=== PATIENT | male | born 1950 | race Caucasian/White ===

== ENCOUNTER 2022-01-31 19:16 | Inpatient (IN) | payer BC ==
--- NOTE | 2022-01-31 21:39 | ED ---
SOB HPI - General Chief Complaint: Shortness of Breath Stated Complaint: Recheck Time Seen by Provider: 01/31/22 21:18 Source: patient, family Mode of arrival: wheelchair - History of Present Illness Initial Comments: 71-year-old male with past history of hypertension, hyperlipidemia presents emergency Department with shortness of breath. States that it been going on for the past 6 weeks and is getting progressively worse. He saw his primary care physician who placed him on steroids. States he originally had some improvement in symptoms however they then returned. He has been having left-sided chest discomfort as well as discomfort in between his shoulder blades. Denies previous history of COPD or cardiac disease. No lower extremity swelling. Tonight he went to an urgent care in [place]. Chest x-ray was performed which demonstrated that the patient had fluid on his left lung. Patient arrives and has a fever. Denies sick contacts. Patient is not vaccinated against Covid. No other alleviating, precipitating or modifying factors - Related Data Home Medications Medication Instructions Recorded Confirmed Multivitamin [Multivitamins Adult 1 each PO DAILY 06/10/16 01/31/22 Gummies] Rosuvastatin Calcium [Crestor] 5 mg PO Q48H 06/10/16 01/31/22 Azithromycin [Zithromax] 500 mg PO DAILY 01/31/22 01/31/22 Cholecalciferol [Vitamin D3 (25 25 mcg PO DAILY 01/31/22 01/31/22 Mcg = 1000 Iu)] Elderberry Fruit and Flower [Black 1 cap PO DAILY 01/31/22 01/31/22 Elderberry 575 mg Cap] Irbesartan/Hydrochlorothiazide 1 tab PO HS 01/31/22 01/31/22 [Irbesartan-Hctz 300-12.5 mg Tb] Magnesium 250 mg PO DAILY 01/31/22 01/31/22 Vitamin B Complex 1 cap PO DAILY 01/31/22 01/31/22 Allergies Allergy/AdvReac Type Severity Reaction Status Date / Time No Known Allergies Allergy Verified 01/31/22 22:30 Review of Systems ROS Statement: Those systems with pertinent positive or pertinent negative responses have been documented in the HPI. ROS Other: All systems not noted in ROS Statement are negative. Past Medical History Past Medical History: Hyperlipidemia, Hypertension History of Any Multi-Drug Resistant Organisms: None Reported Additional Past Surgical History / Comment(s): toe amputation Past Psychological History: No Psychological Hx Reported Smoking Status: Never smoker Past Alcohol Use History: None Reported Past Drug Use History: None Reported - Past Family History Mother Family Medical History: No Reported History Father Family Medical History: Coronary Artery Disease (CAD) General Exam General appearance: alert, in no apparent distress Head exam: Present: atraumatic, normocephalic, normal inspection Eye exam: Present: normal appearance, PERRL, EOMI. Absent: scleral icterus, conjunctival injection, periorbital swelling ENT exam: Present: normal exam, mucous membranes moist Neck exam: Present: normal inspection. Absent: tenderness, meningismus, lymphadenopathy Respiratory exam: Present: decreased breath sounds (on the left). Absent: respiratory distress, wheezes, rales, rhonchi, stridor Cardiovascular Exam: Present: normal rhythm, tachycardia, normal heart sounds. Absent: systolic murmur, diastolic murmur, rubs, gallop, clicks GI/Abdominal exam: Present: soft, normal bowel sounds. Absent: distended, tenderness, guarding, rebound, rigid Extremities exam: Present: normal inspection, full ROM, normal capillary refill. Absent: tenderness, pedal edema, joint swelling, calf tenderness Back exam: Present: normal inspection Neurological exam: Present: alert, oriented X3, CN II-XII intact Psychiatric exam: Present: normal affect, normal mood Skin exam: Present: warm, dry, intact, normal color. Absent: rash Course Vital Signs 01/31/22 01/31/22 02/01/22 20:28 22:30 00:48 Temperature 100.5 F H 97.9 F Pulse Rate 106 H 71 Respiratory 19 18 18 Rate Blood Pressure 138/82 121/73 O2 Sat by Pulse 94 L 94 L Oximetry Medical Decision Making - Medical Decision Making Arrival patient is placed into room 5. History and physical exam was performed. IV access established laboratory studies were conducted. Patient does go over for CT of his chest which demonstrates a left lid of fluid collection on the left lung. Concern for empyema. Blood cultures obtained and patient started on Zosyn. Recommended admission for which the patient did agree to. Spoke with Dr. durant who agreed to admit the patient. He remained in stable condition awaiting a bed on the floor - Lab Data Result diagrams: 02/07/22 06:06 02/07/22 06:06 Lab Results 01/31/22 01/31/22 01/31/22 Range/Units 22:04 22:04 22:04 WBC 18.7 H (3.8-10.6) k/uL RBC 3.89 L (4.30-5.90) m/uL Hgb 11.6 L (13.0-17.5) gm/dL Hct 36.3 L (39.0-53.0) % MCV 93.3 (80.0-100.0) fL MCH 29.8 (25.0-35.0) pg MCHC 32.0 (31.0-37.0) g/dL RDW 12.3 (11.5-15.5) % Plt Count 305 (150-450) k/uL MPV 7.4 Neutrophils % 94 % Lymphocytes % 2 % Monocytes % 4 % Eosinophils % 1 % Basophils % 0 % Neutrophils # 17.5 H (1.3-7.7) k/uL Lymphocytes # 0.3 L (1.0-4.8) k/uL Monocytes # 0.7 (0-1.0) k/uL Eosinophils # 0.1 (0-0.7) k/uL Basophils # 0.1 (0-0.2) k/uL PT 11.2 (9.0-12.0) sec INR 1.0 (<1.2) APTT 26.0 (22.0-30.0) sec Sodium 129 L (137-145) mmol/L Potassium 4.3 (3.5-5.1) mmol/L Chloride 97 L (98-107) mmol/L Carbon Dioxide 23 (22-30) mmol/L Anion Gap 9 mmol/L BUN 26 H (9-20) mg/dL Creatinine 0.75 (0.66-1.25) mg/dL Est GFR (CKD-EPI)AfAm >90 (>60 ml/min/1.73 sqM) Est GFR (CKD-EPI)NonAf >90 (>60 ml/min/1.73 sqM) Glucose 208 H (74-99) mg/dL Plasma Lactic Acid Dylan (0.7-2.0) mmol/L Calcium 8.3 L (8.4-10.2) mg/dL Total Bilirubin 0.7 (0.2-1.3) mg/dL AST 31 (17-59) U/L ALT 33 (4-49) U/L Alkaline Phosphatase 87 (38-126) U/L Troponin I (0.000-0.034) ng/mL NT-Pro-B Natriuret Pep pg/mL Total Protein 5.8 L (6.3-8.2) g/dL Albumin 3.0 L (3.5-5.0) g/dL Coronavirus (PCR) (Not Detectd) Influenza Type A RNA (Not Detectd) Influenza Type B (PCR) (Not Detectd) 01/31/22 01/31/22 01/31/22 Range/Units 22:04 22:04 22:04 WBC (3.8-10.6) k/uL RBC (4.30-5.90) m/uL Hgb (13.0-17.5) gm/dL Hct (39.0-53.0) % MCV (80.0-100.0) fL MCH (25.0-35.0) pg MCHC (31.0-37.0) g/dL RDW (11.5-15.5) % Plt Count (150-450) k/uL MPV Neutrophils % % Lymphocytes % % Monocytes % % Eosinophils % % Basophils % % Neutrophils # (1.3-7.7) k/uL Lymphocytes # (1.0-4.8) k/uL Monocytes # (0-1.0) k/uL Eosinophils # (0-0.7) k/uL Basophils # (0-0.2) k/uL PT (9.0-12.0) sec INR (<1.2) APTT (22.0-30.0) sec Sodium (137-145) mmol/L Potassium (3.5-5.1) mmol/L Chloride (98-107) mmol/L Carbon Dioxide (22-30) mmol/L Anion Gap mmol/L BUN (9-20) mg/dL Creatinine (0.66-1.25) mg/dL Est GFR (CKD-EPI)AfAm (>60 ml/min/1.73 sqM) Est GFR (CKD-EPI)NonAf (>60 ml/min/1.73 sqM) Glucose (74-99) mg/dL Plasma Lactic Acid Dylan 0.7 (0.7-2.0) mmol/L Calcium (8.4-10.2) mg/dL Total Bilirubin (0.2-1.3) mg/dL AST (17-59) U/L ALT (4-49) U/L Alkaline Phosphatase (38-126) U/L Troponin I 0.022 (0.000-0.034) ng/mL NT-Pro-B Natriuret Pep 201 pg/mL Total Protein (6.3-8.2) g/dL Albumin (3.5-5.0) g/dL Coronavirus (PCR) (Not Detectd) Influenza Type A RNA (Not Detectd) Influenza Type B (PCR) (Not Detectd) 01/31/22 01/31/22 Range/Units 22:46 22:46 WBC (3.8-10.6) k/uL RBC (4.30-5.90) m/uL Hgb (13.0-17.5) gm/dL Hct (39.0-53.0) % MCV (80.0-100.0) fL MCH (25.0-35.0) pg MCHC (31.0-37.0) g/dL RDW (11.5-15.5) % Plt Count (150-450) k/uL MPV Neutrophils % % Lymphocytes % % Monocytes % % Eosinophils % % Basophils % % Neutrophils # (1.3-7.7) k/uL Lymphocytes # (1.0-4.8) k/uL Monocytes # (0-1.0) k/uL Eosinophils # (0-0.7) k/uL Basophils # (0-0.2) k/uL PT (9.0-12.0) sec INR (<1.2) APTT (22.0-30.0) sec Sodium (137-145) mmol/L Potassium (3.5-5.1) mmol/L Chloride (98-107) mmol/L Carbon Dioxide (22-30) mmol/L Anion Gap mmol/L BUN (9-20) mg/dL Creatinine (0.66-1.25) mg/dL Est GFR (CKD-EPI)AfAm (>60 ml/min/1.73 sqM) Est GFR (CKD-EPI)NonAf (>60 ml/min/1.73 sqM) Glucose (74-99) mg/dL Plasma Lactic Acid Dylan (0.7-2.0) mmol/L Calcium (8.4-10.2) mg/dL Total Bilirubin (0.2-1.3) mg/dL AST (17-59) U/L ALT (4-49) U/L Alkaline Phosphatase (38-126) U/L Troponin I (0.000-0.034) ng/mL NT-Pro-B Natriuret Pep pg/mL Total Protein (6.3-8.2) g/dL Albumin (3.5-5.0) g/dL Coronavirus (PCR) Not Detected (Not Detectd) Influenza Type A RNA Not Detected (Not Detectd) Influenza Type B (PCR) Not Detected (Not Detectd) - EKG Data EKG Comments: EKG demonstrates sinus rhythm with a rate of 86. MD interval 139. QRS 108. QTC 405. No acute ST segment elevations or depressions Disposition Clinical Impression: Sepsis, Pyrexia, Shortness of breath, Pleural effusion, left Disposition: ADMITTED IP TO THIS HOSP Condition: Serious Is patient prescribed a controlled substance at d/c from ED?: No Time of Disposition: 00:00 Decision to Admit Reason: Admit from EC Decision Date: 02/01/22 Decision Time: 00:00
[2022-01-31 22:29] LABS: Basophils # (A) 0.1 k/uL (0-0.2); Basophils % (A) 0 %; Eosinophils # (A) 0.1 k/uL (0-0.7); Eosinophils % (A) 1 %; HCT 36.3 % (39.0-53.0); HGB 11.6 gm/dL (13.0-17.5); Lymphocytes # (A) 0.3 k/uL (1.0-4.8); Lymphocytes % (A) 2 %; MCH 29.8 pg (25.0-35.0); MCV 93.3 fL (80.0-100.0); Mean Platelet Volume 7.4; Monocytes # (A) 0.7 k/uL (0-1.0); Monocytes % (A) 4 %; Neutrophils # (A) 17.5 k/uL (1.3-7.7); Neutrophils % (A) 94 %; Platelet Count 305 k/uL (150-450); RBC 3.89 m/uL (4.30-5.90); RDW 12.3 % (11.5-15.5); WBC 18.7 k/uL (3.8-10.6)
[2022-01-31] MEDS ORDERED: ACETAMINOPHEN TAB 500 MG TAB PO STA (22:33)
[2022-01-31 22:36] LABS: ALT 33 U/L (4-49); AST 31 U/L (17-59); African American GFR (CKD) >90 (>60 ml/min/1.73 sqM); Alkaline Phosphatase 87 U/L (38-126); Anion Gap 9 mmol/L; Blood Urea Nitrogen 26 mg/dL (9-20); Calcium 8.3 mg/dL (8.4-10.2); Carbon Dioxide 23 mmol/L (22-30); Chloride 97 mmol/L (98-107); Glucose 208 mg/dL (74-99); Non-African American GFR(CKD) >90 (>60 ml/min/1.73 sqM); Potassium 4.3 mmol/L (3.5-5.1); Sodium 129 mmol/L (137-145); Total Bilirubin 0.7 mg/dL (0.2-1.3); Total Protein 5.8 g/dL (6.3-8.2)
[2022-01-31] MEDS: SODIUM CHLORIDE 0.9% 1,000 ML IV SCH (22:41)
[2022-01-31 22:42] LABS: Prothrombin Time 11.2 sec (9.0-12.0)
[2022-02-01] MEDS ORDERED: NALOXONE 0.4 MG/ML 1 ML VIAL IV PRN
--- NOTE | 2022-02-01 | CT ---
EXAMINATION TYPE: CT chest angio for PE DATE OF EXAM: 01/31/2022 COMPARISON: 06/27/2010 HISTORY: SOB/fever. rule out PE CT DLP: 494.6 mGycm Automated exposure control for dose reduction was used. CONTRAST: Performed with IV Contrast, patient injected with 100ml mL of Isovue 370. There are Three-D postprocessed images. There is large left-sided loculated pleural effusion. There is some atelectasis in the left lung fiel d adjacent to the pleural fluid. Mediastinum is normal. No adenopathy. Thoracic aorta is intact. Ther e is 2 cm enlarged left bronchial lymph node. There is normal contrast opacification of the pulmonary arteries. No filling defect. The thoracic spine is intact. No compression fracture. Sternum is intact. IMPRESSION: No evidence of pulmonary embolism. Large loculated left pleural effusion with some infiltrate atelect asis left lower lobe. This could relate to empyema. Follow-up recommended. Mesothelioma and also poss ible. Abnormalities appear new compared to the old exam.
[2022-02-01] MEDS ORDERED: ACETAMINOPHEN TAB 325 MG TAB PO PRN (00:05)
[2022-02-01] MEDS ORDERED: IBUPROFEN 400 MG TAB PO PRN (00:05)
[2022-02-01] MEDS ORDERED: NON FORMULARY DRUG (Irbesartan/Hydrochlorothiazide [Irbesartan-Hctz 300-12.5 Mg Tb] 1 EACH PO SCH (00:30)
[2022-02-01] MEDS: PIPERACILLIN-TAZOBACTAM 3.375 GM in SODIUM CHLORIDE 0.9% 100 ML IVPB SCH ×3 (00:38→17:20)
[2022-02-01] MEDS ORDERED: ATORVASTATIN 10 MG TAB PO ONE (00:45)
[2022-02-01] MEDS: LOSARTAN 50 MG TAB PO SCH ×2 (01:50→20:59)
[2022-02-01] MEDS: hydroCHLOROthiazide 12.5 MG CAP PO SCH ×2 (02:03→20:59)
[2022-02-01] MEDS: SODIUM CHLORIDE 0.9% 1,000 ML IV SCH ×2 (05:38→17:20)
[2022-02-01] MEDS: MAGNESIUM OXIDE 400 MG TAB PO SCH (08:33)
[2022-02-01 11:46] LABS: Basophils % (A) 0 %; Eosinophils # (A) 0.1 k/uL (0-0.7); Eosinophils % (A) 0 %; HCT 36.9 % (39.0-53.0); Lymphocytes # (A) 0.5 k/uL (1.0-4.8); Lymphocytes % (A) 3 %; MCH 30.5 pg (25.0-35.0); MCHC 32.6 g/dL (31.0-37.0); MCV 93.3 fL (80.0-100.0); Mean Platelet Volume 7.5; Monocytes # (A) 0.8 k/uL (0-1.0); Monocytes % (A) 4 %; Neutrophils # (A) 17.7 k/uL (1.3-7.7); Neutrophils % (A) 93 %; Platelet Count 376 k/uL (150-450); RBC 3.96 m/uL (4.30-5.90); WBC 19.1 k/uL (3.8-10.6)
[2022-02-01 12:15] LABS: African American GFR (CKD) >90 (>60 ml/min/1.73 sqM); Anion Gap 8 mmol/L; Blood Urea Nitrogen 21 mg/dL (9-20); Calcium 8.6 mg/dL (8.4-10.2); Carbon Dioxide 27 mmol/L (22-30); Chloride 102 mmol/L (98-107); Glucose 184 mg/dL (74-99); Non-African American GFR(CKD) >90 (>60 ml/min/1.73 sqM); Potassium 4.3 mmol/L (3.5-5.1); Sodium 137 mmol/L (137-145)
--- NOTE | 2022-02-01 12:38 | P.CNPUL ---
History of Present Illness Consult date: 02/01/22 Reason for consult: dyspnea History of present illness: 71-year-old male patient, a nonsmoker, no previous history of lung disease, who developed pneumonialike symptoms approximately 6 weeks ago. The patient had congestion, shortness of breath and pleurisy involving the left lung. He was given IV Rocephin for an urgent care and later on steroids with primary care physician. Nevertheless, he never recovered. He was having ongoing chest discomfort on the left. He was also having sweats and chills and episodic fever. He was getting progressively more weak and for that reason he came in to the hospital for further evaluation. The patient has not had any exposure or infection with COVID 19. He has not been vaccinated also. He has no altered mentation. No hemoptysis for now. The patient had a white cell count of 18.7 with a hemoglobin of 11. The blood work showed initial sodium of 129 and that came at 137 within the treatment. BUN was 21 with a creatinine of 0.6 and coagulation profile was essentially within normal limits. The chest x-ray not done and the patient underwent a CT angiogram that showed no this of any pulm onary embolism. There was large loculated or multiloculated left-sided pleural effusion with possibility of underlying empyema. Right lung was essentially clear. The patient was started on IV Zosyn and the patient was hospitalized. A pulmonary palpation was requested. No previous bouts of pneumonias. No chest trauma. No 70 malignancy. No TB exposure. Review of Systems Constitutional: Reports fatigue, Reports fever Eyes: denies as per HPI, denies blurred vision, denies bulging eye, denies decreased vision, denies diplopia, denies discharge, denies dry eye, denies irritation, denies itching, denies pain, denies photophobia, denies loss of peripheral vision, denies loss of vision, denies tunnel vision/blind spots Ears: deny: decreased hearing, ear discharge, earache, tinnitus Ears, nose, mouth and throat: Reports as per HPI Breasts: absent: as per HPI, gynecomastia Cardiovascular: Reports decreased exercise tolerance, Reports dyspnea on exertion Respiratory: Reports as per HPI, Reports cough, Reports cough with sputum, Reports dyspnea Genitourinary: Reports as per HPI Musculoskeletal: Reports as per HPI Musculoskeletal: absent: ankle pain, ankle stiffness, ankle swelling Neurological: Reports as per HPI Endocrine: Reports as per HPI Hematologic/Lymphatic: Reports as per HPI Allergic/Immunologic: Reports as per HPI Past Medical History Past Medical History: Hyperlipidemia, Hypertension History of Any Multi-Drug Resistant Organisms: None Reported Additional Past Surgical History / Comment(s): toe amputation Past Anesthesia/Blood Transfusion Reactions: No Reported Reaction Past Psychological History: No Psychological Hx Reported Smoking Status: Never smoker Past Alcohol Use History: None Reported Past Drug Use History: None Reported Medications and Allergies Home Medications Medication Instructions Recorded Confirmed Type Multivitamin [Multivitamins Adult 1 each PO DAILY 06/10/16 01/31/22 History Gummies] Rosuvastatin Calcium [Crestor] 5 mg PO Q48H 06/10/16 01/31/22 History Azithromycin [Zithromax] 500 mg PO DAILY 01/31/22 01/31/22 History Cholecalciferol [Vitamin D3 (25 25 mcg PO DAILY 01/31/22 01/31/22 History Mcg = 1000 Iu)] Elderberry Fruit and Flower [Black 1 cap PO DAILY 01/31/22 01/31/22 History Elderberry 575 mg Cap] Irbesartan/Hydrochlorothiazide 1 tab PO HS 01/31/22 01/31/22 History [Irbesartan-Hctz 300-12.5 mg Tb] Magnesium 250 mg PO DAILY 01/31/22 01/31/22 History Vitamin B Complex 1 cap PO DAILY 01/31/22 01/31/22 History Allergies Allergy/AdvReac Type Severity Reaction Status Date / Time No Known Allergies Allergy Verified 01/31/22 22:30 Physical Exam Vitals: Vital Signs Temp Pulse Pulse Pulse Resp BP BP 02/01/22 04:53 97.4 F L 63 18 123/76 02/01/22 02:59 69 18 02/01/22 02:00 97.8 F 69 18 110/69 02/01/22 00:48 97.9 F 71 18 121/73 01/31/22 22:30 18 01/31/22 20:28 100.5 F H 106 H 19 138/82 Pulse Ox 02/01/22 04:53 92 L 02/01/22 02:59 02/01/22 02:00 94 L 02/01/22 00:48 94 L 01/31/22 22:30 01/31/22 20:28 94 L Intake and Output 01/31/22 02/01/22 02/01/22 22:59 06:59 14:59 Intake Total 750 Balance 750 Intake: Intake, IV Titration 750 Amount Piperacillin-Tazobactam 3 100 .375 gm In Sodium Chloride 0.9% 100 ml @ 25 mls/hr IVPB Q8HR DEMETRI Rx# :[id number] Sodium Chloride 0.9% 1, 650 000 ml @ 130 mls/hr IV . Q7H42M DEMETRI Rx#:[id number] Other: Voiding Method Toilet Weight 82.554 kg 82.554 kg Gen. appearance, comfortable on room air oxygen, having some sweats, currently on room air oxygen Head exam was generally normal. There was no scleral icterus or corneal arcus. Mucous membranes were moist. Neck was supple and without jugular venous distension, thyromegaly, or carotid bruits. Carotids were easily palpable bilaterally. There was no adenopathy. Lungs sounds are diminished on the left compared to the right and the patient is some dullness to percussion Cardiac exam revealed the PMI to be normally situated and sized. The rhythm was regular and no extrasystoles were noted during several minutes of auscultation. The first and second heart sounds were normal and physiologic splitting of the second heart sound was noted. There were no murmurs, rubs, clicks, or gallops. Abdominal exam revealed normal bowel sounds. The abdomen was soft, non-tender, and without masses, organomegaly, or appreciable enlargement of the abdominal aorta. Examination of the extremities revealed easily palpable radial, femoral and pedal pulses. There was no cyanosis, clubbing or edema. Examination of the skin revealed no evidence of significant rashes, suspicious appearing nevi or other concerning lesions. Neurologically, the patient is awake and alert and the patient does not have any focal neurological deficit. Cranial nerves are essentially intact. Results - Laboratory Findings CBC and BMP: 02/01/22 11:32 02/01/22 11:32 PT/INR, D-dimer PT 11.2 sec (9.0-12.0) 01/31/22 22:04 INR 1.0 (<1.2) 01/31/22 22:04 Abnormal lab findings: Abnormal Labs 01/31/22 01/31/22 22:04 22:04 WBC 18.7 H RBC 3.89 L Hgb 11.6 L Hct 36.3 L Neutrophils # 17.5 H Lymphocytes # 0.3 L Sodium 129 L Chloride 97 L BUN 26 H Glucose 208 H Calcium 8.3 L Total Protein 5.8 L Albumin 3.0 L - Diagnostic Findings CT scan - chest: image reviewed Assessment and Plan Plan: Complicated multi loculated parapneumonic left-sided pleural effusion, possible empyema. Malignancy is felt to be less likely. There is a complication of a previously undertreated pneumonia Shortness of breath secondary to above Pleurisy secondary to above Fever/night sweats and leukocytosis secondary to above Hypertension Hyperlipidemia Plan Discussed findings with the patient Continue IV Zosyn Consult with interventional radiology and proceed with a pigtail catheter insertion for a complicated multiloculated left-sided pleural effusion/empyema. The fluid will be sent for cultures and analysis. If very much likely to the patient will need alteplase administration to breakdown that seizures on localization. Possibility of thoracoscopic drainage/decortication was also entertained with the patient and for that reason and her thoracic surgery will be also consulted. Resume all medications Obtain blood cultures Provide an incentive spirometer We'll continue to follow
--- NOTE | 2022-02-02 00:01 | P.HPIM ---
History of Present Illness H&P Date: 02/01/22 Chief Complaint: shortness of breath, fever This is a 71 year old male with past medical history significant for hypertension, hyperlipidemia. He presents with 3 days of fever, shortness of breath and pleuritic chest pain. States about 6 weeks ago he began having cough and was evaluated in the clinic and IM antibiotic injection. Also had outpatient chest xray done. He was given steroids by his primary care provider. He states it didn't seem to help and was concerned when he developed fever and weakness with congestion. He is nonsmoker, reports no marijuana use. He does not work in a factor type setting, denies exposure to toxins. He rides a motorcycle and states he notice trouble breathing after a long ride which is unusual for him. He is overall healthy. On admission chest CTA has been completed showing large loculated left pleural effusions with infiltrate, and atelectasis left lower lobe. There is concern for empyema and patient was started on empiric antibiotic coverage with zosyn. Pulmonary has evaluated the patient and IR has been consulted for pigtail cathter insertion. IR is not available until Thursday. Cardiothoracic has also been consulted. Patient for now is maintained oxygen saturation of 92% on room air. He presents with fever 100.5, heart rate 75, blood pressure 120/70. White count 18.7, hgb 11.6, sodium 129, potassium 4.3, glucose is 208. Troponin negative. REVIEW OF SYSTEMS: CONSTITUTIONAL: Denies fever. HEENT: No recent visual problems or hearing problems. Denied any sore throat. CARDIOVASCULAR: No chest pain, orthopnea, PND, no palpitations, no syncope. PULMONARY: Reports shortness of breath worth with exertion, reports cough GASTROINTESTINAL: Denies nausea vomiting diarrhea NEUROLOGICAL: No headaches, no weakness, no numbness. HEMATOLOGICAL: Denies any bleeding or petechiae. GENITOURINARY: Denies any burning micturition, frequency, or urgency. MUSCULOSKELETAL/RHEUMATOLOGICAL: Denies any joint pain, swelling, or any muscle pain. ENDOCRINE: Denies any polyuria or polydipsia. The rest of the 14-point review of systems is negative. PHYSICAL EXAMINATION: GENERAL: The patient is alert and oriented x3, in no acute distress. Well developed, well nourished. HEENT: Pupils are round and equally reacting to light. EOMI. No scleral icterus. No conjunctival pallor. Normocephalic, atraumatic. No pharyngeal erythema. No thyromegaly. CARDIOVASCULAR: S1 and S2 present. No murmurs, rubs, or gallops. PULMONARY: Left posterior lung sounds are diminished ABDOMEN: Soft, nontender, nondistended, normoactive bowel sounds. No palpable organomegaly. MUSCULOSKELETAL: No joint swelling or deformity. EXTREMITIES: No cyanosis, clubbing, or pedal edema. Trace ankle edema NEUROLOGICAL: Gross neurological examination did not reveal any focal deficits. SKIN: No rashes. Assessment and Plan Assessment Shortness of breath Large loculated left side pleural effusion suspected pneumonia with empyema, continues on empiric antibiotic coverage Leukocytosis, fever secondary to above Hypertension Hyperlpidemia Elevated blood glucose without history of diabetes GI Prophylaxis DVT Prophylaxis Full Code Plan Pending cardiothoracic evaluation Pulmonary consultation Continue empiric antibiotic coverage IR has been consulted for placement of pigtail catheter Monitor pulse oximeter, oxygen support as needed Blood cultures have been ordered as well Follow up AM labs The impression and plan of care has been dictated by Alice Botello, Nurse Practitioner as directed. Dr. Hermelindo MD I have performed a history and physical examination and medical decision making of this patient, discussed the same with the dictator, and agree with the dictators assessment and plan as written, documented as a scribe. Based on total visit time, I have performed more than 50% of this visit. Past Medical History Past Medical History: Hyperlipidemia, Hypertension History of Any Multi-Drug Resistant Organisms: None Reported Additional Past Surgical History / Comment(s): toe amputation Past Anesthesia/Blood Transfusion Reactions: No Reported Reaction Past Psychological History: No Psychological Hx Reported Smoking Status: Never smoker Past Alcohol Use History: None Reported Past Drug Use History: None Reported Medications and Allergies Home Medications Medication Instructions Recorded Confirmed Type Multivitamin [Multivitamins Adult 1 each PO DAILY 06/10/16 01/31/22 History Gummies] Rosuvastatin Calcium [Crestor] 5 mg PO Q48H 06/10/16 01/31/22 History Azithromycin [Zithromax] 500 mg PO DAILY 01/31/22 01/31/22 History Cholecalciferol [Vitamin D3 (25 25 mcg PO DAILY 01/31/22 01/31/22 History Mcg = 1000 Iu)] Elderberry Fruit and Flower [Black 1 cap PO DAILY 01/31/22 01/31/22 History Elderberry 575 mg Cap] Irbesartan/Hydrochlorothiazide 1 tab PO HS 01/31/22 01/31/22 History [Irbesartan-Hctz 300-12.5 mg Tb] Magnesium 250 mg PO DAILY 01/31/22 01/31/22 History Vitamin B Complex 1 cap PO DAILY 01/31/22 01/31/22 History Allergies Allergy/AdvReac Type Severity Reaction Status Date / Time No Known Allergies Allergy Verified 01/31/22 22:30 Physical Exam Vitals: Vital Signs Temp Pulse Pulse Pulse Resp BP BP 02/01/22 04:53 97.4 F L 63 18 123/76 02/01/22 02:59 69 18 02/01/22 02:00 97.8 F 69 18 110/69 02/01/22 00:48 97.9 F 71 18 121/73 01/31/22 22:30 18 01/31/22 20:28 100.5 F H 106 H 19 138/82 Pulse Ox 02/01/22 04:53 92 L 02/01/22 02:59 02/01/22 02:00 94 L 02/01/22 00:48 94 L 01/31/22 22:30 01/31/22 20:28 94 L Intake and Output 01/31/22 02/01/22 02/01/22 22:59 06:59 14:59 Intake Total 750 Balance 750 Intake: Intake, IV Titration 750 Amount Piperacillin-Tazobactam 3 100 .375 gm In Sodium Chloride 0.9% 100 ml @ 25 mls/hr IVPB Q8HR [facility] Rx# :[id number] Sodium Chloride 0.9% 1, 650 000 ml @ 130 mls/hr IV . Q7H42M [facility] Rx#:[id number] Other: Voiding Method Toilet Weight 82.554 kg 82.554 kg Results CBC & Chem 7: 02/01/22 11:32 02/01/22 11:32 Labs: Abnormal Lab Results - Last 24 Hours (Table) 01/31/22 01/31/22 Range/Units 22:04 22:04 WBC 18.7 H (3.8-10.6) k/uL RBC 3.89 L (4.30-5.90) m/uL Hgb 11.6 L (13.0-17.5) gm/dL Hct 36.3 L (39.0-53.0) % Neutrophils # 17.5 H (1.3-7.7) k/uL Lymphocytes # 0.3 L (1.0-4.8) k/uL Sodium 129 L (137-145) mmol/L Chloride 97 L (98-107) mmol/L BUN 26 H (9-20) mg/dL Glucose 208 H (74-99) mg/dL Calcium 8.3 L (8.4-10.2) mg/dL Total Protein 5.8 L (6.3-8.2) g/dL Albumin 3.0 L (3.5-5.0) g/dL Thrombosis Risk Factor Assmnt - Choose All That Apply Any of the Below Risk Factors Present?: No Other Risk Factors: Yes Each Risk Factor Represents 2 Points: Age 61-74 years Other congenital or acquired thrombophilia - If yes, enter type in comment: No Thrombosis Risk Factor Assessment Total Risk Factor Score: 2 Thrombosis Risk Factor Assessment Level: Low Risk Assessment and Plan Time with Patient: Less than 30
[2022-02-02] MEDS: PIPERACILLIN-TAZOBACTAM 3.375 GM in SODIUM CHLORIDE 0.9% 100 ML IVPB SCH ×3 (03:09→17:39)
[2022-02-02] MEDS: SODIUM CHLORIDE 0.9% 1,000 ML IV SCH ×4 (05:35→17:41)
[2022-02-02] MEDS: INSULIN ASPART (NovoLOG) 100 UNIT/ML VIAL SQ SCH ×4 (07:47→21:37)
[2022-02-02 07:58] LABS: Glucose,Whole Blood 129 mg/dL (75-99)
[2022-02-02] MEDS: MAGNESIUM OXIDE 400 MG TAB PO SCH (08:55)
[2022-02-02 09:20] LABS: Basophils # (A) 0.02 X 10*3/uL (0.00-0.10); Basophils % (A) 0.1 %; Eosinophils # (A) 0.01 X 10*3/uL (0.04-0.35); Eosinophils % (A) 0.1 %; HCT 33.7 % (39.6-50.0); HGB 10.8 g/dL (13.0-17.0); Immature Grans, Automated 0.4 %; Lymphocytes # (A) 1.13 X 10*3/uL (0.90-5.00); Lymphocytes % (A) 6.9 %; MCH 29.6 pg (27.0-32.0); MCV 92.3 fL (80.0-97.0); Mean Platelet Volume 9.9 fL (9.5-12.2); Monocytes # (A) 1.08 X 10*3/uL (0.20-1.00); Monocytes % (A) 6.6 %; NRBC Per 100 WBC 0 /100 WBCS (0.0-0.0); Neutrophils # (A) 13.99 X 10*3/uL (1.80-7.70); Neutrophils % (A) 85.9 %; Platelet Count 354 X 10*3/uL (140-440); RBC 3.65 X 10*6/uL (4.40-5.60); RDW 12.5 % (11.5-14.5)
--- NOTE | 2022-02-02 09:43 | P.GSCN ---
History of Present Illness Consult date: 02/02/22 Reason for Consult: Loculated left-sided effusion, possible empyema Requesting physician: Francois Landaverde History of present illness: This is a 71-year-old active gentleman who follows on an outpatient basis with Dr. Villarreal in for primary care. He has a previous medical history of hypertension, hyperlipidemia, BPH, never smoker. This gentleman has a six-week history of cough with pleuritic symptoms. He was seen by his primary physician who prescribed steroids. He continued to have a cough, and over the last few days had developed fevers, chills, sweats, and pain with inspiration. His primary care requested he come to the emergency room, however he initially reported to an urgent care clinic who took an x-ray and recommended he go to the hospital for evaluation and treatment. On admission to [facility] his white blood cell count was 18.7, lactic acid 0.7, Zee virus PCR as well as influenza A and B undetected. Chest CTA demonstrated no pulmonary embolism, however there was a large loculated left pleural effusion with infiltrate in the left lower lobe with concern for empyema. The patient was admitted with consultation placed to pulmonology. He was started on IV Zosyn. He was seen by Dr. Landaverde yesterday who placed a consult for interventional radiology to place pigtail catheter for administration of alteplase/dornase as well as need for cultures. Consultation was placed to cardiothoracic surgery for management of lytic instillation as well as future possibility of thoracoscopic drainage/decortication. Review of Systems Review of systems was completed and was negative except as noted - Constitutional Reports as per HPI, Reports chills, Reports fever, Reports sweats - Respiratory Reports as per HPI, Reports cough, Reports pain on inspiration Past Medical History Past Medical History: Hyperlipidemia, Hypertension, Prostate Disorder History of Any Multi-Drug Resistant Organisms: None Reported Additional Past Surgical History / Comment(s): toe amputation; right knee scope Past Anesthesia/Blood Transfusion Reactions: No Reported Reaction Past Psychological History: No Psychological Hx Reported Smoking Status: Never smoker Past Alcohol Use History: None Reported Past Drug Use History: None Reported - Past Family History Mother Family Medical History: No Reported History Father Family Medical History: Coronary Artery Disease (CAD) Medications and Allergies Home Medications Medication Instructions Recorded Confirmed Type Multivitamin [Multivitamins Adult 1 each PO DAILY 06/10/16 01/31/22 History Gummies] Rosuvastatin Calcium [Crestor] 5 mg PO Q48H 06/10/16 01/31/22 History Azithromycin [Zithromax] 500 mg PO DAILY 01/31/22 01/31/22 History Cholecalciferol [Vitamin D3 (25 25 mcg PO DAILY 01/31/22 01/31/22 History Mcg = 1000 Iu)] Elderberry Fruit and Flower [Black 1 cap PO DAILY 01/31/22 01/31/22 History Elderberry 575 mg Cap] Irbesartan/Hydrochlorothiazide 1 tab PO HS 01/31/22 01/31/22 History [Irbesartan-Hctz 300-12.5 mg Tb] Magnesium 250 mg PO DAILY 01/31/22 01/31/22 History Vitamin B Complex 1 cap PO DAILY 01/31/22 01/31/22 History Allergies Allergy/AdvReac Type Severity Reaction Status Date / Time No Known Allergies Allergy Verified 01/31/22 22:30 Surgical - Exam Vital Signs Temp Pulse Resp BP Pulse Ox 100.5 F H 106 H 19 138/82 94 L 01/31/22 20:28 01/31/22 20:28 01/31/22 20:28 01/31/22 20:28 01/31/22 20:28 CONSTITUTIONAL: Awake and alert, appears comfortable, cooperative, well- developed, well-nourished, no pain, no acute distress EYES: Pupils equal, round, reactive to light, normal ocular movement ENT: Moist mucous membranes without oral lesions present NECK: No masses, no bruits, trachea midline RESPIRATORY: Lungs sounds diminished on the left. Respirations even, nonlabored. Currently on room air with oxygen saturation 97%. Strong nonproductive cough. No chest wall deformities. No clubbing or cyanosis present CARDIOVASCULAR: S1, S2 present. Regular rate and rhythm. Palpable peripheral pulses bilaterally. No edema present. No calf pain or tenderness noted. GASTROINTESTINAL: Abdomen soft, nontender, nondistended without masses or organomegaly noted. There is no rebound or guarding present. Active bowel sounds present 4 quadrants. GENITOURINARY: Deferred INTEGUMENTARY: Skin is warm and dry with evidence of good perfusion. NEUROLOGIC: Cranial nerves II through XII intact, normal coordination, no obvious motor or sensory deficits, speech is normal MUSKULOSKELETAL: Able to move all extremities, strength equal bilaterally, normal posture PSYCHIATRIC: Alert and oriented to person place and time, appropriate affect, intact judgment and insight Results - Labs 02/02/22 05:46 02/01/22 11:32 Abnormal Lab Results - Last 24 Hours (Table) 02/01/22 02/01/22 02/02/22 Range/Units 11:32 11:32 05:46 WBC 19.1 H 16.30 H (3.8-10.6) k/uL RBC 3.96 L 3.65 L (4.30-5.90) m/uL Hgb 12.0 L 10.8 L (13.0-17.5) gm/dL Hct 36.9 L 33.7 L (39.0-53.0) % Immature Gran # 0.07 H (0.00-0.04) X 10*3/uL Neutrophils # 17.7 H 13.99 H (1.3-7.7) k/uL Lymphocytes # 0.5 L (1.0-4.8) k/uL Monocytes # 1.08 H (0.20-1.00) X 10*3/uL Eosinophils # 0.01 L (0.04-0.35) X 10*3/uL BUN 21 H (9-20) mg/dL Glucose 184 H (74-99) mg/dL POC Glucose (mg/dL) (75-99) mg/dL 02/02/22 Range/Units 07:55 WBC (3.8-10.6) k/uL RBC (4.30-5.90) m/uL Hgb (13.0-17.5) gm/dL Hct (39.0-53.0) % Immature Gran # (0.00-0.04) X 10*3/uL Neutrophils # (1.3-7.7) k/uL Lymphocytes # (1.0-4.8) k/uL Monocytes # (0.20-1.00) X 10*3/uL Eosinophils # (0.04-0.35) X 10*3/uL BUN (9-20) mg/dL Glucose (74-99) mg/dL POC Glucose (mg/dL) 129 H (75-99) mg/dL Microbiology - Last 24 Hours (Table) 02/01/22 00:50 Blood Culture - Preliminary Blood No Growth after 24 hours 02/01/22 00:35 Blood Culture - Preliminary Blood No Growth after 24 hours Diabetes panel 02/01/22 Range/Units 11:32 Sodium 137 (137-145) mmol/L Potassium 4.3 (3.5-5.1) mmol/L Chloride 102 (98-107) mmol/L Carbon Dioxide 27 (22-30) mmol/L BUN 21 H (9-20) mg/dL Creatinine 0.69 (0.66-1.25) mg/dL Glucose 184 H (74-99) mg/dL Calcium 8.6 (8.4-10.2) mg/dL Calcium panel 02/01/22 Range/Units 11:32 Calcium 8.6 (8.4-10.2) mg/dL Pituitary panel 02/01/22 Range/Units 11:32 Sodium 137 (137-145) mmol/L Potassium 4.3 (3.5-5.1) mmol/L Chloride 102 (98-107) mmol/L Carbon Dioxide 27 (22-30) mmol/L BUN 21 H (9-20) mg/dL Creatinine 0.69 (0.66-1.25) mg/dL Glucose 184 H (74-99) mg/dL Calcium 8.6 (8.4-10.2) mg/dL Adrenal panel 02/01/22 Range/Units 11:32 Sodium 137 (137-145) mmol/L Potassium 4.3 (3.5-5.1) mmol/L Chloride 102 (98-107) mmol/L Carbon Dioxide 27 (22-30) mmol/L BUN 21 H (9-20) mg/dL Creatinine 0.69 (0.66-1.25) mg/dL Glucose 184 H (74-99) mg/dL Calcium 8.6 (8.4-10.2) mg/dL - Imaging CT scan - chest: report reviewed, image reviewed Assessment and Plan Assessment: 1. Large loculated left-sided pleural effusion, possible empyema 2. Persistent cough, fever, sweats, chills, pain with deep inspiration 3. Leukocytosis 4. History of hypertension 5. History of hyperlipidemia 6. History of prostate disorder 7. Never smoker Plan: The patient was seen and examined at the bedside. Chart/diagnostics were reviewed. The case will be discussed in detail with Dr. Goldsmith. Once interventional radiology places a pigtail catheter we will instill lytics to break up loculations, will follow cultures. Incentive spirometry ordered and should be encouraged. Increase activity as tolerated. Continue antibiotics. Medical management of other comorbidities per primary care service. Thank you Dr. Landaverde for this consult. We will continue to follow along with you and make further recommendations as appropriate. I have personally seen and examined the patient, performed the documentation and the assessment and plan as written. Number of minutes spent on the visit: 30. DANNY DillonC
[2022-02-02 09:52] LABS: African American GFR (CKD) 104.2 (60.0-200.0); Anion Gap 8.4 mmol/L (10.00-18.00); BUN/Creat Ratio 33.38 Ratio (12.00-20.00); Blood Urea Nitrogen 26.7 mg/dL (9.0-27.0); Calcium 8.7 mg/dL (8.7-10.3); Carbon Dioxide 26.6 mmol/L (20.0-27.5); Non-African American GFR(CKD) 89.9 (60.0-200.0); Potassium 4.6 mmol/L (3.5-5.5)
[2022-02-02 12:34] LABS: Glucose,Whole Blood 137 mg/dL (75-99)
--- NOTE | 2022-02-02 14:00 | P.PN ---
Subjective Progress Note Date: 02/02/22 71-year-old male patient, a nonsmoker, no previous history of lung disease, who developed pneumonialike symptoms approximately 6 weeks ago. The patient had congestion, shortness of breath and pleurisy involving the left lung. He was given IV Rocephin for an urgent care and later on steroids with primary care physician. Nevertheless, he never recovered. He was having ongoing chest discomfort on the left. He was also having sweats and chills and episodic fever. He was getting progressively more weak and for that reason he came in to the hospital for further evaluation. The patient has not had any exposure or infection with COVID 19. He has not been vaccinated also. He has no altered mentation. No hemoptysis for now. The patient had a white cell count of 18.7 with a hemoglobin of 11. The blood work showed initial sodium of 129 and that came at 137 within the treatment. BUN was 21 with a creatinine of 0.6 and coagulation profile was essentially within normal limits. The chest x-ray not done and the patient underwent a CT angiogram that showed no this of any pulmonary embolism. There was large loculated or multiloculated left-sided pleural effusion with possibility of underlying empyema. Right lung was essentially clear. The patient was started on IV Zosyn and the patient was hospitalized. A pulmonary palpation was requested. No previous bouts of pneumonias. No chest trauma. No 70 malignancy. No TB exposure. 02/02/2022, the patient is clinically stable on antibiotics. He still has some pleuritic left-sided chest wall pain. I made recommendations for a pigtail catheter insertion by interventional radiology and this has not been done. I do not think day services of interventional radiology are available on the weekend. This was done tomorrow. The patient remains on IV Zosyn for now. Thoracic surgery is also involved in the case. Objective - Vital Signs Vital signs: Vital Signs Temp 99.4 F 02/02/22 12:28 Pulse 98 02/02/22 12:28 Resp 18 02/02/22 12:28 BP 153/77 02/02/22 12:28 Pulse Ox 91 L 02/02/22 12:28 FiO2 Intake & Output 02/01/22 02/02/22 02/02/22 18:59 06:59 18:59 Intake Total 1760 1560 Balance 1760 1560 Intake: Intake, IV Titration 1759 1559 Amount Piperacillin-Tazobactam 3 200 .375 gm In Sodium Chloride 0.9% 100 ml @ 25 mls/hr IVPB Q8HR [facility] Rx# :[id number] Sodium Chloride 0.9% 1, 0 1560 000 ml @ 130 mls/hr IV . Q7H42M [facility] Rx#:[id number] Other: Voiding Method Toilet - Exam Gen. appearance, comfortable on room air oxygen, having some sweats, currently on room air oxygen Head exam was generally normal. There was no scleral icterus or corneal arcus. Mucous membranes were moist. Neck was supple and without jugular venous distension, thyromegaly, or carotid bruits. Carotids were easily palpable bilaterally. There was no adenopathy. Lungs sounds are diminished on the left compared to the right and the patient is some dullness to percussion Cardiac exam revealed the PMI to be normally situated and sized. The rhythm was regular and no extrasystoles were noted during several minutes of auscultation. The first and second heart sounds were normal and physiologic splitting of the second heart sound was noted. There were no murmurs, rubs, clicks, or gallops. Abdominal exam revealed normal bowel sounds. The abdomen was soft, non-tender, and without masses, organomegaly, or appreciable enlargement of the abdominal aorta. Examination of the extremities revealed easily palpable radial, femoral and pedal pulses. There was no cyanosis, clubbing or edema. Examination of the skin revealed no evidence of significant rashes, suspicious appearing nevi or other concerning lesions. Neurologically, the patient is awake and alert and the patient does not have any focal neurological deficit. Cranial nerves are essentially intact. - Labs CBC & Chem 7: 02/02/22 05:46 02/02/22 05:46 Labs: Abnormal Lab Results - Last 24 Hours (Table) 02/02/22 02/02/22 02/02/22 Range/Units 05:46 05:46 05:46 WBC 16.30 H (4.50-10.00) X 10*3/uL RBC 3.65 L (4.40-5.60) X 10*6/uL Hgb 10.8 L (13.0-17.0) g/dL Hct 33.7 L (39.6-50.0) % Immature Gran # 0.07 H (0.00-0.04) X 10*3/uL Neutrophils # 13.99 H (1.80-7.70) X 10*3/uL Monocytes # 1.08 H (0.20-1.00) X 10*3/uL Eosinophils # 0.01 L (0.04-0.35) X 10*3/uL Anion Gap 8.40 L (10.00-18.00) mmol/L BUN/Creatinine Ratio 33.38 H (12.00-20.00) Ratio Glucose 135 H (70-110) mg/dL POC Glucose (mg/dL) (75-99) mg/dL Hemoglobin A1c 6.4 H (0.0-6.0) % 02/02/22 02/02/22 Range/Units 07:55 12:32 WBC (4.50-10.00) X 10*3/uL RBC (4.40-5.60) X 10*6/uL Hgb (13.0-17.0) g/dL Hct (39.6-50.0) % Immature Gran # (0.00-0.04) X 10*3/uL Neutrophils # (1.80-7.70) X 10*3/uL Monocytes # (0.20-1.00) X 10*3/uL Eosinophils # (0.04-0.35) X 10*3/uL Anion Gap (10.00-18.00) mmol/L BUN/Creatinine Ratio (12.00-20.00) Ratio Glucose (70-110) mg/dL POC Glucose (mg/dL) 129 H 137 H (75-99) mg/dL Hemoglobin A1c (0.0-6.0) % Microbiology - Last 24 Hours (Table) 02/01/22 00:50 Blood Culture - Preliminary Blood No Growth after 24 hours 02/01/22 00:35 Blood Culture - Preliminary Blood No Growth after 24 hours Assessment and Plan Plan: Complicated multi loculated parapneumonic left-sided pleural effusion, possible empyema. Malignancy is felt to be less likely. There is a complication of a previously undertreated pneumonia Shortness of breath secondary to above Pleurisy secondary to above Fever/night sweats and leukocytosis secondary to above Hypertension Hyperlipidemia Plan Awaiting for a pigtail catheter insertion Cardiothoracic surgery is on the case Continue IV Zosyn The patient has a a complicated multiloculated left-sided pleural effusio n/empyema. The fluid will be sent for cultures and analysis. If very much likely to the patient will need alteplase administration to breakdown that seizures on localization. Possibility of thoracoscopic drainage/decortication was also entertained with the patient and for that reason and her thoracic surgery will be also consulted. Provide an incentive spirometer We'll continue to follow
[2022-02-02] MEDS ORDERED: BENZOCAINE/MENTHOL LOZENG 1 EACH LOZENGE MUCOUS MEM PRN (16:00)
--- NOTE | 2022-02-02 16:08 | P.PN ---
Subjective Progress Note Date: 02/02/22 This is a 71 year old male with past medical history significant for hypertension, hyperlipidemia. He presents with 3 days of fever, shortness of breath and pleuritic chest pain. States about 6 weeks ago he began having cough and was evaluated in the clinic and IM antibiotic injection. Also had outpatient chest xray done. He was given steroids by his primary care provider. He states it didn't seem to help and was concerned when he developed fever and weakness with congestion. He is nonsmoker, reports no marijuana use. He does not work in a factor type setting, denies exposure to toxins. He rides a motorcycle and states he notice trouble breathing after a long ride which is unusual for him. He is overall healthy. On admission chest CTA has been completed showing large loculated left pleural effusions with infiltrate, and atelectasis left lower lobe. There is concern for empyema and patient was started on empiric antibiotic coverage with zosyn. Pulmonary has evaluated the patient and IR has been consulted for pigtail cathter insertion. IR is not available until Thursday. Cardiothoracic has also been consulted. Patient for now is maintained oxygen saturation of 92% on room air. He presents with fever 100.5, heart rate 75, blood pressure 120/70. White count 18.7, hgb 11.6, sodium 129, potassium 4.3, glucose is 208. Troponin negative. 02/02/2022 Patient is evaluated today sitting up in bed. is at the bedside. Plan is for pigtail catheter insertion with IR tomorrow and cardiothoracic has been consulted for management. Pulmonary is following the patient closely. He continues on room air, however has stated he has increased cough, no sputum production. Also complains of left sided pleuritic pain, he has had motrin 400 mg ordered however he has not received. Did also add a low dose of tramadol for pain management. He continues on IV zosyn for empiric antibiotic coverage. Blood cultures are negative so far. He has remained afebrile, heart rate 98, blood pressure 153/77, 91% on room air. Labs reviewed today showing white count 16.30, hgb 10.8, sodium 136, potassium 4.6. Blood glucose in the 130s. A1C is 6.4 which is on the cusp of prediabetes vs. diabetes, will discuss with patient tomorrow and patient will discharge on an oral diabetic agent. Review of Systems Constitutional: Denied any fatigue denied any fever. Cardio vascular: denied any chest pain, palpitations Gastrointestinal: denied any nausea, vomiting, diarrhea Pulmonary: reports shortness of breath, cough, pleuritic chest pain Neurologic denied any new focal deficits All inpatient medications were reviewed and appropriate changes in these medications as dictated in the interval history and assessment and plan. PHYSICAL EXAMINATION: GENERAL: The patient is alert and oriented x3, in no acute distress. Well developed, well nourished. HEENT: Pupils are round and equally reacting to light. EOMI. No scleral icterus. No conjunctival pallor. Normocephalic, atraumatic. No pharyngeal erythema. No thyromegaly. CARDIOVASCULAR: S1 and S2 present. No murmurs, rubs, or gallops. PULMONARY: Left posterior lung sounds are diminished. Rales left lung base ABDOMEN: Soft, nontender, nondistended, normoactive bowel sounds. No palpable organomegaly. MUSCULOSKELETAL: No joint swelling or deformity. EXTREMITIES: No cyanosis, clubbing, or pedal edema. Trace ankle edema NEUROLOGICAL: Gross neurological examination did not reveal any focal deficits. SKIN: No rashes. Assessment and Plan Assessment Shortness of breath Large loculated left side pleural effusion suspected pneumonia with empyema, con tinues on empiric antibiotic coverage Leukocytosis, fever secondary to above Hypertension Hyperlpidemia Prediabetes/Diabetes with A1C of 6.4 GI Prophylaxis DVT Prophylaxis Full Code Plan Pulmonary, cardiothoracic consultation Continue empiric antibiotic coverage IR has been consulted for placement of pigtail catheter Monitor pulse oximeter, oxygen support as needed Blood cultures have been ordered as well Decrease IV fluids Pain management Follow up AM labs The impression and plan of care has been dictated by Alice Botello, Nurse Practitioner as directed. Dr. Hermelindo MD I have performed a history and physical examination and medical decision making of this patient, discussed the same with the dictator, and agree with the dictators assessment and plan as written, documented as a scribe. Based on total visit time, I have performed more than 50% of this visit. Objective - Vital Signs Vital signs: Vital Signs Temp 98.7 F 02/02/22 05:14 Pulse 87 02/02/22 05:14 Resp 18 02/02/22 05:14 BP 131/84 02/02/22 05:14 Pulse Ox 97 02/02/22 05:14 FiO2 Intake & Output 02/01/22 02/02/22 02/02/22 18:59 06:59 18:59 Intake Total 1760 1560 Balance 1760 1560 Intake: Intake, IV Titration 176 1560 Amount Piperacillin-Tazobactam 3 200 .375 gm In Sodium Chloride 0.9% 100 ml @ 25 mls/hr IVPB Q8HR [facility] Rx# :[id number] Sodium Chloride 0.9% 1, 1560 1560 000 ml @ 130 mls/hr IV . Q7H42M [facility] Rx#:[id number] Other: Voiding Method Toilet - Labs CBC & Chem 7: 02/02/22 05:46 02/02/22 05:46 Labs: Abnormal Lab Results - Last 24 Hours (Table) 02/01/22 02/01/22 02/02/22 Range/Units 11:32 11:32 05:46 WBC 19.1 H 16.30 H (3.8-10.6) k/uL RBC 3.96 L 3.65 L (4.30-5.90) m/uL Hgb 12.0 L 10.8 L (13.0-17.5) gm/dL Hct 36.9 L 33.7 L (39.0-53.0) % Immature Gran # 0.07 H (0.00-0.04) X 10*3/uL Neutrophils # 17.7 H 13.99 H (1.3-7.7) k/uL Lymphocytes # 0.5 L (1.0-4.8) k/uL Monocytes # 1.08 H (0.20-1.00) X 10*3/uL Eosinophils # 0.01 L (0.04-0.35) X 10*3/uL Anion Gap (10.00-18.00) mmol/L BUN 21 H (9-20) mg/dL BUN/Creatinine Ratio (12.00-20.00) Ratio Glucose 184 H (74-99) mg/dL POC Glucose (mg/dL) (75-99) mg/dL Hemoglobin A1c (0.0-6.0) % 02/02/22 02/02/22 02/02/22 Range/Units 05:46 05:46 07:55 WBC (3.8-10.6) k/uL RBC (4.30-5.90) m/uL Hgb (13.0-17.5) gm/dL Hct (39.0-53.0) % Immature Gran # (0.00-0.04) X 10*3/uL Neutrophils # (1.3-7.7) k/uL Lymphocytes # (1.0-4.8) k/uL Monocytes # (0.20-1.00) X 10*3/uL Eosinophils # (0.04-0.35) X 10*3/uL Anion Gap 8.40 L (10.00-18.00) mmol/L BUN (9-20) mg/dL BUN/Creatinine Ratio 33.38 H (12.00-20.00) Ratio Glucose 135 H (74-99) mg/dL POC Glucose (mg/dL) 129 H (75-99) mg/dL Hemoglobin A1c 6.4 H (0.0-6.0) % Microbiology - Last 24 Hours (Table) 02/01/22 00:50 Blood Culture - Preliminary Blood No Growth after 24 hours 02/01/22 00:35 Blood Culture - Preliminary Blood No Growth after 24 hours Assessment and Plan Time with Patient: Less than 30
[2022-02-02 17:00] LABS: Glucose,Whole Blood 131 mg/dL (75-99)
[2022-02-02] MEDS: traMADol 50 MG TAB PO SCH ×2 (17:39→21:38)
[2022-02-02 20:54] LABS: Glucose,Whole Blood 157 mg/dL (75-99)
[2022-02-02] MEDS: ATORVASTATIN 10 MG TAB PO SCH (21:37)
[2022-02-02] MEDS: hydroCHLOROthiazide 12.5 MG CAP PO SCH (21:37)
[2022-02-02] MEDS: LOSARTAN 50 MG TAB PO SCH (21:37)
[2022-02-03] MEDS: PIPERACILLIN-TAZOBACTAM 3.375 GM in SODIUM CHLORIDE 0.9% 100 ML IVPB SCH ×4 (00:05→23:44)
[2022-02-03 07:14] LABS: Glucose,Whole Blood 154 mg/dL (75-99)
[2022-02-03] MEDS: INSULIN ASPART (NovoLOG) 100 UNIT/ML VIAL SQ SCH ×4 (07:24→20:34)
[2022-02-03] MEDS: MAGNESIUM OXIDE 400 MG TAB PO SCH (08:23)
[2022-02-03] MEDS: traMADol 50 MG TAB PO SCH ×3 (08:23→23:44)
[2022-02-03 08:59] LABS: Basophils # (A) 0.03 X 10*3/uL (0.00-0.10); Basophils % (A) 0.2 %; Eosinophils % (A) 0.6 %; HCT 35.4 % (39.6-50.0); HGB 11.1 g/dL (13.0-17.0); Immature Grans, Automated 0.7 %; Lymphocytes # (A) 1.15 X 10*3/uL (0.90-5.00); Lymphocytes % (A) 7.3 %; MCH 29.4 pg (27.0-32.0); MCHC 31.4 g/dL (32.0-37.0); MCV 93.7 fL (80.0-97.0); Mean Platelet Volume 9.7 fL (9.5-12.2); Monocytes # (A) 1.28 X 10*3/uL (0.20-1.00); Monocytes % (A) 8.1 %; NRBC Per 100 WBC 0 /100 WBCS (0.0-0.0); Neutrophils # (A) 13.17 X 10*3/uL (1.80-7.70); Neutrophils % (A) 83.1 %; Platelet Count 391 X 10*3/uL (140-440); RBC 3.78 X 10*6/uL (4.40-5.60); RDW 13.1 % (11.5-14.5); WBC 15.84 X 10*3/uL (4.50-10.00)
[2022-02-03 09:09] LABS: African American GFR (CKD) 104.2 (60.0-200.0); Anion Gap 10.5 mmol/L (10.00-18.00); BUN/Creat Ratio 22.63 Ratio (12.00-20.00); Blood Urea Nitrogen 18.1 mg/dL (9.0-27.0); Calcium 8.5 mg/dL (8.7-10.3); Carbon Dioxide 25.5 mmol/L (20.0-27.5); Non-African American GFR(CKD) 89.9 (60.0-200.0); Potassium 4.7 mmol/L (3.5-5.5)
--- NOTE | 2022-02-03 11:14 | P.PN ---
Subjective Progress Note Date: 02/03/22 Principal diagnosis: Multiloculated parapneumonic left-sided pleural effusion 71-year-old male patient, a nonsmoker, no previous history of lung disease, who developed pneumonialike symptoms approximately 6 weeks ago. The patient had congestion, shortness of breath and pleurisy involving the left lung. He was given IV Rocephin for an urgent care and later on steroids with primary care physician. Nevertheless, he never recovered. He was having ongoing chest discomfort on the left. He was also having sweats and chills and episodic fever. He was getting progressively more weak and for that reason he came in to the hospital for further evaluation. The patient has not had any exposure or infection with COVID 19. He has not been vaccinated also. He has no altered me ntation. No hemoptysis for now. The patient had a white cell count of 18.7 with a hemoglobin of 11. The blood work showed initial sodium of 129 and that came at 137 within the treatment. BUN was 21 with a creatinine of 0.6 and coagulation profile was essentially within normal limits. The chest x-ray not done and the patient underwent a CT angiogram that showed no this of any pulmonary embolism. There was large loculated or multiloculated left-sided pleural effusion with possibility of underlying empyema. Right lung was essentially clear. The patient was started on IV Zosyn and the patient was hospitalized. A pulmonary palpation was requested. No previous bouts of pneumonias. No chest trauma. No 70 malignancy. No TB exposure. 02/02/2022, the patient is clinically stable on antibiotics. He still has some pleuritic left-sided chest wall pain. I made recommendations for a pigtail catheter insertion by interventional radiology and this has not been done. I do not think day services of interventional radiology are available on the weekend. This was done tomorrow. The patient remains on IV Zosyn for now. Thoracic surgery is also involved in the case. On 02/03/2022 patient seen in follow-up on medical surgical floor. He is awake, in no acute distress, did have fever spikes overnight with T-max of 101.2F, room air pulse ox is 94%. Doesn't appear to be any acute distress at rest, however does have exertional dyspnea and occasional cough and some pleuritic left-sided chest wall pain. Patient was seen by CT surgery consultation, and the recommendation is made for placement of CT-guided pigtail chest tube catheter in the left pleural space. He continues on antibiotics he is on Zosyn. Objective - Vital Signs Vital signs: Vital Signs Temp 98.7 F 02/03/22 06:54 Pulse 45 L 02/03/22 05:00 Resp 16 02/03/22 05:00 BP 121/75 02/03/22 05:00 Pulse Ox 94 L 02/03/22 05:00 FiO2 Intake & Output 02/02/22 02/03/22 02/03/22 18:59 06:59 18:59 Intake Total 1810 540 Balance 1810 540 Intake: Intake, IV Titration 1810 300 Amount Piperacillin-Tazobactam 3 200 100 .375 gm In Sodium Chloride 0.9% 100 ml @ 25 mls/hr IVPB Q8HR [facility] Rx# :[id number] Sodium Chloride 0.9% 1, 1560 000 ml @ 130 mls/hr IV . Q7H42M [facility] Rx#:[id number] Sodium Chloride 0.9% 1, 50 200 000 ml @ 50 mls/hr IV . Q20H [facility] Rx#:[id number] Oral 240 Other: Voiding Method Toilet - Exam GENERAL EXAM: Alert, very pleasant, 71-year-old white male on room air with pulse ox of 94%, comfortable in no apparent distress. HEAD: Normocephalic/atraumatic. EYES: Normal reaction of pupils, equal size. Conjunctiva pink, sclera white. NOSE: Clear with pink turbinates. THROAT: No erythema or exudates. NECK: No masses, no JVD, no thyroid enlargement, no adenopathy. CHEST: No chest wall deformity. Symmetrical expansion. LUNGS: Diminished breath sounds over left lower lobe with some crackles and dullness to percussion CVS: Regular rate and rhythm, normal S1 and S2, no gallops, no murmurs, no rubs ABDOMEN: Soft, nontender. No hepatosplenomegaly, normal bowel sounds, no guarding or rigidity. EXTREMITIES: No clubbing, no edema, no cyanosis, 2+ pulses and upper and lower extremities. MUSCULOSKELETAL: Muscle strength and tone normal. SPINE: No scoliosis or deformity SKIN: No rashes CENTRAL NERVOUS SYSTEM: Alert and oriented -3. No focal deficits, tone is normal in all 4 extremities. PSYCHIATRIC: Alert and oriented -3. Appropriate affect. Intact judgment and insight. - Labs CBC & Chem 7: 02/03/22 05:37 02/03/22 05:37 Labs: Abnormal Lab Results - Last 24 Hours (Table) 02/02/22 02/02/22 02/02/22 Range/Units 12:32 16:59 20:52 WBC (4.50-10.00) X 10*3/uL RBC (4.40-5.60) X 10*6/uL Hgb (13.0-17.0) g/dL Hct (39.6-50.0) % MCHC (32.0-37.0) g/dL Immature Gran # (0.00-0.04) X 10*3/uL Neutrophils # (1.80-7.70) X 10*3/uL Monocytes # (0.20-1.00) X 10*3/uL Sodium (135-145) mmol/L BUN/Creatinine Ratio (12.00-20.00) Ratio Glucose (70-110) mg/dL POC Glucose (mg/dL) 137 H 131 H 157 H (75-99) mg/dL Calcium (8.7-10.3) mg/dL 02/03/22 02/03/22 02/03/22 Range/Units 05:37 05:37 07:12 WBC 15.84 H (4.50-10.00) X 10*3/uL RBC 3.78 L (4.40-5.60) X 10*6/uL Hgb 11.1 L (13.0-17.0) g/dL Hct 35.4 L (39.6-50.0) % MCHC 31.4 L (32.0-37.0) g/dL Immature Gran # 0.11 H (0.00-0.04) X 10*3/uL Neutrophils # 13.17 H (1.80-7.70) X 10*3/uL Monocytes # 1.28 H (0.20-1.00) X 10*3/uL Sodium 133 L (135-145) mmol/L BUN/Creatinine Ratio 22.63 H (12.00-20.00) Ratio Glucose 133 H (70-110) mg/dL POC Glucose (mg/dL) 154 H (75-99) mg/dL Calcium 8.5 L (8.7-10.3) mg/dL Microbiology - Last 24 Hours (Table) 02/01/22 00:50 Blood Culture - Preliminary Blood No Growth after 48 hours 02/01/22 00:35 Blood Culture - Preliminary Blood No Growth after 48 hours Assessment and Plan Plan: Assessment: #1. Complicated multiloculated parapneumonic left-sided pleural effusion, possible empyema, complication of the previously under treated pneumonia #2. Shortness of breath and pleuritic chest pain related to the above #3. Fever, leukocytosis related to the above #4. Hypertension #5. Hyperlipidemia #6. Nonsmoker Plan: Continue current antibiotics No acute events overnight Interventional radiology is planning on left pigtail chest tube placement Consult ID service for antibiotic recommendations TPA per CT surgery We'll continue to follow I have personally seen and examined the patient, performed the documentation and the assessment and plan as written. Number of minutes spent on the visit: [10] Time with Patient: Less than 30
--- NOTE | 2022-02-03 11:47 | US ---
EXAMINATION TYPE: US guided chest tube insertion DATE OF EXAM: 02/03/2022 HISTORY: Loculated left pleural effusion COMPARISON: CT 01/31/2022 PROCEDURE: Maximal barrier technique was utilized. The skin over suitable path to the loculated left pleural ef fusion was localized with ultrasound and the overlying skin prepped and draped. Lidocaine was used f or local anesthesia. A skin janel made with a scalpel. Access was gained using CT guidance with a 21 -gauge needle, cloudy yellow fluid returned in the hub of the needle. A 0.018 inch wire was advanced and the access site was upsized, the wire was upsized and subsequently an 8.5-[place] drain was deplo yed within the left pleural space cavity and fixed in place. Catheter attached to gravity drainage. No immediate complication. Purulent material sent for laboratory analysis and draining into the bag . The patient remained in stable condition. IMPRESSION: STATUS POST CT GUIDED LEFT PLEURAL DRAIN CATHETER PLACEMENT AND DRAINAGE, MICROBIOLOGY ANALYSIS IS PE NDING. THIS PROCEDURE WAS PERFORMED BY THE UNDERSIGNED.
--- NOTE | 2022-02-03 12:03 | CDI ---
Documentation Clarification Form Date: 02/03/2022 11:45:15 AM From: Chloe Luu RN CCDS Admit Date: 02/01/2022 12:00:00 AM Patient Name: Jh Rodriguez Visit Number: [id number] Discharge Date: ATTENTION: The Clinical Documentation Specialists (CDI) and [facility] Coding Staff appreciate your assistance in clarifying documentation. Please respond to the clarification below the line at the bottom and electronically sign. The CDI & [facility] Coding staff will review the response and follow-up if needed. Please note: Queries are made part of the Legal Health Record. If you have any questions, please contact the author of this message via ITS. Dr. Mary Casarez Sepsis is documented 01/31, ED note but is not noted in subsequent documentation. Clarification is requested. History/Risk Factors: 71-year-old male presents to the ED with increasing shortness of breath over six weeks. Medical History: HLD, HTN Clinical Indicators: LABS: 01/31 Wbc 18.7; Neutrophils 17.5; Lymphocytes 0.3 CTA: 01/31 Large loculated left pleural effusion with some infiltrate atelectasis left lower lobe. ED note: 01/31 Clinical Impression Sepsis, Pyrexia, Shortness of breath, Pleural effusion, left. Lung assessment, H&P: 02/01 Left posterior lung sounds are diminished. ED note: 01/31 Tonight he went to an urgent care in [place]. Chest x-ray was performed which demonstrated that the patient had fluid on his left lung. Patient arrives and has a fever. Treatment: 02/01 current Zosyn 3.375gm IVPB Q8HR; 01/31 02/02 0.9NS 130cc/hr Please clarify if the Sepsis is: [ x ] Sepsis confirmed, remains under treatment [ ] Sepsis confirmed, resolved [ ] Sepsis ruled out [ ] Other condition, please specify [ ] Unable to determine (Template Last Revised: October 2020) MTDD
--- NOTE | 2022-02-03 12:03 | XR ---
EXAMINATION TYPE: XR chest 1V portable DATE OF EXAM: 02/03/2022 COMPARISON: Chest x-ray 01/10/[address] 01/31/2022 HISTORY: Status post left chest tube placement TECHNIQUE: Single frontal view of the chest is obtained. FINDINGS: There is been interval placement of a posterior left pigtail catheter. There is residual p leural effusion. No sizable pneumothorax. The may be a minimal right pleural effusion. Cardiac medias tinal silhouette is likely stable. Aorta is dense. IMPRESSION: No evident complication status post pigtail catheter placement.
[2022-02-03] MEDS: KETOROLAC 15 MG/ML 1 ML VIAL IVP SCH ×3 (12:40→23:44)
[2022-02-03] MEDS: SODIUM CHLORIDE 0.9% 1,000 ML IV SCH ×2 (12:44→17:54)
[2022-02-03] MEDS ORDERED: DORNASE ALFA 5 MG in SODIUM CHLORIDE 0.9% 50 ML IRRIGATION ONE (12:50)
[2022-02-03] MEDS ORDERED: ALTEPLASE 10 MG in SODIUM CHLORIDE 0.9% 50 ML IRRIGATION ONE (12:50)
--- NOTE | 2022-02-03 13:34 | XR ---
EXAMINATION TYPE: XR chest 1V portable DATE OF EXAM: 02/03/2022 COMPARISON: Chest x-ray same dated earlier time HISTORY: Status post chest tube placement, abnormal chest x-ray, possible pneumothorax TECHNIQUE: Single frontal view of the chest is obtained. FINDINGS: Findings are similar to prior exam. IMPRESSION: No significant interval change accounting for differences in technique, rotation.
--- NOTE | 2022-02-03 14:39 | P.PN ---
Subjective Progress Note Date: 02/03/22 This is a 71 year old male with past medical history significant for hypertension, hyperlipidemia. He presents with 3 days of fever, shortness of breath and pleuritic chest pain. States about 6 weeks ago he began having cough and was evaluated in the clinic and IM antibiotic injection. Also had outpatient chest xray done. He was given steroids by his primary care provider. He states it didn't seem to help and was concerned when he developed fever and weakness with congestion. He is nonsmoker, reports no marijuana use. He does not work in a factor type setting, denies exposure to toxins. He rides a motorcycle and states he notice trouble breathing after a long ride which is unusual for him. He is overall healthy. On admission chest CTA has been completed showing large loculated left pleural effusions with infiltrate, and atelectasis left lower lobe. There is concern for empyema and patient was started on empiric antibiotic coverage with zosyn. Pulmonary has evaluated the patient and IR has been consulted for pigtail cathter insertion. IR is not available until Thursday. Cardiothoracic has also been consulted. Patient for now is maintained oxygen saturation of 92% on room air. He presents with fever 100.5, heart rate 75, blood pressure 120/70. White count 18.7, hgb 11.6, sodium 129, potassium 4.3, glucose is 208. Troponin negative. 02/02/2022 Patient is evaluated today sitting up in bed. is at the bedside. Plan is for pigtail catheter insertion with IR tomorrow and cardiothoracic has been consulted for management. Pulmonary is following the patient closely. He continues on room air, however has stated he has increased cough, no sputum production. Also complains of left sided pleuritic pain, he has had motrin 400 mg ordered however he has not received. Did also add a low dose of tramadol for pain management. He continues on IV zosyn for empiric antibiotic coverage. Blood cultures are negative so far. He has remained afebrile, heart rate 98, blood pressure 153/77, 91% on room air. Labs reviewed today showing white count 16.30, hgb 10.8, sodium 136, potassium 4.6. Blood glucose in the 130s. A1C is 6.4 which is on the cusp of prediabetes vs. diabetes, will discuss with patient tomorrow and patient will discharge on an oral diabetic agent. 02/03/2022 Patient sitting up in chair pending IR placement of pigtail catheter. He had increased pain to his left side and was given low dose of tramadol which he states did help his pain. He is short of breath today, he is using his incentive spirometer, also he has requested cough medicine and it has been ordered as n eeded. He had a T-Max overnight of 101.2. He continues on IV Zosyn. Blood pressure today 126/73. Labs reviewed today showing white count 15.84, hgb 11.1, sodium 133, potassium 4.7, blood glucose 150s. Review of Systems Constitutional: Denied any fatigue denied any fever. Cardio vascular: denied any chest pain, palpitations Gastrointestinal: denied any nausea, vomiting, diarrhea Pulmonary: reports shortness of breath, cough, pleuritic chest pain Neurologic denied any new focal deficits All inpatient medications were reviewed and appropriate changes in these medications as dictated in the interval history and assessment and plan. PHYSICAL EXAMINATION: GENERAL: The patient is alert and oriented x3, in no acute distress. Well developed, well nourished. HEENT: Pupils are round and equally reacting to light. EOMI. No scleral icterus. No conjunctival pallor. Normocephalic, atraumatic. No pharyngeal erythema. No thyromegaly. CARDIOVASCULAR: S1 and S2 present. No murmurs, rubs, or gallops. PULMONARY: Left posterior lung sounds are diminished. Rales left lung base ABDOMEN: Soft, nontender, nondistended, normoactive bowel sounds. No palpable organomegaly. MUSCULOSKELETAL: No joint swelling or deformity. EXTREMITIES: No cyanosis, clubbing, or pedal edema. Trace ankle edema NEUROLOGICAL: Gross neurological examination did not reveal any focal deficits. SKIN: No rashes. Assessment and Plan Assessment Shortness of breath Large loculated left side pleural effusion with empyema suspected pneumonia with sepsis, continues on empiric antibiotic coverage Leukocytosis, fever secondary to above Hypertension Hyperlpidemia Prediabetes/Diabetes with A1C of 6.4 GI Prophylaxis DVT Prophylaxis Full Code Plan Pulmonary, cardiothoracic consultation Continue empiric antibiotic coverage Plan to undergo placement of pigtail catheter today with alteplase Monitor pulse oximeter, oxygen support as needed Pending final blood cultures Pain management Follow up AM labs The impression and plan of care has been dictated by Alice Botello Nurse Practitioner as directed. Dr. Hermelindo MD I have performed a history and physical examination and medical decision making of this patient, discussed the same with the dictator, and agree with the dictators assessment and plan as written, documented as a scribe. Based on total visit time, I have performed more than 50% of this visit. Objective - Vital Signs Vital signs: Vital Signs Temp 98.7 F 02/03/22 06:54 Pulse 85 02/03/22 11:00 Resp 18 02/03/22 11:00 BP 126/73 02/03/22 11:00 Pulse Ox 95 02/03/22 11:00 FiO2 Intake & Output 02/02/22 02/03/22 02/03/22 18:59 06:59 18:59 Intake Total 1810 540 Balance 1810 540 Intake: Intake, IV Titration 1810 300 Amount Piperacillin-Tazobactam 3 200 100 .375 gm In Sodium Chloride 0.9% 100 ml @ 25 mls/hr IVPB Q8HR [facility] Rx# :[id number] Sodium Chloride 0.9% 1, 1560 000 ml @ 130 mls/hr IV . Q7H42M [facility] Rx#:[id number] Sodium Chloride 0.9% 1, 50 200 000 ml @ 50 mls/hr IV . Q20H [facility] Rx#:[id number] Oral 240 Other: Voiding Method Toilet - Labs CBC & Chem 7: 02/03/22 05:37 02/03/22 05:37 Labs: Abnormal Lab Results - Last 24 Hours (Table) 02/02/22 02/02/22 02/02/22 Range/Units 12:32 16:59 20:52 WBC (4.50-10.00) X 10*3/uL RBC (4.40-5.60) X 10*6/uL Hgb (13.0-17.0) g/dL Hct (39.6-50.0) % MCHC (32.0-37.0) g/dL Immature Gran # (0.00-0.04) X 10*3/uL Neutrophils # (1.80-7.70) X 10*3/uL Monocytes # (0.20-1.00) X 10*3/uL Sodium (135-145) mmol/L BUN/Creatinine Ratio (12.00-20.00) Ratio Glucose (70-110) mg/dL POC Glucose (mg/dL) 137 H 131 H 157 H (75-99) mg/dL Calcium (8.7-10.3) mg/dL 02/03/22 02/03/22 02/03/22 Range/Units 05:37 05:37 07:12 WBC 15.84 H (4.50-10.00) X 10*3/uL RBC 3.78 L (4.40-5.60) X 10*6/uL Hgb 11.1 L (13.0-17.0) g/dL Hct 35.4 L (39.6-50.0) % MCHC 31.4 L (32.0-37.0) g/dL Immature Gran # 0.11 H (0.00-0.04) X 10*3/uL Neutrophils # 13.17 H (1.80-7.70) X 10*3/uL Monocytes # 1.28 H (0.20-1.00) X 10*3/uL Sodium 133 L (135-145) mmol/L BUN/Creatinine Ratio 22.63 H (12.00-20.00) Ratio Glucose 133 H (70-110) mg/dL POC Glucose (mg/dL) 154 H (75-99) mg/dL Calcium 8.5 L (8.7-10.3) mg/dL Microbiology - Last 24 Hours (Table) 02/01/22 00:50 Blood Culture - Preliminary Blood No Growth after 48 hours 02/01/22 00:35 Blood Culture - Preliminary Blood No Growth after 48 hours Assessment and Plan Time with Patient: Less than 30
--- NOTE | 2022-02-03 16:44 | P.PN ---
Subjective Progress Note Date: 02/03/22 Principal diagnosis: Loculated left-sided effusion, possible empyema with a six-week history of persistent nonproductive cough and pleuritic type symptoms. Past medical history significant for hypertension, hyperlipidemia, BPH, lifetime nonsmoker. The patient was seen and examined today 02/03/2022 at his bedside on the fifth floor medical oncology unit. Currently he is sitting up to the bedside edge, is awake, alert, oriented 3 and is in no acute apparent distress. Oxygen saturations are 96% on 4 L nasal cannula and he is achieving 2500 mL on his incentive spirometry with encouragement. He denies any complaints of pain or shortness of breath at this time. He reports he did have some pleuritic type chest pain yesterday, although this morning denies any pain. His T-max temperature in the last 24 hours was 101.2F. Laboratory results this morning show a WBC count trending down at 15.84, hemoglobin 11.1, hematocrit 35.4, platelets 391, sodium 133, potassium 4.7, BUN 18.1, creatinine 0.8 and calcium 8.5. Chest x-ray this morning shows no significant interval change. He remains on Zosyn for antibiotic coverage. He is scheduled for a left chest pigtail ca theter placement today by interventional radiology. Objective - Vital Signs Vital signs: Vital Signs Temp 98.7 F 02/03/22 06:54 Pulse 96 02/03/22 14:47 Resp 16 02/03/22 14:47 BP 163/85 02/03/22 14:47 Pulse Ox 95 02/03/22 14:47 FiO2 Intake & Output 02/02/22 02/03/22 02/03/22 18:59 06:59 18:59 Intake Total 1810 540 Balance 1810 540 Intake: Intake, IV Titration 1810 300 Amount Piperacillin-Tazobactam 3 200 100 .375 gm In Sodium Chloride 0.9% 100 ml @ 25 mls/hr IVPB Q8HR [facility] Rx# :[id number] Sodium Chloride 0.9% 1, 1560 000 ml @ 130 mls/hr IV . Q7H42M [facility]ET[facility] Rx#:[id number] Sodium Chloride 0.9% 1, 50 200 000 ml @ 50 mls/hr IV . Q20H [facility]ET[facility] Rx#:[id number] Oral 240 Other: Voiding Method Toilet - Exam CONSTITUTIONAL: Lying in bed on the fifth floor medical surgical unit, appears comfortable, cooperative, no apparent acute distress. HEENT: Neck is supple, no JVD, no lymphadenopathy. RESPIRATORY: Lungs sounds diminished to his left lower lobe, essentially clear to his right lobes. Respirations are symmetrical and nonlabored. Currently on 4 L nasal cannula with oxygen saturations 96%. Able to achieve 2500 mL on his incentive spirometry. Strong cough. CARDIOVASCULAR: Regular rhythm and rate. S1 and S2 present, negative for S3, gallop or murmur. Palpable peripheral pulses bilaterally. No calf pain or tenderness noted. GASTROINTESTINAL: Abdomen soft, nontender, nondistended. Active bowel sounds present 4 quadrants. Tolerating diet. No guarding or rigidity. GENITOURINARY: Continues to void. INTEGUMENTARY: Skin is warm and dry with no evidence of clubbing or cyanosis. A quarter size erythema in the area on his mid back that has recently been biopsied. NEUROLOGIC: Cranial nerves II through XII intact. No focal deficits. MUSKULOSKELETAL: Able to move all extremities, strength equal bilaterally. PSYCHIATRIC: Alert and oriented to person place and time, appropriate affect, intact judgment and insight. - Allied health notes Allied health notes reviewed: nursing - Labs CBC & Chem 7: 02/03/22 05:37 02/03/22 05:37 Labs: Abnormal Lab Results - Last 24 Hours (Table) 02/02/22 02/02/22 02/03/22 Range/Units 16:59 20:52 05:37 WBC 15.84 H (4.50-10.00) X 10*3/uL RBC 3.78 L (4.40-5.60) X 10*6/uL Hgb 11.1 L (13.0-17.0) g/dL Hct 35.4 L (39.6-50.0) % MCHC 31.4 L (32.0-37.0) g/dL Immature Gran # 0.11 H (0.00-0.04) X 10*3/uL Neutrophils # 13.17 H (1.80-7.70) X 10*3/uL Monocytes # 1.28 H (0.20-1.00) X 10*3/uL Sodium (135-145) mmol/L BUN/Creatinine Ratio (12.00-20.00) Ratio Glucose (70-110) mg/dL POC Glucose (mg/dL) 131 H 157 H (75-99) mg/dL Calcium (8.7-10.3) mg/dL 02/03/22 02/03/22 Range/Units 05:37 07:12 WBC (4.50-10.00) X 10*3/uL RBC (4.40-5.60) X 10*6/uL Hgb (13.0-17.0) g/dL Hct (39.6-50.0) % MCHC (32.0-37.0) g/dL Immature Gran # (0.00-0.04) X 10*3/uL Neutrophils # (1.80-7.70) X 10*3/uL Monocytes # (0.20-1.00) X 10*3/uL Sodium 133 L (135-145) mmol/L BUN/Creatinine Ratio 22.63 H (12.00-20.00) Ratio Glucose 133 H (70-110) mg/dL POC Glucose (mg/dL) 154 H (75-99) mg/dL Calcium 8.5 L (8.7-10.3) mg/dL Microbiology - Last 24 Hours (Table) 02/01/22 00:50 Blood Culture - Preliminary Blood No Growth after 48 hours 02/01/22 00:35 Blood Culture - Preliminary Blood No Growth after 48 hours - Imaging and Cardiology Chest x-ray: report reviewed, image reviewed Assessment and Plan Assessment: 1. Large loculated left-sided pleural effusion, possible empyema 2. Persistent cough, fever, sweats, chills, pain with deep inspiration 3. Leukocytosis 4. History of hypertension 5. History of hyperlipidemia 6. History of prostate disorder 7. Never smoker Plan: 1. Once his left chest pigtail catheter has been placed today we will instill alteplase/dornase. 2. Encourage use of his incentive spirometry 10 times every hour while awake. 3. Pain control per current when necessary orders. Toradol 15 mg IV every 6 hours has been ordered for additional pain control. Motrin has been discontinued. 4. Continue to monitor daily labs and chest x-rays. 5. Increase activity as tolerated. Out of bed for all meals. 6. More recommendations to follow based on patient's clinical course. Time with Patient: Greater than 30
[2022-02-03 17:13] LABS: Glucose,Whole Blood 173 mg/dL (75-99)
[2022-02-03 20:15] LABS: Glucose,Whole Blood 143 mg/dL (75-99)
[2022-02-03] MEDS: LOSARTAN 50 MG TAB PO SCH (20:34)
[2022-02-03] MEDS: hydroCHLOROthiazide 12.5 MG CAP PO SCH (20:34)
--- NOTE | 2022-02-03 22:28 | P.CONS ---
History of Present Illness - Reason for Consult Consult date: 02/03/22 Empyema Requesting physician: Cheyanne Mcmullen - Chief Complaint Left-sided chest pain x few days - History of Present Illness Patient is a 71-year-old male presented to the ER 3 days ago on 01/31/2022 for evaluation of increasing shortness of breath and this patient symptom has been getting worse for the last 6 weeks and apparently has been treated in outpatient setting with the steroids without any improvement patient complaining of increasing shortness of breath on minimal exertion patient also have a cough with some yellow sputum no hemoptysis and did have a left-sided chest pain that continued to get worse patient will describe the pain to be mostly sharp in nature and was almost 8 out of 10 by the time he presented to the hospital apparently the patient went to the urgent care with the patient did have x-rays and was noticed to have a little bit on the left side of the lung for the patient was sent to the [facility] ER on arrival to the ER patient did have fever of 100.5 F, and the patient did have a fever of 101.2 F this morning patient did have mild hypoxemia currently on 2 L nasal cannula patient did have a white count of 18.7 with a left shift kidney function has been normal liver enzymes are normal influenza and valladares PCR was negative blood culture obtained which so far negative patient did have a CT angiogram of the chest no evidence of PE did shows large loculated left pleural effusion with some atelectasis of the left lower lobe patient is currently being treated with the [facility] infectious disease was consulted for further management of antibiotic therapy patient is status post chest tube insertion per interventional radiology this morning Review of Systems Positive point has been mentioned in the HPI rest of the systems are negative Past Medical History Past Medical History: Hyperlipidemia, Hypertension, Prostate Disorder History of Any Multi-Drug Resistant Organisms: None Reported Additional Past Surgical History / Comment(s): toe amputation; right knee scope Past Anesthesia/Blood Transfusion Reactions: No Reported Reaction Past Psychological History: No Psychological Hx Reported Smoking Status: Never smoker Past Alcohol Use History: None Reported Past Drug Use History: None Reported - Past Family History Mother Family Medical History: No Reported History Father Family Medical History: Coronary Artery Disease (CAD) Medications and Allergies Home Medications Medication Instructions Recorded Confirmed Type Multivitamin [Multivitamins Adult 1 each PO DAILY 06/10/16 01/31/22 History Gummies] Rosuvastatin Calcium [Crestor] 5 mg PO Q48H 06/10/16 01/31/22 History Azithromycin [Zithromax] 500 mg PO DAILY 01/31/22 01/31/22 History Cholecalciferol [Vitamin D3 (25 25 mcg PO DAILY 01/31/22 01/31/22 History Mcg = 1000 Iu)] Elderberry Fruit and Flower [Black 1 cap PO DAILY 01/31/22 01/31/22 History Elderberry 575 mg Cap] Irbesartan/Hydrochlorothiazide 1 tab PO HS 01/31/22 01/31/22 History [Irbesartan-Hctz 300-12.5 mg Tb] Magnesium 250 mg PO DAILY 01/31/22 01/31/22 History Vitamin B Complex 1 cap PO DAILY 01/31/22 01/31/22 History Allergies Allergy/AdvReac Type Severity Reaction Status Date / Time No Known Allergies Allergy Verified 01/31/22 22:30 Physical Exam Vitals: Vital Signs Temp Pulse Resp BP Pulse Ox 02/03/22 11:00 85 18 126/73 95 02/03/22 06:54 98.7 F 02/03/22 05:00 101.2 F H 45 L 16 121/75 94 L 02/02/22 20:00 99.7 F H 69 16 134/80 96 02/02/22 12:28 99.4 F 98 18 153/77 91 L Intake and Output 02/02/22 02/03/22 02/03/22 22:59 06:59 14:59 Intake Total 2049 300 Balance 2049 300 Intake: Intake, IV Titration 1809 300 Amount Piperacillin-Tazobactam 3 200 100 .375 gm In Sodium Chloride 0.9% 100 ml @ 25 mls/hr IVPB Q8HR [facility] Rx# :[id number] Sodium Chloride 0.9% 1, 1560 000 ml @ 130 mls/hr IV . Q7H42M [facility] Rx#:[id number] Sodium Chloride 0.9% 1, 50 200 000 ml @ 50 mls/hr IV . Q20H [facility]ET[facility] Rx#:[id number] Oral 240 Other: Voiding Method Toilet GENERAL DESCRIPTION: Elderly male lying in bed, no distress. No tachypnea or accessory muscle of respiration use. HEENT: Shows Pallor , no scleral icterus. Oral mucous membrane is dry. No pharyngeal erythema or thrush NECK: Trachea central, no thyromegaly. LUNGS: Unlabored breathing. Decreased breath sounds at the base No wheeze or crackle. HEART: S1, S2, regular rate and rhythm. No loud murmur ABDOMEN: Soft, no tenderness , guarding or rigidity, no organomegaly EXTREMITIES: No edema of feet. SKIN: No rash, no masses palpable. NEUROLOGICAL: The patient is awake, alert, oriented x3, mood and affect normal. Results CBC & Chem 7: 02/07/22 06:06 02/07/22 06:06 Labs: Abnormal Lab Results - Last 24 Hours (Table) 02/02/22 02/02/22 02/02/22 Range/Units 12:32 16:59 20:52 WBC (4.50-10.00) X 10*3/uL RBC (4.40-5.60) X 10*6/uL Hgb (13.0-17.0) g/dL Hct (39.6-50.0) % MCHC (32.0-37.0) g/dL Immature Gran # (0.00-0.04) X 10*3/uL Neutrophils # (1.80-7.70) X 10*3/uL Monocytes # (0.20-1.00) X 10*3/uL Sodium (135-145) mmol/L BUN/Creatinine Ratio (12.00-20.00) Ratio Glucose (70-110) mg/dL POC Glucose (mg/dL) 137 H 131 H 157 H (75-99) mg/dL Calcium (8.7-10.3) mg/dL 02/03/22 02/03/22 02/03/22 Range/Units 05:37 05:37 07:12 WBC 15.84 H (4.50-10.00) X 10*3/uL RBC 3.78 L (4.40-5.60) X 10*6/uL Hgb 11.1 L (13.0-17.0) g/dL Hct 35.4 L (39.6-50.0) % MCHC 31.4 L (32.0-37.0) g/dL Immature Gran # 0.11 H (0.00-0.04) X 10*3/uL Neutrophils # 13.17 H (1.80-7.70) X 10*3/uL Monocytes # 1.28 H (0.20-1.00) X 10*3/uL Sodium 133 L (135-145) mmol/L BUN/Creatinine Ratio 22.63 H (12.00-20.00) Ratio Glucose 133 H (70-110) mg/dL POC Glucose (mg/dL) 154 H (75-99) mg/dL Calcium 8.5 L (8.7-10.3) mg/dL Microbiology - Last 24 Hours (Table) 02/01/22 00:50 Blood Culture - Preliminary Blood No Growth after 48 hours 02/01/22 00:35 Blood Culture - Preliminary Blood No Growth after 48 hours Assessment and Plan (1) Pleural effusion, left Current Visit: Yes Status: Acute Code(s): J90 - PLEURAL EFFUSION, NOT ELSEWHERE CLASSIFIED SNOMED Code(s): 99929072 Plan: 1patient presented to hospital with sepsis source is left-sided pneumonia and empyema more likely from a community-acquired pathogen as the patient seem to have not received an antibiotic in the outpatient setting status post IR chest tube placement and fluid has been sent for the culture. 2we will continue patient on Zosyn at this point while waiting for the culture to finalize. 3we will check his inflammatory markers. We will follow on clinical condition and cultures to further adjust medication if needed Thank you for this consultation will follow this patient along with you Time with Patient: Greater than 30
[2022-02-04 00:17] LABS: Amylase, Fluid Source Pleural Fluid; Amylase,Body Fluid 32 U/L; T. Protein, Body Fluid Source Pleural Fluid; Total Protein, Body Fluid 4820 mg/dL
[2022-02-04 00:40] LABS: Appearance,BF Cloudy
[2022-02-04 01:29] LABS: Glucose, BF Source Pleural Fluid; Glucose, Body Fluid <2 mg/dL; LDH, Body Fluid Source Pleural Fluid
[2022-02-04] MEDS: KETOROLAC 15 MG/ML 1 ML VIAL IVP SCH ×4 (05:45→23:53)
[2022-02-04 07:44] LABS: Glucose,Whole Blood 136 mg/dL (75-99)
[2022-02-04] MEDS: traMADol 50 MG TAB PO SCH (09:16)
[2022-02-04] MEDS: INSULIN ASPART (NovoLOG) 100 UNIT/ML VIAL SQ SCH ×4 (09:16→20:35)
[2022-02-04] MEDS: SODIUM CHLORIDE 0.9% 1,000 ML IV SCH ×2 (09:18→21:02)
[2022-02-04] MEDS: PIPERACILLIN-TAZOBACTAM 3.375 GM in SODIUM CHLORIDE 0.9% 100 ML IVPB SCH ×3 (09:18→23:52)
[2022-02-04] MEDS: MAGNESIUM OXIDE 400 MG TAB PO SCH (09:18)
[2022-02-04 09:23] LABS: Basophils # (A) 0.04 X 10*3/uL (0.00-0.10); Basophils % (A) 0.4 %; Eosinophils % (A) 2.8 %; HCT 33.2 % (39.6-50.0); HGB 10.4 g/dL (13.0-17.0); Immature Grans, Automated 1.3 %; Lymphocytes # (A) 1.03 X 10*3/uL (0.90-5.00); Lymphocytes % (A) 9.6 %; MCH 29.4 pg (27.0-32.0); MCHC 31.3 g/dL (32.0-37.0); MCV 93.8 fL (80.0-97.0); Mean Platelet Volume 9.5 fL (9.5-12.2); Monocytes # (A) 0.84 X 10*3/uL (0.20-1.00); Monocytes % (A) 7.9 %; NRBC Per 100 WBC 0 /100 WBCS (0.0-0.0); Neutrophils # (A) 8.33 X 10*3/uL (1.80-7.70); Platelet Count 333 X 10*3/uL (140-440); RBC 3.54 X 10*6/uL (4.40-5.60); RDW 12.7 % (11.5-14.5); WBC 10.68 X 10*3/uL (4.50-10.00)
[2022-02-04 09:32] LABS: Anion Gap 7.9 mmol/L (10.00-18.00); BUN/Creat Ratio 25.71 Ratio (12.00-20.00); Calcium 8.1 mg/dL (8.7-10.3); Carbon Dioxide 29.1 mmol/L (20.0-27.5); Magnesium 2.2 mg/dL (1.5-2.4); Non-African American GFR(CKD) 94.9 (60.0-200.0); Potassium 4.3 mmol/L (3.5-5.5)
[2022-02-04] MEDS ORDERED: DORNASE ALFA 5 MG in SODIUM CHLORIDE 0.9% 50 ML IRRIGATION ONE (10:30)
[2022-02-04] MEDS ORDERED: ALTEPLASE 10 MG in SODIUM CHLORIDE 0.9% 50 ML IRRIGATION ONE (10:30)
--- NOTE | 2022-02-04 11:05 | XR ---
EXAMINATION TYPE: XR chest 1V portable DATE OF EXAM: 02/04/2022 COMPARISON: Chest x-ray 02/03/2022 HISTORY: Loculated pleural effusion, chest tube TECHNIQUE: Single frontal view of the chest is obtained. FINDINGS: Findings are similar to prior exam. IMPRESSION: Persistent multilocular effusion, indwelling chest tube is been no evident sizable pneum othorax.
--- NOTE | 2022-02-04 11:49 | P.PN ---
Subjective Progress Note Date: 02/04/22 Principal diagnosis: Multiloculated parapneumonic left-sided pleural effusion 71-year-old male patient, a nonsmoker, no previous history of lung disease, who developed pneumonialike symptoms approximately 6 weeks ago. The patient had congestion, shortness of breath and pleurisy involving the left lung. He was given IV Rocephin for an urgent care and later on steroids with primary care physician. Nevertheless, he never recovered. He was having ongoing chest discomfort on the left. He was also having sweats and chills and episodic fever. He was getting progressively more weak and for that reason he came in to the hospital for further evaluation. The patient has not had any exposure or infection with COVID 19. He has not been vaccinated also. He has no altered me ntation. No hemoptysis for now. The patient had a white cell count of 18.7 with a hemoglobin of 11. The blood work showed initial sodium of 129 and that came at 137 within the treatment. BUN was 21 with a creatinine of 0.6 and coagulation profile was essentially within normal limits. The chest x-ray not done and the patient underwent a CT angiogram that showed no this of any pulmonary embolism. There was large loculated or multiloculated left-sided pleural effusion with possibility of underlying empyema. Right lung was essentially clear. The patient was started on IV Zosyn and the patient was hospitalized. A pulmonary palpation was requested. No previous bouts of pneumonias. No chest trauma. No 70 malignancy. No TB exposure. 02/02/2022, the patient is clinically stable on antibiotics. He still has some pleuritic left-sided chest wall pain. I made recommendations for a pigtail catheter insertion by interventional radiology and this has not been done. I do not think day services of interventional radiology are available on the weekend. This was done tomorrow. The patient remains on IV Zosyn for now. Thoracic surgery is also involved in the case. On 02/03/2022 patient seen in follow-up on medical surgical floor. He is awake, in no acute distress, did have fever spikes overnight with T-max of 101.2F, room air pulse ox is 94%. Doesn't appear to be any acute distress at rest, however does have exertional dyspnea and occasional cough and some pleuritic left-sided chest wall pain. Patient was seen by CT surgery consultation, and the recommendation is made for placement of CT-guided pigtail chest tube catheter in the left pleural space. He continues on antibiotics he is on Zosyn. On 02/04/2022 patient seen in follow-up on medical surgical floor. Yesterday had a left-sided pigtail chest tube catheter. And overnight his had a total of 1000 mL of purulent drainage from the pigtail. Patient received a dose of alteplase and dornase by CT surgery. Today's chest x-ray showing persistent multilocular pleural effusion with indwelling chest tube, and no evidence of his old pneumothorax. Patient remains on Zosyn for antibiotic coverage, vital signs have been stable, his been afebrile, blood pressure stable, he is working on incentive spirometer. Today's labs have been reviewed showing white blood cell count of 10.6, hemoglobin of 10.4, sodium is 137, potassium is 4.3, chloride is 100, CO2 is 29, BUN is 18 creatinine 0.7. Pleural fluid analysis showed 7400 white blood cells, 96 of holiday clear white blood cells. Fluid glucose was less than 2, fluid protein was 4.8 g, LDH was greater than 2500, consistent with empyema. Pleural fluid cultures have shown no growth thus far. Blood cultures have been negative. Objective - Vital Signs Vital signs: Vital Signs Temp 97.9 F 02/04/22 05:17 Pulse 73 02/04/22 05:17 Resp 16 02/04/22 05:17 BP 121/72 02/04/22 05:17 Pulse Ox 96 02/04/22 05:17 FiO2 Intake & Output 02/03/22 02/04/22 02/04/22 18:59 06:59 18:59 Intake Total 825 2600 Output Total 375 515 Balance 450 2085 Intake: Intake, IV Titration 825 700 Amount Piperacillin-Tazobactam 3 200 100 .375 gm In Sodium Chloride 0.9% 100 ml @ 25 mls/hr IVPB Q8HR [facility] Rx# :[id number] Sodium Chloride 0.9% 1, 550 000 ml @ 50 mls/hr IV . Q20H [facility]ETRI Rx#:[id number] Sodium Chloride 0.9% 1, 75 600 000 ml @ 75 mls/hr IV . [id number] DEMETRI Rx#:[id number] Oral 1900 Output: Drainage 375 115 Left Back 375 115 Urine 400 Other: Voiding Method Toilet - Exam GENERAL EXAM: Alert, very pleasant, 71-year-old white male on room air with pulse ox of 94%, comfortable in no apparent distress. HEAD: Normocephalic/atraumatic. EYES: Normal reaction of pupils, equal size. Conjunctiva pink, sclera white. NOSE: Clear with pink turbinates. THROAT: No erythema or exudates. NECK: No masses, no JVD, no thyroid enlargement, no adenopathy. CHEST: No chest wall deformity. Symmetrical expansion. Patient has a left- sided pigtail chest tube catheter in place connected to Pleur-evac, with large amount of purulent drainage, a total of 1000 mL of purulent material over the last 24 hours. LUNGS: Diminished breath sounds over left lower lobe with some crackles and dullness to percussion CVS: Regular rate and rhythm, normal S1 and S2, no gallops, no murmurs, no rubs ABDOMEN: Soft, nontender. No hepatosplenomegaly, normal bowel sounds, no guarding or rigidity. EXTREMITIES: No clubbing, no edema, no cyanosis, 2+ pulses and upper and lower extremities. MUSCULOSKELETAL: Muscle strength and tone normal. SPINE: No scoliosis or deformity SKIN: No rashes CENTRAL NERVOUS SYSTEM: Alert and oriented -3. No focal deficits, tone is normal in all 4 extremities. PSYCHIATRIC: Alert and oriented -3. Appropriate affect. Intact judgment and insight. - Labs CBC & Chem 7: 02/04/22 05:45 02/04/22 05:45 Labs: Abnormal Lab Results - Last 24 Hours (Table) 02/03/22 02/03/22 02/04/22 Range/Units 17:11 20:13 05:45 WBC 10.68 H (4.50-10.00) X 10*3/uL RBC 3.54 L (4.40-5.60) X 10*6/uL Hgb 10.4 L (13.0-17.0) g/dL Hct 33.2 L (39.6-50.0) % MCHC 31.3 L (32.0-37.0) g/dL Immature Gran # 0.14 H (0.00-0.04) X 10*3/uL Neutrophils # 8.33 H (1.80-7.70) X 10*3/uL Carbon Dioxide (20.0-27.5) mmol/L Anion Gap (10.00-18.00) mmol/L BUN/Creatinine Ratio (12.00-20.00) Ratio Glucose (70-110) mg/dL POC Glucose (mg/dL) 173 H 143 H (75-99) mg/dL Calcium (8.7-10.3) mg/dL 02/04/22 02/04/22 Range/Units 05:45 07:43 WBC (4.50-10.00) X 10*3/uL RBC (4.40-5.60) X 10*6/uL Hgb (13.0-17.0) g/dL Hct (39.6-50.0) % MCHC (32.0-37.0) g/dL Immature Gran # (0.00-0.04) X 10*3/uL Neutrophils # (1.80-7.70) X 10*3/uL Carbon Dioxide 29.1 H (20.0-27.5) mmol/L Anion Gap 7.90 L (10.00-18.00) mmol/L BUN/Creatinine Ratio 25.71 H (12.00-20.00) Ratio Glucose 132 H (70-110) mg/dL POC Glucose (mg/dL) 136 H (75-99) mg/dL Calcium 8.1 L (8.7-10.3) mg/dL Microbiology - Last 24 Hours (Table) 02/03/22 11:30 Gram Stain - Preliminary Pleural Fluid Body Fluid Culture - Preliminary 02/01/22 00:50 Blood Culture - Preliminary Blood No Growth after 72 hours 02/01/22 00:35 Blood Culture - Preliminary Blood No Growth after 72 hours 02/03/22 11:30 Anaerobic Culture - Preliminary Pleural Fluid 02/03/22 11:30 Acid Fast Bacilli Culture - Preliminary Pleural Fluid 02/03/22 11:30 Fungal Culture - Preliminary Pleural Fluid Assessment and Plan Plan: Assessment: #1. Complicated multiloculated parapneumonic left-sided pleural effusion, possible empyema, complication of the previously under treated pneumonia, status post left chest pigtail catheter placement with drainage of large amount of purulent material, and pleural fluid analysis is consistent with empyema, pleural fluid cultures are pending, remains on Zosyn #2. Shortness of breath and pleuritic chest pain related to the above #3. Fever, leukocytosis related to the above, improved #4. Hypertension #5. Hyperlipidemia #6. Nonsmoker Plan: Continue dornase and alteplase per CT surgery Continue current antibiotics Left-sided pigtail chest tube catheter draining large amount of purulent material We'll await final cultures Encourage deep breathing and coughing Follow-up labs tomorrow Follow-up chest x-ray in the morning I have personally seen and examined the patient, performed the documentation and the assessment and plan as written. Number of minutes spent on the visit: [10] Time with Patient: Less than 30
[2022-02-04 12:15] LABS: Glucose,Whole Blood 113 mg/dL (75-99)
--- NOTE | 2022-02-04 14:20 | P.PN ---
Subjective Progress Note Date: 02/04/22 Principal diagnosis: Loculated left-sided effusion, possible empyema with a six-week history of persistent nonproductive cough and pleuritic type symptoms. Past medical history significant for hypertension, hyperlipidemia, BPH, lifetime nonsmoker. The patient was seen and examined today 02/04/2022 at his bedside on the fifth floor medical oncology unit. Currently he is sitting up to the bedside edge, is awake, alert, oriented 3 and is in no acute apparent distress. A left-sided pigtail catheter was placed by interventional radiology yesterday. The left chest pigtail catheter was instilled with alteplase/dornase with 900 mL of purulent looking pleural fluid drained in the last 24 hours. Currently the left pleural pigtail catheter remains in place to low continuous wall suction 1 is 20 cm H2O. No air leak is present. Oxygen saturations are 96% on room air and he is achieving 2500 mL on his incentive spirometry with encouragement. He reports he has been up ambulating in the fifth floor medical unit hallway independently. Denies any complaints of pain or shortness of breath at this time. Reports continue complaints of coughing episodes, although he states that it has improved since admission. Culture results remain pending of his blood and pleural fluid. He remains on Zosyn for antibiotic coverage managed by pulmonary medicine. T-max temperature in the last 24 hours 98.7F. Chest x-ray this morning continues to show persistent multilocular pleural effusion with an indwelling pigtail catheter. Objective - Vital Signs Vital signs: Vital Signs Temp 98.4 F 02/04/22 12:13 Pulse 85 02/04/22 12:13 Resp 20 02/04/22 12:13 BP 121/69 02/04/22 12:13 Pulse Ox 90 L 02/04/22 12:13 FiO2 Intake & Output 02/03/22 02/04/22 02/04/22 18:59 06:59 18:59 Intake Total 825 2600 Output Total 375 515 Balance 450 2085 Intake: Intake, IV Titration 825 700 Amount Piperacillin-Tazobactam 3 200 100 .375 gm In Sodium Chloride 0.9% 100 ml @ 25 mls/hr IVPB Q8HR [facility] Rx# :[id number] Sodium Chloride 0.9% 1, 550 000 ml @ 50 mls/hr IV . Q20H [facility] Rx#:[id number] Sodium Chloride 0.9% 1, 75 600 000 ml @ 75 mls/hr IV . [id number] [facility] Rx#:[id number] Oral 1900 Output: Drainage 375 115 Left Back 375 115 Urine 400 Other: Voiding Method Toilet - Exam CONSTITUTIONAL: Sitting up on the bedside edge on the fifth floor medical surgical unit, appears comfortable, cooperative, no apparent acute distress. HEENT: Neck is supple, no JVD, no lymphadenopathy. RESPIRATORY: Lungs sounds diminished to his left lower lobe, essentially clear to his right lobes. Respirations are symmetrical and nonlabored. Currently on room air with oxygen saturations 96%. Able to achieve 2500 mL on his incentive spirometry. Strong cough. Left chest pigtail catheter remains in place to low continuous wall suction -20 cm H2O. No air leak is present. Draining purulent colored drainage with 900 mL of output in the last 24 hours. CARDIOVASCULAR: Regular rhythm and rate. S1 and S2 present, negative for S3, gallop or murmur. Palpable peripheral pulses bilaterally. No calf pain or tenderness noted. GASTROINTESTINAL: Abdomen soft, nontender, nondistended. Active bowel sounds present 4 quadrants. Tolerating diet. No guarding or rigidity. GENITOURINARY: Continues to void. INTEGUMENTARY: Skin is warm and dry with no evidence of clubbing or cyanosis. A quarter size erythema in the area on his mid back that has recently been biopsied. NEUROLOGIC: Cranial nerves II through XII intact. No focal deficits. MUSKULOSKELETAL: Able to move all extremities, strength equal bilaterally. PSYCHIATRIC: Alert and oriented to person place and time, appropriate affect, intact judgment and insight. - Allied health notes Allied health notes reviewed: nursing - Labs CBC & Chem 7: 02/04/22 05:45 02/04/22 05:45 Labs: Abnormal Lab Results - Last 24 Hours (Table) 02/03/22 02/03/22 02/04/22 Range/Units 17:11 20:13 05:45 WBC 10.68 H (4.50-10.00) X 10*3/uL RBC 3.54 L (4.40-5.60) X 10*6/uL Hgb 10.4 L (13.0-17.0) g/dL Hct 33.2 L (39.6-50.0) % MCHC 31.3 L (32.0-37.0) g/dL Immature Gran # 0.14 H (0.00-0.04) X 10*3/uL Neutrophils # 8.33 H (1.80-7.70) X 10*3/uL Carbon Dioxide (20.0-27.5) mmol/L Anion Gap (10.00-18.00) mmol/L BUN/Creatinine Ratio (12.00-20.00) Ratio Glucose (70-110) mg/dL POC Glucose (mg/dL) 173 H 143 H (75-99) mg/dL Calcium (8.7-10.3) mg/dL 02/04/22 02/04/22 02/04/22 Range/Units 05:45 07:43 12:12 WBC (4.50-10.00) X 10*3/uL RBC (4.40-5.60) X 10*6/uL Hgb (13.0-17.0) g/dL Hct (39.6-50.0) % MCHC (32.0-37.0) g/dL Immature Gran # (0.00-0.04) X 10*3/uL Neutrophils # (1.80-7.70) X 10*3/uL Carbon Dioxide 29.1 H (20.0-27.5) mmol/L Anion Gap 7.90 L (10.00-18.00) mmol/L BUN/Creatinine Ratio 25.71 H (12.00-20.00) Ratio Glucose 132 H (70-110) mg/dL POC Glucose (mg/dL) 136 H 113 H (75-99) mg/dL Calcium 8.1 L (8.7-10.3) mg/dL Microbiology - Last 24 Hours (Table) 02/03/22 11:30 Gram Stain - Preliminary Pleural Fluid Body Fluid Culture - Preliminary 02/01/22 00:50 Blood Culture - Preliminary Blood No Growth after 72 hours 02/01/22 00:35 Blood Culture - Preliminary Blood No Growth after 72 hours 02/03/22 11:30 Anaerobic Culture - Preliminary Pleural Fluid 02/03/22 11:30 Acid Fast Bacilli Culture - Preliminary Pleural Fluid 02/03/22 11:30 Fungal Culture - Preliminary Pleural Fluid - Imaging and Cardiology Chest x-ray: report reviewed, image reviewed Assessment and Plan Assessment: 1. Large loculated left-sided pleural effusion, possible empyema 2. Persistent cough, fever, sweats, chills, pain with deep inspiration 3. Fever, Leukocytosis, secondary to above 4. History of hypertension 5. History of hyperlipidemia 6. History of prostate disorder 7. Never smoker Plan: 1. Continue his left chest pigtail catheter to low continuous wall suction -20 cm H2O. We will instill a second dose of alteplase/dornase today to his left chest pigtail catheter. Once the alteplase/dornase has been instilled we will clamp his pigtail catheter for 1 hour and asked the patient to turn every 15 minutes, supine, left side, right side, prone as tolerated. After 1 hour of the alteplase/dornase instillation we will unclamp the pigtail catheter and returned back to low continuous wall suction at -20 cm H2O. 2. Encourage use of his incentive spirometry 10 times every hour while awake. 3. Pain control per current when necessary orders. Toradol 15 mg IV every 6 hours has been ordered for additional pain control. Motrin has been discontinued. 4. Continue to monitor daily labs and chest x-rays. 5. Increase activity as tolerated. Out of bed for all meals. 6. Pleural fluid and blood culture results remain pending. Continue on Zosyn managed by pulmonary medicine. 7. More recommendations to follow based on patient's clinical course. Time with Patient: Greater than 30
--- NOTE | 2022-02-04 16:13 | P.PN ---
Subjective Progress Note Date: 02/04/22 This is a 71 year old male with past medical history significant for hypertension, hyperlipidemia. He presents with 3 days of fever, shortness of breath and pleuritic chest pain. States about 6 weeks ago he began having cough and was evaluated in the clinic and IM antibiotic injection. Also had outpatient chest xray done. He was given steroids by his primary care provider. He states it didn't seem to help and was concerned when he developed fever and weakness with congestion. He is nonsmoker, reports no marijuana use. He does not work in a factor type setting, denies exposure to toxins. He rides a motorcycle and states he notice trouble breathing after a long ride which is unusual for him. He is overall healthy. On admission chest CTA has been completed showing large loculated left pleural effusions with infiltrate, and atelectasis left lower lobe. There is concern for empyema and patient was started on empiric antibiotic coverage with zosyn. Pulmonary has evaluated the patient and IR has been consulted for pigtail cathter insertion. IR is not available until Thursday. Cardiothoracic has also been consulted. Patient for now is maintained oxygen saturation of 92% on room air. He presents with fever 100.5, heart rate 75, blood pressure 120/70. White count 18.7, hgb 11.6, sodium 129, potassium 4.3, glucose is 208. Troponin negative. 02/02/2022 Patient is evaluated today sitting up in bed. is at the bedside. Plan is for pigtail catheter insertion with IR tomorrow and cardiothoracic has been consulted for management. Pulmonary is following the patient closely. He continues on room air, however has stated he has increased cough, no sputum production. Also complains of left sided pleuritic pain, he has had motrin 400 mg ordered however he has not received. Did also add a low dose of tramadol for pain management. He continues on IV zosyn for empiric antibiotic coverage. Blood cultures are negative so far. He has remained afebrile, heart rate 98, blood pressure 153/77, 91% on room air. Labs reviewed today showing white count 16.30, hgb 10.8, sodium 136, potassium 4.6. Blood glucose in the 130s. A1C is 6.4 which is on the cusp of prediabetes vs. diabetes, will discuss with patient tomorrow and patient will discharge on an oral diabetic agent. 02/03/2022 Patient sitting up in chair pending IR placement of pigtail catheter. He had increased pain to his left side and was given low dose of tramadol which he states did help his pain. He is short of breath today, he is using his incentive spirometer, also he has requested cough medicine and it has been ordered as n eeded. He had a T-Max overnight of 101.2. He continues on IV Zosyn. Blood pressure today 126/73. Labs reviewed today showing white count 15.84, hgb 11.1, sodium 133, potassium 4.7, blood glucose 150s. 02/04/2022 Patient evaluated today sitting up in the chair. He underwent pigtail catheter placement with alteplase injection through catheter and he has had fair output 375 mls last night and 115 mls today so far from drainage tube which is mostly purulent. He underwent a second alteplase infusion today. Chest xray today showing persistent multilocular effusions, with indwelling chest tube. No pneumothorax. Cardiothoracic and pulmonary are following this patient. He has been encouraged to continue with cough and deep breathing and also to continue with incentive spirometry. He continues on IV zosyn. Pleural fluid and blood cultures are pending. Reports pain has improved today, he is receiving IV dilaudid and tramadol as needed. Labs today are showing white count of 10.68, hgb 10.4, sodium 137, potassium 4.3, BUN 18.0, creatinine 0.7, magnesium 2.2. Blood glucose trending down. He has remained afebrile in the last 24 hours, heart rate 85, blood pressure 121/69, 90% room air. Review of Systems Constitutional: Denied any fatigue denied any fever. Cardio vascular: denied any chest pain, palpitations Gastrointestinal: denied any nausea, vomiting, diarrhea Pulmonary: reports shortness of breath, cough, pleuritic chest pain Neurologic denied any new focal deficits All inpatient medications were reviewed and appropriate changes in these medications as dictated in the interval history and assessment and plan. PHYSICAL EXAMINATION: GENERAL: The patient is alert and oriented x3, in no acute distress. Well developed, well nourished. HEENT: Pupils are round and equally reacting to light. EOMI. No scleral icterus. No conjunctival pallor. Normocephalic, atraumatic. No pharyngeal erythema. No thyromegaly. CARDIOVASCULAR: S1 and S2 present. No murmurs, rubs, or gallops. PULMONARY: Left posterior lung sounds are diminished. Rales left lung base ABDOMEN: Soft, nontender, nondistended, normoactive bowel sounds. No palpable organomegaly. MUSCULOSKELETAL: No joint swelling or deformity. EXTREMITIES: No cyanosis, clubbing, or pedal edema. Trace ankle edema NEUROLOGICAL: Gross neurological examination did not reveal any focal deficits. SKIN: No rashes. Assessment and Plan Assessment Shortness of breath Large loculated left side pleural effusion with empyema suspected pneumonia with sepsis, continues on empiric antibiotic coverage Leukocytosis, fever secondary to above, improving Hypertension Hyperlpidemia Prediabetes/Diabetes with A1C of 6.4 GI Prophylaxis DVT Prophylaxis Full Code Plan Pulmonary, cardiothoracic consultation Continue empiric antibiotic coverage Received alteplase today Monitor pulse oximeter, oxygen support as needed Pending cultures Pain management Follow up AM labs The impression and plan of care has been dictated by Alice Botello, Nurse Practitioner as directed. Dr. Hermelindo MD I have performed a history and physical examination and medical decision making of this patient, discussed the same with the dictator, and agree with the dictators assessment and plan as written, documented as a scribe. Based on total visit time, I have performed more than 50% of this visit. Objective - Vital Signs Vital signs: Vital Signs Temp 98.4 F 02/04/22 12:13 Pulse 85 02/04/22 12:13 Resp 20 02/04/22 12:13 BP 121/69 02/04/22 12:13 Pulse Ox 90 L 02/04/22 12:13 FiO2 Intake & Output 02/03/22 02/04/22 02/04/22 18:59 06:59 18:59 Intake Total 825 2600 Output Total 375 515 Balance 450 2085 Intake: Intake, IV Titration 825 700 Amount Piperacillin-Tazobactam 3 200 100 .375 gm In Sodium Chloride 0.9% 100 ml @ 25 mls/hr IVPB Q8HR [facility] Rx# :[id number] Sodium Chloride 0.9% 1, 550 000 ml @ 50 mls/hr IV . Q20H [facility] Rx#:[id number] Sodium Chloride 0.9% 1, 75 600 000 ml @ 75 mls/hr IV . [id number] [facility] Rx#:[id number] Oral 1900 Output: Drainage 375 115 Left Back 375 115 Urine 400 Other: Voiding Method Toilet - Labs CBC & Chem 7: 02/04/22 05:45 02/04/22 05:45 Labs: Abnormal Lab Results - Last 24 Hours (Table) 02/03/22 02/03/22 02/04/22 Range/Units 17:11 20:13 05:45 WBC 10.68 H (4.50-10.00) X 10*3/uL RBC 3.54 L (4.40-5.60) X 10*6/uL Hgb 10.4 L (13.0-17.0) g/dL Hct 33.2 L (39.6-50.0) % MCHC 31.3 L (32.0-37.0) g/dL Immature Gran # 0.14 H (0.00-0.04) X 10*3/uL Neutrophils # 8.33 H (1.80-7.70) X 10*3/uL Carbon Dioxide (20.0-27.5) mmol/L Anion Gap (10.00-18.00) mmol/L BUN/Creatinine Ratio (12.00-20.00) Ratio Glucose (70-110) mg/dL POC Glucose (mg/dL) 173 H 143 H (75-99) mg/dL Calcium (8.7-10.3) mg/dL 02/04/22 02/04/22 02/04/22 Range/Units 05:45 07:43 12:12 WBC (4.50-10.00) X 10*3/uL RBC (4.40-5.60) X 10*6/uL Hgb (13.0-17.0) g/dL Hct (39.6-50.0) % MCHC (32.0-37.0) g/dL Immature Gran # (0.00-0.04) X 10*3/uL Neutrophils # (1.80-7.70) X 10*3/uL Carbon Dioxide 29.1 H (20.0-27.5) mmol/L Anion Gap 7.90 L (10.00-18.00) mmol/L BUN/Creatinine Ratio 25.71 H (12.00-20.00) Ratio Glucose 132 H (70-110) mg/dL POC Glucose (mg/dL) 136 H 113 H (75-99) mg/dL Calcium 8.1 L (8.7-10.3) mg/dL Microbiology - Last 24 Hours (Table) 02/03/22 11:30 Gram Stain - Preliminary Pleural Fluid Body Fluid Culture - Preliminary 02/01/22 00:50 Blood Culture - Preliminary Blood No Growth after 72 hours 02/01/22 00:35 Blood Culture - Preliminary Blood No Growth after 72 hours 02/03/22 11:30 Anaerobic Culture - Preliminary Pleural Fluid 02/03/22 11:30 Acid Fast Bacilli Culture - Preliminary Pleural Fluid 02/03/22 11:30 Fungal Culture - Preliminary Pleural Fluid Assessment and Plan Time with Patient: Less than 30
[2022-02-04 17:49] LABS: Glucose,Whole Blood 130 mg/dL (75-99)
[2022-02-04 20:09] LABS: Glucose,Whole Blood 130 mg/dL (75-99)
[2022-02-04] MEDS: hydroCHLOROthiazide 12.5 MG CAP PO SCH (21:02)
[2022-02-04] MEDS: LOSARTAN 50 MG TAB PO SCH (21:02)
[2022-02-04] MEDS: ATORVASTATIN 10 MG TAB PO SCH (21:02)
[2022-02-05] MEDS: KETOROLAC 15 MG/ML 1 ML VIAL IVP SCH ×3 (06:24→17:11)
[2022-02-05 07:22] LABS: Glucose,Whole Blood 141 mg/dL (75-99)
[2022-02-05] MEDS: MAGNESIUM OXIDE 400 MG TAB PO SCH (07:42)
[2022-02-05] MEDS: PIPERACILLIN-TAZOBACTAM 3.375 GM in SODIUM CHLORIDE 0.9% 100 ML IVPB SCH ×2 (07:42→15:48)
[2022-02-05] MEDS: INSULIN ASPART (NovoLOG) 100 UNIT/ML VIAL SQ SCH ×7 (07:43→21:34)
--- NOTE | 2022-02-05 08:37 | P.PN ---
Subjective Progress Note Date: 02/05/22 Principal diagnosis: Multiloculated parapneumonic left-sided pleural effusion 71-year-old male patient, a nonsmoker, no previous history of lung disease, who developed pneumonialike symptoms approximately 6 weeks ago. The patient had congestion, shortness of breath and pleurisy involving the left lung. He was given IV Rocephin for an urgent care and later on steroids with primary care physician. Nevertheless, he never recovered. He was having ongoing chest discomfort on the left. He was also having sweats and chills and episodic fever. He was getting progressively more weak and for that reason he came in to the hospital for further evaluation. The patient has not had any exposure or infection with COVID 19. He has not been vaccinated also. He has no altered me ntation. No hemoptysis for now. The patient had a white cell count of 18.7 with a hemoglobin of 11. The blood work showed initial sodium of 129 and that came at 137 within the treatment. BUN was 21 with a creatinine of 0.6 and coagulation profile was essentially within normal limits. The chest x-ray not done and the patient underwent a CT angiogram that showed no this of any pulmonary embolism. There was large loculated or multiloculated left-sided pleural effusion with possibility of underlying empyema. Right lung was essentially clear. The patient was started on IV Zosyn and the patient was hospitalized. A pulmonary palpation was requested. No previous bouts of pneumonias. No chest trauma. No 70 malignancy. No TB exposure. 02/02/2022, the patient is clinically stable on antibiotics. He still has some pleuritic left-sided chest wall pain. I made recommendations for a pigtail catheter insertion by interventional radiology and this has not been done. I do not think day services of interventional radiology are available on the weekend. This was done tomorrow. The patient remains on IV Zosyn for now. Thoracic surgery is also involved in the case. On 02/03/2022 patient seen in follow-up on medical surgical floor. He is awake, in no acute distress, did have fever spikes overnight with T-max of 101.2F, room air pulse ox is 94%. Doesn't appear to be any acute distress at rest, however does have exertional dyspnea and occasional cough and some pleuritic left-sided chest wall pain. Patient was seen by CT surgery consultation, and the recommendation is made for placement of CT-guided pigtail chest tube catheter in the left pleural space. He continues on antibiotics he is on Zosyn. On 02/04/2022 patient seen in follow-up on medical surgical floor. Yesterday had a left-sided pigtail chest tube catheter. And overnight his had a total of 1000 mL of purulent drainage from the pigtail. Patient received a dose of alteplase and dornase by CT surgery. Today's chest x-ray showing persistent multilocular pleural effusion with indwelling chest tube, and no evidence of his old pneumothorax. Patient remains on Zosyn for antibiotic coverage, vital signs have been stable, his been afebrile, blood pressure stable, he is working on incentive spirometer. Today's labs have been reviewed showing white blood cell count of 10.6, hemoglobin of 10.4, sodium is 137, potassium is 4.3, chloride is 100, CO2 is 29, BUN is 18 creatinine 0.7. Pleural fluid analysis showed 7400 white blood cells, 96 of holiday clear white blood cells. Fluid glucose was less than 2, fluid protein was 4.8 g, LDH was greater than 2500, consistent with empyema. Pleural fluid cultures have shown no growth thus far. Blood cultures have been negative. On 02/05/2022 patient seen in follow-up medical surgical floor. Left-sided chest tube remains in place, and there has been an additional 400 mL of purulent pleural fluid drainage in the last 24 hours. Left-sided chest tube is to water seal, no evidence of air leak. Low-grade fever this morning, with a T-max of 99 point degrees Fahrenheit. Patient is breathing comfortably, he is working on incentive spirometer, his pleuritic chest pain is improved. Chest x-ray showing stable persistent multilocular effusion. Today's labs are pending, but vital signs have been stable. CT surgery is following and patient will receive another dose of alteplase and dornase. Pleural fluid cultures are still pending, Gram stain showing no organisms but multiple PMNs. Objective - Vital Signs Vital signs: Vital Signs Temp 98.5 F 02/05/22 06:17 Pulse 76 02/05/22 06:17 Resp 16 02/05/22 06:17 BP 129/75 02/05/22 06:17 Pulse Ox 93 L 02/05/22 06:17 FiO2 Intake & Output 02/04/22 02/05/22 02/05/22 18:59 06:59 18:59 Intake Total 200 700 Output Total 340 150 Balance -140 550 Intake: Intake, IV Titration 200 700 Amount Piperacillin-Tazobactam 3 200 100 .375 gm In Sodium Chloride 0.9% 100 ml @ 25 mls/hr IVPB Q8HR [facility] Rx# :[id number] Sodium Chloride 0.9% 1, 600 000 ml @ 75 mls/hr IV . [id number] [facility] Rx#:[id number] Output: Drainage 340 150 Left Back 340 150 Other: Voiding Method Toilet - Exam GENERAL EXAM: Alert, very pleasant, 71-year-old white male on room air with pulse ox of 94%, comfortable in no apparent distress. HEAD: Normocephalic/atraumatic. EYES: Normal reaction of pupils, equal size. Conjunctiva pink, sclera white. NOSE: Clear with pink turbinates. THROAT: No erythema or exudates. NECK: No masses, no JVD, no thyroid enlargement, no adenopathy. CHEST: No chest wall deformity. Symmetrical expansion. Patient has a left- sided pigtail chest tube catheter in place connected to Pleur-evac, with large amount of purulent drainage, a total of 1000 mL of purulent material over the last 24 hours. LUNGS: Diminished breath sounds over left lower lobe with some crackles and dullness to percussion CVS: Regular rate and rhythm, normal S1 and S2, no gallops, no murmurs, no rubs ABDOMEN: Soft, nontender. No hepatosplenomegaly, normal bowel sounds, no guarding or rigidity. EXTREMITIES: No clubbing, no edema, no cyanosis, 2+ pulses and upper and lower extremities. MUSCULOSKELETAL: Muscle strength and tone normal. SPINE: No scoliosis or deformity SKIN: No rashes CENTRAL NERVOUS SYSTEM: Alert and oriented -3. No focal deficits, tone is normal in all 4 extremities. PSYCHIATRIC: Alert and oriented -3. Appropriate affect. Intact judgment and insight. - Labs CBC & Chem 7: 02/04/22 05:45 02/04/22 05:45 Labs: Abnormal Lab Results - Last 24 Hours (Table) 02/04/22 02/04/22 02/04/22 Range/Units 05:45 05:45 12:12 WBC 10.68 H (4.50-10.00) X 10*3/uL RBC 3.54 L (4.40-5.60) X 10*6/uL Hgb 10.4 L (13.0-17.0) g/dL Hct 33.2 L (39.6-50.0) % MCHC 31.3 L (32.0-37.0) g/dL Immature Gran # 0.14 H (0.00-0.04) X 10*3/uL Neutrophils # 8.33 H (1.80-7.70) X 10*3/uL Carbon Dioxide 29.1 H (20.0-27.5) mmol/L Anion Gap 7.90 L (10.00-18.00) mmol/L BUN/Creatinine Ratio 25.71 H (12.00-20.00) Ratio Glucose 132 H (70-110) mg/dL POC Glucose (mg/dL) 113 H (75-99) mg/dL Calcium 8.1 L (8.7-10.3) mg/dL 02/04/22 02/04/22 02/05/22 Range/Units 17:48 20:08 07:20 WBC (4.50-10.00) X 10*3/uL RBC (4.40-5.60) X 10*6/uL Hgb (13.0-17.0) g/dL Hct (39.6-50.0) % MCHC (32.0-37.0) g/dL Immature Gran # (0.00-0.04) X 10*3/uL Neutrophils # (1.80-7.70) X 10*3/uL Carbon Dioxide (20.0-27.5) mmol/L Anion Gap (10.00-18.00) mmol/L BUN/Creatinine Ratio (12.00-20.00) Ratio Glucose (70-110) mg/dL POC Glucose (mg/dL) 130 H 130 H 141 H (75-99) mg/dL Calcium (8.7-10.3) mg/dL Microbiology - Last 24 Hours (Table) 02/01/22 00:50 Blood Culture - Preliminary Blood No Growth after 96 hours 02/01/22 00:35 Blood Culture - Preliminary Blood No Growth after 96 hours 02/03/22 11:30 Acid Fast Bacilli Smear - Final Pleural Fluid Acid Fast Bacilli Culture - Preliminary 02/03/22 11:30 Gram Stain - Preliminary Pleural Fluid Body Fluid Culture - Preliminary Assessment and Plan Plan: Assessment: #1. Complicated multiloculated parapneumonic left-sided pleural effusion, possible empyema, complication of the previously under treated pneumonia, status post left chest pigtail catheter placement with drainage of large amount of purulent material, and pleural fluid analysis is consistent with empyema, pleural fluid cultures are pending, remains on Zosyn #2. Shortness of breath and pleuritic chest pain related to the above #3. Fever, leukocytosis related to the above, improved #4. Hypertension #5. Hyperlipidemia #6. Nonsmoker Plan: Awaiting final pleural fluid cultures CXR showing stable persistent loculated left sided pleural effusion Continue dornase and alteplase per CT surgery Continue current antibiotic Encourage deep breathing and coughing Follow-up labs tomorrow Follow-up chest x-ray in the morning I have personally seen and examined the patient, performed the documentation and the assessment and plan as written. Number of minutes spent on the visit: [10] Time with Patient: Less than 30
[2022-02-05] MEDS ORDERED: ALTEPLASE 10 MG in SODIUM CHLORIDE 0.9% 50 ML IRRIGATION ONE (09:02)
[2022-02-05] MEDS ORDERED: DORNASE ALFA 5 MG in SODIUM CHLORIDE 0.9% 50 ML IRRIGATION ONE (09:02)
--- NOTE | 2022-02-05 09:34 | XR ---
EXAMINATION TYPE: XR chest 1V portable DATE OF EXAM: 02/05/2022 COMPARISON: Chest x-ray 02/04/2022 HISTORY: Loculated pleural effusion TECHNIQUE: Single frontal view of the chest is obtained. FINDINGS: There is no significant interval change. IMPRESSION: A sided chest tube remains in place. Abnormal density within the left hemithorax is cons istent with loculated pleural effusion.
[2022-02-05 09:55] LABS: Basophils # (A) 0.04 X 10*3/uL (0.00-0.10); Basophils % (A) 0.4 %; Eosinophils # (A) 0.35 X 10*3/uL (0.04-0.35); Eosinophils % (A) 3.4 %; HCT 32.8 % (39.6-50.0); HGB 10.3 g/dL (13.0-17.0); Immature Grans, Automated 1.8 %; Lymphocytes # (A) 0.89 X 10*3/uL (0.90-5.00); Lymphocytes % (A) 8.7 %; MCH 29.4 pg (27.0-32.0); MCHC 31.4 g/dL (32.0-37.0); MCV 93.7 fL (80.0-97.0); Mean Platelet Volume 9.6 fL (9.5-12.2); Monocytes # (A) 0.78 X 10*3/uL (0.20-1.00); Monocytes % (A) 7.6 %; NRBC Per 100 WBC 0 /100 WBCS (0.0-0.0); Neutrophils # (A) 7.97 X 10*3/uL (1.80-7.70); Neutrophils % (A) 78.1 %; Platelet Count 381 X 10*3/uL (140-440); RDW 12.8 % (11.5-14.5); WBC 10.21 X 10*3/uL (4.50-10.00)
--- NOTE | 2022-02-05 10:03 | P.PN ---
Subjective Progress Note Date: 02/05/22 Principal diagnosis: Loculated left-sided effusion, possible empyema with a six-week history of persistent nonproductive cough and pleuritic type symptoms. Past medical history significant for hypertension, hyperlipidemia, BPH, lifetime nonsmoker. POD #2 placement of left sided pleural pigtail catheter placed by interventional radiology. The patient was seen and examined today 02/05/2022 at his bedside on the fifth floor medical oncology unit. Currently he is sitting up in bed, is awake, alert, oriented 3 and is in no acute apparent distress. He denies any complaints of shortness of breath or pain at this time. He reports that he feels somewhat improved today. His T-max temperature last 24 hours was 99.0F he remains on Zosyn for antibiotic coverage managed by pulmonary/critical care medicine. Oxygen saturations are 93% on room air and he is achieving 2500 mL with encouragement on his incentive spirometry. Left chest pigtail catheter remains in place to low continuous wall suction -20 cm H2O. He was given a second total dose of alteplase/dornase yesterday 02/04/2022 with 320 mL of drainage from his left chest pigtail catheter drained in the last 24 hours. Chest x-ray today shows no significant interval change with an abnormal density within the left hemithorax consistent with loculated pleural effusion. The patient has been up ambulating in the hallway on the fifth floor medical surgical unit. Pleural fluid cytology results show dense acute inflammation consistent with empyema and no cytologically malignant cells were identified. Blood cultures and pleural fluid cultures remain pending. Objective - Vital Signs Vital signs: Vital Signs Temp 98.5 F 02/05/22 06:17 Pulse 76 02/05/22 06:17 Resp 16 02/05/22 06:17 BP 129/75 02/05/22 06:17 Pulse Ox 93 L 02/05/22 06:17 FiO2 Intake & Output 02/04/22 02/05/22 02/05/22 18:59 06:59 18:59 Intake Total 200 700 Output Total 340 150 Balance -140 550 Intake: Intake, IV Titration 200 700 Amount Piperacillin-Tazobactam 3 200 100 .375 gm In Sodium Chloride 0.9% 100 ml @ 25 mls/hr IVPB Q8HR [facility] Rx# :[id number] Sodium Chloride 0.9% 1, 600 000 ml @ 75 mls/hr IV . [id number] [facility] Rx#:[id number] Output: Drainage 340 150 Left Back 340 150 Other: Voiding Method Toilet - Exam CONSTITUTIONAL: Sitting up in bed on the fifth floor medical surgical unit, appears comfortable, cooperative, no apparent acute distress. HEENT: Neck is supple, no JVD, no lymphadenopathy. RESPIRATORY: Lungs sounds diminished to his left lower lobe, essentially clear to his right lobes. Respirations are symmetrical and nonlabored. Currently on room air with oxygen saturations 93%. Able to achieve 2500 mL on his incentive spirometry. Strong cough. Left chest pigtail catheter remains in place to low continuous wall suction -20 cm H2O. No air leak is present. Draining serous/purulent colored drainage with 320 mL of output in the last 24 hours. CARDIOVASCULAR: Regular rhythm and rate. S1 and S2 present, negative for S3, gallop or murmur. Palpable peripheral pulses bilaterally. No calf pain or tenderness noted. GASTROINTESTINAL: Abdomen soft, nontender, nondistended. Active bowel sounds present 4 quadrants. Tolerating diet. No guarding or rigidity. GENITOURINARY: Continues to void. INTEGUMENTARY: Skin is warm and dry with no evidence of clubbing or cyanosis. A quarter size erythema in the area on his mid back that has recently been bio psied. NEUROLOGIC: Cranial nerves II through XII intact. No focal deficits. MUSKULOSKELETAL: Able to move all extremities, strength equal bilaterally. PSYCHIATRIC: Alert and oriented to person place and time, appropriate affect, intact judgment and insight. - Allied health notes Allied health notes reviewed: nursing - Labs CBC & Chem 7: 02/05/22 05:25 02/04/22 05:45 Labs: Abnormal Lab Results - Last 24 Hours (Table) 02/04/22 02/04/22 02/04/22 Range/Units 12:12 17:48 20:08 POC Glucose (mg/dL) 113 H 130 H 130 H (75-99) mg/dL 02/05/22 Range/Units 07:20 POC Glucose (mg/dL) 141 H (75-99) mg/dL Microbiology - Last 24 Hours (Table) 02/01/22 00:50 Blood Culture - Preliminary Blood No Growth after 96 hours 02/01/22 00:35 Blood Culture - Preliminary Blood No Growth after 96 hours 02/03/22 11:30 Acid Fast Bacilli Smear - Final Pleural Fluid Acid Fast Bacilli Culture - Preliminary 02/03/22 11:30 Gram Stain - Preliminary Pleural Fluid Body Fluid Culture - Preliminary - Imaging and Cardiology Chest x-ray: report reviewed, image reviewed Assessment and Plan Assessment: 1. Large loculated left-sided pleural effusion, possible empyema, pleural fluid cytology showing dense acute inflammation consistent with empyema and no cytologically malignant cells identified 2. Persistent cough, fever, sweats, chills, pain with deep inspiration, secondary to above 3. Fever, Leukocytosis, secondary to above 4. History of hypertension 5. History of hyperlipidemia 6. History of prostate disorder 7. Lifetime non-smoker Plan: 1. Continue his left chest pigtail catheter to low continuous wall suction -20 cm H2O. We will instill a third dose of alteplase/dornase today to his left chest pigtail catheter. Once the alteplase/dornase has been instilled we will clamp his pigtail catheter for 1 hour and asked the patient to turn every 15 minutes, supine, left side, right side, prone as tolerated. After 1 hour of the alteplase/dornase instillation we will unclamp the pigtail catheter and returned back to low continuous wall suction at -20 cm H2O. 2. Encourage use of his incentive spirometry 10 times every hour while awake. 3. Pain control per current when necessary orders. Toradol 15 mg IV every 6 hours has been ordered for additional pain control. 4. Continue to monitor daily labs and chest x-rays. A CT of the chest without contrast will be repeated in the next 24-48 hours. 5. Increase activity as tolerated. Out of bed for all meals. 6. Pleural fluid and blood culture results remain pending, currently show no growth. Continue on Zosyn managed by pulmonary medicine. Cytology results of the pleural fluid show dense acute inflammation consistent with empyema and no cytologically malignant cells were identified. 7. More recommendations to follow based on patient's clinical course. Time with Patient: Greater than 30
[2022-02-05] MEDS: SODIUM CHLORIDE 0.9% 1,000 ML IV SCH (10:23)
[2022-02-05] MEDS ORDERED: LOPERAMIDE 2 MG CAP PO PRN (11:34)
[2022-02-05] MEDS: traMADol 50 MG TAB PO PRN (11:36)
--- NOTE | 2022-02-05 11:42 | P.PN ---
Subjective Progress Note Date: 02/05/22 This is a 71 year old male with past medical history significant for hypertension, hyperlipidemia. He presents with 3 days of fever, shortness of breath and pleuritic chest pain. States about 6 weeks ago he began having cough and was evaluated in the clinic and IM antibiotic injection. Also had outpatient chest xray done. He was given steroids by his primary care provider. He states it didn't seem to help and was concerned when he developed fever and weakness with congestion. He is nonsmoker, reports no marijuana use. He does not work in a factor type setting, denies exposure to toxins. He rides a motorcycle and states he notice trouble breathing after a long ride which is unusual for him. He is overall healthy. On admission chest CTA has been completed showing large loculated left pleural effusions with infiltrate, and atelectasis left lower lobe. There is concern for empyema and patient was started on empiric antibiotic coverage with zosyn. Pulmonary has evaluated the patient and IR has been consulted for pigtail cathter insertion. IR is not available until Thursday. Cardiothoracic has also been consulted. Patient for now is maintained oxygen saturation of 92% on room air. He presents with fever 100.5, heart rate 75, blood pressure 120/70. White count 18.7, hgb 11.6, sodium 129, potassium 4.3, glucose is 208. Troponin negative. 02/02/2022 Patient is evaluated today sitting up in bed. is at the bedside. Plan is for pigtail catheter insertion with IR tomorrow and cardiothoracic has been consulted for management. Pulmonary is following the patient closely. He continues on room air, however has stated he has increased cough, no sputum production. Also complains of left sided pleuritic pain, he has had motrin 400 mg ordered however he has not received. Did also add a low dose of tramadol for pain management. He continues on IV zosyn for empiric antibiotic coverage. Blood cultures are negative so far. He has remained afebrile, heart rate 98, blood pressure 153/77, 91% on room air. Labs reviewed today showing white count 16.30, hgb 10.8, sodium 136, potassium 4.6. Blood glucose in the 130s. A1C is 6.4 which is on the cusp of prediabetes vs. diabetes, will discuss with patient tomorrow and patient will discharge on an oral diabetic agent. 02/03/2022 Patient sitting up in chair pending IR placement of pigtail catheter. He had increased pain to his left side and was given low dose of tramadol which he states did help his pain. He is short of breath today, he is using his incentive spirometer, also he has requested cough medicine and it has been ordered as n eeded. He had a T-Max overnight of 101.2. He continues on IV Zosyn. Blood pressure today 126/73. Labs reviewed today showing white count 15.84, hgb 11.1, sodium 133, potassium 4.7, blood glucose 150s. 02/04/2022 Patient evaluated today sitting up in the chair. He underwent pigtail catheter placement with alteplase injection through catheter and he has had fair output 375 mls last night and 115 mls today so far from drainage tube which is mostly purulent. He underwent a second alteplase infusion today. Chest xray today showing persistent multilocular effusions, with indwelling chest tube. No pneumothorax. Cardiothoracic and pulmonary are following this patient. He has been encouraged to continue with cough and deep breathing and also to continue with incentive spirometry. He continues on IV zosyn. Pleural fluid and blood cultures are pending. Reports pain has improved today, he is receiving IV dilaudid and tramadol as needed. Labs today are showing white count of 10.68, hgb 10.4, sodium 137, potassium 4.3, BUN 18.0, creatinine 0.7, magnesium 2.2. Blood glucose trending down. He has remained afebrile in the last 24 hours, heart rate 85, blood pressure 121/69, 90% room air. 02/05/2022 Patient evaluated today resting in bed, he had third alteplase injection today. Resting in bed on back during examination to begin turning rotation. Chest x- ray shows no significant interval change as before redemonstrates a loculated effusion. He reports diarrhea 1-2 times overnight. He has been maintained on IV zosyn. Labs today showed white count 10.21, hemoglobin 10.3. His T-max last night was 99 he states that he does have night sweats still, heart rate 76, blood pressure 129/75, 93% pulse oximetry. Ambulating without difficulty in the hallways. His pleural cytology has resulted showing acute inflammation consistent with empyema without evidence for malignancy. Blood glucose in the 130s. Review of Systems Constitutional: Denied any fatigue denied any fever. Cardio vascular: denied any chest pain, palpitations Gastrointestinal: denied any nausea, vomiting, diarrhea Pulmonary: reports shortness of breath, cough, pleuritic chest pain Neurologic denied any new focal deficits All inpatient medications were reviewed and appropriate changes in these medications as dictated in the interval history and assessment and plan. PHYSICAL EXAMINATION: GENERAL: The patient is alert and oriented x3, in no acute distress. Well developed, well nourished. HEENT: Pupils are round and equally reacting to light. EOMI. No scleral icterus. No conjunctival pallor. Normocephalic, atraumatic. No pharyngeal erythema. No thyromegaly. CARDIOVASCULAR: S1 and S2 present. No murmurs, rubs, or gallops. PULMONARY: Left posterior lung sounds are diminished. Rales left lung base ABDOMEN: Soft, nontender, nondistended, normoactive bowel sounds. No palpable organomegaly. MUSCULOSKELETAL: No joint swelling or deformity. EXTREMITIES: No cyanosis, clubbing, or pedal edema. Trace ankle edema NEUROLOGICAL: Gross neurological examination did not reveal any focal deficits. SKIN: No rashes. Assessment and Plan Assessment Shortness of breath Large loculated left side pleural effusion with empyema suspected pneumonia with sepsis, he is status post pigtail catheter placement and has undergone 3 rounds of alteplase. He continues on IV zosyn. Leukocytosis, fever secondary to above, improving Hypertension Hyperlpidemia Prediabetes/Diabetes with A1C of 6.4 History of prostate disorder GI Prophylaxis Full Code Plan Pulmonary, cardiothoracic consultation Continue empiric antibiotic coverage Received alteplase this morning, this is is his 3rd dose Monitor pulse oximeter, oxygen support as needed Pending cultures Pain management Cardiothoracic plan to repeat his chest CT in the next 24 to 48 hours Adjust insulin Encourage ambulation, incentive spirometry Follow up AM labs The impression and plan of care has been dictated by Alice Botello, Nurse Practitioner as directed. Dr. Hermelindo MD I have performed a history and physical examination and medical decision making of this patient, discussed the same with the dictator, and agree with the dictators assessment and plan as written, documented as a scribe. Based on total visit time, I have performed more than 50% of this visit. Objective - Vital Signs Vital signs: Vital Signs Temp 98.5 F 02/05/22 06:17 Pulse 76 02/05/22 06:17 Resp 16 02/05/22 06:17 BP 129/75 02/05/22 06:17 Pulse Ox 93 L 02/05/22 06:17 FiO2 Intake & Output 02/04/22 02/05/22 02/05/22 18:59 06:59 18:59 Intake Total 200 700 Output Total 340 150 Balance -140 550 Intake: Intake, IV Titration 200 700 Amount Piperacillin-Tazobactam 3 200 100 .375 gm In Sodium Chloride 0.9% 100 ml @ 25 mls/hr IVPB Q8HR [facility] Rx# :[id number] Sodium Chloride 0.9% 1, 600 000 ml @ 75 mls/hr IV . [id number] [facility] Rx#:[id number] Output: Drainage 340 150 Left Back 340 150 Other: Voiding Method Toilet - Labs CBC & Chem 7: 02/05/22 05:25 02/04/22 05:45 Labs: Abnormal Lab Results - Last 24 Hours (Table) 02/04/22 02/04/22 02/04/22 Range/Units 12:12 17:48 20:08 WBC (4.50-10.00) X 10*3/uL RBC (4.40-5.60) X 10*6/uL Hgb (13.0-17.0) g/dL Hct (39.6-50.0) % MCHC (32.0-37.0) g/dL Immature Gran # (0.00-0.04) X 10*3/uL Neutrophils # (1.80-7.70) X 10*3/uL Lymphocytes # (0.90-5.00) X 10*3/uL POC Glucose (mg/dL) 113 H 130 H 130 H (75-99) mg/dL 02/05/22 02/05/22 Range/Units 05:25 07:20 WBC 10.21 H (4.50-10.00) X 10*3/uL RBC 3.50 L (4.40-5.60) X 10*6/uL Hgb 10.3 L (13.0-17.0) g/dL Hct 32.8 L (39.6-50.0) % MCHC 31.4 L (32.0-37.0) g/dL Immature Gran # 0.18 H (0.00-0.04) X 10*3/uL Neutrophils # 7.97 H (1.80-7.70) X 10*3/uL Lymphocytes # 0.89 L (0.90-5.00) X 10*3/uL POC Glucose (mg/dL) 141 H (75-99) mg/dL Microbiology - Last 24 Hours (Table) 02/01/22 00:50 Blood Culture - Preliminary Blood No Growth after 96 hours 02/01/22 00:35 Blood Culture - Preliminary Blood No Growth after 96 hours 02/03/22 11:30 Acid Fast Bacilli Smear - Final Pleural Fluid Acid Fast Bacilli Culture - Preliminary 02/03/22 11:30 Gram Stain - Preliminary Pleural Fluid Body Fluid Culture - Preliminary Assessment and Plan Time with Patient: Less than 30
[2022-02-05 12:10] LABS: Glucose,Whole Blood 101 mg/dL (75-99)
--- NOTE | 2022-02-05 12:20 | XR ---
EXAMINATION TYPE: XR chest 1V portable DATE OF EXAM: 02/05/2022 CLINICAL HISTORY: Post thrombolytic. TECHNIQUE: Single AP portable upright view of the chest is obtained. COMPARISON: Chest x-ray from earlier today and older studies. FINDINGS: Persistent left basilar pleural drainage catheter with left lung opacity. Right lung remai ns predominantly clear. Cardiac blood size stable and within normal limits. Osseous structures are in tact. IMPRESSION: Persistent left lung nonsimple pleural fluid collection despite pigtail drainage catheter and intrapleural thrombolytic therapy. No significant change from x-ray earlier today.
[2022-02-05] MEDS: PANTOPRAZOLE 40 MG/10 ML VIAL IVP SCH (13:22)
--- NOTE | 2022-02-05 13:50 | CT ---
EXAMINATION TYPE: CT chest wo con DATE OF EXAM: 02/05/2022 INDICATION: Loculated Left pleural effusion CT DLP: 392.2 mGy.cm Automated Exposure Control for Dose Reduction was Utilized. TECHNIQUE AND CONTRAST: CT scan of the chest without IV contrast administration. COMPARISON: CT dated 01/31/2022 FINDINGS: Persistent loculated left-sided pleural effusion, improved in the lung bases, please correlate with h istory of interval drainage. The largest component is seen superiorly in the left hemithorax measurin g up to 16.4 cm. Persistent soft tissue thickening/atelectasis at the left lung base adjacent to the pleural effusion. This could represent chronic atelectasis however underlying empyema, mesothelioma or other pleural le jeff can't be excluded by this nonenhanced CT scan. Small free right-sided pleural effusion. Minimal right basal posterior pulmonary atelectasis. Loss of volume of the left lower lobe. Unremarkable hilary maira of the aerated lungs. Patent trachea and main bronchi. No gross cardiomegaly. Coronary and arterial atherosclerotic calcifications. Minimal pericardial flui d. The ascending aorta measures 4.5 cm. The pulmonary trunk measures 3.4 cm. Scattered subcentimeter mediastinal lymph nodes measuring up to 9.8 cm in the subcarinal location and 9 mm in the aortopulmon [place] window, stable. No progressive lymphadenopathy in the chest. Bulky spleen. Questionable small sli ding hiatal hernia. Stable right adrenal calcifications. No gross aggressive bone lesion. IMPRESSION: Persistent loculated left-sided pleural effusion with interval changes as detailed above. Persistent consolidation/thickening of the left lung base which could be related to chronic atelectasis however underlying empyema, mesothelioma or other pleural lesion cannot be excluded by this nonenhanced CT sc an. Recommend correlation with pleural fluid analysis including cytology. Other findings as described above.
[2022-02-05 17:05] LABS: Glucose,Whole Blood 162 mg/dL (70-110)
[2022-02-05 21:32] LABS: Glucose,Whole Blood 122 mg/dL (70-110)
[2022-02-05] MEDS: LOSARTAN 50 MG TAB PO SCH (21:33)
[2022-02-05] MEDS: hydroCHLOROthiazide 12.5 MG CAP PO SCH (21:33)
[2022-02-06] MEDS: PIPERACILLIN-TAZOBACTAM 3.375 GM in SODIUM CHLORIDE 0.9% 100 ML IVPB SCH ×4 (00:07→23:31)
[2022-02-06] MEDS: KETOROLAC 15 MG/ML 1 ML VIAL IVP SCH ×3 (00:07→11:22)
[2022-02-06 07:06] LABS: Glucose,Whole Blood 127 mg/dL (70-110)
[2022-02-06] MEDS: INSULIN ASPART (NovoLOG) 100 UNIT/ML VIAL SQ SCH ×8 (07:52→20:21)
--- NOTE | 2022-02-06 08:27 | P.PN ---
Subjective Progress Note Date: 02/04/22 Principal diagnosis: Left-sided empyema Patient is a 71 year male presented to the hospital with left-sided chest pain and fever and cough has been diagnosed with a left-sided loculated effusion concerning for empyema in this patient who is status post chest tube placement on 02/03/2022. On today's evaluation that is 02/04/2022, the patient is afebrile, the patient is breathing comfortably, the patient left-sided chest pain has decreased intensity, and denies having any nausea no vomiting no abdominal pain and no diarrhea Objective - Vital Signs Vital signs: Vital Signs Temp 97.9 F 02/04/22 05:17 Pulse 73 02/04/22 05:17 Resp 16 02/04/22 05:17 BP 121/72 02/04/22 05:17 Pulse Ox 96 02/04/22 05:17 FiO2 Intake & Output 02/03/22 02/04/22 02/04/22 18:59 06:59 18:59 Intake Total 825 2600 Output Total 375 515 Balance 450 2085 Intake: Intake, IV Titration 825 700 Amount Piperacillin-Tazobactam 3 200 100 .375 gm In Sodium Chloride 0.9% 100 ml @ 25 mls/hr IVPB Q8HR [facility] Rx# :[id number] Sodium Chloride 0.9% 1, 550 000 ml @ 50 mls/hr IV . Q20H [facility] Rx#:[id number] Sodium Chloride 0.9% 1, 75 600 000 ml @ 75 mls/hr IV . [id number] [facility] Rx#:[id number] Oral 1900 Output: Drainage 375 115 Left Back 375 115 Urine 400 Other: Voiding Method Toilet - Exam GENERAL DESCRIPTION: An elderly male lying in bed in no distress RESPIRATORY SYSTEM: Unlabored breathing , decreased breath sounds at left base HEART: S1 S2 regular rate and rhythm , ABDOMEN: Soft , no tenderness EXTREMITIES: No edema feet - Labs CBC & Chem 7: 02/05/22 05:25 02/04/22 05:45 Labs: Abnormal Lab Results - Last 24 Hours (Table) 02/03/22 02/03/22 02/04/22 Range/Units 17:11 20:13 05:45 WBC 10.68 H (4.50-10.00) X 10*3/uL RBC 3.54 L (4.40-5.60) X 10*6/uL Hgb 10.4 L (13.0-17.0) g/dL Hct 33.2 L (39.6-50.0) % MCHC 31.3 L (32.0-37.0) g/dL Immature Gran # 0.14 H (0.00-0.04) X 10*3/uL Neutrophils # 8.33 H (1.80-7.70) X 10*3/uL Carbon Dioxide (20.0-27.5) mmol/L Anion Gap (10.00-18.00) mmol/L BUN/Creatinine Ratio (12.00-20.00) Ratio Glucose (70-110) mg/dL POC Glucose (mg/dL) 173 H 143 H (75-99) mg/dL Calcium (8.7-10.3) mg/dL 02/04/22 02/04/22 Range/Units 05:45 07:43 WBC (4.50-10.00) X 10*3/uL RBC (4.40-5.60) X 10*6/uL Hgb (13.0-17.0) g/dL Hct (39.6-50.0) % MCHC (32.0-37.0) g/dL Immature Gran # (0.00-0.04) X 10*3/uL Neutrophils # (1.80-7.70) X 10*3/uL Carbon Dioxide 29.1 H (20.0-27.5) mmol/L Anion Gap 7.90 L (10.00-18.00) mmol/L BUN/Creatinine Ratio 25.71 H (12.00-20.00) Ratio Glucose 132 H (70-110) mg/dL POC Glucose (mg/dL) 136 H (75-99) mg/dL Calcium 8.1 L (8.7-10.3) mg/dL Microbiology - Last 24 Hours (Table) 02/03/22 11:30 Gram Stain - Preliminary Pleural Fluid Body Fluid Culture - Preliminary 02/01/22 00:50 Blood Culture - Preliminary Blood No Growth after 72 hours 02/01/22 00:35 Blood Culture - Preliminary Blood No Growth after 72 hours 02/03/22 11:30 Anaerobic Culture - Preliminary Pleural Fluid 02/03/22 11:30 Acid Fast Bacilli Culture - Preliminary Pleural Fluid 02/03/22 11:30 Fungal Culture - Preliminary Pleural Fluid Assessment and Plan (1) Pleural effusion, left Current Visit: Yes Status: Acute Code(s): J90 - PLEURAL EFFUSION, NOT ELSEWHERE CLASSIFIED SNOMED Code(s): 29319412 Plan: 1patient presented to hospital with sepsis source is left-sided pneumonia and empyema more likely from a community-acquired pathogen as the patient seem to have not received an antibiotic in the outpatient setting status post IR chest tube placement and fluid has been sent for the culture. 2the patient will continue patient on Zosyn at this point while waiting for the culture to finalize. Time with Patient: Less than 30
--- NOTE | 2022-02-06 08:28 | P.PN ---
Subjective Progress Note Date: 02/05/22 Principal diagnosis: Left-sided empyema Patient is a 71 year male presented to the hospital with left-sided chest pain and fever and cough has been diagnosed with a left-sided loculated effusion concerning for empyema in this patient who is status post chest tube placement on 02/03/2022 which unfortunately did fell off 02/05/2022 On today's evaluation that is 02/05/2022, the patient remains to be afebrile, the patient is breathing comfortably, the patient left-sided chest pain has decreased intensity, the patient denies denies having any nausea no vomiting no abdominal pain and no diarrhea Objective - Vital Signs Vital signs: Vital Signs Temp 98.5 F 02/05/22 06:17 Pulse 76 02/05/22 06:17 Resp 16 02/05/22 06:17 BP 129/75 02/05/22 06:17 Pulse Ox 93 L 02/05/22 06:17 FiO2 Intake & Output 02/04/22 02/05/22 02/05/22 18:59 06:59 18:59 Intake Total 200 700 Output Total 340 150 Balance -140 550 Intake: Intake, IV Titration 200 700 Amount Piperacillin-Tazobactam 3 200 100 .375 gm In Sodium Chloride 0.9% 100 ml @ 25 mls/hr IVPB Q8HR [facility] Rx# :[id number] Sodium Chloride 0.9% 1, 600 000 ml @ 75 mls/hr IV . [id number] [facility] Rx#:[id number] Output: Drainage 340 150 Left Back 340 150 Other: Voiding Method Toilet - Exam GENERAL DESCRIPTION: An elderly male lying in bed in no distress RESPIRATORY SYSTEM: Unlabored breathing , decreased breath sounds at left base HEART: S1 S2 regular rate and rhythm , ABDOMEN: Soft , no tenderness EXTREMITIES: No edema feet - Labs CBC & Chem 7: 02/05/22 05:25 02/04/22 05:45 Labs: Abnormal Lab Results - Last 24 Hours (Table) 02/04/22 02/04/22 02/04/22 Range/Units 12:12 17:48 20:08 WBC (4.50-10.00) X 10*3/uL RBC (4.40-5.60) X 10*6/uL Hgb (13.0-17.0) g/dL Hct (39.6-50.0) % MCHC (32.0-37.0) g/dL Immature Gran # (0.00-0.04) X 10*3/uL Neutrophils # (1.80-7.70) X 10*3/uL Lymphocytes # (0.90-5.00) X 10*3/uL POC Glucose (mg/dL) 113 H 130 H 130 H (75-99) mg/dL 02/05/22 02/05/22 Range/Units 05:25 07:20 WBC 10.21 H (4.50-10.00) X 10*3/uL RBC 3.50 L (4.40-5.60) X 10*6/uL Hgb 10.3 L (13.0-17.0) g/dL Hct 32.8 L (39.6-50.0) % MCHC 31.4 L (32.0-37.0) g/dL Immature Gran # 0.18 H (0.00-0.04) X 10*3/uL Neutrophils # 7.97 H (1.80-7.70) X 10*3/uL Lymphocytes # 0.89 L (0.90-5.00) X 10*3/uL POC Glucose (mg/dL) 141 H (75-99) mg/dL Microbiology - Last 24 Hours (Table) 02/01/22 00:50 Blood Culture - Preliminary Blood No Growth after 96 hours 02/01/22 00:35 Blood Culture - Preliminary Blood No Growth after 96 hours 02/03/22 11:30 Acid Fast Bacilli Smear - Final Pleural Fluid Acid Fast Bacilli Culture - Preliminary 02/03/22 11:30 Gram Stain - Preliminary Pleural Fluid Body Fluid Culture - Preliminary Assessment and Plan (1) Pleural effusion, left Current Visit: Yes Status: Acute Code(s): J90 - PLEURAL EFFUSION, NOT ELSEWHERE CLASSIFIED SNOMED Code(s): 76484252 Plan: 1patient presented to hospital with sepsis source is left-sided pneumonia and empyema more likely from a community-acquired pathogen as the patient seem to have not received an antibiotic in the outpatient setting status post IR chest tube placement and fluid has been sent for the culture which are currently pending. 2the patient will continue patient on Zosyn, will likely need a PICC line for outpatient IV antibiotics on the basis of culture Time with Patient: Less than 30
[2022-02-06] MEDS: PANTOPRAZOLE 40 MG/10 ML VIAL IVP SCH (08:43)
[2022-02-06] MEDS: MAGNESIUM OXIDE 400 MG TAB PO SCH (08:43)
--- NOTE | 2022-02-06 10:06 | P.PN ---
Subjective Progress Note Date: 02/06/22 Principal diagnosis: Loculated left-sided effusion, possible empyema with a six-week history of persistent nonproductive cough and pleuritic type symptoms. Past medical history significant for hypertension, hyperlipidemia, BPH, lifetime nonsmoker. The patient was seen and examined today 02/06/2022 at his bedside on the fifth floor medical oncology unit. Currently the patient is up ambulating in his room independently. He is awake, alert, oriented 3 and is in no acute apparent distress. Denies any complaints of pain or shortness of breath at this time, remains complaining of a persistent nonproductive dry cough. Complaining of some episodes of diarrhea. He remains afebrile in the last 24 hours with his T- max temperature 98.6F. Cultures remain showing no growth. Cytology results of the pleural fluid showed dense acute inflammation consistent with empyema and no cytologically malignant cells were identified. He remains on Zosyn for IV antibiotic coverage managed by infectious disease. The patient was given a dose of all place/dornase per his pigtail catheter yesterday, unfortunately this several hours after instillation his left chest pigtail catheter was accidentally dislodged. He is scheduled for a left chest pigtail catheter today by interventional radiology. A computed tomography scan of his chest was completed just today which showed a persistent loculated left-sided pleural effusion, persistent consolidation/thickening of the left lung base which could be related to chronic atelectasis or underlying empyema. Oxygen saturation are 99% on room air and he is achieving 2500 mL on his incentive spirometry. Objective - Vital Signs Vital signs: Vital Signs Temp 98.1 F 02/06/22 04:56 Pulse 74 02/06/22 04:56 Resp 18 02/06/22 04:56 BP 128/77 02/06/22 04:56 Pulse Ox 94 L 02/06/22 04:56 FiO2 Intake & Output 02/05/22 02/06/22 02/06/22 18:59 06:59 18:59 Intake Total 1100 Balance 1100 Intake: Oral 1100 Other: Voiding Method Toilet # Voids 2 2 - Exam CONSTITUTIONAL: Up ambulating in his room independently on the fifth floor medical surgical unit, appears comfortable, cooperative, no apparent acute distress. HEENT: Neck is supple, no JVD, no lymphadenopathy. RESPIRATORY: Lungs sounds diminished to his left lower lobe, essentially clear to his right lobes. Respirations are symmetrical and nonlabored. Currently on room air with oxygen saturations 99%. Able to achieve 2500 mL on his incentive spirometry. Strong cough. CARDIOVASCULAR: Regular rhythm and rate. S1 and S2 present, negative for S3, gallop or murmur. Palpable peripheral pulses bilaterally. No calf pain or tenderness noted. GASTROINTESTINAL: Abdomen soft, nontender, nondistended. Active bowel sounds present 4 quadrants. Tolerating diet. No guarding or rigidity. GENITOURINARY: Continues to void. INTEGUMENTARY: Skin is warm and dry with no evidence of clubbing or cyanosis. A quarter size erythema in the area on his mid back. NEUROLOGIC: Cranial nerves II through XII intact. No focal deficits. MUSKULOSKELETAL: Able to move all extremities, strength equal bilaterally. PSYCHIATRIC: Alert and oriented to person place and time, appropriate affect, intact judgment and insight. - Allied health notes Allied health notes reviewed: nursing - Labs CBC & Chem 7: 02/05/22 05:25 02/04/22 05:45 Labs: Abnormal Lab Results - Last 24 Hours (Table) 02/05/22 02/05/22 02/05/22 Range/Units 12:09 17:03 21:28 POC Glucose (mg/dL) 101 H 162 H 122 H (75-99) mg/dL 02/06/22 Range/Units 07:04 POC Glucose (mg/dL) 127 H (75-99) mg/dL Microbiology - Last 24 Hours (Table) 02/01/22 00:50 Blood Culture - Preliminary Blood No Growth after 120 hours 02/01/22 00:35 Blood Culture - Preliminary Blood No Growth after 120 hours 02/03/22 11:30 Anaerobic Culture - Preliminary Pleural Fluid - Imaging and Cardiology CT scan - chest: report reviewed, image reviewed Assessment and Plan Assessment: 1. Large loculated left-sided pleural effusion, possible empyema, pleural fluid cytology showing dense acute inflammation consistent with empyema and no cytologically malignant cells identified 2. Persistent cough, fever, sweats, chills, pain with deep inspiration, secondary to above 3. Fever, Leukocytosis, secondary to above 4. History of hypertension 5. History of hyperlipidemia 6. History of prostate disorder 7. Lifetime non-smoker Plan: 1. The patient is scheduled for a left chest pigtail catheter to be placed by interventional radiology today. Once the left chest pigtail catheter has been placed we will instill alteplase and dornase into the catheter. Left the alteplase and dornase dwell for 1 hour while the pigtail catheter is clamped. We will have the patient turned every 15 minutes from supine, left side, right side and prone as tolerated. After 1 hour of the pigtail catheter being clamped we will release the clamp and place to low continuous wall suction -20 cm H2O. 2. Encourage use of his incentive spirometry 10 times every hour while awake. 3. Pain control per current when necessary orders. 4. Continue to monitor daily labs and chest x-rays. 5. Increase activity as tolerated. Out of bed for all meals. 6. Pleural fluid and blood culture results remain pending, currently show no growth. Continue on Zosyn managed by pulmonary medicine. Cytology results of the pleural fluid show dense acute inflammation consistent with empyema and no cytologically malignant cells were identified. Per infectious disease recommendations the patient will need a PICC line for outpatient antibiotic course. 7. More recommendations to follow based on patient's clinical course. Time with Patient: Greater than 30
[2022-02-06 10:19] LABS: Basophils % (A) 0 %; Eosinophils # (A) 0.2 k/uL (0-0.7); Eosinophils % (A) 1 %; HCT 36.7 % (39.0-53.0); HGB 11.1 gm/dL (13.0-17.5); Hypochromasia Slight; Lymphocytes # (A) 0.7 k/uL (1.0-4.8); Lymphocytes % (A) 6 %; MCH 28.8 pg (25.0-35.0); MCHC 30.2 g/dL (31.0-37.0); MCV 95.4 fL (80.0-100.0); Monocytes # (A) 0.7 k/uL (0-1.0); Monocytes % (A) 6 %; Neutrophils # (A) 9.7 k/uL (1.3-7.7); Neutrophils % (A) 85 %; Platelet Count 472 k/uL (150-450); RBC 3.84 m/uL (4.30-5.90); RDW 12.5 % (11.5-15.5); WBC 11.4 k/uL (3.8-10.6)
[2022-02-06 10:30] LABS: African American GFR (CKD) >90 (>60 ml/min/1.73 sqM); Anion Gap 5 mmol/L; Blood Urea Nitrogen 21 mg/dL (9-20); Calcium 8.2 mg/dL (8.4-10.2); Carbon Dioxide 29 mmol/L (22-30); Chloride 104 mmol/L (98-107); Glucose 104 mg/dL (74-99); Non-African American GFR(CKD) 89 (>60 ml/min/1.73 sqM); Sodium 138 mmol/L (137-145)
[2022-02-06 11:15] LABS: Glucose,Whole Blood 126 mg/dL (70-110)
--- NOTE | 2022-02-06 11:18 | US ---
EXAMINATION TYPE: US chest DATE OF EXAM: 02/06/2022 COMPARISON: CT 02/05/2022 CLINICAL HISTORY: Loculated Left Pleural Effusion. TECHNIQUE: Targeted ultrasound of the posterior lower left hemithorax EXAM MEASUREMENTS: Left Pleural Effusion pocket size: 5.6 cm Left skin surface to fluid distance: 2.8 cm Pulmonologists are able to review the images in the patient?s EMR. Debris visualized within fluid pocket. The previously identified loculated effusion in the left lo wer hemithorax shows inflammatory change. Loculations are present along the pseudotumor extending to the superolateral left upper hemithorax. IMPRESSIONS: Loculated effusion and postinflammatory changes
[2022-02-06] MEDS: HYDROmorphone 1 MG/ML 1 ML SYRINGE IVP PRN (11:22)
--- NOTE | 2022-02-06 11:30 | P.GSCN ---
History of Present Illness Consult date: 02/06/22 Reason for Consult: loculated pleural effusion Requesting physician: Nixon Brock History of present illness: discussed with referring service the technical challenges of percutaneous pigtail catheter insertion and uncertainty of effectiveness of drain placement with regards to location, pseudotumor appearance. Request from CT surgery is to proceed. Discussed with patient at bedside and u/s reviewed, will attempt under CT guide Past Medical History Past Medical History: Hyperlipidemia, Hypertension, Prostate Disorder History of Any Multi-Drug Resistant Organisms: None Reported Additional Past Surgical History / Comment(s): toe amputation; right knee scope Past Anesthesia/Blood Transfusion Reactions: No Reported Reaction Past Psychological History: No Psychological Hx Reported Smoking Status: Never smoker Past Alcohol Use History: None Reported Past Drug Use History: None Reported - Past Family History Mother Family Medical History: No Reported History Father Family Medical History: Coronary Artery Disease (CAD) Medications and Allergies Home Medications Medication Instructions Recorded Confirmed Type Multivitamin [Multivitamins Adult 1 each PO DAILY 06/10/16 01/31/22 History Gummies] Rosuvastatin Calcium [Crestor] 5 mg PO Q48H 06/10/16 01/31/22 History Azithromycin [Zithromax] 500 mg PO DAILY 01/31/22 01/31/22 History Cholecalciferol [Vitamin D3 (25 25 mcg PO DAILY 01/31/22 01/31/22 History Mcg = 1000 Iu)] Elderberry Fruit and Flower [Black 1 cap PO DAILY 01/31/22 01/31/22 History Elderberry 575 mg Cap] Irbesartan/Hydrochlorothiazide 1 tab PO HS 01/31/22 01/31/22 History [Irbesartan-Hctz 300-12.5 mg Tb] Magnesium 250 mg PO DAILY 01/31/22 01/31/22 History Vitamin B Complex 1 cap PO DAILY 01/31/22 01/31/22 History Allergies Allergy/AdvReac Type Severity Reaction Status Date / Time No Known Allergies Allergy Verified 01/31/22 22:30 Surgical - Exam Vital Signs Temp Pulse Resp BP Pulse Ox 100.5 F H 106 H 19 138/82 94 L 01/31/22 20:28 01/31/22 20:28 01/31/22 20:28 01/31/22 20:28 01/31/22 20:28 Results - Labs 02/06/22 09:42 02/06/22 09:42 Abnormal Lab Results - Last 24 Hours (Table) 02/05/22 02/05/22 02/05/22 Range/Units 12:09 17:03 21:28 WBC (3.8-10.6) k/uL RBC (4.30-5.90) m/uL Hgb (13.0-17.5) gm/dL Hct (39.0-53.0) % MCHC (31.0-37.0) g/dL Plt Count (150-450) k/uL Neutrophils # (1.3-7.7) k/uL Lymphocytes # (1.0-4.8) k/uL BUN (9-20) mg/dL Glucose (74-99) mg/dL POC Glucose (mg/dL) 101 H 162 H 122 H (75-99) mg/dL Calcium (8.4-10.2) mg/dL 02/06/22 02/06/22 02/06/22 Range/Units 07:04 09:42 09:42 WBC 11.4 H (3.8-10.6) k/uL RBC 3.84 L (4.30-5.90) m/uL Hgb 11.1 L (13.0-17.5) gm/dL Hct 36.7 L (39.0-53.0) % MCHC 30.2 L (31.0-37.0) g/dL Plt Count 472 H (150-450) k/uL Neutrophils # 9.7 H (1.3-7.7) k/uL Lymphocytes # 0.7 L (1.0-4.8) k/uL BUN 21 H (9-20) mg/dL Glucose 104 H (74-99) mg/dL POC Glucose (mg/dL) 127 H (75-99) mg/dL Calcium 8.2 L (8.4-10.2) mg/dL 02/06/22 Range/Units 11:13 WBC (3.8-10.6) k/uL RBC (4.30-5.90) m/uL Hgb (13.0-17.5) gm/dL Hct (39.0-53.0) % MCHC (31.0-37.0) g/dL Plt Count (150-450) k/uL Neutrophils # (1.3-7.7) k/uL Lymphocytes # (1.0-4.8) k/uL BUN (9-20) mg/dL Glucose (74-99) mg/dL POC Glucose (mg/dL) 126 H (75-99) mg/dL Calcium (8.4-10.2) mg/dL Microbiology - Last 24 Hours (Table) 02/01/22 00:50 Blood Culture - Preliminary Blood No Growth after 120 hours 02/01/22 00:35 Blood Culture - Preliminary Blood No Growth after 120 hours 02/03/22 11:30 Anaerobic Culture - Preliminary Pleural Fluid Diabetes panel 02/06/22 Range/Units 09:42 Sodium 138 (137-145) mmol/L Potassium 5.0 (3.5-5.1) mmol/L Chloride 104 (98-107) mmol/L Carbon Dioxide 29 (22-30) mmol/L BUN 21 H (9-20) mg/dL Creatinine 0.83 (0.66-1.25) mg/dL Glucose 104 H (74-99) mg/dL Calcium 8.2 L (8.4-10.2) mg/dL Calcium panel 02/06/22 Range/Units 09:42 Calcium 8.2 L (8.4-10.2) mg/dL Pituitary panel 02/06/22 Range/Units 09:42 Sodium 138 (137-145) mmol/L Potassium 5.0 (3.5-5.1) mmol/L Chloride 104 (98-107) mmol/L Carbon Dioxide 29 (22-30) mmol/L BUN 21 H (9-20) mg/dL Creatinine 0.83 (0.66-1.25) mg/dL Glucose 104 H (74-99) mg/dL Calcium 8.2 L (8.4-10.2) mg/dL Adrenal panel 02/06/22 Range/Units 09:42 Sodium 138 (137-145) mmol/L Potassium 5.0 (3.5-5.1) mmol/L Chloride 104 (98-107) mmol/L Carbon Dioxide 29 (22-30) mmol/L BUN 21 H (9-20) mg/dL Creatinine 0.83 (0.66-1.25) mg/dL Glucose 104 H (74-99) mg/dL Calcium 8.2 L (8.4-10.2) mg/dL
--- NOTE | 2022-02-06 12:07 | P.PCN ---
Date of Procedure: 02/06/22 Preoperative Diagnosis: left loculated pleural effusion Procedure(s) Performed: ct pleural drain placement Anesthesia: local Estimated Blood Loss (ml): 0 Pathology: other (specimen for culture) Condition: stable Disposition: no change Operative Findings: 8.5 fr tube placed posteriorly into pseudotumor collection after discussion with referring service Description of Procedure: full report follows
--- NOTE | 2022-02-06 12:29 | XR ---
EXAMINATION TYPE: XR chest 1V portable DATE OF EXAM: 02/06/2022 COMPARISON: Chest x-ray 02/05/2022 HISTORY: Status post chest tube placement TECHNIQUE: Single frontal view of the chest is obtained. FINDINGS: Left hydropneumothorax is present. There is been placement of a drain at the upper aspect of the posterior left chest. More inferior drain is no longer seen. Patchy density persists in the le ft lung base, left hemidiaphragms obscured. IMPRESSION: Hydropneumothorax status post left chest tube insertion. Referring clinician notified vi a message
--- NOTE | 2022-02-06 13:47 | CT ---
EXAMINATION TYPE: CT chest tube insertion DATE OF EXAM: 02/06/2022 COMPARISON: CT chest 02/05/2022, ultrasound chest 02/06/2022 HISTORY: Loculated left pleural effusion left. FINDINGS: Maximal barrier technique was utilized. The skin overlying a suitable pocket of fluid in t he posterior upper left chest was localized with CT and the overlying skin prepped and draped. Lidoc javier was used for local anesthesia. A 21-gauge needle was advanced into the pleural fluid collection using CT guidance, yellow fluid returned in the hub of the needle. 0.018 inch wire was advanced and t he access site was upsized with a transitional dilator, wire was upsized and the access site was dila jazmin and subsequently an 8.5 [place] catheter was advanced and fixed in place, 20 cc of yellow fluid re turned in the catheter. Catheter attached to water seal. Post procedure image shows a small hydropneu mothorax, catheter within the fluid in the right upper chest. Post procedure chest x-ray pending. The re is no other immediate complication. The patient discharged in stable condition. Loculated fluid persists at the lung base both anteriorly and posteriorly at the costophrenic sulcus, small pockets are noted with some postinflammatory change at the site of patient's prior catheter pl acement. IMPRESSION: STATUS POST CT GUIDED PLEURAL DRAINAGE TUBE CATHETER PLACEMENT, POST PROCEDURE CHEST X-RA Y PENDING. THIS PROCEDURE WAS PERFORMED BY THE UNDERSIGNED.
--- NOTE | 2022-02-06 13:59 | P.PN ---
Subjective Progress Note Date: 02/06/22 Principal diagnosis: Multiloculated parapneumonic left-sided pleural effusion 71-year-old male patient, a nonsmoker, no previous history of lung disease, who developed pneumonialike symptoms approximately 6 weeks ago. The patient had congestion, shortness of breath and pleurisy involving the left lung. He was given IV Rocephin for an urgent care and later on steroids with primary care physician. Nevertheless, he never recovered. He was having ongoing chest discomfort on the left. He was also having sweats and chills and episodic fever. He was getting progressively more weak and for that reason he came in to the hospital for further evaluation. The patient has not had any exposure or infection with COVID 19. He has not been vaccinated also. He has no altered me ntation. No hemoptysis for now. The patient had a white cell count of 18.7 with a hemoglobin of 11. The blood work showed initial sodium of 129 and that came at 137 within the treatment. BUN was 21 with a creatinine of 0.6 and coagulation profile was essentially within normal limits. The chest x-ray not done and the patient underwent a CT angiogram that showed no this of any pulmonary embolism. There was large loculated or multiloculated left-sided pleural effusion with possibility of underlying empyema. Right lung was essentially clear. The patient was started on IV Zosyn and the patient was hospitalized. A pulmonary palpation was requested. No previous bouts of pneumonias. No chest trauma. No 70 malignancy. No TB exposure. 02/02/2022, the patient is clinically stable on antibiotics. He still has some pleuritic left-sided chest wall pain. I made recommendations for a pigtail catheter insertion by interventional radiology and this has not been done. I do not think day services of interventional radiology are available on the weekend. This was done tomorrow. The patient remains on IV Zosyn for now. Thoracic surgery is also involved in the case. On 02/03/2022 patient seen in follow-up on medical surgical floor. He is awake, in no acute distress, did have fever spikes overnight with T-max of 101.2F, room air pulse ox is 94%. Doesn't appear to be any acute distress at rest, however does have exertional dyspnea and occasional cough and some pleuritic left-sided chest wall pain. Patient was seen by CT surgery consultation, and the recommendation is made for placement of CT-guided pigtail chest tube catheter in the left pleural space. He continues on antibiotics he is on Zosyn. On 02/04/2022 patient seen in follow-up on medical surgical floor. Yesterday had a left-sided pigtail chest tube catheter. And overnight his had a total of 1000 mL of purulent drainage from the pigtail. Patient received a dose of alteplase and dornase by CT surgery. Today's chest x-ray showing persistent multilocular pleural effusion with indwelling chest tube, and no evidence of his old pneumothorax. Patient remains on Zosyn for antibiotic coverage, vital signs have been stable, his been afebrile, blood pressure stable, he is working on incentive spirometer. Today's labs have been reviewed showing white blood cell count of 10.6, hemoglobin of 10.4, sodium is 137, potassium is 4.3, chloride is 100, CO2 is 29, BUN is 18 creatinine 0.7. Pleural fluid analysis showed 7400 white blood cells, 96 of holiday clear white blood cells. Fluid glucose was less than 2, fluid protein was 4.8 g, LDH was greater than 2500, consistent with empyema. Pleural fluid cultures have shown no growth thus far. Blood cultures have been negative. On 02/05/2022 patient seen in follow-up medical surgical floor. Left-sided chest tube remains in place, and there has been an additional 400 mL of purulent pleural fluid drainage in the last 24 hours. Left-sided chest tube is to water seal, no evidence of air leak. Low-grade fever this morning, with a T-max of 99 point degrees Fahrenheit. Patient is breathing comfortably, he is working on incentive spirometer, his pleuritic chest pain is improved. Chest x-ray showing stable persistent multilocular effusion. Today's labs are pending, but vital signs have been stable. CT surgery is following and patient will receive another dose of alteplase and dornase. Pleural fluid cultures are still pending, Gram stain showing no organisms but multiple PMNs. On 02/06/2022 patient seen in follow-up on medical surgical floor. Yesterday's CT of the chest showed persistent loculated left-sided pleural effusion, persistent consolidation and thickening of the left lung base, and the pigtail chest tube catheter was difficult to visualize, and was thought to have been dislodged. Patient did receive additional dose of alteplase and dornase yesterday, he did put out 150 ML of fluid in the last [address] surgery is following, case was discussed with them, patient remains on antibiotics however in view of persistent loculated pleural effusion, and consolidation, the decision had been made to remove the pigtail catheter and have interventional radiology replaces with another pigtail catheter. Clinically patient is stable, no worsening dyspnea, no worsening chest discomfort, his white blood cell count is fairly stable, at 11.4, hemoglobin is 11.1, electrolytes are within normal limits, B1 is 21 creatinine 0.83. His Pleural fluid cultures have shown no growth thus far. Objective - Vital Signs Vital signs: Vital Signs Temp 98.4 F 02/06/22 11:15 Pulse 79 02/06/22 12:46 Resp 18 02/06/22 11:40 BP 131/72 02/06/22 12:46 Pulse Ox 95 02/06/22 12:46 FiO2 Intake & Output 02/05/22 02/06/22 02/06/22 18:59 06:59 18:59 Intake Total 1100 Balance 1100 Intake: Oral 1100 Other: Voiding Method Toilet # Voids 2 2 - Exam GENERAL EXAM: Alert, very pleasant, 71-year-old white male on room air with pulse ox of 94%, comfortable in no apparent distress. HEAD: Normocephalic/atraumatic. EYES: Normal reaction of pupils, equal size. Conjunctiva pink, sclera white. NOSE: Clear with pink turbinates. THROAT: No erythema or exudates. NECK: No masses, no JVD, no thyroid enlargement, no adenopathy. CHEST: No chest wall deformity. Symmetrical expansion. Interval removal of the left-sided pigtail catheter LUNGS: Diminished breath sounds over left lower lobe with some crackles and dullness to percussion CVS: Regular rate and rhythm, normal S1 and S2, no gallops, no murmurs, no rubs ABDOMEN: Soft, nontender. No hepatosplenomegaly, normal bowel sounds, no guarding or rigidity. EXTREMITIES: No clubbing, no edema, no cyanosis, 2+ pulses and upper and lower extremities. MUSCULOSKELETAL: Muscle strength and tone normal. SPINE: No scoliosis or deformity SKIN: No rashes CENTRAL NERVOUS SYSTEM: Alert and oriented -3. No focal deficits, tone is nor mal in all 4 extremities. PSYCHIATRIC: Alert and oriented -3. Appropriate affect. Intact judgment and insight. - Labs CBC & Chem 7: 02/06/22 09:42 02/06/22 09:42 Labs: Abnormal Lab Results - Last 24 Hours (Table) 02/05/22 02/05/22 02/06/22 Range/Units 17:03 21:28 07:04 WBC (3.8-10.6) k/uL RBC (4.30-5.90) m/uL Hgb (13.0-17.5) gm/dL Hct (39.0-53.0) % MCHC (31.0-37.0) g/dL Plt Count (150-450) k/uL Neutrophils # (1.3-7.7) k/uL Lymphocytes # (1.0-4.8) k/uL BUN (9-20) mg/dL Glucose (74-99) mg/dL POC Glucose (mg/dL) 162 H 122 H 127 H (70-110) mg/dL Calcium (8.4-10.2) mg/dL 02/06/22 02/06/22 02/06/22 Range/Units 09:42 09:42 11:13 WBC 11.4 H (3.8-10.6) k/uL RBC 3.84 L (4.30-5.90) m/uL Hgb 11.1 L (13.0-17.5) gm/dL Hct 36.7 L (39.0-53.0) % MCHC 30.2 L (31.0-37.0) g/dL Plt Count 472 H (150-450) k/uL Neutrophils # 9.7 H (1.3-7.7) k/uL Lymphocytes # 0.7 L (1.0-4.8) k/uL BUN 21 H (9-20) mg/dL Glucose 104 H (74-99) mg/dL POC Glucose (mg/dL) 126 H (70-110) mg/dL Calcium 8.2 L (8.4-10.2) mg/dL Microbiology - Last 24 Hours (Table) 02/01/22 00:50 Blood Culture - Preliminary Blood No Growth after 120 hours 02/01/22 00:35 Blood Culture - Preliminary Blood No Growth after 120 hours 02/03/22 11:30 Anaerobic Culture - Preliminary Pleural Fluid Assessment and Plan Plan: Assessment: #1. Complicated multiloculated parapneumonic left-sided pleural effusion, possible empyema, complication of the previously under treated pneumonia, status post left chest pigtail catheter placement with drainage of large amount of purulent material, and pleural fluid analysis is consistent with empyema, pleural fluid cultures are pending, remains on Zosyn. Pigtail catheter was removed on 02/05/2022 after having been discharged, and replaced on 02/06/2022. Repeat computed tomography scan of the chest on 02/03/2022 showed persistent left-sided loculated empyema, and consolidation. #2. Shortness of breath and pleuritic chest pain related to the above #3. Fever, leukocytosis related to the above, improved #4. Hypertension #5. Hyperlipidemia #6. Nonsmoker Plan: Yesterday computed tomography scan of the chest was reviewed Left-sided pigtail catheter was thought to have been dislodged and was subsequently removed CT surgery were consulted interventional radiology for placement of a new pigtail catheter Continue antibiotics, Continue alteplase and dornase Patient may need surgical decortication of the left lung Continue with current medical treatment We'll continue to follow patient's clinical course closely with CT surgery and ID service on the case I have personally seen and examined the patient, performed the documentation and the assessment and plan as written. Number of minutes spent on the visit: [10] Time with Patient: Less than 30
[2022-02-06] MEDS ORDERED: DORNASE ALFA 5 MG in SODIUM CHLORIDE 0.9% 50 ML IRRIGATION ONE (14:00)
[2022-02-06] MEDS ORDERED: ALTEPLASE 10 MG in SODIUM CHLORIDE 0.9% 50 ML IRRIGATION ONE (14:00)
--- NOTE | 2022-02-06 15:26 | P.PN ---
Subjective Progress Note Date: 02/06/22 This is a 71 year old male with past medical history significant for hypertension, hyperlipidemia. He presents with 3 days of fever, shortness of breath and pleuritic chest pain. States about 6 weeks ago he began having cough and was evaluated in the clinic and IM antibiotic injection. Also had outpatient chest xray done. He was given steroids by his primary care provider. He states it didn't seem to help and was concerned when he developed fever and weakness with congestion. He is nonsmoker, reports no marijuana use. He does not work in a factor type setting, denies exposure to toxins. He rides a motorcycle and states he notice trouble breathing after a long ride which is unusual for him. He is overall healthy. On admission chest CTA has been completed showing large loculated left pleural effusions with infiltrate, and atelectasis left lower lobe. There is concern for empyema and patient was started on empiric antibiotic coverage with zosyn. Pulmonary has evaluated the patient and IR has been consulted for pigtail cathter insertion. IR is not available until Thursday. Cardiothoracic has also been consulted. Patient for now is maintained oxygen saturation of 92% on room air. He presents with fever 100.5, heart rate 75, blood pressure 120/70. White count 18.7, hgb 11.6, sodium 129, potassium 4.3, glucose is 208. Troponin negative. 02/02/2022 Patient is evaluated today sitting up in bed. is at the bedside. Plan is for pigtail catheter insertion with IR tomorrow and cardiothoracic has been consulted for management. Pulmonary is following the patient closely. He continues on room air, however has stated he has increased cough, no sputum production. Also complains of left sided pleuritic pain, he has had motrin 400 mg ordered however he has not received. Did also add a low dose of tramadol for pain management. He continues on IV zosyn for empiric antibiotic coverage. Blood cultures are negative so far. He has remained afebrile, heart rate 98, blood pressure 153/77, 91% on room air. Labs reviewed today showing white count 16.30, hgb 10.8, sodium 136, potassium 4.6. Blood glucose in the 130s. A1C is 6.4 which is on the cusp of prediabetes vs. diabetes, will discuss with patient tomorrow and patient will discharge on an oral diabetic agent. 02/03/2022 Patient sitting up in chair pending IR placement of pigtail catheter. He had increased pain to his left side and was given low dose of tramadol which he states did help his pain. He is short of breath today, he is using his incentive spirometer, also he has requested cough medicine and it has been ordered as n eeded. He had a T-Max overnight of 101.2. He continues on IV Zosyn. Blood pressure today 126/73. Labs reviewed today showing white count 15.84, hgb 11.1, sodium 133, potassium 4.7, blood glucose 150s. 02/04/2022 Patient evaluated today sitting up in the chair. He underwent pigtail catheter placement with alteplase injection through catheter and he has had fair output 375 mls last night and 115 mls today so far from drainage tube which is mostly purulent. He underwent a second alteplase infusion today. Chest xray today showing persistent multilocular effusions, with indwelling chest tube. No pneumothorax. Cardiothoracic and pulmonary are following this patient. He has been encouraged to continue with cough and deep breathing and also to continue with incentive spirometry. He continues on IV zosyn. Pleural fluid and blood cultures are pending. Reports pain has improved today, he is receiving IV dilaudid and tramadol as needed. Labs today are showing white count of 10.68, hgb 10.4, sodium 137, potassium 4.3, BUN 18.0, creatinine 0.7, magnesium 2.2. Blood glucose trending down. He has remained afebrile in the last 24 hours, heart rate 85, blood pressure 121/69, 90% room air. 02/05/2022 Patient evaluated today resting in bed, he had third alteplase injection today. Resting in bed on back during examination to begin turning rotation. Chest x- ray shows no significant interval change as before redemonstrates a loculated effusion. He reports diarrhea 1-2 times overnight. He has been maintained on IV zosyn. Labs today showed white count 10.21, hemoglobin 10.3. His T-max last night was 99 he states that he does have night sweats still, heart rate 76, blood pressure 129/75, 93% pulse oximetry. Ambulating without difficulty in the hallways. His pleural cytology has resulted showing acute inflammation consistent with empyema without evidence for malignancy. Blood glucose in the 130s. 02/06/2022 Pigtail catheter was removed yesterday as there was possibility it had dislodged and pigtail catheter will be reinserted by interventional radiology. He did have 150 mL of output from the pigtail catheter yesterday. IV fluids have been discontinued patient does have some mild peripheral edema and compression stockings have been ordered. He continues to ambulated in the hallways and is using incentive spirometer as recommended. Labs today; white count 11.4, hemoglobin 11.1, sodium 138, potassium 5.0, BUN 21, creatinine 0.83, blood glucose in the 120s. Patient continues on IV antibiotics, cultures are negative so far. He is being followed closely by pulmonary, infectious disease and cardiothoracic consultation. There is a possibility patient may still require VATS procedure. He does complain of some loose stool, most likely for antibiotics, he is on GI prophylaxis and also immodium. Denies nausea, vomiting. Review of Systems Constitutional: Denied any fatigue denied any fever. Cardio vascular: denied any chest pain, palpitations Gastrointestinal: denied any nausea, vomiting, diarrhea Pulmonary: reports shortness of breath, cough, pleuritic chest pain Neurologic denied any new focal deficits All inpatient medications were reviewed and appropriate changes in these medications as dictated in the interval history and assessment and plan. PHYSICAL EXAMINATION: GENERAL: The patient is alert and oriented x3, in no acute distress. Well developed, well nourished. HEENT: Pupils are round and equally reacting to light. EOMI. No scleral icterus. No conjunctival pallor. Normocephalic, atraumatic. No pharyngeal erythema. No thyromegaly. CARDIOVASCULAR: S1 and S2 present. No murmurs, rubs, or gallops. PULMONARY: Left lungs base diminished, he does have some crackles left mid lung ABDOMEN: Soft, nontender, nondistended, normoactive bowel sounds. No palpable organomegaly. MUSCULOSKELETAL: No joint swelling or deformity. EXTREMITIES: No cyanosis, clubbing, or pedal edema. Trace ankle edema NEUROLOGICAL: Gross neurological examination did not reveal any focal deficits. SKIN: No rashes. Assessment and Plan Assessment Shortness of breath Large loculated left side pleural effusion with empyema suspected pneumonia with sepsis, he is status post pigtail catheter placement and has undergone 3 rounds of alteplase and dornase. Pigtail catheter was suspected to have been dislodge and will be reinserted today by IR for persistent loculated effusion. He continues on IV zosyn. Leukocytosis, fever secondary to above, improving Hypertension Hyperlpidemia Prediabetes/Diabetes with A1C of 6.4 History of prostate disorder GI Prophylaxis Full Code Plan Pulmonary, ID, cardiothoracic consultation Continue empiric antibiotic coverage Patient will have pigtail catheter replaced today Pending cultures Encourage ambulation, incentive spirometry Follow up AM labs The impression and plan of care has been dictated by Alice Botello Nurse Practitioner as directed. Dr. Hermelindo MD I have performed a history and physical examination and medical decision making of this patient, discussed the same with the dictator, and agree with the dictators assessment and plan as written, documented as a scribe. Based on total visit time, I have performed more than 50% of this visit. Objective - Vital Signs Vital signs: Vital Signs Temp 98.4 F 02/06/22 11:15 Pulse 78 02/06/22 11:15 Resp 15 02/06/22 11:15 BP 145/75 02/06/22 11:15 Pulse Ox 96 02/06/22 11:15 FiO2 Intake & Output 02/05/22 02/06/22 02/06/22 18:59 06:59 18:59 Intake Total 1100 Balance 1100 Intake: Oral 1100 Other: Voiding Method Toilet # Voids 2 2 - Labs CBC & Chem 7: 02/06/22 09:42 02/06/22 09:42 Labs: Abnormal Lab Results - Last 24 Hours (Table) 02/05/22 02/05/22 02/06/22 Range/Units 17:03 21:28 07:04 WBC (3.8-10.6) k/uL RBC (4.30-5.90) m/uL Hgb (13.0-17.5) gm/dL Hct (39.0-53.0) % MCHC (31.0-37.0) g/dL Plt Count (150-450) k/uL Neutrophils # (1.3-7.7) k/uL Lymphocytes # (1.0-4.8) k/uL BUN (9-20) mg/dL Glucose (74-99) mg/dL POC Glucose (mg/dL) 162 H 122 H 127 H (70-110) mg/dL Calcium (8.4-10.2) mg/dL 02/06/22 02/06/22 02/06/22 Range/Units 09:42 09:42 11:13 WBC 11.4 H (3.8-10.6) k/uL RBC 3.84 L (4.30-5.90) m/uL Hgb 11.1 L (13.0-17.5) gm/dL Hct 36.7 L (39.0-53.0) % MCHC 30.2 L (31.0-37.0) g/dL Plt Count 472 H (150-450) k/uL Neutrophils # 9.7 H (1.3-7.7) k/uL Lymphocytes # 0.7 L (1.0-4.8) k/uL BUN 21 H (9-20) mg/dL Glucose 104 H (74-99) mg/dL POC Glucose (mg/dL) 126 H (70-110) mg/dL Calcium 8.2 L (8.4-10.2) mg/dL Microbiology - Last 24 Hours (Table) 02/01/22 00:50 Blood Culture - Preliminary Blood No Growth after 120 hours 02/01/22 00:35 Blood Culture - Preliminary Blood No Growth after 120 hours 02/03/22 11:30 Anaerobic Culture - Preliminary Pleural Fluid Assessment and Plan Time with Patient: Less than 30
[2022-02-06 17:36] LABS: Glucose,Whole Blood 134 mg/dL (70-110)
[2022-02-06] MEDS: hydroCHLOROthiazide 12.5 MG CAP PO SCH (20:15)
[2022-02-06] MEDS: ATORVASTATIN 10 MG TAB PO SCH (20:15)
[2022-02-06] MEDS: LOSARTAN 50 MG TAB PO SCH (20:15)
[2022-02-06 20:20] LABS: Glucose,Whole Blood 154 mg/dL (70-110)
[2022-02-07] MEDS: traMADol 50 MG TAB PO PRN ×2 (05:50→20:56)
[2022-02-07 07:21] LABS: Glucose,Whole Blood 130 mg/dL (70-110)
[2022-02-07] MEDS: INSULIN ASPART (NovoLOG) 100 UNIT/ML VIAL SQ SCH ×8 (07:30→20:55)
[2022-02-07] MEDS ORDERED: ALTEPLASE 10 MG in SODIUM CHLORIDE 0.9% 50 ML IRRIGATION ONE (08:00)
[2022-02-07] MEDS ORDERED: DORNASE ALFA 5 MG in SODIUM CHLORIDE 0.9% 50 ML IRRIGATION ONE (08:00)
[2022-02-07] MEDS: MAGNESIUM OXIDE 400 MG TAB PO SCH (08:26)
[2022-02-07] MEDS: PANTOPRAZOLE 40 MG/10 ML VIAL IVP SCH (08:26)
[2022-02-07] MEDS: PIPERACILLIN-TAZOBACTAM 3.375 GM in SODIUM CHLORIDE 0.9% 100 ML IVPB SCH (08:26)
[2022-02-07 09:04] LABS: Basophils # (A) 0.05 X 10*3/uL (0.00-0.10); Basophils % (A) 0.5 %; Eosinophils # (A) 0.21 X 10*3/uL (0.04-0.35); Eosinophils % (A) 1.9 %; HCT 32.1 % (39.6-50.0); HGB 10.1 g/dL (13.0-17.0); Immature Grans, Automated 1.8 %; Lymphocytes # (A) 0.95 X 10*3/uL (0.90-5.00); Lymphocytes % (A) 8.8 %; MCH 28.9 pg (27.0-32.0); MCHC 31.5 g/dL (32.0-37.0); MCV 91.7 fL (80.0-97.0); Mean Platelet Volume 9.4 fL (9.5-12.2); Monocytes # (A) 0.83 X 10*3/uL (0.20-1.00); Monocytes % (A) 7.7 %; NRBC Per 100 WBC 0 /100 WBCS (0.0-0.0); Neutrophils % (A) 79.3 %; Platelet Count 454 X 10*3/uL (140-440); RDW 12.7 % (11.5-14.5); WBC 10.84 X 10*3/uL (4.50-10.00)
[2022-02-07 09:15] LABS: Anion Gap 8.8 mmol/L (10.00-18.00); Blood Urea Nitrogen 13.3 mg/dL (9.0-27.0); Calcium 8.1 mg/dL (8.7-10.3); Carbon Dioxide 27.2 mmol/L (20.0-27.5); Non-African American GFR(CKD) 94.9 (60.0-200.0); Potassium 4.4 mmol/L (3.5-5.5)
[2022-02-07 09:37] VITALS: BMI 25.4
--- NOTE | 2022-02-07 09:39 | XR ---
EXAMINATION TYPE: XR chest 1V portable DATE OF EXAM: 02/07/2022 COMPARISON: Chest x-ray 02/06/2022 HISTORY: Left-sided loculated pleural effusion, chest tube TECHNIQUE: Single frontal view of the chest is obtained. FINDINGS: Left pigtail catheter is again noted superolaterally in the left hemithorax. There is impr ovement in aeration, persistent abnormal density is present obscuring the left hemidiaphragm, bluntin g the left costophrenic angle is noted. No evident pneumothorax. Subcutaneous emphysema is questioned over the right chest. There are overlying artifacts. IMPRESSION: Interval improvement, reduction in patient's pleural effusion
[2022-02-07] MEDS ORDERED: LIDOCAINE 1% INJ 10MG/ML (5 ML VIAL-PF) SQ ONE (10:01)
--- NOTE | 2022-02-07 10:26 | P.PN ---
Subjective Progress Note Date: 02/07/22 Principal diagnosis: Loculated left-sided effusion, possible empyema with a six-week history of persistent nonproductive cough and pleuritic type symptoms. Past medical history significant for hypertension, hyperlipidemia, BPH, lifetime nonsmoker. The patient was seen and examined in follow-up today 02/07/2022 at his bedside on the fifth floor medical oncology unit. Currently he is up ambulating in his room without difficulty, is awake, alert and oriented 3. He denies any complaints of shortness of breath at this time although is complaining of some pleuritic type chest pain to his left lower chest. A new left sided pigtail catheter was placed yesterday by interventional radiology. A dose of alteplase/dornase was instilled into the left chest pigtail catheter with 650 mL of thin serosanguineous drainage drained in the last 24 hours. The patient denies any complaints of night sweats last evening and his T-max temperature in the last 24 hours was 99.9F. The pleural fluid culture showed positive for alpha hemolytic streptococcus and he remains on Zosyn for IV antibiotics managed by infectious disease. The patient is scheduled for a PICC line placement today for outpatient antibiotic treatment. Chest x-ray this morning shows interval improvement, in reduction in the patient's pleural effusion. Laboratory results this morning show a WBC count continuing to trend down at 10.84, hemoglobin 10.1, hematocrit 32.1, platelets 454, sodium 139, potassium 4.4, BUN 13.3, creatinine 0.7 and glucose 126. Objective - Vital Signs Vital signs: Vital Signs Temp 98.8 F 02/07/22 04:40 Pulse 70 02/07/22 04:40 Resp 18 02/07/22 04:40 BP 134/76 02/07/22 04:40 Pulse Ox 95 02/07/22 04:40 FiO2 Intake & Output 02/06/22 02/07/22 02/07/22 18:59 06:59 18:59 Intake Total 940 Output Total 640 Balance 300 Weight 82.554 kg Intake: Intake, IV Titration 100 Amount Piperacillin-Tazobactam 3 100 .375 gm In Sodium Chloride 0.9% 100 ml @ 25 mls/hr IVPB Q8HR [facility] Rx# :[id number] Oral 840 Output: Drainage 140 Left Back 140 Urine 500 Other: Voiding Method Toilet Toilet # Voids 2 # Bowel Movements 3 - Exam CONSTITUTIONAL: Up ambulating in his room independently on the fifth floor medical surgical unit, appears comfortable, cooperative, no apparent acute distress. HEENT: Neck is supple, no JVD, no lymphadenopathy. RESPIRATORY: Lungs sounds diminished to his left upper lobe, essentially clear to his right lobes. Respirations are symmetrical and nonlabored. Currently on room air with oxygen saturations 99%. Able to achieve 2500 mL on his incentive spirometry. Strong cough. Left chest pigtail catheter in place to low continuous wall suction -20 cm H2O. No air leak is present. Draining thin serosanguineous drainage with 140 mL output in the last 8 hours and 650 mL output in the last 24 hours. CARDIOVASCULAR: Regular rhythm and rate. S1 and S2 present, negative for S3, gallop or murmur. Palpable peripheral pulses bilaterally. No calf pain or tenderness noted. GASTROINTESTINAL: Abdomen soft, nontender, nondistended. Active bowel sounds present 4 quadrants. Tolerating diet. No guarding or rigidity. GENITOURINARY: Continues to void. INTEGUMENTARY: Skin is warm and dry with no evidence of clubbing or cyanosis. A quarter size erythema in the area on his mid back. NEUROLOGIC: Cranial nerves II through XII intact. No focal deficits. MUSKULOSKELETAL: Able to move all extremities, strength equal bilaterally. PSYCHIATRIC: Alert and oriented to person place and time, appropriate affect, intact judgment and insight. - Allied health notes Allied health notes reviewed: nursing - Labs CBC & Chem 7: 02/07/22 06:06 02/07/22 06:06 Labs: Abnormal Lab Results - Last 24 Hours (Table) 02/06/22 02/06/22 02/06/22 Range/Units 09:42 09:42 11:13 WBC 11.4 H (3.8-10.6) k/uL RBC 3.84 L (4.30-5.90) m/uL Hgb 11.1 L (13.0-17.5) gm/dL Hct 36.7 L (39.0-53.0) % MCHC 30.2 L (31.0-37.0) g/dL Plt Count 472 H (150-450) k/uL MPV (9.5-12.2) fL Immature Gran # (0.00-0.04) X 10*3/uL Neutrophils # 9.7 H (1.3-7.7) k/uL Lymphocytes # 0.7 L (1.0-4.8) k/uL Anion Gap (10.00-18.00) mmol/L BUN 21 H (9-20) mg/dL Glucose 104 H (74-99) mg/dL POC Glucose (mg/dL) 126 H (70-110) mg/dL Calcium 8.2 L (8.4-10.2) mg/dL 02/06/22 02/06/22 02/07/22 Range/Units 17:34 20:17 06:06 WBC 10.84 H (3.8-10.6) k/uL RBC 3.50 L (4.30-5.90) m/uL Hgb 10.1 L (13.0-17.5) gm/dL Hct 32.1 L (39.0-53.0) % MCHC 31.5 L (31.0-37.0) g/dL Plt Count 454 H (150-450) k/uL MPV 9.4 L (9.5-12.2) fL Immature Gran # 0.20 H (0.00-0.04) X 10*3/uL Neutrophils # 8.60 H (1.3-7.7) k/uL Lymphocytes # (1.0-4.8) k/uL Anion Gap (10.00-18.00) mmol/L BUN (9-20) mg/dL Glucose (74-99) mg/dL POC Glucose (mg/dL) 134 H 154 H (70-110) mg/dL Calcium (8.4-10.2) mg/dL 02/07/22 02/07/22 Range/Units 06:06 07:20 WBC (3.8-10.6) k/uL RBC (4.30-5.90) m/uL Hgb (13.0-17.5) gm/dL Hct (39.0-53.0) % MCHC (31.0-37.0) g/dL Plt Count (150-450) k/uL MPV (9.5-12.2) fL Immature Gran # (0.00-0.04) X 10*3/uL Neutrophils # (1.3-7.7) k/uL Lymphocytes # (1.0-4.8) k/uL Anion Gap 8.80 L (10.00-18.00) mmol/L BUN (9-20) mg/dL Glucose 126 H (74-99) mg/dL POC Glucose (mg/dL) 130 H (70-110) mg/dL Calcium 8.1 L (8.4-10.2) mg/dL Microbiology - Last 24 Hours (Table) 02/01/22 00:50 Blood Culture - Final Blood No Growth after 144 hours 02/01/22 00:35 Blood Culture - Final Blood No Growth after 144 hours 02/03/22 11:30 Gram Stain - Preliminary Pleural Fluid Body Fluid Culture - Preliminary Alpha Hemolytic Streptococcus - Imaging and Cardiology Chest x-ray: report reviewed, image reviewed Assessment and Plan Assessment: 1. Large loculated left-sided pleural effusion, possible empyema, pleural fluid cytology showing dense acute inflammation consistent with empyema and no cyt ologically malignant cells identified, pleural fluid culture positive for alpha hemolytic streptococcus 2. Persistent cough, fever, sweats, chills, pain with deep inspiration, secondary to above 3. Fever, Leukocytosis, secondary to above 4. History of hypertension 5. History of hyperlipidemia 6. History of prostate disorder 7. Lifetime non-smoker Plan: 1. Keep left pleural chest pigtail catheter in place to low continuous wall suction -20 cm H2O. We will instill alteplase/dornase into the left chest pigtail catheter today, clamped the pigtail catheter for 1 hour post instillation. We will have the patient turned every 15 minutes from supine, left side, right side and prone for 1 hour. After the 1 hour of alteplase/dornase instillation we will unclamp the chest pigtail catheter and placed back to low continuous wall suction -20 cm H2O. 2. Encourage use of his incentive spirometry 10 times every hour while awake. 3. Pain control per current when necessary orders. 4. Continue to monitor daily labs and chest x-rays. 5. Increase activity as tolerated. Out of bed for all meals. 6. Pleural fluid and blood culture show positive for alpha hemolytic streptococcus. Continue on Zosyn managed by infectious disease management. Cytology results of the pleural fluid show dense acute inflammation consistent with empyema and no cytologically malignant cells were identified. Per infectious disease recommendations the patient is scheduled for a PICC line placement today. 7. More recommendations to follow based on patient's clinical course. Time with Patient: Greater than 30
--- NOTE | 2022-02-07 10:44 | IR ---
EXAMINATION TYPE: IR cvc insert >=5 years DATE OF EXAM: 02/07/2022 COMPARISON: NONE CLINICAL HISTORY: Infection, loculated pleural effusion Needs long-term intravenous access for antibi otics. PROCEDURE: Hand hygiene obtained with soap and water and alcohol-based hand rub. After informed consent, the skin overlying the left basilic vein was localized with ultrasound and no jazmin to be compressible and patent. An ultrasound image was obtained and submitted on the patient's c pettit. The overlying skin was prepped and draped and Lidocaine was used for local anesthesia. A skin janel was made with a scalpel. Access was gained to the vein under ultrasound guidance with a 21 gau ge needle and a 0.018 inch wire was advanced. Access site was dilated with Peel-Away sheath and cath eter tailored to the appropriate length and advanced such that the distal tip is at the cavoatrial ju nction. Spot image was obtained verifying placement. Catheter was fixed to the skin and a sterile d ressing was placed following hemostasis. Catheter was aspirated and flushed with saline. Patient wa s discharged in stable condition without complication.Maximal barrier technique is utilized. Ultraso und image is documented on the chart. Ultrasound used with sterile technique. Fluoro time and fluoroscopic images submitted to document procedure: 120 intraoperative C-arm images, 0.3 minutes fluoroscopy time IMPRESSION: STATUS POST ULTRASOUND AND FLUOROSCOPIC GUIDED PICC LINE PLACEMENT, READY FOR USE. THIS PROCEDURE WAS PERFORMED BY THE UNDERSIGNED.
[2022-02-07 12:27] LABS: Glucose,Whole Blood 105 mg/dL (70-110)
--- NOTE | 2022-02-07 12:45 | P.PN ---
Subjective Progress Note Date: 02/07/22 71-year-old male patient, a nonsmoker, no previous history of lung disease, who developed pneumonialike symptoms approximately 6 weeks ago. The patient had congestion, shortness of breath and pleurisy involving the left lung. He was given IV Rocephin for an urgent care and later on steroids with primary care physician. Nevertheless, he never recovered. He was having ongoing chest discomfort on the left. He was also having sweats and chills and episodic fever. He was getting progressively more weak and for that reason he came in to the hospital for further evaluation. The patient has not had any exposure or infection with COVID 19. He has not been vaccinated also. He has no altered mentation. No hemoptysis for now. The patient had a white cell count of 18.7 with a hemoglobin of 11. The blood work showed initial sodium of 129 and that came at 137 within the treatment. BUN was 21 with a creatinine of 0.6 and coagulation profile was essentially within normal limits. The chest x-ray not done and the patient underwent a CT angiogram that showed no this of any pulmonary embolism. There was large loculated or multiloculated left-sided pleural effusion with possibility of underlying empyema. Right lung was essentially clear. The patient was started on IV Zosyn and the patient was hospitalized. A pulmonary palpation was requested. No previous bouts of pneumonias. No chest trauma. No 70 malignancy. No TB exposure. 02/02/2022, the patient is clinically stable on antibiotics. He still has some pleuritic left-sided chest wall pain. I made recommendations for a pigtail c atheter insertion by interventional radiology and this has not been done. I do not think day services of interventional radiology are available on the weekend. This was done tomorrow. The patient remains on IV Zosyn for now. Thoracic surgery is also involved in the case. On 02/03/2022 patient seen in follow-up on medical surgical floor. He is awake, in no acute distress, did have fever spikes overnight with T-max of 101.2F, room air pulse ox is 94%. Doesn't appear to be any acute distress at rest, however does have exertional dyspnea and occasional cough and some pleuritic left-sided chest wall pain. Patient was seen by CT surgery consultation, and the recommendation is made for placement of CT-guided pigtail chest tube catheter in the left pleural space. He continues on antibiotics he is on Zosyn. On 02/04/2022 patient seen in follow-up on medical surgical floor. Yesterday h ad a left-sided pigtail chest tube catheter. And overnight his had a total of 1000 mL of purulent drainage from the pigtail. Patient received a dose of alteplase and dornase by CT surgery. Today's chest x-ray showing persistent multilocular pleural effusion with indwelling chest tube, and no evidence of his old pneumothorax. Patient remains on Zosyn for antibiotic coverage, vital signs have been stable, his been afebrile, blood pressure stable, he is working on incentive spirometer. Today's labs have been reviewed showing white blood cell count of 10.6, hemoglobin of 10.4, sodium is 137, potassium is 4.3, chloride is 100, CO2 is 29, BUN is 18 creatinine 0.7. Pleural fluid analysis showed 7400 white blood cells, 96 of holiday clear white blood cells. Fluid glucose was less than 2, fluid protein was 4.8 g, LDH was greater than 2500, consistent with empyema. Pleural fluid cultures have shown no growth thus far. Blood cultures have been negative. On 02/05/2022 patient seen in follow-up medical surgical floor. Left-sided chest tube remains in place, and there has been an additional 400 mL of purulent pleural fluid drainage in the last 24 hours. Left-sided chest tube is to water seal, no evidence of air leak. Low-grade fever this morning, with a T-max of 99 point degrees Fahrenheit. Patient is breathing comfortably, he is working on incentive spirometer, his pleuritic chest pain is improved. Chest x-ray showing stable persistent multilocular effusion. Today's labs are pending, but vital signs have been stable. CT surgery is following and patient will receive anot her dose of alteplase and dornase. Pleural fluid cultures are still pending, Gram stain showing no organisms but multiple PMNs. On 02/06/2022 patient seen in follow-up on medical surgical floor. Yesterday's CT of the chest showed persistent loculated left-sided pleural effusion, persistent consolidation and thickening of the left lung base, and the pigtail chest tube catheter was difficult to visualize, and was thought to have been dislodged. Patient did receive additional dose of alteplase and dornase yesterday, he did put out 150 ML of fluid in the last [address] surgery is following, case was discussed with them, patient remains on antibiotics however in view of persistent loculated pleural effusion, and consolidation, the decision had been made to remove the pigtail catheter and have interventional radiology replaces with another pigtail catheter. Clinically patient is stable, no worsening dyspnea, no worsening chest discomfort, his white blood cell count is fairly stable, at 11.4, hemoglobin is 11.1, electrolytes are within normal limits, B1 is 21 creatinine 0.83. His Pleural fluid cultures have shown no growth thus far. The patient is seen today 02/07/2022 in follow-up on the regular medical floor. He is currently sitting up in a chair at the bedside. Awake and alert in no acute distress. Maintaining good O2 saturations in the 90s on room. He is currently afebrile. He did undergo a repeat left-sided CT-guided Pigtail chest tube placement yesterday. Currently -20 cm wall suction. Today's chest x-ray shows improved aeration, persistent abnormal density obscuring the left hemidiaphragm, blunting of left costophrenic ample. No pneumothorax. He is to receive alteplase/dornase again today per CT services. He remains on Zosyn. The plan is for PICC line placement today. White count 10.8. Hemoglobin 10.1. Platelets 454. Sodium 139. Potassium 4.4. Chloride 103. BUN 13. Creatinine 0.7. Glucose 126. Objective - Vital Signs Vital signs: Vital Signs Temp 98.7 F 02/07/22 12:26 Pulse 81 02/07/22 12:26 Resp 15 02/07/22 12:26 BP 124/71 02/07/22 12:26 Pulse Ox 94 L 02/07/22 12:26 FiO2 Intake & Output 02/06/22 02/07/22 02/07/22 18:59 06:59 18:59 Intake Total 940 Output Total 640 Balance 300 Weight 82.554 kg Intake: Intake, IV Titration 100 Amount Piperacillin-Tazobactam 3 100 .375 gm In Sodium Chloride 0.9% 100 ml @ 25 mls/hr IVPB Q8HR [facility] Rx# :[id number] Oral 840 Output: Drainage 140 Left Back 140 Urine 500 Other: Voiding Method Toilet Toilet # Voids 2 # Bowel Movements 3 - Exam GENERAL EXAM: Alert, pleasant, 71-year-old male on room air with pulse ox of 94%, comfortable in no apparent distress. HEAD: Normocephalic/atraumatic. EYES: Normal reaction of pupils, equal size. Conjunctiva pink, sclera white. NOSE: Clear with pink turbinates. THROAT: No erythema or exudates. NECK: No masses, no JVD, no thyroid enlargement, no adenopathy. CHEST: No chest wall deformity. Symmetrical expansion. Interval removal of the left-sided pigtail catheter LUNGS: Diminished breath sounds over left lower lobe with some crackles and dullness to percussion CVS: Regular rate and rhythm, normal S1 and S2, no gallops, no murmurs, no rubs ABDOMEN: Soft, nontender. No hepatosplenomegaly, normal bowel sounds, no guarding or rigidity. EXTREMITIES: No clubbing, no edema, no cyanosis, 2+ pulses and upper and lower extremities. MUSCULOSKELETAL: Muscle strength and tone normal. SPINE: No scoliosis or deformity SKIN: No rashes CENTRAL NERVOUS SYSTEM: No focal deficits, tone is normal in all 4 extremities. PSYCHIATRIC: Alert and oriented -3. Appropriate affect. Intact judgment and i nsight. - Labs CBC & Chem 7: 02/07/22 06:06 02/07/22 06:06 Labs: Abnormal Lab Results - Last 24 Hours (Table) 02/06/22 02/06/22 02/07/22 Range/Units 17:34 20:17 06:06 WBC 10.84 H (4.50-10.00) X 10*3/uL RBC 3.50 L (4.40-5.60) X 10*6/uL Hgb 10.1 L (13.0-17.0) g/dL Hct 32.1 L (39.6-50.0) % MCHC 31.5 L (32.0-37.0) g/dL Plt Count 454 H (140-440) X 10*3/uL MPV 9.4 L (9.5-12.2) fL Immature Gran # 0.20 H (0.00-0.04) X 10*3/uL Neutrophils # 8.60 H (1.80-7.70) X 10*3/uL Anion Gap (10.00-18.00) mmol/L Glucose (70-110) mg/dL POC Glucose (mg/dL) 134 H 154 H (70-110) mg/dL Calcium (8.7-10.3) mg/dL 02/07/22 02/07/22 Range/Units 06:06 07:20 WBC (4.50-10.00) X 10*3/uL RBC (4.40-5.60) X 10*6/uL Hgb (13.0-17.0) g/dL Hct (39.6-50.0) % MCHC (32.0-37.0) g/dL Plt Count (140-440) X 10*3/uL MPV (9.5-12.2) fL Immature Gran # (0.00-0.04) X 10*3/uL Neutrophils # (1.80-7.70) X 10*3/uL Anion Gap 8.80 L (10.00-18.00) mmol/L Glucose 126 H (70-110) mg/dL POC Glucose (mg/dL) 130 H (70-110) mg/dL Calcium 8.1 L (8.7-10.3) mg/dL Microbiology - Last 24 Hours (Table) 02/01/22 00:50 Blood Culture - Final Blood No Growth after 144 hours 02/01/22 00:35 Blood Culture - Final Blood No Growth after 144 hours 02/03/22 11:30 Gram Stain - Preliminary Pleural Fluid Body Fluid Culture - Preliminary Alpha Hemolytic Streptococcus Assessment and Plan Assessment: 1 Complicated multiloculated parapneumonic left-sided pleural effusion, possible empyema, complication of the previously under treated pneumonia, status post left chest pigtail catheter placement with drainage of large amount of purulent material, and pleural fluid analysis is consistent with empyema, pleura l fluid cultures are pending, remains on Zosyn. Pigtail catheter was removed on 02/05/2022 after having been discharged, and replaced on 02/06/2022. Repeat computed tomography scan of the chest on 02/03/2022 showed persistent left-sided loculated empyema, and consolidation. 2 Shortness of breath and pleuritic chest pain related to the above 3 Fever, leukocytosis related to the above, improved 4 Hypertension 5 Hyperlipidemia 6 Nonsmoker Plan: The patient was seen and evaluated Chest x-ray, medications and labs reviewed Pigtail catheter replaced yesterday Currently to -20 cm wall suction To receive alteplase/dornase today by CT services To have a PICC line placed today Continued on Zosyn We'll continue to follow I have personally seen and examined the patient, performed the documentation and the assessment and plan as written. Number of minutes spent on the visit: 10.
--- NOTE | 2022-02-07 14:22 | P.PN ---
Subjective Progress Note Date: 02/07/22 This is a 71 year old male with past medical history significant for hypertension, hyperlipidemia. He presents with 3 days of fever, shortness of breath and pleuritic chest pain. States about 6 weeks ago he began having cough and was evaluated in the clinic and IM antibiotic injection. Also had outpatient chest xray done. He was given steroids by his primary care provider. He states it didn't seem to help and was concerned when he developed fever and weakness with congestion. He is nonsmoker, reports no marijuana use. He does not work in a factor type setting, denies exposure to toxins. He rides a motorcycle and states he notice trouble breathing after a long ride which is unusual for him. He is overall healthy. On admission chest CTA has been completed showing large loculated left pleural effusions with infiltrate, and atelectasis left lower lobe. There is concern for empyema and patient was started on empiric antibiotic coverage with zosyn. Pulmonary has evaluated the patient and IR has been consulted for pigtail cathter insertion. IR is not available until Thursday. Cardiothoracic has also been consulted. Patient for now is maintained oxygen saturation of 92% on room air. He presents with fever 100.5, heart rate 75, blood pressure 120/70. White count 18.7, hgb 11.6, sodium 129, potassium 4.3, glucose is 208. Troponin negative. 02/02/2022 Patient is evaluated today sitting up in bed. is at the bedside. Plan is for pigtail catheter insertion with IR tomorrow and cardiothoracic has been consulted for management. Pulmonary is following the patient closely. He continues on room air, however has stated he has increased cough, no sputum production. Also complains of left sided pleuritic pain, he has had motrin 400 mg ordered however he has not received. Did also add a low dose of tramadol for pain management. He continues on IV zosyn for empiric antibiotic coverage. Blood cultures are negative so far. He has remained afebrile, heart rate 98, blood pressure 153/77, 91% on room air. Labs reviewed today showing white count 16.30, hgb 10.8, sodium 136, potassium 4.6. Blood glucose in the 130s. A1C is 6.4 which is on the cusp of prediabetes vs. diabetes, will discuss with patient tomorrow and patient will discharge on an oral diabetic agent. 02/03/2022 Patient sitting up in chair pending IR placement of pigtail catheter. He had increased pain to his left side and was given low dose of tramadol which he states did help his pain. He is short of breath today, he is using his incentive spirometer, also he has requested cough medicine and it has been ordered as n eeded. He had a T-Max overnight of 101.2. He continues on IV Zosyn. Blood pressure today 126/73. Labs reviewed today showing white count 15.84, hgb 11.1, sodium 133, potassium 4.7, blood glucose 150s. 02/04/2022 Patient evaluated today sitting up in the chair. He underwent pigtail catheter placement with alteplase injection through catheter and he has had fair output 375 mls last night and 115 mls today so far from drainage tube which is mostly purulent. He underwent a second alteplase infusion today. Chest xray today showing persistent multilocular effusions, with indwelling chest tube. No pneumothorax. Cardiothoracic and pulmonary are following this patient. He has been encouraged to continue with cough and deep breathing and also to continue with incentive spirometry. He continues on IV zosyn. Pleural fluid and blood cultures are pending. Reports pain has improved today, he is receiving IV dilaudid and tramadol as needed. Labs today are showing white count of 10.68, hgb 10.4, sodium 137, potassium 4.3, BUN 18.0, creatinine 0.7, magnesium 2.2. Blood glucose trending down. He has remained afebrile in the last 24 hours, heart rate 85, blood pressure 121/69, 90% room air. 02/05/2022 Patient evaluated today resting in bed, he had third alteplase injection today. Resting in bed on back during examination to begin turning rotation. Chest x- ray shows no significant interval change as before redemonstrates a loculated effusion. He reports diarrhea 1-2 times overnight. He has been maintained on IV zosyn. Labs today showed white count 10.21, hemoglobin 10.3. His T-max last night was 99 he states that he does have night sweats still, heart rate 76, blood pressure 129/75, 93% pulse oximetry. Ambulating without difficulty in the hallways. His pleural cytology has resulted showing acute inflammation consistent with empyema without evidence for malignancy. Blood glucose in the 130s. 02/06/2022 Pigtail catheter was removed yesterday as there was possibility it had dislodged and pigtail catheter will be reinserted by interventional radiology. He did have 150 mL of output from the pigtail catheter yesterday. IV fluids have been discontinued patient does have some mild peripheral edema and compression stockings have been ordered. He continues to ambulated in the hallways and is using incentive spirometer as recommended. Labs today; white count 11.4, hemoglobin 11.1, sodium 138, potassium 5.0, BUN 21, creatinine 0.83, blood glucose in the 120s. Patient continues on IV antibiotics, cultures are negative so far. He is being followed closely by pulmonary, infectious disease and cardiothoracic consultation. There is a possibility patient may still require VATS procedure. He does complain of some loose stool, most likely for antibiotics, he is on GI prophylaxis and also immodium. Denies nausea, vomiting. 02/07/2022 Patient is status post let CT guided pigtail catheter reinsertion and had alteplase and dornase injected into catheter again today. Chest tube is set to - 20 mc wall suctin. 140 mLs of drainage from catheter today. Chest xray today showing interval improvement and reduction in the patients pleural effusion. There is also improvement in aeration with persistent density which obscurs the left hemidiaphragm. Subcutaneous emphysema questionable over the right chest. Labs today show white count 10.84, hemoglobin 10.1, sodium 139, potassium 4.4, BUN 13.3, creatinine 0.7. Blood glucose in the 120s. Calcium 1.8. Cytology from pigtail catheter insertion today is pending. Continues on IV ampicillin, patient will have PICC Line placed today. He is being followed by pulmonary, cadiothoracic and infectious disease. Review of Systems Constitutional: Denied any fatigue denied any fever. Cardio vascular: denied any chest pain, palpitations Gastrointestinal: denied any nausea, vomiting, reports loose stools. Pulmonary: reports shortness of breath, cough, pleuritic chest pain Neurologic denied any new focal deficits All inpatient medications were reviewed and appropriate changes in these medications as dictated in the interval history and assessment and plan. PHYSICAL EXAMINATION: GENERAL: The patient is alert and oriented x3, in no acute distress. Well developed, well nourished. HEENT: Pupils are round and equally reacting to light. EOMI. No scleral icterus. No conjunctival pallor. Normocephalic, atraumatic. No pharyngeal erythema. No thyromegaly. CARDIOVASCULAR: S1 and S2 present. No murmurs, rubs, or gallops. PULMONARY: Left lungs base diminished, he does have some crackles left mid lung. ABDOMEN: Soft, nontender, nondistended, normoactive bowel sounds. No palpable organomegaly. MUSCULOSKELETAL: No joint swelling or deformity. EXTREMITIES: No cyanosis, clubbing, or pedal edema. Trace ankle edema NEUROLOGICAL: Gross neurological examination did not reveal any focal deficits. SKIN: No rashes. Assessment and Plan Assessment Shortness of breath Loculated left side pleural effusion with empyema suspected pneumonia with sepsis, he is status post pigtail catheter placement and has undergone 4 rounds of alteplase/dornase. He is status post pigtail catheter reinsertion. He continues on IV Ampicillin. Leukocytosis, fever secondary to above, improving Hypertension Hyperlpidemia Prediabetes/Diabetes with A1C of 6.4 History of prostate disorder GI Prophylaxis Full Code Plan Pulmonary, ID, cardiothoracic consultation Will undergo alteplase/dornase injection with CT today Continue empiric antibiotic coverage with IV ampicillin Pending cultures PICC Line will be placed today Encourage ambulation, incentive spirometry Follow up AM labs The impression and plan of care has been dictated by Alice Botello, Nurse Practitioner as directed. Dr. Hermelindo MD I have performed a history and physical examination and medical decision making of this patient, discussed the same with the dictator, and agree with the dictators assessment and plan as written, documented as a scribe. Based on total visit time, I have performed more than 50% of this visit. Objective - Vital Signs Vital signs: Vital Signs Temp 98.7 F 02/07/22 12:26 Pulse 81 02/07/22 12:26 Resp 15 02/07/22 12:26 BP 124/71 02/07/22 12:26 Pulse Ox 94 L 02/07/22 12:26 FiO2 Intake & Output 02/06/22 02/07/22 02/07/22 18:59 06:59 18:59 Intake Total 940 Output Total 640 Balance 300 Weight 82.554 kg Intake: Intake, IV Titration 100 Amount Piperacillin-Tazobactam 3 100 .375 gm In Sodium Chloride 0.9% 100 ml @ 25 mls/hr IVPB Q8HR [facility] Rx# :[id number] Oral 840 Output: Drainage 140 Left Back 140 Urine 500 Other: Voiding Method Toilet Toilet Toilet # Voids 2 # Bowel Movements 3 - Labs CBC & Chem 7: 02/07/22 06:06 02/07/22 06:06 Labs: Abnormal Lab Results - Last 24 Hours (Table) 02/06/22 02/06/22 02/07/22 Range/Units 17:34 20:17 06:06 WBC 10.84 H (4.50-10.00) X 10*3/uL RBC 3.50 L (4.40-5.60) X 10*6/uL Hgb 10.1 L (13.0-17.0) g/dL Hct 32.1 L (39.6-50.0) % MCHC 31.5 L (32.0-37.0) g/dL Plt Count 454 H (140-440) X 10*3/uL MPV 9.4 L (9.5-12.2) fL Immature Gran # 0.20 H (0.00-0.04) X 10*3/uL Neutrophils # 8.60 H (1.80-7.70) X 10*3/uL Anion Gap (10.00-18.00) mmol/L Glucose (70-110) mg/dL POC Glucose (mg/dL) 134 H 154 H (70-110) mg/dL Calcium (8.7-10.3) mg/dL 02/07/22 02/07/22 Range/Units 06:06 07:20 WBC (4.50-10.00) X 10*3/uL RBC (4.40-5.60) X 10*6/uL Hgb (13.0-17.0) g/dL Hct (39.6-50.0) % MCHC (32.0-37.0) g/dL Plt Count (140-440) X 10*3/uL MPV (9.5-12.2) fL Immature Gran # (0.00-0.04) X 10*3/uL Neutrophils # (1.80-7.70) X 10*3/uL Anion Gap 8.80 L (10.00-18.00) mmol/L Glucose 126 H (70-110) mg/dL POC Glucose (mg/dL) 130 H (70-110) mg/dL Calcium 8.1 L (8.7-10.3) mg/dL Microbiology - Last 24 Hours (Table) 02/01/22 00:50 Blood Culture - Final Blood No Growth after 144 hours 02/01/22 00:35 Blood Culture - Final Blood No Growth after 144 hours 02/03/22 11:30 Gram Stain - Preliminary Pleural Fluid Body Fluid Culture - Preliminary Alpha Hemolytic Streptococcus Assessment and Plan Time with Patient: Less than 30
--- NOTE | 2022-02-07 16:02 | P.PN ---
Subjective Progress Note Date: 02/06/22 Principal diagnosis: Left-sided empyema Patient is a 71 year male presented to the hospital with left-sided chest pain and fever and cough has been diagnosed with a left-sided loculated effusion concerning for empyema in this patient who is status post chest tube placement on 02/03/2022 which unfortunately did fell off 02/05/2022 and was reinserted on 02/06/2022 On today's evaluation that is 02/06/2022, the patient continues to be afebrile, the patient is breathing comfortably on room air, the patient left-sided chest pain has decreased intensity, the patient denies denies having any nausea no vomiting no abdominal pain and no diarrhea Objective - Vital Signs Vital signs: Vital Signs Temp 98.4 F 02/06/22 11:15 Pulse 76 02/06/22 14:35 Resp 18 02/06/22 11:40 BP 128/69 02/06/22 14:35 Pulse Ox 94 L 02/06/22 14:35 FiO2 Intake & Output 02/05/22 02/06/22 02/06/22 18:59 06:59 18:59 Intake Total 1100 Balance 1100 Intake: Oral 1100 Other: Voiding Method Toilet Toilet # Voids 2 2 - Exam GENERAL DESCRIPTION: An elderly male lying in bed in no distress RESPIRATORY SYSTEM: Unlabored breathing , decreased breath sounds at left base HEART: S1 S2 regular rate and rhythm , ABDOMEN: Soft , no tenderness EXTREMITIES: No edema feet - Labs CBC & Chem 7: 02/07/22 06:06 02/07/22 06:06 Labs: Abnormal Lab Results - Last 24 Hours (Table) 02/05/22 02/05/22 02/06/22 Range/Units 17:03 21:28 07:04 WBC (3.8-10.6) k/uL RBC (4.30-5.90) m/uL Hgb (13.0-17.5) gm/dL Hct (39.0-53.0) % MCHC (31.0-37.0) g/dL Plt Count (150-450) k/uL Neutrophils # (1.3-7.7) k/uL Lymphocytes # (1.0-4.8) k/uL BUN (9-20) mg/dL Glucose (74-99) mg/dL POC Glucose (mg/dL) 162 H 122 H 127 H (70-110) mg/dL Calcium (8.4-10.2) mg/dL 02/06/22 02/06/22 02/06/22 Range/Units 09:42 09:42 11:13 WBC 11.4 H (3.8-10.6) k/uL RBC 3.84 L (4.30-5.90) m/uL Hgb 11.1 L (13.0-17.5) gm/dL Hct 36.7 L (39.0-53.0) % MCHC 30.2 L (31.0-37.0) g/dL Plt Count 472 H (150-450) k/uL Neutrophils # 9.7 H (1.3-7.7) k/uL Lymphocytes # 0.7 L (1.0-4.8) k/uL BUN 21 H (9-20) mg/dL Glucose 104 H (74-99) mg/dL POC Glucose (mg/dL) 126 H (70-110) mg/dL Calcium 8.2 L (8.4-10.2) mg/dL Microbiology - Last 24 Hours (Table) 02/01/22 00:50 Blood Culture - Preliminary Blood No Growth after 120 hours 02/01/22 00:35 Blood Culture - Preliminary Blood No Growth after 120 hours 02/03/22 11:30 Anaerobic Culture - Preliminary Pleural Fluid Assessment and Plan (1) Pleural effusion, left Current Visit: Yes Status: Acute Code(s): J90 - PLEURAL EFFUSION, NOT ELSEWHERE CLASSIFIED SNOMED Code(s): 05317424 Plan: 1patient presented to hospital with sepsis source is left-sided pneumonia and empyema more likely from a community-acquired pathogen as the patient seem to have not received an antibiotic in the outpatient setting status post IR chest tube placement and fluid has been sent for the culture which are currently pending. 2the patient currently being treated with Zosyn, while waiting for the cultures to finalize Time with Patient: Less than 30
--- NOTE | 2022-02-07 16:03 | P.PN ---
Subjective Progress Note Date: 02/07/22 Principal diagnosis: Left-sided empyema Patient is a 71 year male presented to the hospital with left-sided chest pain and fever and cough has been diagnosed with a left-sided loculated effusion concerning for empyema in this patient who is status post chest tube placement on 02/03/2022 which unfortunately did fell off 02/05/2022 and was reinserted on 02/06/2022 On today's evaluation that is 02/07/2022, the patient denies any fever or chills, the patient is breathing comfortably on room air, the patient left-sided chest pain is currently controlled, the patient denies denies having any nausea no vomiting no abdominal pain and no diarrhea Objective - Vital Signs Vital signs: Vital Signs Temp 98.7 F 02/07/22 12:26 Pulse 81 02/07/22 12:26 Resp 15 02/07/22 12:26 BP 124/71 02/07/22 12:26 Pulse Ox 94 L 02/07/22 12:26 FiO2 Intake & Output 02/06/22 02/07/22 02/07/22 18:59 06:59 18:59 Intake Total 940 Output Total 640 Balance 300 Weight 82.554 kg Intake: Intake, IV Titration 100 Amount Piperacillin-Tazobactam 3 100 .375 gm In Sodium Chloride 0.9% 100 ml @ 25 mls/hr IVPB Q8HR [facility] Rx# :[id number] Oral 840 Output: Drainage 140 Left Back 140 Urine 500 Other: Voiding Method Toilet Toilet Toilet # Voids 2 # Bowel Movements 3 - Exam GENERAL DESCRIPTION: An elderly male lying in bed in no distress RESPIRATORY SYSTEM: Unlabored breathing , decreased breath sounds at left base HEART: S1 S2 regular rate and rhythm , ABDOMEN: Soft , no tenderness EXTREMITIES: No edema feet - Labs CBC & Chem 7: 02/07/22 06:06 02/07/22 06:06 Labs: Abnormal Lab Results - Last 24 Hours (Table) 02/06/22 02/06/22 02/07/22 Range/Units 17:34 20:17 06:06 WBC 10.84 H (4.50-10.00) X 10*3/uL RBC 3.50 L (4.40-5.60) X 10*6/uL Hgb 10.1 L (13.0-17.0) g/dL Hct 32.1 L (39.6-50.0) % MCHC 31.5 L (32.0-37.0) g/dL Plt Count 454 H (140-440) X 10*3/uL MPV 9.4 L (9.5-12.2) fL Immature Gran # 0.20 H (0.00-0.04) X 10*3/uL Neutrophils # 8.60 H (1.80-7.70) X 10*3/uL Anion Gap (10.00-18.00) mmol/L Glucose (70-110) mg/dL POC Glucose (mg/dL) 134 H 154 H (70-110) mg/dL Calcium (8.7-10.3) mg/dL 02/07/22 02/07/22 Range/Units 06:06 07:20 WBC (4.50-10.00) X 10*3/uL RBC (4.40-5.60) X 10*6/uL Hgb (13.0-17.0) g/dL Hct (39.6-50.0) % MCHC (32.0-37.0) g/dL Plt Count (140-440) X 10*3/uL MPV (9.5-12.2) fL Immature Gran # (0.00-0.04) X 10*3/uL Neutrophils # (1.80-7.70) X 10*3/uL Anion Gap 8.80 L (10.00-18.00) mmol/L Glucose 126 H (70-110) mg/dL POC Glucose (mg/dL) 130 H (70-110) mg/dL Calcium 8.1 L (8.7-10.3) mg/dL Microbiology - Last 24 Hours (Table) 02/01/22 00:50 Blood Culture - Final Blood No Growth after 144 hours 02/01/22 00:35 Blood Culture - Final Blood No Growth after 144 hours 02/03/22 11:30 Gram Stain - Preliminary Pleural Fluid Body Fluid Culture - Preliminary Alpha Hemolytic Streptococcus Assessment and Plan (1) Pleural effusion, left Current Visit: Yes Status: Acute Code(s): J90 - PLEURAL EFFUSION, NOT ELSEWHERE CLASSIFIED SNOMED Code(s): 03267759 Plan: 1patient presented to hospital with sepsis source is left-sided pneumonia and empyema more likely from a community-acquired pathogen as the patient seem to have not received an antibiotic in the outpatient setting status post IR chest tube placement and fluid has been sent for the culture which are currently growing alpha hemolytic streptococcus 2. Discontinue Zosyn and start the patient on Unasyn plan to finish therapy with Rocephin on discharge Time with Patient: Less than 30
[2022-02-07 17:15] LABS: Glucose,Whole Blood 128 mg/dL (70-110)
[2022-02-07] MEDS: AMPICILLIN-SULBACTAM 3 GM in SODIUM CHLORIDE 0.9% 100 ML IVPB SCH (17:50)
[2022-02-07 20:35] LABS: Glucose,Whole Blood 142 mg/dL (70-110)
[2022-02-07] MEDS: hydroCHLOROthiazide 12.5 MG CAP PO SCH (20:54)
[2022-02-07] MEDS: LOSARTAN 50 MG TAB PO SCH (20:56)
[2022-02-07] MEDS: MELATONIN 3 MG TABLET PO SCH (20:56)
[2022-02-08] MEDS: AMPICILLIN-SULBACTAM 3 GM in SODIUM CHLORIDE 0.9% 100 ML IVPB SCH ×4 (00:39→18:25)
[2022-02-08 07:19] LABS: Glucose,Whole Blood 111 mg/dL (70-110)
--- NOTE | 2022-02-08 07:45 | XR ---
EXAMINATION TYPE: XR chest 2V DATE OF EXAM: 02/08/2022 COMPARISON: Chest x-ray 02/07/2022 HISTORY: Chest tube, loculated pleural effusion TECHNIQUE: Frontal and lateral views of the chest are obtained. FINDINGS: The upper posterior left chest tube remains in place. Patchy density persists at the left lung base. No evident pneumothorax. Cardiac mediastinal silhouette is stable. Left-sided PICC line is present, distal tip is near the cavoatrial junction level. IMPRESSION: Persistent loculated left pleural effusion with some inflammatory changes, correlate for pneumonia. Chest tube in place.
[2022-02-08] MEDS ORDERED: ALTEPLASE 10 MG in SODIUM CHLORIDE 0.9% 50 ML IRRIGATION ONE (08:00)
[2022-02-08] MEDS ORDERED: DORNASE ALFA 5 MG in SODIUM CHLORIDE 0.9% 50 ML IRRIGATION ONE (08:00)
[2022-02-08] MEDS: INSULIN ASPART (NovoLOG) 100 UNIT/ML VIAL SQ SCH ×8 (08:16→22:45)
[2022-02-08] MEDS: MAGNESIUM OXIDE 400 MG TAB PO SCH (08:16)
[2022-02-08] MEDS: PANTOPRAZOLE 40 MG/10 ML VIAL IVP SCH (08:16)
--- NOTE | 2022-02-08 10:55 | P.PN ---
Subjective Progress Note Date: 02/08/22 Principal diagnosis: Loculated left-sided effusion, possible empyema with a six-week history of persistent nonproductive cough and pleuritic type symptoms. Past medical history significant for hypertension, hyperlipidemia, BPH, lifetime nonsmoker. The patient was seen and examined in follow-up today 02/08/2022 at his bedside on the fifth floor medical oncology unit. The patient is up ambulating in the hallway of the fifth floor medical surgical unit, is awake, alert, oriented 3 and is in no acute distress. Denies any complaints of shortness of breath, reports his cough is much improved and is less frequent, although is complaining of some gnawing/sharp-type pain with taking a deep breath to his left anterior chest. Oxygen saturations are 94% on room air and he is achieving 2500 mL on his incentive spirometry with encouragement. Left pleural chest pigtail cat heter remains in place to low continuous wall suction -20 cm H2O. No air leak is present. He was instilled with a dose of alteplase/dornase yesterday with 700 mL of thin serosanguineous drainage drained over the last 24 hours. He did have a PICC line placed yesterday per infectious disease recommendations, his antibiotics were changed to Unasyn by infectious disease, as his pleural fluid cultures showed positive for alpha hemolytic streptococcus. The patient denies any further night sweats and he has been afebrile in the last 24 hours. Objective - Vital Signs Vital signs: Vital Signs Temp 98.2 F 02/08/22 04:25 Pulse 79 02/08/22 04:25 Resp 18 02/08/22 04:25 BP 118/70 02/08/22 04:25 Pulse Ox 94 L 02/08/22 07:54 FiO2 21 02/08/22 07:54 Intake & Output 02/07/22 02/08/22 02/08/22 18:59 06:59 18:59 Intake Total 118 Output Total 740 1100 Balance -740 -1100 118 Weight 82.554 kg Intake: Oral 118 Output: Chest Tube Drainage 740 Chest Tube Left Posterior 740 Chest Urine 1100 Other: Voiding Method Toilet Toilet # Voids 2 3 - Exam CONSTITUTIONAL: Up ambulating in the hallway on the fifth floor medical surgical unit, appears comfortable, cooperative, no apparent acute distress. HEENT: Neck is supple, no JVD, no lymphadenopathy. RESPIRATORY: Lungs sounds diminished to his left lobes, essentially clear to his right lobes. Respirations are symmetrical and nonlabored. Currently on room air with oxygen saturations 94%. Able to achieve 2500 mL on his incentive spirometry. Strong cough. Left chest pigtail catheter in place to low continuous wall suction -20 cm H2O. No air leak is present. Draining thin serosanguineous drainage with 700 mL output in the last 24 hours. CARDIOVASCULAR: Regular rhythm and rate. S1 and S2 present, negative for S3, gallop or murmur. Palpable peripheral pulses bilaterally. No calf pain or tenderness noted. GASTROINTESTINAL: Abdomen soft, nontender, nondistended. Active bowel sounds present 4 quadrants. Tolerating diet. No guarding or rigidity. GENITOURINARY: Continues to void. INTEGUMENTARY: Skin is warm and dry with no evidence of clubbing or cyanosis. A quarter size erythema in the area on his mid back. NEUROLOGIC: Cranial nerves II through XII intact. No focal deficits. MUSKULOSKELETAL: Able to move all extremities, strength equal bilaterally. PSYCHIATRIC: Alert and oriented to person place and time, appropriate affect, intact judgment and insight. - Allied health notes Allied health notes reviewed: nursing - Labs CBC & Chem 7: 02/07/22 06:06 02/07/22 06:06 Labs: Abnormal Lab Results - Last 24 Hours (Table) 02/07/22 02/07/22 02/08/22 Range/Units 17:13 20:34 07:17 POC Glucose (mg/dL) 128 H 142 H 111 H (70-110) mg/dL Microbiology - Last 24 Hours (Table) 02/03/22 11:30 Anaerobic Culture - Final Pleural Fluid 02/06/22 12:05 Gram Stain - Preliminary Pleural Fluid Body Fluid Culture - Preliminary 02/03/22 11:30 Gram Stain - Final Pleural Fluid Body Fluid Culture - Final Alpha Hemolytic Streptococcus 02/06/22 12:05 Acid Fast Bacilli Culture - Preliminary Pleural Fluid 02/06/22 12:05 Fungal Culture - Preliminary Pleural Fluid - Imaging and Cardiology Chest x-ray: report reviewed, image reviewed Assessment and Plan Assessment: 1. Large loculated left-sided pleural effusion, possible empyema, pleural fluid cytology showing dense acute inflammation consistent with empyema and no cytologically malignant cells identified, pleural fluid culture positive for alpha hemolytic streptococcus 2. Persistent cough, fever, sweats, chills, pain with deep inspiration, secondary to above 3. Fever, Leukocytosis, secondary to above 4. History of hypertension 5. History of hyperlipidemia 6. History of prostate disorder 7. Lifetime non-smoker Plan: 1. Keep left pleural chest pigtail catheter in place to low continuous wall suction -20 cm H2O. We will instill alteplase/dornase into the left chest pigtail catheter today, this will be his third dose through this pigtail catheter, he has had a total of 5 alteplase/dornase treatments. We will clamp the pigtail catheter for 1 hour post instillation. We will have the patient turned every 15 minutes from supine, left side, right side and prone for 1 hour. After the 1 hour of alteplase/dornase instillation we will unclamp the chest p igtail catheter and placed back to low continuous wall suction -20 cm H2O. 2. Encourage use of his incentive spirometry 10 times every hour while awake. 3. Pain control per current when necessary orders. 4. Continue to monitor daily labs and chest x-rays. 5. Increase activity as tolerated. Out of bed for all meals. 6. Pleural fluid and blood culture show positive for alpha hemolytic strep tococcus. Continue on Unasyn managed by infectious disease management. Cytology results of the pleural fluid showed dense acute inflammation consistent with empyema and no cytologically malignant cells were identified. The patient had a PICC line placed yesterday 02/07/2022. 7. More recommendations to follow based on patient's clinical course. Time with Patient: Greater than 30
[2022-02-08 11:05] LABS: Glucose,Whole Blood 114 mg/dL (70-110)
--- NOTE | 2022-02-08 12:07 | P.PN ---
Subjective Progress Note Date: 02/08/22 71-year-old male patient, a nonsmoker, no previous history of lung disease, who developed pneumonialike symptoms approximately 6 weeks ago. The patient had congestion, shortness of breath and pleurisy involving the left lung. He was given IV Rocephin for an urgent care and later on steroids with primary care physician. Nevertheless, he never recovered. He was having ongoing chest discomfort on the left. He was also having sweats and chills and episodic fever. He was getting progressively more weak and for that reason he came in to the hospital for further evaluation. The patient has not had any exposure or infection with COVID 19. He has not been vaccinated also. He has no altered mentation. No hemoptysis for now. The patient had a white cell count of 18.7 with a hemoglobin of 11. The blood work showed initial sodium of 129 and that came at 137 within the treatment. BUN was 21 with a creatinine of 0.6 and coagulation profile was essentially within normal limits. The chest x-ray not done and the patient underwent a CT angiogram that showed no this of any pulmonary embolism. There was large loculated or multiloculated left-sided pleural effusion with possibility of underlying empyema. Right lung was essentially clear. The patient was started on IV Zosyn and the patient was hospitalized. A pulmonary palpation was requested. No previous bouts of pneumonias. No chest trauma. No 70 malignancy. No TB exposure. 02/02/2022, the patient is clinically stable on antibiotics. He still has some pleuritic left-sided chest wall pain. I made recommendations for a pigtail c atheter insertion by interventional radiology and this has not been done. I do not think day services of interventional radiology are available on the weekend. This was done tomorrow. The patient remains on IV Zosyn for now. Thoracic surgery is also involved in the case. On 02/03/2022 patient seen in follow-up on medical surgical floor. He is awake, in no acute distress, did have fever spikes overnight with T-max of 101.2F, room air pulse ox is 94%. Doesn't appear to be any acute distress at rest, however does have exertional dyspnea and occasional cough and some pleuritic left-sided chest wall pain. Patient was seen by CT surgery consultation, and the recommendation is made for placement of CT-guided pigtail chest tube catheter in the left pleural space. He continues on antibiotics he is on Zosyn. On 02/04/2022 patient seen in follow-up on medical surgical floor. Yesterday h ad a left-sided pigtail chest tube catheter. And overnight his had a total of 1000 mL of purulent drainage from the pigtail. Patient received a dose of alteplase and dornase by CT surgery. Today's chest x-ray showing persistent multilocular pleural effusion with indwelling chest tube, and no evidence of his old pneumothorax. Patient remains on Zosyn for antibiotic coverage, vital signs have been stable, his been afebrile, blood pressure stable, he is working on incentive spirometer. Today's labs have been reviewed showing white blood cell count of 10.6, hemoglobin of 10.4, sodium is 137, potassium is 4.3, chloride is 100, CO2 is 29, BUN is 18 creatinine 0.7. Pleural fluid analysis showed 7400 white blood cells, 96 of holiday clear white blood cells. Fluid glucose was less than 2, fluid protein was 4.8 g, LDH was greater than 2500, consistent with empyema. Pleural fluid cultures have shown no growth thus far. Blood cultures have been negative. On 02/05/2022 patient seen in follow-up medical surgical floor. Left-sided chest tube remains in place, and there has been an additional 400 mL of purulent pleural fluid drainage in the last 24 hours. Left-sided chest tube is to water seal, no evidence of air leak. Low-grade fever this morning, with a T-max of 99 point degrees Fahrenheit. Patient is breathing comfortably, he is working on incentive spirometer, his pleuritic chest pain is improved. Chest x-ray showing stable persistent multilocular effusion. Today's labs are pending, but vital signs have been stable. CT surgery is following and patient will receive anot her dose of alteplase and dornase. Pleural fluid cultures are still pending, Gram stain showing no organisms but multiple PMNs. On 02/06/2022 patient seen in follow-up on medical surgical floor. Yesterday's CT of the chest showed persistent loculated left-sided pleural effusion, persistent consolidation and thickening of the left lung base, and the pigtail chest tube catheter was difficult to visualize, and was thought to have been dislodged. Patient did receive additional dose of alteplase and dornase yesterday, he did put out 150 ML of fluid in the last [address] surgery is following, case was discussed with them, patient remains on antibiotics however in view of persistent loculated pleural effusion, and consolidation, the decision had been made to remove the pigtail catheter and have interventional radiology replaces with another pigtail catheter. Clinically patient is stable, no worsening dyspnea, no worsening chest discomfort, his white blood cell count is fairly stable, at 11.4, hemoglobin is 11.1, electrolytes are within normal limits, B1 is 21 creatinine 0.83. His Pleural fluid cultures have shown no growth thus far. The patient is seen today 02/07/2022 in follow-up on the regular medical floor. He is currently sitting up in a chair at the bedside. Awake and alert in no acute distress. Maintaining good O2 saturations in the 90s on room. He is currently afebrile. He did undergo a repeat left-sided CT-guided Pigtail chest tube placement yesterday. Currently -20 cm wall suction. Today's chest x-ray shows improved aeration, persistent abnormal density obscuring the left hemidiaphragm, blunting of left costophrenic ample. No pneumothorax. He is to receive alteplase/dornase again today per CT services. He remains on Zosyn. The plan is for PICC line placement today. White count 10.8. Hemoglobin 10.1. Platelets 454. Sodium 139. Potassium 4.4. Chloride 103. BUN 13. Creatinine 0.7. Glucose 126. The patient is seen today 02/08/2022 in follow-up on the regular medical floor. He is currently up ambulating in the hallway. He quite well. No worsening shortness of breath, cough or congestion. Chest x-ray reveals persistent loculated left pleural effusion with inflammatory changes. Chest tube remains in place. Remains on low continuous suction -20 cm water. The plan is for another dose of alteplase/dornase per CT services. Left sided PICC line in place. Pleural fluid cultures positive for alphahemolytic streptococcus. He is currently on Unasyn per ID services. Blood glucose 114. Objective - Vital Signs Vital signs: Vital Signs Temp 98.2 F 02/08/22 04:25 Pulse 79 02/08/22 04:25 Resp 18 02/08/22 04:25 BP 118/70 02/08/22 04:25 Pulse Ox 94 L 02/08/22 07:54 FiO2 21 02/08/22 07:54 Intake & Output 02/07/22 02/08/22 02/08/22 18:59 06:59 18:59 Intake Total 118 Output Total 740 1100 Balance -740 -1100 118 Weight 82.554 kg Intake: Oral 118 Output: Chest Tube Drainage 740 Chest Tube Left Posterior 740 Chest Urine 1100 Other: Voiding Method Toilet Toilet # Voids 2 3 - Exam GENERAL EXAM: Alert, pleasant, 71-year-old male patient on room air with pulse ox of 94%, comfortable in no apparent distress. HEAD: Normocephalic/atraumatic. EYES: Normal reaction of pupils, equal size. Conjunctiva pink, sclera white. NOSE: Clear with pink turbinates. THROAT: No erythema or exudates. NECK: No masses, no JVD, no thyroid enlargement, no adenopathy. CHEST: No chest wall deformity. Symmetrical expansion. Interval removal of the left-sided pigtail catheter LUNGS: Diminished breath sounds over left lower lobe with some crackles and dullness to percussion CVS: Regular rate and rhythm, normal S1 and S2, no gallops, no murmurs, no rubs ABDOMEN: Soft, nontender. No hepatosplenomegaly, normal bowel sounds, no guarding or rigidity. EXTREMITIES: No clubbing, no edema, no cyanosis, 2+ pulses and upper and lower extremities. MUSCULOSKELETAL: Muscle strength and tone normal. SPINE: No scoliosis or deformity SKIN: No rashes CENTRAL NERVOUS SYSTEM: No focal deficits, tone is normal in all 4 extremities. PSYCHIATRIC: Alert and oriented -3. Appropriate affect. Intact judgment and insight. - Labs CBC & Chem 7: 02/07/22 06:06 02/07/22 06:06 Labs: Abnormal Lab Results - Last 24 Hours (Table) 02/07/22 02/07/22 02/08/22 Range/Units 17:13 20:34 07:17 POC Glucose (mg/dL) 128 H 142 H 111 H (70-110) mg/dL 02/08/22 Range/Units 11:04 POC Glucose (mg/dL) 114 H (70-110) mg/dL Microbiology - Last 24 Hours (Table) 02/06/22 12:05 Gram Stain - Preliminary Pleural Fluid Body Fluid Culture - Preliminary 02/03/22 11:30 Anaerobic Culture - Final Pleural Fluid 02/03/22 11:30 Gram Stain - Final Pleural Fluid Body Fluid Culture - Final Alpha Hemolytic Streptococcus 02/06/22 12:05 Acid Fast Bacilli Culture - Preliminary Pleural Fluid 02/06/22 12:05 Fungal Culture - Preliminary Pleural Fluid Assessment and Plan Assessment: 1 Complicated multiloculated parapneumonic left-sided pleural effusion, complication of the previously under treated pneumonia, status post left chest pigtail catheter placement with drainage of large amount of purulent material, and pleural fluid analysis is consistent with empyema, pleural fluid cultures positive for alpha hemolytic streptococcus, now on Unasyn. Pigtail catheter was removed on 02/05/2022 after having been discharged, and replaced on 02/06/2022. Repeat computed tomography scan of the chest on 02/03/2022 showed persistent left-sided loculated empyema, and consolidation. 2 Shortness of breath and pleuritic chest pain related to the above 3 Fever, leukocytosis related to the above, improved 4 Hypertension 5 Hyperlipidemia 6 Nonsmoker Plan: The patient was seen and evaluated Chest x-ray, medications and labs reviewed Pigtail catheter remains in place to the left chest Currently to -20 cm wall suction, minimal output To receive alteplase/dornase today by CT services Cultures were positive for alpha hemolytic streptococcus Currently on Unasyn We'll continue to follow I have personally seen and examined the patient, performed the documentation and the assessment and plan as written. Number of minutes spent on the visit: 10.
--- NOTE | 2022-02-08 14:21 | P.PN ---
Subjective Progress Note Date: 02/08/22 This is a 71 year old male with past medical history significant for hypertension, hyperlipidemia. He presents with 3 days of fever, shortness of breath and pleuritic chest pain. States about 6 weeks ago he began having cough and was evaluated in the clinic and IM antibiotic injection. Also had outpatient chest xray done. He was given steroids by his primary care provider. He states it didn't seem to help and was concerned when he developed fever and weakness with congestion. He is nonsmoker, reports no marijuana use. He does not work in a factor type setting, denies exposure to toxins. He rides a motorcycle and states he notice trouble breathing after a long ride which is unusual for him. He is overall healthy. On admission chest CTA has been completed showing large loculated left pleural effusions with infiltrate, and atelectasis left lower lobe. There is concern for empyema and patient was started on empiric antibiotic coverage with zosyn. Pulmonary has evaluated the patient and IR has been consulted for pigtail cathter insertion. IR is not available until Thursday. Cardiothoracic has also been consulted. Patient for now is maintained oxygen saturation of 92% on room air. He presents with fever 100.5, heart rate 75, blood pressure 120/70. White count 18.7, hgb 11.6, sodium 129, potassium 4.3, glucose is 208. Troponin negative. 02/02/2022 Patient is evaluated today sitting up in bed. is at the bedside. Plan is for pigtail catheter insertion with IR tomorrow and cardiothoracic has been consulted for management. Pulmonary is following the patient closely. He continues on room air, however has stated he has increased cough, no sputum production. Also complains of left sided pleuritic pain, he has had motrin 400 mg ordered however he has not received. Did also add a low dose of tramadol for pain management. He continues on IV zosyn for empiric antibiotic coverage. Blood cultures are negative so far. He has remained afebrile, heart rate 98, blood pressure 153/77, 91% on room air. Labs reviewed today showing white count 16.30, hgb 10.8, sodium 136, potassium 4.6. Blood glucose in the 130s. A1C is 6.4 which is on the cusp of prediabetes vs. diabetes, will discuss with patient tomorrow and patient will discharge on an oral diabetic agent. 02/03/2022 Patient sitting up in chair pending IR placement of pigtail catheter. He had increased pain to his left side and was given low dose of tramadol which he states did help his pain. He is short of breath today, he is using his incentive spirometer, also he has requested cough medicine and it has been ordered as n eeded. He had a T-Max overnight of 101.2. He continues on IV Zosyn. Blood pressure today 126/73. Labs reviewed today showing white count 15.84, hgb 11.1, sodium 133, potassium 4.7, blood glucose 150s. 02/04/2022 Patient evaluated today sitting up in the chair. He underwent pigtail catheter placement with alteplase injection through catheter and he has had fair output 375 mls last night and 115 mls today so far from drainage tube which is mostly purulent. He underwent a second alteplase infusion today. Chest xray today showing persistent multilocular effusions, with indwelling chest tube. No pneumothorax. Cardiothoracic and pulmonary are following this patient. He has been encouraged to continue with cough and deep breathing and also to continue with incentive spirometry. He continues on IV zosyn. Pleural fluid and blood cultures are pending. Reports pain has improved today, he is receiving IV dilaudid and tramadol as needed. Labs today are showing white count of 10.68, hgb 10.4, sodium 137, potassium 4.3, BUN 18.0, creatinine 0.7, magnesium 2.2. Blood glucose trending down. He has remained afebrile in the last 24 hours, heart rate 85, blood pressure 121/69, 90% room air. 02/05/2022 Patient evaluated today resting in bed, he had third alteplase injection today. Resting in bed on back during examination to begin turning rotation. Chest x- ray shows no significant interval change as before redemonstrates a loculated effusion. He reports diarrhea 1-2 times overnight. He has been maintained on IV zosyn. Labs today showed white count 10.21, hemoglobin 10.3. His T-max last night was 99 he states that he does have night sweats still, heart rate 76, blood pressure 129/75, 93% pulse oximetry. Ambulating without difficulty in the hallways. His pleural cytology has resulted showing acute inflammation consistent with empyema without evidence for malignancy. Blood glucose in the 130s. 02/06/2022 Pigtail catheter was removed yesterday as there was possibility it had dislodged and pigtail catheter will be reinserted by interventional radiology. He did have 150 mL of output from the pigtail catheter yesterday. IV fluids have been discontinued patient does have some mild peripheral edema and compression stockings have been ordered. He continues to ambulated in the hallways and is using incentive spirometer as recommended. Labs today; white count 11.4, hemoglobin 11.1, sodium 138, potassium 5.0, BUN 21, creatinine 0.83, blood glucose in the 120s. Patient continues on IV antibiotics, cultures are negative so far. He is being followed closely by pulmonary, infectious disease and cardiothoracic consultation. There is a possibility patient may still require VATS procedure. He does complain of some loose stool, most likely for antibiotics, he is on GI prophylaxis and also immodium. Denies nausea, vomiting. 02/07/2022 Patient is status post let CT guided pigtail catheter reinsertion and had alteplase and dornase injected into catheter again today. Chest tube is set to - 20 mc wall suctin. 140 mLs of drainage from catheter today. Chest xray today showing interval improvement and reduction in the patients pleural effusion. There is also improvement in aeration with persistent density which obscurs the left hemidiaphragm. Subcutaneous emphysema questionable over the right chest. Labs today show white count 10.84, hemoglobin 10.1, sodium 139, potassium 4.4, BUN 13.3, creatinine 0.7. Blood glucose in the 120s. Calcium 1.8. Cytology from pigtail catheter insertion today is pending. Continues on IV ampicillin, patient will have PICC Line placed today. He is being followed by pulmonary, cadiothoracic and infectious disease. 02/08/2022 Patient evaluated today sitting up in bed. He continues with cough, and states it is non productive. He has pigtail catheter in place, low continuous suction - 20 cm wall. Repeat chest xray today demonstrates persistent left loculated pleural effusion with inflammatory changes. He is being managed by pulmonary and cardiothoracic disease. Plan today is for another dose of alteplase/dornase per CT services. Pleural fluid cultures are now positive for alphahemolytic strep and he remains on IV unasyn and is being followed closely by infectious disease services. Patient has PICC line in place. Blood glucose remains stable and he continues on sliding scale insulin. Plan to repeat CBC and BMP tomorrow. He has t max 99.4 through out the night, heart rate 83, blood pressure 114/72, 91% on room air. He is using incentive spirometer and ambulating the halls without difficulty. He has bilateral ankle edema, IV fluids have been stopped. Review of Systems Constitutional: Denied any fatigue denied any fever. Cardio vascular: denied any chest pain, palpitations Gastrointestinal: denied any nausea, vomiting, reports loose stools. Pulmonary: reports shortness of breath, cough, pleuritic chest pain Neurologic denied any new focal deficits All inpatient medications were reviewed and appropriate changes in these medications as dictated in the interval history and assessment and plan. PHYSICAL EXAMINATION: GENERAL: The patient is alert and oriented x3, in no acute distress. Well developed, well nourished. HEENT: Pupils are round and equally reacting to light. EOMI. No scleral icterus. No conjunctival pallor. Normocephalic, atraumatic. No pharyngeal erythema. No thyromegaly. CARDIOVASCULAR: S1 and S2 present. No murmurs, rubs, or gallops. PULMONARY: Left lungs base faint wheeze, he does have some crackles left mid lung. ABDOMEN: Soft, nontender, nondistended, normoactive bowel sounds. No palpable organomegaly. MUSCULOSKELETAL: No joint swelling or deformity. EXTREMITIES: No cyanosis, clubbing, or pedal edema. Trace ankle edema NEUROLOGICAL: Gross neurological examination did not reveal any focal deficits. SKIN: No rashes. Assessment and Plan Assessment Shortness of breath Loculated left side pleural effusion with empyema suspected pneumonia with sepsis, he is status post pigtail catheter placement and has undergone 4 rounds of alteplase/dornase. He is status post pigtail catheter reinsertion. He continues on IV Unasyn. Leukocytosis, fever secondary to above, improving Hypertension Hyperlpidemia Prediabetes/Diabetes with A1C of 6.4 History of prostate disorder GI Prophylaxis Full Code Plan Pulmonary, ID, cardiothoracic consultation Will undergo alteplase/dornase injection with CT today Continue empiric antibiotic coverage with IV Unasyn Pending repeat cultures Encourage ambulation, incentive spirometry Follow up AM labs The impression and plan of care has been dictated by Alice Botello, Nurse Practitioner as directed. Dr. Hermelindo MD I have performed a history and physical examination and medical decision making of this patient, discussed the same with the dictator, and agree with the dictators assessment and plan as written, documented as a scribe. Based on total visit time, I have performed more than 50% of this visit. Objective - Vital Signs Vital signs: Vital Signs Temp 98.2 F 02/08/22 04:25 Pulse 79 02/08/22 04:25 Resp 18 02/08/22 04:25 BP 118/70 02/08/22 04:25 Pulse Ox 94 L 02/08/22 07:54 FiO2 21 02/08/22 07:54 Intake & Output 02/07/22 02/08/22 02/08/22 18:59 06:59 18:59 Intake Total 118 Output Total 740 1100 Balance -740 -1100 118 Weight 82.554 kg Intake: Oral 118 Output: Chest Tube Drainage 740 Chest Tube Left Posterior 740 Chest Urine 1100 Other: Voiding Method Toilet Toilet # Voids 2 3 - Labs CBC & Chem 7: 02/07/22 06:06 02/07/22 06:06 Labs: Abnormal Lab Results - Last 24 Hours (Table) 02/07/22 02/07/22 02/08/22 Range/Units 17:13 20:34 07:17 POC Glucose (mg/dL) 128 H 142 H 111 H (70-110) mg/dL 02/08/22 Range/Units 11:04 POC Glucose (mg/dL) 114 H (70-110) mg/dL Microbiology - Last 24 Hours (Table) 02/03/22 11:30 Anaerobic Culture - Final Pleural Fluid 02/06/22 12:05 Gram Stain - Preliminary Pleural Fluid Body Fluid Culture - Preliminary 02/03/22 11:30 Gram Stain - Final Pleural Fluid Body Fluid Culture - Final Alpha Hemolytic Streptococcus 02/06/22 12:05 Acid Fast Bacilli Culture - Preliminary Pleural Fluid 02/06/22 12:05 Fungal Culture - Preliminary Pleural Fluid Assessment and Plan Time with Patient: Less than 30
[2022-02-08 16:41] LABS: Glucose,Whole Blood 112 mg/dL (70-110)
[2022-02-08 20:13] LABS: Glucose,Whole Blood 155 mg/dL (70-110)
--- NOTE | 2022-02-08 22:07 | P.PN ---
Subjective Progress Note Date: 02/08/22 Principal diagnosis: Left-sided empyema Patient is a 71 year male presented to the hospital with left-sided chest pain and fever and cough has been diagnosed with a left-sided loculated effusion concerning for empyema in this patient who is status post chest tube placement on 02/03/2022 which unfortunately did fell off 02/05/2022 and was reinserted on 02/06/2022 On today's evaluation that is 02/08/2022, the patient remains to be afebrile, the patient is breathing comfortably on room air, the patient left-sided chest pain has decreased in intensity, the patient denies any worsening cough or sputum production no abdominal pain no diarrhea Objective - Vital Signs Vital signs: Vital Signs Temp 98.2 F 02/08/22 04:25 Pulse 79 02/08/22 04:25 Resp 18 02/08/22 04:25 BP 118/70 02/08/22 04:25 Pulse Ox 94 L 02/08/22 07:54 FiO2 21 02/08/22 07:54 Intake & Output 02/07/22 02/08/22 02/08/22 18:59 06:59 18:59 Intake Total 118 Output Total 740 1100 Balance -740 -1100 118 Weight 82.554 kg Intake: Oral 118 Output: Chest Tube Drainage 740 Chest Tube Left Posterior 740 Chest Urine 1100 Other: Voiding Method Toilet Toilet # Voids 2 3 - Exam GENERAL DESCRIPTION: An elderly male lying in bed in no distress RESPIRATORY SYSTEM: Unlabored breathing , decreased breath sounds at left base HEART: S1 S2 regular rate and rhythm , ABDOMEN: Soft , no tenderness EXTREMITIES: No edema feet - Labs CBC & Chem 7: 02/07/22 06:06 02/07/22 06:06 Labs: Abnormal Lab Results - Last 24 Hours (Table) 02/07/22 02/07/22 02/08/22 Range/Units 17:13 20:34 07:17 POC Glucose (mg/dL) 128 H 142 H 111 H (70-110) mg/dL 02/08/22 Range/Units 11:04 POC Glucose (mg/dL) 114 H (70-110) mg/dL Microbiology - Last 24 Hours (Table) 02/03/22 11:30 Anaerobic Culture - Final Pleural Fluid 02/06/22 12:05 Gram Stain - Preliminary Pleural Fluid Body Fluid Culture - Preliminary 02/03/22 11:30 Gram Stain - Final Pleural Fluid Body Fluid Culture - Final Alpha Hemolytic Streptococcus 02/06/22 12:05 Acid Fast Bacilli Culture - Preliminary Pleural Fluid 02/06/22 12:05 Fungal Culture - Preliminary Pleural Fluid Assessment and Plan (1) Pleural effusion, left Current Visit: Yes Status: Acute Code(s): J90 - PLEURAL EFFUSION, NOT ELSEWHERE CLASSIFIED SNOMED Code(s): 00931056 Plan: 1patient presented to hospital with sepsis source is left-sided pneumonia and empyema more likely from a community-acquired pathogen as the patient seem to have not received an antibiotic in the outpatient setting status post IR chest tube placement and fluid has been sent for the culture which has been finalized alphahemolytic streptococcus. 2patient will continue with Unasyn 3 g every 6 hours with a plan to finish therapy with IV Rocephin on discharge Time with Patient: Less than 30
[2022-02-08] MEDS: ATORVASTATIN 10 MG TAB PO SCH (22:43)
[2022-02-08] MEDS: traMADol 50 MG TAB PO PRN (22:43)
[2022-02-08] MEDS: MELATONIN 3 MG TABLET PO SCH (22:44)
[2022-02-08] MEDS: LOSARTAN 50 MG TAB PO SCH (22:44)
[2022-02-08] MEDS: hydroCHLOROthiazide 12.5 MG CAP PO SCH (22:50)
[2022-02-09] MEDS: AMPICILLIN-SULBACTAM 3 GM in SODIUM CHLORIDE 0.9% 100 ML IVPB SCH ×4 (00:45→17:59)
[2022-02-09] MEDS: HYDROmorphone 1 MG/ML 1 ML SYRINGE IVP PRN ×2 (04:01→12:21)
[2022-02-09 07:16] LABS: Glucose,Whole Blood 126 mg/dL (70-110)
--- NOTE | 2022-02-09 08:17 | XR ---
EXAMINATION TYPE: XR chest 1V portable DATE OF EXAM: 02/09/2022 7:28 AM COMPARISON: Chest radiograph from one day prior. CT chest 02/05/2022 TECHNIQUE: XR chest 1V portable Portable AP radiograph of the chest.. CLINICAL INDICATION:Male, 71 years old with history of left pleural effusion; FINDINGS: Lungs/Pleura: Interval increase in size of left loculated pleural effusion seen on prior CT. There re srinath thoracotomy catheter in place on the left. No evidence of pneumothorax. The right lung is gross ly unremarkable. Pulmonary vascularity: Unremarkable. Heart/mediastinum: Cardiomediastinal silhouette is unremarkable. Musculoskeletal: No acute osseous pathology. Lines/Tubes: Left thoracotomy tube is present without evidence of pneumothorax. IMPRESSION: Left thoracotomy tube in place without evidence of pneumothorax. There appears to be increase in opac ities in the left midlung likely represents an increase loculated pleural fluid.
[2022-02-09] MEDS: INSULIN ASPART (NovoLOG) 100 UNIT/ML VIAL SQ SCH ×8 (08:45→20:56)
[2022-02-09] MEDS: PANTOPRAZOLE 40 MG TABLET PO SCH (08:45)
[2022-02-09] MEDS: MAGNESIUM OXIDE 400 MG TAB PO SCH (08:45)
--- NOTE | 2022-02-09 09:56 | P.PN ---
Subjective Progress Note Date: 02/09/22 71-year-old male patient, a nonsmoker, no previous history of lung disease, who developed pneumonialike symptoms approximately 6 weeks ago. The patient had congestion, shortness of breath and pleurisy involving the left lung. He was given IV Rocephin for an urgent care and later on steroids with primary care physician. Nevertheless, he never recovered. He was having ongoing chest discomfort on the left. He was also having sweats and chills and episodic fever. He was getting progressively more weak and for that reason he came in to the hospital for further evaluation. The patient has not had any exposure or infection with COVID 19. He has not been vaccinated also. He has no altered mentation. No hemoptysis for now. The patient had a white cell count of 18.7 with a hemoglobin of 11. The blood work showed initial sodium of 129 and that came at 137 within the treatment. BUN was 21 with a creatinine of 0.6 and coagulation profile was essentially within normal limits. The chest x-ray not done and the patient underwent a CT angiogram that showed no this of any pulmonary embolism. There was large loculated or multiloculated left-sided pleural effusion with possibility of underlying empyema. Right lung was essentially clear. The patient was started on IV Zosyn and the patient was hospitalized. A pulmonary palpation was requested. No previous bouts of pneumonias. No chest trauma. No 70 malignancy. No TB exposure. 02/02/2022, the patient is clinically stable on antibiotics. He still has some pleuritic left-sided chest wall pain. I made recommendations for a pigtail c atheter insertion by interventional radiology and this has not been done. I do not think day services of interventional radiology are available on the weekend. This was done tomorrow. The patient remains on IV Zosyn for now. Thoracic surgery is also involved in the case. On 02/03/2022 patient seen in follow-up on medical surgical floor. He is awake, in no acute distress, did have fever spikes overnight with T-max of 101.2F, room air pulse ox is 94%. Doesn't appear to be any acute distress at rest, however does have exertional dyspnea and occasional cough and some pleuritic left-sided chest wall pain. Patient was seen by CT surgery consultation, and the recommendation is made for placement of CT-guided pigtail chest tube catheter in the left pleural space. He continues on antibiotics he is on Zosyn. On 02/04/2022 patient seen in follow-up on medical surgical floor. Yesterday h ad a left-sided pigtail chest tube catheter. And overnight his had a total of 1000 mL of purulent drainage from the pigtail. Patient received a dose of alteplase and dornase by CT surgery. Today's chest x-ray showing persistent multilocular pleural effusion with indwelling chest tube, and no evidence of his old pneumothorax. Patient remains on Zosyn for antibiotic coverage, vital signs have been stable, his been afebrile, blood pressure stable, he is working on incentive spirometer. Today's labs have been reviewed showing white blood cell count of 10.6, hemoglobin of 10.4, sodium is 137, potassium is 4.3, chloride is 100, CO2 is 29, BUN is 18 creatinine 0.7. Pleural fluid analysis showed 7400 white blood cells, 96 of holiday clear white blood cells. Fluid glucose was less than 2, fluid protein was 4.8 g, LDH was greater than 2500, consistent with empyema. Pleural fluid cultures have shown no growth thus far. Blood cultures have been negative. On 02/05/2022 patient seen in follow-up medical surgical floor. Left-sided chest tube remains in place, and there has been an additional 400 mL of purulent pleural fluid drainage in the last 24 hours. Left-sided chest tube is to water seal, no evidence of air leak. Low-grade fever this morning, with a T-max of 99 point degrees Fahrenheit. Patient is breathing comfortably, he is working on incentive spirometer, his pleuritic chest pain is improved. Chest x-ray showing stable persistent multilocular effusion. Today's labs are pending, but vital signs have been stable. CT surgery is following and patient will receive anot her dose of alteplase and dornase. Pleural fluid cultures are still pending, Gram stain showing no organisms but multiple PMNs. On 02/06/2022 patient seen in follow-up on medical surgical floor. Yesterday's CT of the chest showed persistent loculated left-sided pleural effusion, persistent consolidation and thickening of the left lung base, and the pigtail chest tube catheter was difficult to visualize, and was thought to have been dislodged. Patient did receive additional dose of alteplase and dornase yesterday, he did put out 150 ML of fluid in the last [address] surgery is following, case was discussed with them, patient remains on antibiotics however in view of persistent loculated pleural effusion, and consolidation, the decision had been made to remove the pigtail catheter and have interventional radiology replaces with another pigtail catheter. Clinically patient is stable, no worsening dyspnea, no worsening chest discomfort, his white blood cell count is fairly stable, at 11.4, hemoglobin is 11.1, electrolytes are within normal limits, B1 is 21 creatinine 0.83. His Pleural fluid cultures have shown no growth thus far. The patient is seen today 02/07/2022 in follow-up on the regular medical floor. He is currently sitting up in a chair at the bedside. Awake and alert in no acute distress. Maintaining good O2 saturations in the 90s on room. He is currently afebrile. He did undergo a repeat left-sided CT-guided Pigtail chest tube placement yesterday. Currently -20 cm wall suction. Today's chest x-ray shows improved aeration, persistent abnormal density obscuring the left hemidiaphragm, blunting of left costophrenic ample. No pneumothorax. He is to receive alteplase/dornase again today per CT services. He remains on Zosyn. The plan is for PICC line placement today. White count 10.8. Hemoglobin 10.1. Platelets 454. Sodium 139. Potassium 4.4. Chloride 103. BUN 13. Creatinine 0.7. Glucose 126. The patient is seen today 02/08/2022 in follow-up on the regular medical floor. He is currently up ambulating in the hallway. He quite well. No worsening shortness of breath, cough or congestion. Chest x-ray reveals persistent loculated left pleural effusion with inflammatory changes. Chest tube remains in place. Remains on low continuous suction -20 cm water. The plan is for another dose of alteplase/dornase per CT services. Left sided PICC line in place. Pleural fluid cultures positive for alphahemolytic streptococcus. He is currently on Unasyn per ID services. Blood glucose 114. The patient is seen today 02/09/2022 in follow-up on the regular medical floor. He is currently sitting up at the bedside. Awake and alert in no acute distress. Maintaining O2 saturations in the 90s on room air. Left-sided chest tube remains in place to wall suction -20 cm. Approximately 700 ML's of fluid was returned post alteplase/dornase infusion yesterday. He remains on Unasyn. Follow-up computed tomography scan of the chest pending. Objective - Vital Signs Vital signs: Vital Signs Temp 98.1 F 02/09/22 05:42 Pulse 98 02/09/22 05:42 Resp 16 02/09/22 05:42 BP 124/76 02/09/22 05:42 Pulse Ox 93 L 02/09/22 07:38 FiO2 21 02/08/22 07:54 Intake & Output 02/08/22 02/09/22 02/09/22 18:59 06:59 18:59 Intake Total 478 Output Total 580 330 Balance -102 -330 Intake: Oral 478 Output: Chest Tube Drainage 580 30 Chest Tube Left Posterior 580 30 Chest Urine 300 Other: # Voids 1 2 - Exam GENERAL EXAM: Alert, pleasant, 71-year-old male patient on room air with pulse ox of 91%, comfortable in no apparent distress. HEAD: Normocephalic/atraumatic. EYES: Normal reaction of pupils, equal size. Conjunctiva pink, sclera white. NOSE: Clear with pink turbinates. THROAT: No erythema or exudates. NECK: No masses, no JVD, no thyroid enlargement, no adenopathy. CHEST: No chest wall deformity. Symmetrical expansion. Left-sided pigtail catheter replaced LUNGS: Diminished breath sounds over left lower lobe with some crackles and dullness to percussion CVS: Regular rate and rhythm, normal S1 and S2, no gallops, no murmurs, no rubs ABDOMEN: Soft, nontender. No hepatosplenomegaly, normal bowel sounds, no guarding or rigidity. EXTREMITIES: No clubbing, no edema, no cyanosis, 2+ pulses and upper and lower extremities. MUSCULOSKELETAL: Muscle strength and tone normal. SPINE: No scoliosis or deformity SKIN: No rashes CENTRAL NERVOUS SYSTEM: No focal deficits, tone is normal in all 4 extremities. PSYCHIATRIC: Alert and oriented -3. Appropriate affect. Intact judgment and insight. - Labs CBC & Chem 7: 02/07/22 06:06 02/07/22 06:06 Labs: Abnormal Lab Results - Last 24 Hours (Table) 02/08/22 02/08/22 02/08/22 Range/Units 11:04 16:38 20:11 POC Glucose (mg/dL) 114 H 112 H 155 H (70-110) mg/dL 02/09/22 Range/Units 07:14 POC Glucose (mg/dL) 126 H (70-110) mg/dL Microbiology - Last 24 Hours (Table) 02/06/22 12:05 Acid Fast Bacilli Smear - Final Pleural Fluid Acid Fast Bacilli Culture - Preliminary 02/06/22 12:05 Gram Stain - Preliminary Pleural Fluid Body Fluid Culture - Preliminary Assessment and Plan Assessment: 1 Complicated multiloculated parapneumonic left-sided pleural effusion, complication of the previously under treated pneumonia, status post left chest pigtail catheter placement with drainage of large amount of purulent material, and pleural fluid analysis is consistent with empyema, pleural fluid cultures positive for alpha hemolytic streptococcus, now on Unasyn. Pigtail catheter was removed on 02/05/2022 after having been discharged, and replaced on 02/06/2022. Repeat computed tomography scan of the chest on 02/03/2022 showed persistent left-sided loculated empyema, and consolidation. 700 ML's of fluid returned post alteplase/dornase infusion yesterday. 2 Shortness of breath and pleuritic chest pain related to the above 3 Fever, leukocytosis related to the above, improved 4 Hypertension 5 Hyperlipidemia 6 Nonsmoker Plan: The patient was seen and evaluated Chest x-ray, medications and labs reviewed Pigtail catheter remains in place to the left chest Currently to -20 cm wall suction, minimal output Follow-up computed tomography scan of the chest pending Currently on Unasyn We'll continue to follow I have personally seen and examined the patient, performed the documentation and the assessment and plan as written. Number of minutes spent on the visit: 10.
--- NOTE | 2022-02-09 10:29 | P.PN ---
Subjective Progress Note Date: 02/09/22 Principal diagnosis: Loculated left-sided effusion, possible empyema with a six-week history of persistent nonproductive cough and pleuritic type symptoms. Past medical history significant for hypertension, hyperlipidemia, BPH, lifetime nonsmoker. The patient was seen and examined in follow-up today 02/09/2022 at his bedside on the fifth floor medical oncology unit. The patient sitting up in his bed on the fifth floor medical surgical unit, is awake, alert, oriented 3 and is in no acute distress. Denies any complaints of shortness of breath, or pain at this time, although he is complaining of a frequent cough throughout the night with coughing up some whitish blood tinged sputum. Oxygen saturations are 93% on room air and he is achieving 2500 mL on his incentive spirometry with encouragement. Left chest pigtail catheter remains in place to low continuous wall suction -20 cm H2O. Draining thin serosanguineous drainage with 700 mL output in the last 24 hours. No air leak is present. He was given a dose of alteplase/dornase yesterday. He remains on Zosyn for antibiotic coverage, pleural fluid from 02/03/2022 showed alphahemolytic Streptococcus. Left arm PICC line remains in place. Antibiotics are being managed by infectious disease. Chest x-ray this morning shows increase in all opacities in the left mid lung. He has been afebrile the last 24 hours. Objective - Vital Signs Vital signs: Vital Signs Temp 98.1 F 02/09/22 05:42 Pulse 98 02/09/22 05:42 Resp 16 02/09/22 05:42 BP 124/76 02/09/22 05:42 Pulse Ox 93 L 02/09/22 07:38 FiO2 21 02/08/22 07:54 Intake & Output 02/08/22 02/09/22 02/09/22 18:59 06:59 18:59 Intake Total 478 Output Total 580 330 Balance -102 -330 Intake: Oral 478 Output: Chest Tube Drainage 580 30 Chest Tube Left Posterior 580 30 Chest Urine 300 Other: # Voids 1 2 - Exam CONSTITUTIONAL: Sitting up in bed on the fifth floor medical surgical unit, appears comfortable, cooperative, no apparent acute distress. HEENT: Neck is supple, no JVD, no lymphadenopathy. RESPIRATORY: Lungs sounds diminished to his left lobes, essentially clear to his right lobes. Respirations are symmetrical and nonlabored. Currently on room air with oxygen saturations 93%. Able to achieve 2500 mL on his incentive spirometry. Strong cough. Left chest pigtail catheter in place to low continuous wall suction -20 cm H2O. No air leak is present. Draining thin serosanguineous drainage with 700 mL output in the last 24 hours. CARDIOVASCULAR: Regular rhythm and rate. S1 and S2 present, negative for S3, gallop or murmur. Palpable peripheral pulses bilaterally. No calf pain or tenderness noted. GASTROINTESTINAL: Abdomen soft, nontender, nondistended. Active bowel sounds present 4 quadrants. Tolerating diet. No guarding or rigidity. GENITOURINARY: Continues to void. INTEGUMENTARY: Skin is warm and dry with no evidence of clubbing or cyanosis. A quarter size erythema in the area on his mid back. NEUROLOGIC: Cranial nerves II through XII intact. No focal deficits. MUSKULOSKELETAL: Able to move all extremities, strength equal bilaterally. PSYCHIATRIC: Alert and oriented to person place and time, appropriate affect, intact judgment and insight. - Allied health notes Allied health notes reviewed: nursing - Labs CBC & Chem 7: 02/07/22 06:06 02/07/22 06:06 Labs: Abnormal Lab Results - Last 24 Hours (Table) 02/08/22 02/08/22 02/08/22 Range/Units 11:04 16:38 20:11 POC Glucose (mg/dL) 114 H 112 H 155 H (70-110) mg/dL 02/09/22 Range/Units 07:14 POC Glucose (mg/dL) 126 H (70-110) mg/dL Microbiology - Last 24 Hours (Table) 02/06/22 12:05 Acid Fast Bacilli Smear - Final Pleural Fluid Acid Fast Bacilli Culture - Preliminary 02/06/22 12:05 Gram Stain - Preliminary Pleural Fluid Body Fluid Culture - Preliminary - Imaging and Cardiology Chest x-ray: report reviewed, image reviewed Assessment and Plan Assessment: 1. Large loculated left-sided pleural effusion, possible empyema, pleural fluid cytology showing dense acute inflammation consistent with empyema and no cytologically malignant cells identified, pleural fluid culture positive for alpha hemolytic streptococcus 2. Persistent cough, fever, sweats, chills, pain with deep inspiration, secondary to above 3. Fever, Leukocytosis, secondary to above 4. History of hypertension 5. History of hyperlipidemia 6. History of prostate disorder 7. Lifetime non-smoker Plan: 1. Keep left pleural chest pigtail catheter in place to low continuous wall suction -20 cm H2O. at this time we will hold off on a dose of alteplase/dornase today. We will obtain a computed tomography scan of his chest without contrast to further evaluate his pleural effusion. 2. Encourage use of his incentive spirometry 10 times every hour while awake. 3. Pain control per current when necessary orders. 4. Continue to monitor daily labs and chest x-rays. 5. Increase activity as tolerated. Out of bed for all meals. 6. Pleural fluid and blood culture show positive for alpha hemolytic streptococcus. Continue on Unasyn managed by infectious disease management. Cytology results of the pleural fluid showed dense acute inflammation consistent with empyema and no cytologically malignant cells were identified. The patient had a PICC line placed yesterday 02/07/2022. 7. More recommendations to follow based on patient's clinical course. Time with Patient: Greater than 30
--- NOTE | 2022-02-09 10:37 | CT ---
EXAMINATION TYPE: CT chest wo con CT DLP: 358.10 mGycm, Automated exposure control for dose reduction was used. DATE OF EXAM: 02/09/2022 10:08 AM COMPARISON: Chest radiograph from same day. CT chest 02/06/2022. CLINICAL INDICATION:Male, 71 years old with history of Loculated left pleural effusion, empyema, Resp iratory insufficiency, left lung empyema TECHNIQUE: Multiple axial images were obtained through the chest without IV contrast. Lack of IV or o ral contrast limits evaluation of solid and hollow organ viscera. FINDINGS: LUNGS/ PLEURA: Left upper lobe pigtail catheter a posterior approach is in the pleural space with an a prior loculated pleural effusion which now has decompressed. The pleural catheter is in close proxi mity to the left major fissure loculated fluid collection which now demonstrates multiple foci of gas majority of fluid/debris remains. Multiple additional adjacent pleural fusions are seen predominantl y along the periphery in the lung bases which are not decompressed. Overall the pleural effusions on the base with loculations are not significantly different from prior. No evidence of pneumothorax. AIRWAY: Patent and unremarkable. HEART: Heart is mildly enlarged for size. There is moderate to severe coronary artery atherosclerosis . MEDIASTINUM: No gross evidence of adenopathy. There is layering debris within the esophagus. VASCULATURE: No aortic aneurysm. Left PICC with distal tip at the superior cavoatrial junction. Asce nding thoracic aorta is mildly ectatic measuring up to 42 mm. MUSCULOSKELETAL: No acute osseous abnormalities SOFT TISSUES/LYMPH NODES: Unremarkable. LOWER NECK: No significant findings. UPPER ABDOMEN: No significant findings. IMPRESSION: 1. Left posterior approach thoracotomy tube with decrease in left upper lung loculated fluid collecti on. There remains fluid collections within the lung base. A fluid collection within the left major fi ssure now demonstrates foci of gas suggesting some communication to the pigtail catheter but a majori ty of fluid remains within this collection.
[2022-02-09 11:09] LABS: Glucose,Whole Blood 138 mg/dL (70-110)
[2022-02-09] MEDS ORDERED: DORNASE ALFA 5 MG in SODIUM CHLORIDE 0.9% 50 ML IRRIGATION ONE (11:30)
[2022-02-09] MEDS ORDERED: ALTEPLASE 10 MG in SODIUM CHLORIDE 0.9% 50 ML IRRIGATION ONE (11:30)
[2022-02-09 11:49] LABS: Basophils # (A) 0.06 X 10*3/uL (0.00-0.10); Basophils % (A) 0.6 %; Eosinophils # (A) 0.18 X 10*3/uL (0.04-0.35); Eosinophils % (A) 1.7 %; HCT 34.8 % (39.6-50.0); HGB 10.7 g/dL (13.0-17.0); Immature Grans, Automated 1.8 %; Lymphocytes # (A) 0.91 X 10*3/uL (0.90-5.00); Lymphocytes % (A) 8.5 %; MCH 28.9 pg (27.0-32.0); MCHC 30.7 g/dL (32.0-37.0); MCV 94.1 fL (80.0-97.0); Mean Platelet Volume 9.4 fL (9.5-12.2); Monocytes # (A) 0.95 X 10*3/uL (0.20-1.00); Monocytes % (A) 8.9 %; NRBC Per 100 WBC 0 /100 WBCS (0.0-0.0); Neutrophils # (A) 8.44 X 10*3/uL (1.80-7.70); Neutrophils % (A) 78.5 %; Platelet Count 498 X 10*3/uL (140-440); RDW 12.8 % (11.5-14.5); WBC 10.73 X 10*3/uL (4.50-10.00)
[2022-02-09 12:05] LABS: Anion Gap 10.3 mmol/L (10.00-18.00); BUN/Creat Ratio 17.57 Ratio (12.00-20.00); Blood Urea Nitrogen 12.3 mg/dL (9.0-27.0); Calcium 8.1 mg/dL (8.7-10.3); Carbon Dioxide 27.7 mmol/L (20.0-27.5); Non-African American GFR(CKD) 94.9 (60.0-200.0); Potassium 4.6 mmol/L (3.5-5.5)
[2022-02-09] MEDS: KETOROLAC 15 MG/ML 1 ML VIAL IVP SCH ×2 (13:15→17:58)
[2022-02-09 17:15] LABS: Glucose,Whole Blood 91 mg/dL (70-110)
--- NOTE | 2022-02-09 17:57 | P.PN ---
Subjective This is a 71 year old male with past medical history significant for hypertension, hyperlipidemia. He presents with 3 days of fever, shortness of br eath and pleuritic chest pain. States about 6 weeks ago he began having cough and was evaluated in the clinic and IM antibiotic injection. Also had outpatient chest xray done. He was given steroids by his primary care provider. He states it didn't seem to help and was concerned when he developed fever and weakness with congestion. He is nonsmoker, reports no marijuana use. He does not work in a factor type setting, denies exposure to toxins. He rides a motorcycle and states he notice trouble breathing after a long ride which is unusual for him. He is overall healthy. On admission chest CTA has been completed showing large loculated left pleural effusions with infiltrate, and atelectasis left lower lobe. There is concern for empyema and patient was started on empiric antibiotic coverage with zosyn. Pulmonary has evaluated the patient and IR has been consulted for pigtail cathter insertion. IR is not available until Thursday. Cardiothoracic has also been consulted. Patient for now is maintained oxygen saturation of 92% on room air. He presents with fever 100.5, heart rate 75, blood pressure 120/70. White count 18.7, hgb 11.6, sodium 129, potassium 4.3, glucose is 208. Troponin negative. 02/02/2022 Patient is evaluated today sitting up in bed. is at the bedside. Plan is for pigtail catheter insertion with IR tomorrow and cardiothoracic has been consulted for management. Pulmonary is following the patient closely. He continues on room air, however has stated he has increased cough, no sputum production. Also complains of left sided pleuritic pain, he has had motrin 400 m g ordered however he has not received. Did also add a low dose of tramadol for pain management. He continues on IV zosyn for empiric antibiotic coverage. Blood cultures are negative so far. He has remained afebrile, heart rate 98, blood pressure 153/77, 91% on room air. Labs reviewed today showing white count 16.30, hgb 10.8, sodium 136, potassium 4.6. Blood glucose in the 130s. A1C is 6.4 which is on the cusp of prediabetes vs. diabetes, will discuss with patient tomorrow and patient will discharge on an oral diabetic agent. 02/03/2022 Patient sitting up in chair pending IR placement of pigtail catheter. He had increased pain to his left side and was given low dose of tramadol which he states did help his pain. He is short of breath today, he is using his incentive spirometer, also he has requested cough medicine and it has been ordered as needed. He had a T-Max overnight of 101.2. He continues on IV Zosyn. Blood pressure today 126/73. Labs reviewed today showing white count 15.84, hgb 11.1, sodium 133, potassium 4.7, blood glucose 150s. 02/04/2022 Patient evaluated today sitting up in the chair. He underwent pigtail catheter placement with alteplase injection through catheter and he has had fair output 375 mls last night and 115 mls today so far from drainage tube which is mostly purulent. He underwent a second alteplase infusion today. Chest xray today showing persistent multilocular effusions, with indwelling chest tube. No pneumothorax. Cardiothoracic and pulmonary are following this patient. He has been encouraged to continue with cough and deep breathing and also to continue with incentive spirometry. He continues on IV zosyn. Pleural fluid and blood cultures are pending. Reports pain has improved today, he is receiving IV dilaudid and tramadol as needed. Labs today are showing white count of 10.68, hgb 10.4, sodium 137, potassium 4.3, BUN 18.0, creatinine 0.7, magnesium 2.2. Blood glucose trending down. He has remained afebrile in the last 24 hours, h eart rate 85, blood pressure 121/69, 90% room air. 02/05/2022 Patient evaluated today resting in bed, he had third alteplase injection today. Resting in bed on back during examination to begin turning rotation. Chest x- ray shows no significant interval change as before redemonstrates a loculated effusion. He reports diarrhea 1-2 times overnight. He has been maintained on IV zosyn. Labs today showed white count 10.21, hemoglobin 10.3. His T-max last night was 99 he states that he does have night sweats still, heart rate 76, blood pressure 129/75, 93% pulse oximetry. Ambulating without difficulty in the hallways. His pleural cytology has resulted showing acute inflammation consistent with empyema without evidence for malignancy. Blood glucose in the 130s. 02/06/2022 Pigtail catheter was removed yesterday as there was possibility it had dislodged and pigtail catheter will be reinserted by interventional radiology. He did have 150 mL of output from the pigtail catheter yesterday. IV fluids have been discontinued patient does have some mild peripheral edema and compression stoc kings have been ordered. He continues to ambulated in the hallways and is using incentive spirometer as recommended. Labs today; white count 11.4, hemoglobin 11.1, sodium 138, potassium 5.0, BUN 21, creatinine 0.83, blood glucose in the 120s. Patient continues on IV antibiotics, cultures are negative so far. He is being followed closely by pulmonary, infectious disease and cardiothoracic consultation. There is a possibility patient may still require VATS procedure. He does complain of some loose stool, most likely for antibiotics, he is on GI prophylaxis and also immodium. Denies nausea, vomiting. 02/07/2022 Patient is status post let CT guided pigtail catheter reinsertion and had alteplase and dornase injected into catheter again today. Chest tube is set to - 20 mc wall suctin. 140 mLs of drainage from catheter today. Chest xray today showing interval improvement and reduction in the patients pleural effusion. There is also improvement in aeration with persistent density which obscurs the left hemidiaphragm. Subcutaneous emphysema questionable over the right chest. Labs today show white count 10.84, hemoglobin 10.1, sodium 139, potassium 4.4, BUN 13.3, creatinine 0.7. Blood glucose in the 120s. Calcium 1.8. Cytology from pigtail catheter insertion today is pending. Continues on IV ampicillin, patient will have PICC Line placed today. He is being followed by pulmonary, cadiothoracic and infectious disease. 02/08/2022 Patient evaluated today sitting up in bed. He continues with cough, and states it is non productive. He has pigtail catheter in place, low continuous suction - 20 cm wall. Repeat chest xray today demonstrates persistent left loculated pleural effusion with inflammatory changes. He is being managed by pulmonary and cardiothoracic disease. Plan today is for another dose of alteplase/dornase per CT services. Pleural fluid cultures are now positive for alphahemolytic strep and he remains on IV unasyn and is being followed closely by infectious disease services. Patient has PICC line in place. Blood glucose remains stable and he continues on sliding scale insulin. Plan to repeat CBC and BMP tomorrow. He has t max 99.4 through out the night, heart rate 83, blood pressure 114/72, 91% on room air. He is using incentive spirometer and ambulating the halls without difficulty. He has bilateral ankle edema, IV fluids have been stopped. 02/09/2022 Patient status post complicated multi-loculated left pleural effusion and empyema status post pigtail catheter drainage and alteplase instillations yesterday and today. His culture was growing alphahemolytic streptococci and currently covered with Unasyn. Coronary and her to thoracic surgery team on the case. Repeat CT of the chest without contrast today showing decreased from the fluid but the majority of the fluid remains within the collection. No more fever. Mild leukocytosis. Rest of labs and vitals are stable. Objective - Vital Signs Vital signs: Vital Signs Temp 98.1 F 02/09/22 05:42 Pulse 98 02/09/22 05:42 Resp 16 02/09/22 05:42 BP 124/76 02/09/22 05:42 Pulse Ox 93 L 02/09/22 07:38 FiO2 21 02/08/22 07:54 Intake & Output 02/08/22 02/09/22 02/09/22 18:59 06:59 18:59 Intake Total 478 Output Total 580 330 Balance -102 -330 Intake: Oral 478 Output: Chest Tube Drainage 580 30 Chest Tube Left Posterior 580 30 Chest Urine 300 Other: # Voids 1 2 - Exam GENERAL: The patient is alert and oriented x3, not in any acute distress. Well developed, well nourished. HEENT: Pupils are round and equally reacting to light. EOMI. No scleral icterus. No conjunctival pallor. Normocephalic, atraumatic. No pharyngeal erythema. No thyromegaly. CARDIOVASCULAR: S1 and S2 present. No murmurs, rubs, or gallops. -PULMONARY: Chest is clear to auscultation, no wheezing or crackles. Left pigtail to put in a Place ABDOMEN: Soft, nontender, nondistended, normoactive bowel sounds. No palpable organomegaly. MUSCULOSKELETAL: No joint swelling or deformity. EXTREMITIES: No cyanosis, clubbing, or pedal edema. NEUROLOGICAL: Gross neurological examination did not reveal any focal deficits. SKIN: No rashes. no petechiae. - Labs CBC & Chem 7: 02/09/22 06:47 02/09/22 06:47 Labs: Abnormal Lab Results - Last 24 Hours (Table) 02/08/22 02/08/22 02/08/22 Range/Units 11:04 16:38 20:11 POC Glucose (mg/dL) 114 H 112 H 155 H (70-110) mg/dL 02/09/22 Range/Units 07:14 POC Glucose (mg/dL) 126 H (70-110) mg/dL Microbiology - Last 24 Hours (Table) 02/06/22 12:05 Acid Fast Bacilli Smear - Final Pleural Fluid Acid Fast Bacilli Culture - Preliminary 02/06/22 12:05 Gram Stain - Preliminary Pleural Fluid Body Fluid Culture - Preliminary Assessment and Plan Assessment: Loculated complicated multiloculated left side pleural effusion with empyema suspected pneumonia, he is status post pigtail catheter placement and has un dergoing rounds of alteplase/dornase. Mild sepsis, Leukocytosis, fever secondary to above, improving Hypertension Hyperlpidemia Prediabetes/Diabetes with A1C of 6.4 History of prostate disorder Plan: This is a pleasant 71 years old male who presents with complicated m ultiloculated empyema status post pigtail tube placement. Continue with Unasyn Continue with pigtail and alteplase instillations as per cardiothoracic surgery team Pulmonary team on the case. Labs and medication were reviewed.. Continue same treatment. Continue with symptomatic treatment. Resume home medication. Monitor lytes and vitals. DVT and GI prophylaxis. Further recommendations as per clinical course of the patient GI Prophylaxis: Protonix
[2022-02-09 20:49] LABS: Glucose,Whole Blood 146 mg/dL (70-110)
[2022-02-09] MEDS: LOSARTAN 50 MG TAB PO SCH (20:53)
[2022-02-09] MEDS: MELATONIN 3 MG TABLET PO SCH (20:53)
[2022-02-09] MEDS: hydroCHLOROthiazide 12.5 MG CAP PO SCH (20:56)
[2022-02-10] MEDS: AMPICILLIN-SULBACTAM 3 GM in SODIUM CHLORIDE 0.9% 100 ML IVPB SCH ×5 (00:03→23:37)
[2022-02-10] MEDS: KETOROLAC 15 MG/ML 1 ML VIAL IVP SCH ×5 (00:04→23:37)
[2022-02-10 07:15] LABS: Glucose,Whole Blood 133 mg/dL (70-110)
--- NOTE | 2022-02-10 07:37 | XR ---
EXAMINATION TYPE: XR chest 1V portable DATE OF EXAM: 02/10/2022 COMPARISON: Chest x-ray 02/09/2022 HISTORY: Chest tube, empyema, left pleural effusion TECHNIQUE: Single frontal view of the chest is obtained. FINDINGS: Abnormal attenuation persists in the left hemithorax. Left chest tube is present superiorl y. No evident pneumothorax. Cardiac mediastinal silhouette is stable. IMPRESSION: No change in the pleural-parenchymal changes within the left lung consistent with empyem a, loculated pleural effusion and associated atelectasis, inflammatory change, correlate for possible pneumonia.
--- NOTE | 2022-02-10 07:53 | P.PN ---
Subjective Progress Note Date: 02/09/22 Principal diagnosis: Left-sided empyema Patient is a 71 year male presented to the hospital with left-sided chest pain and fever and cough has been diagnosed with a left-sided loculated effusion concerning for empyema in this patient who is status post chest tube placement on 02/03/2022 which unfortunately did fell off 02/05/2022 and was reinserted on 02/06/2022 On today's evaluation that is 02/09/2022, the patient denies any fever or chills, the patient is breathing comfortably on room air, the patient left-sided chest pain has decreased in intensity, the patient denies cough is decreased intensity not bringing up any sputum, denies abdominal pain or diarrhea Objective - Vital Signs Vital signs: Vital Signs Temp 98.5 F 02/09/22 12:53 Pulse 97 02/09/22 12:53 Resp 15 02/09/22 12:53 BP 119/71 02/09/22 12:53 Pulse Ox 93 L 02/09/22 12:53 FiO2 21 02/08/22 07:54 Intake & Output 02/08/22 02/09/22 02/09/22 18:59 06:59 18:59 Intake Total 478 Output Total 580 330 Balance -102 -330 Intake: Oral 478 Output: Chest Tube Drainage 580 30 Chest Tube Left Posterior 580 30 Chest Urine 300 Other: # Voids 1 2 - Exam GENERAL DESCRIPTION: An elderly male lying in bed in no distress RESPIRATORY SYSTEM: Unlabored breathing , decreased breath sounds at left base HEART: S1 S2 regular rate and rhythm , ABDOMEN: Soft , no tenderness EXTREMITIES: No edema feet - Labs CBC & Chem 7: 02/09/22 06:47 02/09/22 06:47 Labs: Abnormal Lab Results - Last 24 Hours (Table) 02/08/22 02/08/22 02/09/22 Range/Units 16:38 20:11 06:47 WBC 10.73 H (4.50-10.00) X 10*3/uL RBC 3.70 L (4.40-5.60) X 10*6/uL Hgb 10.7 L (13.0-17.0) g/dL Hct 34.8 L (39.6-50.0) % MCHC 30.7 L (32.0-37.0) g/dL Plt Count 498 H (140-440) X 10*3/uL MPV 9.4 L (9.5-12.2) fL Immature Gran # 0.19 H (0.00-0.04) X 10*3/uL Neutrophils # 8.44 H (1.80-7.70) X 10*3/uL Sodium (135-145) mmol/L Carbon Dioxide (20.0-27.5) mmol/L Glucose (70-110) mg/dL POC Glucose (mg/dL) 112 H 155 H (70-110) mg/dL Calcium (8.7-10.3) mg/dL 02/09/22 02/09/22 02/09/22 Range/Units 06:47 07:14 11:08 WBC (4.50-10.00) X 10*3/uL RBC (4.40-5.60) X 10*6/uL Hgb (13.0-17.0) g/dL Hct (39.6-50.0) % MCHC (32.0-37.0) g/dL Plt Count (140-440) X 10*3/uL MPV (9.5-12.2) fL Immature Gran # (0.00-0.04) X 10*3/uL Neutrophils # (1.80-7.70) X 10*3/uL Sodium 134 L (135-145) mmol/L Carbon Dioxide 27.7 H (20.0-27.5) mmol/L Glucose 121 H (70-110) mg/dL POC Glucose (mg/dL) 126 H 138 H (70-110) mg/dL Calcium 8.1 L (8.7-10.3) mg/dL Microbiology - Last 24 Hours (Table) 02/06/22 12:05 Gram Stain - Preliminary Pleural Fluid Body Fluid Culture - Preliminary 02/06/22 12:05 Acid Fast Bacilli Smear - Final Pleural Fluid Acid Fast Bacilli Culture - Preliminary Assessment and Plan (1) Pleural effusion, left Current Visit: Yes Status: Acute Code(s): J90 - PLEURAL EFFUSION, NOT ELSEWHERE CLASSIFIED SNOMED Code(s): 28962522 Plan: 1patient presented to hospital with sepsis source is left-sided pneumonia and empyema more likely from a community-acquired pathogen as the patient seem to have not received an antibiotic in the outpatient setting status post IR chest tube placement and fluid has been sent for the culture which has been finalized alphahemolytic streptococcus. 2patient seemed to showing some clinical improvement and currently being treated with Unasyn 3 g every 6 hours with a plan to finish therapy with IV Rocephin on discharge Time with Patient: Less than 30
[2022-02-10] MEDS: INSULIN ASPART (NovoLOG) 100 UNIT/ML VIAL SQ SCH ×8 (08:32→20:19)
[2022-02-10] MEDS: MAGNESIUM OXIDE 400 MG TAB PO SCH (08:33)
[2022-02-10] MEDS: PANTOPRAZOLE 40 MG TABLET PO SCH (08:33)
[2022-02-10] MEDS ORDERED: ALTEPLASE 10 MG in SODIUM CHLORIDE 0.9% 50 ML IRRIGATION ONE (09:36)
[2022-02-10] MEDS ORDERED: DORNASE ALFA 5 MG in SODIUM CHLORIDE 0.9% 50 ML IRRIGATION ONE (09:36)
--- NOTE | 2022-02-10 09:52 | P.PN ---
Subjective Progress Note Date: 02/10/22 71-year-old male patient, a nonsmoker, no previous history of lung disease, who developed pneumonialike symptoms approximately 6 weeks ago. The patient had congestion, shortness of breath and pleurisy involving the left lung. He was given IV Rocephin for an urgent care and later on steroids with primary care physician. Nevertheless, he never recovered. He was having ongoing chest discomfort on the left. He was also having sweats and chills and episodic fever. He was getting progressively more weak and for that reason he came in to the hospital for further evaluation. The patient has not had any exposure or infection with COVID 19. He has not been vaccinated also. He has no altered mentation. No hemoptysis for now. The patient had a white cell count of 18.7 with a hemoglobin of 11. The blood work showed initial sodium of 129 and that came at 137 within the treatment. BUN was 21 with a creatinine of 0.6 and coagulation profile was essentially within normal limits. The chest x-ray not done and the patient underwent a CT angiogram that showed no this of any pulmonary embolism. There was large loculated or multiloculated left-sided pleural effusion with possibility of underlying empyema. Right lung was essentially clear. The patient was started on IV Zosyn and the patient was hospitalized. A pulmonary palpation was requested. No previous bouts of pneumonias. No chest trauma. No 70 malignancy. No TB exposure. 02/02/2022, the patient is clinically stable on antibiotics. He still has some pleuritic left-sided chest wall pain. I made recommendations for a pigtail c atheter insertion by interventional radiology and this has not been done. I do not think day services of interventional radiology are available on the weekend. This was done tomorrow. The patient remains on IV Zosyn for now. Thoracic surgery is also involved in the case. On 02/03/2022 patient seen in follow-up on medical surgical floor. He is awake, in no acute distress, did have fever spikes overnight with T-max of 101.2F, room air pulse ox is 94%. Doesn't appear to be any acute distress at rest, however does have exertional dyspnea and occasional cough and some pleuritic left-sided chest wall pain. Patient was seen by CT surgery consultation, and the recommendation is made for placement of CT-guided pigtail chest tube catheter in the left pleural space. He continues on antibiotics he is on Zosyn. On 02/04/2022 patient seen in follow-up on medical surgical floor. Yesterday h ad a left-sided pigtail chest tube catheter. And overnight his had a total of 1000 mL of purulent drainage from the pigtail. Patient received a dose of alteplase and dornase by CT surgery. Today's chest x-ray showing persistent multilocular pleural effusion with indwelling chest tube, and no evidence of his old pneumothorax. Patient remains on Zosyn for antibiotic coverage, vital signs have been stable, his been afebrile, blood pressure stable, he is working on incentive spirometer. Today's labs have been reviewed showing white blood cell count of 10.6, hemoglobin of 10.4, sodium is 137, potassium is 4.3, chloride is 100, CO2 is 29, BUN is 18 creatinine 0.7. Pleural fluid analysis showed 7400 white blood cells, 96 of holiday clear white blood cells. Fluid glucose was less than 2, fluid protein was 4.8 g, LDH was greater than 2500, consistent with empyema. Pleural fluid cultures have shown no growth thus far. Blood cultures have been negative. On 02/05/2022 patient seen in follow-up medical surgical floor. Left-sided chest tube remains in place, and there has been an additional 400 mL of purulent pleural fluid drainage in the last 24 hours. Left-sided chest tube is to water seal, no evidence of air leak. Low-grade fever this morning, with a T-max of 99 point degrees Fahrenheit. Patient is breathing comfortably, he is working on incentive spirometer, his pleuritic chest pain is improved. Chest x-ray showing stable persistent multilocular effusion. Today's labs are pending, but vital signs have been stable. CT surgery is following and patient will receive anot her dose of alteplase and dornase. Pleural fluid cultures are still pending, Gram stain showing no organisms but multiple PMNs. On 02/06/2022 patient seen in follow-up on medical surgical floor. Yesterday's CT of the chest showed persistent loculated left-sided pleural effusion, persistent consolidation and thickening of the left lung base, and the pigtail chest tube catheter was difficult to visualize, and was thought to have been dislodged. Patient did receive additional dose of alteplase and dornase yesterday, he did put out 150 ML of fluid in the last [address] surgery is following, case was discussed with them, patient remains on antibiotics however in view of persistent loculated pleural effusion, and consolidation, the decision had been made to remove the pigtail catheter and have interventional radiology replaces with another pigtail catheter. Clinically patient is stable, no worsening dyspnea, no worsening chest discomfort, his white blood cell count is fairly stable, at 11.4, hemoglobin is 11.1, electrolytes are within normal limits, B1 is 21 creatinine 0.83. His Pleural fluid cultures have shown no growth thus far. The patient is seen today 02/07/2022 in follow-up on the regular medical floor. He is currently sitting up in a chair at the bedside. Awake and alert in no acute distress. Maintaining good O2 saturations in the 90s on room. He is currently afebrile. He did undergo a repeat left-sided CT-guided Pigtail chest tube placement yesterday. Currently -20 cm wall suction. Today's chest x-ray shows improved aeration, persistent abnormal density obscuring the left hemidiaphragm, blunting of left costophrenic ample. No pneumothorax. He is to receive alteplase/dornase again today per CT services. He remains on Zosyn. The plan is for PICC line placement today. White count 10.8. Hemoglobin 10.1. Platelets 454. Sodium 139. Potassium 4.4. Chloride 103. BUN 13. Creatinine 0.7. Glucose 126. The patient is seen today 02/08/2022 in follow-up on the regular medical floor. He is currently up ambulating in the hallway. He quite well. No worsening shortness of breath, cough or congestion. Chest x-ray reveals persistent loculated left pleural effusion with inflammatory changes. Chest tube remains in place. Remains on low continuous suction -20 cm water. The plan is for another dose of alteplase/dornase per CT services. Left sided PICC line in place. Pleural fluid cultures positive for alphahemolytic streptococcus. He is currently on Unasyn per ID services. Blood glucose 114. The patient is seen today 02/09/2022 in follow-up on the regular medical floor. He is currently sitting up at the bedside. Awake and alert in no acute distress. Maintaining O2 saturations in the 90s on room air. Left-sided chest tube remains in place to wall suction -20 cm. Approximately 700 ML's of fluid was returned post alteplase/dornase infusion yesterday. He remains on Unasyn. Follow-up computed tomography scan of the chest pending. The patient is seen today 02/10/2022 in follow-up on the regular medical floor. He is currently sitting up at the bedside. Awake and alert in no acute distress. Maintaining good O2 saturations in the 90s on room air. He remains afebrile. Hemodynamically stable. Computed tomography scan of the chest revealed a left posterior approach thoracotomy tube with decrease in the left upper lung loculated fluid collection. There remains fluid collection within the lung base. A fluid collection within the left major fissure now demonstrates foci of gas suggesting some communication to the pigtail catheter but majority of fluid remains within this collection. Until catheter to wall suction. Additional 810 ML's of fluid removed yesterday after alteplase/dornase infusion. Chest x-ray revealed no change in the pleural marginal changes within the left lung consistent with empyema, loculated pleural effusion and associated atelectasis, inflammatory change. Pleural fluid was positive for alpha hemolytic streptococcus. The patient remains on Unasyn. Objective - Vital Signs Vital signs: Vital Signs Temp 98.4 F 02/10/22 05:56 Pulse 88 02/10/22 05:56 Resp 16 02/10/22 05:56 BP 118/70 02/10/22 05:56 Pulse Ox 93 L 02/10/22 05:56 FiO2 21 02/08/22 07:54 Intake & Output 02/09/22 02/10/22 02/10/22 18:59 06:59 18:59 Intake Total 1070 Output Total 810 Balance -810 1070 Intake: Oral 1070 Output: Chest Tube Drainage 810 Chest Tube Left Posterior 810 Chest Other: Voiding Method Toilet # Voids 4 2 - Exam GENERAL EXAM: Alert, pleasant, 71-year-old male, on room air with pulse ox of 93%, comfortable in no apparent distress. HEAD: Normocephalic/atraumatic. EYES: Normal reaction of pupils, equal size. Conjunctiva pink, sclera white. NOSE: Clear with pink turbinates. THROAT: No erythema or exudates. NECK: No masses, no JVD, no thyroid enlargement, no adenopathy. CHEST: No chest wall deformity. Left-sided pigtail catheter remains secured in place LUNGS: Diminished breath sounds over left lower lobe with some crackles CVS: Regular rate and rhythm, normal S1 and S2, no gallops, no murmurs, no rubs ABDOMEN: Soft, nontender. No hepatosplenomegaly, normal bowel sounds, no guarding or rigidity. EXTREMITIES: No clubbing, no edema, no cyanosis, 2+ pulses and upper and lower extremities. MUSCULOSKELETAL: Muscle strength and tone normal. SPINE: No scoliosis or deformity SKIN: No rashes CENTRAL NERVOUS SYSTEM: No focal deficits, tone is normal in all 4 extremities. PSYCHIATRIC: Alert and oriented -3. Appropriate affect. Intact judgment and insight. - Labs CBC & Chem 7: 02/09/22 06:47 02/09/22 06:47 Labs: Abnormal Lab Results - Last 24 Hours (Table) 02/09/22 02/09/22 02/09/22 Range/Units 06:47 06:47 11:08 WBC 10.73 H (4.50-10.00) X 10*3/uL RBC 3.70 L (4.40-5.60) X 10*6/uL Hgb 10.7 L (13.0-17.0) g/dL Hct 34.8 L (39.6-50.0) % MCHC 30.7 L (32.0-37.0) g/dL Plt Count 498 H (140-440) X 10*3/uL MPV 9.4 L (9.5-12.2) fL Immature Gran # 0.19 H (0.00-0.04) X 10*3/uL Neutrophils # 8.44 H (1.80-7.70) X 10*3/uL Sodium 134 L (135-145) mmol/L Carbon Dioxide 27.7 H (20.0-27.5) mmol/L Glucose 121 H (70-110) mg/dL POC Glucose (mg/dL) 138 H (70-110) mg/dL Calcium 8.1 L (8.7-10.3) mg/dL 02/09/22 02/10/22 Range/Units 20:48 07:12 WBC (4.50-10.00) X 10*3/uL RBC (4.40-5.60) X 10*6/uL Hgb (13.0-17.0) g/dL Hct (39.6-50.0) % MCHC (32.0-37.0) g/dL Plt Count (140-440) X 10*3/uL MPV (9.5-12.2) fL Immature Gran # (0.00-0.04) X 10*3/uL Neutrophils # (1.80-7.70) X 10*3/uL Sodium (135-145) mmol/L Carbon Dioxide (20.0-27.5) mmol/L Glucose (70-110) mg/dL POC Glucose (mg/dL) 146 H 133 H (70-110) mg/dL Calcium (8.7-10.3) mg/dL Microbiology - Last 24 Hours (Table) 02/06/22 12:05 Gram Stain - Preliminary Pleural Fluid Body Fluid Culture - Preliminary Assessment and Plan Assessment: 1 Complicated multiloculated parapneumonic left-sided pleural effusion, complication of the previously under treated pneumonia, status post left chest pigtail catheter placement with drainage of large amount of purulent material, and pleural fluid analysis is consistent with empyema, pleural fluid cultures positive for alpha hemolytic streptococcus, now on Unasyn. Pigtail catheter replaced on 02/06/2022. Repeat computed tomography scan of the chest on 01/22 showed persistent left-sided loculated empyema, and consolidation. 810 ML's of fluid returned post alteplase/dornase infusion yesterday. 2 Shortness of breath and pleuritic chest pain related to the above 3 Fever, leukocytosis related to the above, improved 4 Hypertension 5 Hyperlipidemia 6 Nonsmoker Plan: The patient was seen and evaluated CT scan of the chest, chest x-ray, medications and labs reviewed Pigtail catheter remains in place to the left chest Received alteplase/dornase again yesterday Currently on Unasyn We'll continue to follow I have personally seen and examined the patient, performed the documentation and the assessment and plan as written. Number of minutes spent on the visit: 10.
[2022-02-10 11:51] LABS: Glucose,Whole Blood 110 mg/dL (70-110)
--- NOTE | 2022-02-10 12:38 | P.PN ---
Subjective This is a 71 year old male with past medical history significant for hypertension, hyperlipidemia. He presents with 3 days of fever, shortness of br eath and pleuritic chest pain. States about 6 weeks ago he began having cough and was evaluated in the clinic and IM antibiotic injection. Also had outpatient chest xray done. He was given steroids by his primary care provider. He states it didn't seem to help and was concerned when he developed fever and weakness with congestion. He is nonsmoker, reports no marijuana use. He does not work in a factor type setting, denies exposure to toxins. He rides a motorcycle and states he notice trouble breathing after a long ride which is unusual for him. He is overall healthy. On admission chest CTA has been completed showing large loculated left pleural effusions with infiltrate, and atelectasis left lower lobe. There is concern for empyema and patient was started on empiric antibiotic coverage with zosyn. Pulmonary has evaluated the patient and IR has been consulted for pigtail cathter insertion. IR is not available until Thursday. Cardiothoracic has also been consulted. Patient for now is maintained oxygen saturation of 92% on room air. He presents with fever 100.5, heart rate 75, blood pressure 120/70. White count 18.7, hgb 11.6, sodium 129, potassium 4.3, glucose is 208. Troponin negative. 02/02/2022 Patient is evaluated today sitting up in bed. is at the bedside. Plan is for pigtail catheter insertion with IR tomorrow and cardiothoracic has been consulted for management. Pulmonary is following the patient closely. He continues on room air, however has stated he has increased cough, no sputum production. Also complains of left sided pleuritic pain, he has had motrin 400 m g ordered however he has not received. Did also add a low dose of tramadol for pain management. He continues on IV zosyn for empiric antibiotic coverage. Blood cultures are negative so far. He has remained afebrile, heart rate 98, blood pressure 153/77, 91% on room air. Labs reviewed today showing white count 16.30, hgb 10.8, sodium 136, potassium 4.6. Blood glucose in the 130s. A1C is 6.4 which is on the cusp of prediabetes vs. diabetes, will discuss with patient tomorrow and patient will discharge on an oral diabetic agent. 02/03/2022 Patient sitting up in chair pending IR placement of pigtail catheter. He had increased pain to his left side and was given low dose of tramadol which he states did help his pain. He is short of breath today, he is using his incentive spirometer, also he has requested cough medicine and it has been ordered as needed. He had a T-Max overnight of 101.2. He continues on IV Zosyn. Blood pressure today 126/73. Labs reviewed today showing white count 15.84, hgb 11.1, sodium 133, potassium 4.7, blood glucose 150s. 02/04/2022 Patient evaluated today sitting up in the chair. He underwent pigtail catheter placement with alteplase injection through catheter and he has had fair output 375 mls last night and 115 mls today so far from drainage tube which is mostly purulent. He underwent a second alteplase infusion today. Chest xray today showing persistent multilocular effusions, with indwelling chest tube. No pneumothorax. Cardiothoracic and pulmonary are following this patient. He has been encouraged to continue with cough and deep breathing and also to continue with incentive spirometry. He continues on IV zosyn. Pleural fluid and blood cultures are pending. Reports pain has improved today, he is receiving IV dilaudid and tramadol as needed. Labs today are showing white count of 10.68, hgb 10.4, sodium 137, potassium 4.3, BUN 18.0, creatinine 0.7, magnesium 2.2. Blood glucose trending down. He has remained afebrile in the last 24 hours, h eart rate 85, blood pressure 121/69, 90% room air. 02/05/2022 Patient evaluated today resting in bed, he had third alteplase injection today. Resting in bed on back during examination to begin turning rotation. Chest x- ray shows no significant interval change as before redemonstrates a loculated effusion. He reports diarrhea 1-2 times overnight. He has been maintained on IV zosyn. Labs today showed white count 10.21, hemoglobin 10.3. His T-max last night was 99 he states that he does have night sweats still, heart rate 76, blood pressure 129/75, 93% pulse oximetry. Ambulating without difficulty in the hallways. His pleural cytology has resulted showing acute inflammation consistent with empyema without evidence for malignancy. Blood glucose in the 130s. 02/06/2022 Pigtail catheter was removed yesterday as there was possibility it had dislodged and pigtail catheter will be reinserted by interventional radiology. He did have 150 mL of output from the pigtail catheter yesterday. IV fluids have been discontinued patient does have some mild peripheral edema and compression stoc kings have been ordered. He continues to ambulated in the hallways and is using incentive spirometer as recommended. Labs today; white count 11.4, hemoglobin 11.1, sodium 138, potassium 5.0, BUN 21, creatinine 0.83, blood glucose in the 120s. Patient continues on IV antibiotics, cultures are negative so far. He is being followed closely by pulmonary, infectious disease and cardiothoracic consultation. There is a possibility patient may still require VATS procedure. He does complain of some loose stool, most likely for antibiotics, he is on GI prophylaxis and also immodium. Denies nausea, vomiting. 02/07/2022 Patient is status post let CT guided pigtail catheter reinsertion and had alteplase and dornase injected into catheter again today. Chest tube is set to - 20 mc wall suctin. 140 mLs of drainage from catheter today. Chest xray today showing interval improvement and reduction in the patients pleural effusion. There is also improvement in aeration with persistent density which obscurs the left hemidiaphragm. Subcutaneous emphysema questionable over the right chest. Labs today show white count 10.84, hemoglobin 10.1, sodium 139, potassium 4.4, BUN 13.3, creatinine 0.7. Blood glucose in the 120s. Calcium 1.8. Cytology from pigtail catheter insertion today is pending. Continues on IV ampicillin, patient will have PICC Line placed today. He is being followed by pulmonary, cadiothoracic and infectious disease. 02/08/2022 Patient evaluated today sitting up in bed. He continues with cough, and states it is non productive. He has pigtail catheter in place, low continuous suction - 20 cm wall. Repeat chest xray today demonstrates persistent left loculated pleural effusion with inflammatory changes. He is being managed by pulmonary and cardiothoracic disease. Plan today is for another dose of alteplase/dornase per CT services. Pleural fluid cultures are now positive for alphahemolytic strep and he remains on IV unasyn and is being followed closely by infectious disease services. Patient has PICC line in place. Blood glucose remains stable and he continues on sliding scale insulin. Plan to repeat CBC and BMP tomorrow. He has t max 99.4 through out the night, heart rate 83, blood pressure 114/72, 91% on room air. He is using incentive spirometer and ambulating the halls without difficulty. He has bilateral ankle edema, IV fluids have been stopped. 02/09/2022 Patient status post complicated multi-loculated left pleural effusion and empyema status post pigtail catheter drainage and alteplase instillations yesterday and today. His culture was growing alphahemolytic streptococci and currently covered with Unasyn. Coronary and her to thoracic surgery team on the case. Repeat CT of the chest without contrast today showing decreased from the fluid but the majority of the fluid remains within the collection. No more fever. Mild leukocytosis. Rest of labs and vitals are stable. 02/10/2022 Patient still with the right-sided pigtail chest tube. Chest x-ray from today so same changes with left-sided empyema and possible atelectasis/pneumonia. He is undergoing another treatment with alteplase/dornase with cardiothoracic surgery team. Patient continued on Unasyn Objective - Vital Signs Vital signs: Vital Signs Temp 98.4 F 02/10/22 05:56 Pulse 88 02/10/22 05:56 Resp 16 02/10/22 05:56 BP 118/70 02/10/22 05:56 Pulse Ox 93 L 02/10/22 05:56 FiO2 21 02/08/22 07:54 Intake & Output 02/09/22 02/10/22 02/10/22 18:59 06:59 18:59 Intake Total 1070 Output Total 810 Balance -810 1070 Intake: Oral 1070 Output: Chest Tube Drainage 810 Chest Tube Left Posterior 810 Chest Other: Voiding Method Toilet # Voids 4 2 - Exam GENERAL: The patient is alert and oriented x3, not in any acute distress. Well developed, well nourished. HEENT: Pupils are round and equally reacting to light. EOMI. No scleral icterus. No conjunctival pallor. Normocephalic, atraumatic. No pharyngeal erythema. No thyromegaly. CARDIOVASCULAR: S1 and S2 present. No murmurs, rubs, or gallops. -PULMONARY: Chest is clear to auscultation, no wheezing or crackles. Left pigtail to put in a Place ABDOMEN: Soft, nontender, nondistended, normoactive bowel sounds. No palpable organomegaly. MUSCULOSKELETAL: No joint swelling or deformity. EXTREMITIES: No cyanosis, clubbing, or pedal edema. NEUROLOGICAL: Gross neurological examination did not reveal any focal deficits. SKIN: No rashes. no petechiae. - Labs CBC & Chem 7: 02/09/22 06:47 02/09/22 06:47 Labs: Abnormal Lab Results - Last 24 Hours (Table) 02/09/22 02/09/22 02/09/22 Range/Units 06:47 06:47 11:08 WBC 10.73 H (4.50-10.00) X 10*3/uL RBC 3.70 L (4.40-5.60) X 10*6/uL Hgb 10.7 L (13.0-17.0) g/dL Hct 34.8 L (39.6-50.0) % MCHC 30.7 L (32.0-37.0) g/dL Plt Count 498 H (140-440) X 10*3/uL MPV 9.4 L (9.5-12.2) fL Immature Gran # 0.19 H (0.00-0.04) X 10*3/uL Neutrophils # 8.44 H (1.80-7.70) X 10*3/uL Sodium 134 L (135-145) mmol/L Carbon Dioxide 27.7 H (20.0-27.5) mmol/L Glucose 121 H (70-110) mg/dL POC Glucose (mg/dL) 138 H (70-110) mg/dL Calcium 8.1 L (8.7-10.3) mg/dL 02/09/22 02/10/22 Range/Units 20:48 07:12 WBC (4.50-10.00) X 10*3/uL RBC (4.40-5.60) X 10*6/uL Hgb (13.0-17.0) g/dL Hct (39.6-50.0) % MCHC (32.0-37.0) g/dL Plt Count (140-440) X 10*3/uL MPV (9.5-12.2) fL Immature Gran # (0.00-0.04) X 10*3/uL Neutrophils # (1.80-7.70) X 10*3/uL Sodium (135-145) mmol/L Carbon Dioxide (20.0-27.5) mmol/L Glucose (70-110) mg/dL POC Glucose (mg/dL) 146 H 133 H (70-110) mg/dL Calcium (8.7-10.3) mg/dL Microbiology - Last 24 Hours (Table) 02/06/22 12:05 Gram Stain - Preliminary Pleural Fluid Body Fluid Culture - Preliminary Assessment and Plan Assessment: Loculated complicated multiloculated left side pleural effusion with empyema suspected pneumonia, he is status post pigtail catheter placement and has undergoing rounds of alteplase/dornase. Mild sepsis, Leukocytosis, fever secondary to above, improving Hypertension Hyperlpidemia Prediabetes/Diabetes with A1C of 6.4 History of prostate disorder Plan: This is a pleasant 71 years old male who presents with complicated multiloculated empyema status post pigtail tube placement. Continue with Unasyn Continue with pigtail and alteplase instillations as per cardiothoracic surgery team Pulmonary team on the case. Labs and medication were reviewed.. Continue same treatment. Continue with symptomatic treatment. Resume home medication. Monitor lytes and vitals. DVT and GI prophylaxis. Further recommendations as per clinical course of the patient GI Prophylaxis: Protonix
--- NOTE | 2022-02-10 12:41 | P.PN ---
Subjective Progress Note Date: 02/10/22 Principal diagnosis: Loculated left-sided effusion, possible empyema with a six-week history of persistent nonproductive cough and pleuritic type symptoms, leukocytosis. Previous medical history of hypertension, hyperlipidemia, BPH, lifetime nonsmoker. The patient was seen and examined this morning walking around his room in no acute distress on the medical surgical unit. He denies pain or shortness of breath. Left sided pigtail catheter remains in place with good output. No other new concerns. Objective - Vital Signs Vital signs: Vital Signs Temp 98.3 F 02/10/22 11:23 Pulse 85 02/10/22 11:23 Resp 16 02/10/22 11:23 BP 107/61 02/10/22 11:23 Pulse Ox 98 02/10/22 11:23 FiO2 21 02/08/22 07:54 Intake & Output 02/09/22 02/10/22 02/10/22 18:59 06:59 18:59 Intake Total 1070 Output Total 810 Balance -810 1070 Intake: Oral 1070 Output: Chest Tube Drainage 810 Chest Tube Left Posterior 810 Chest Other: Voiding Method Toilet # Voids 4 2 - Exam CONSTITUTIONAL: Ambulating in his room, appears comfortable, cooperative, no apparent acute distress. RESPIRATORY: Lungs sounds diminished to the left side. Respirations are even, nonlabored. Currently on room air with oxygen saturations 93%. Able to achieve 2500 mL on his incentive spirometry. Strong cough. Left chest pigtail catheter in place to low continuous wall suction -20 cm H2O. No air leak is present. Draining thin serosanguineous drainage with 870 mL output in the last 24 hours. CARDIOVASCULAR: Regular rhythm and rate. S1 and S2 present, negative for S3, gallop or murmur. Palpable peripheral pulses bilaterally. No calf pain or tenderness noted. GASTROINTESTINAL: Abdomen soft, nontender, nondistended. Active bowel sounds present 4 quadrants. Tolerating diet. GENITOURINARY: Continues to void. INTEGUMENTARY: Skin is warm and dry with no evidence of clubbing or cyanosis. NEUROLOGIC: Cranial nerves II through XII intact. No focal deficits. MUSKULOSKELETAL: Able to move all extremities, strength equal bilaterally. PSYCHIATRIC: Alert and oriented to person place and time, appropriate affect, intact judgment and insight. - Allied health notes Allied health notes reviewed: nursing - Labs CBC & Chem 7: 02/09/22 06:47 02/09/22 06:47 Labs: Abnormal Lab Results - Last 24 Hours (Table) 02/09/22 02/09/22 02/10/22 Range/Units 06:47 20:48 07:12 Sodium 134 L (135-145) mmol/L Carbon Dioxide 27.7 H (20.0-27.5) mmol/L Glucose 121 H (70-110) mg/dL POC Glucose (mg/dL) 146 H 133 H (70-110) mg/dL Calcium 8.1 L (8.7-10.3) mg/dL Microbiology - Last 24 Hours (Table) 02/06/22 12:05 Gram Stain - Preliminary Pleural Fluid Body Fluid Culture - Preliminary - Imaging and Cardiology Chest x-ray: report reviewed, image reviewed Assessment and Plan Assessment: 1. Large loculated left-sided pleural effusion, possible empyema 2. Persistent cough, fever, sweats, chills, pain with deep inspiration 3. Leukocytosis 4. History of hypertension 5. History of hyperlipidemia 6. History of prostate disorder 7. Never smoker Plan: 1. Keep left pleural chest pigtail catheter in place to low continuous wall suction -20 cm H2O. Will instill 7th dose alteplase/dornase 2. Encourage use of his incentive spirometry 10 times every hour while awake. 3. Pain control per current current medication regimen 4. Continue to monitor daily labs and chest x-rays. 5. Increase activity as tolerated. Out of bed for all meals. 6. Pleural fluid and blood culture show positive for alpha hemolytic streptococcus. Continue on Unasyn managed by infectious disease management. Cytology results of the pleural fluid showed dense acute inflammation consistent with empyema and no cytologically malignant cells were identified 7. More recommendations to follow based on patient's clinical course.
[2022-02-10 17:00] LABS: Glucose,Whole Blood 186 mg/dL (70-110)
[2022-02-10] MEDS: ATORVASTATIN 10 MG TAB PO SCH (20:10)
[2022-02-10] MEDS: LOSARTAN 50 MG TAB PO SCH (20:10)
[2022-02-10] MEDS: hydroCHLOROthiazide 12.5 MG CAP PO SCH (20:10)
[2022-02-10] MEDS: MELATONIN 3 MG TABLET PO SCH (20:10)
[2022-02-10 20:50] LABS: Glucose,Whole Blood 109 mg/dL (70-110)
[2022-02-11] MEDS: AMPICILLIN-SULBACTAM 3 GM in SODIUM CHLORIDE 0.9% 100 ML IVPB SCH ×4 (05:39→23:48)
[2022-02-11] MEDS: KETOROLAC 15 MG/ML 1 ML VIAL IVP SCH ×4 (05:40→23:48)
--- NOTE | 2022-02-11 07:31 | P.PN ---
Subjective Progress Note Date: 02/11/22 Principal diagnosis: Empyema. The patient is seen today 02/08/2022 in follow-up on the regular medical floor. He is currently up ambulating in the hallway. He quite well. No worsening shortness of breath, cough or congestion. Chest x-ray reveals persistent loculated left pleural effusion with inflammatory changes. Chest tube remains in place. Remains on low continuous suction -20 cm water. The plan is for another dose of alteplase/dornase per CT services. Left sided PICC line in place. Pleural fluid cultures positive for alphahemolytic streptococcus. He is currently on Unasyn per ID services. Blood glucose 114. The patient is seen today 02/09/2022 in follow-up on the regular medical floor. He is currently sitting up at the bedside. Awake and alert in no acute distress. Maintaining O2 saturations in the 90s on room air. Left-sided chest tube remains in place to wall suction -20 cm. Approximately 700 ML's of fluid was returned post alteplase/dornase infusion yesterday. He remains on Unasyn. Follow-up computed tomography scan of the chest pending. The patient is seen today 02/10/2022 in follow-up on the regular medical floor. He is currently sitting up at the bedside. Awake and alert in no acute distress. Maintaining good O2 saturations in the 90s on room air. He remains afebrile. Hemodynamically stable. Computed tomography scan of the chest revealed a left posterior approach thoracotomy tube with decrease in the left upper lung loculated fluid collection. There remains fluid collection within the lung base. A fluid collection within the left major fissure now demonstrates foci of gas suggesting some communication to the pigtail catheter but majority of fluid remains within this collection. Until catheter to wall suction. Additional 810 ML's of fluid removed yesterday after alteplase/dornase infusion. Chest x-ray revealed no change in the pleural marginal changes within the left lung consistent with empyema, loculated pleural effusion and associated atelectasis, inflammatory change. Pleural fluid was positive for alpha hemolytic streptococcus. The patient remains on Unasyn. Progress note dated 02/11/2022. The patient is seen today on 535. He's currently on room air. He is receiving antibiotics for his empyema. Apparently no decision has been made by cardiothoracic surgery regards to possible decortication. Clinically, the patient is stable. No new laboratory data today. Chest x-ray shows volume los s, pleural effusion, and air-fluid level in the left lower lobe. Pleural fluid was positive for alpha-hemolytic streptococcus, the patient remains on Unasyn. Objective - Vital Signs Vital signs: Vital Signs Temp 98.5 F 02/11/22 05:39 Pulse 73 02/11/22 05:39 Resp 18 02/11/22 05:39 BP 114/70 02/11/22 05:39 Pulse Ox 94 L 02/11/22 05:39 FiO2 21 02/08/22 07:54 Intake & Output 02/10/22 02/11/22 02/11/22 18:59 06:59 18:59 Intake Total 200 400 Output Total 250 0 Balance -50 400 Intake: Intake, IV Titration 200 Amount Ampicillin-Sulbactam 3 gm 200 In Sodium Chloride 0.9% 100 ml @ 200 mls/hr IVPB Q6HR [facility] Rx#:[id number] Oral 400 Output: Chest Tube Drainage 250 0 Chest Tube Left Posterior 250 0 Chest Other: Voiding Method Toilet # Voids 2 - Exam No acute distress, oriented 3. No respiratory distress. The patient's on room air. HEENT examination is grossly unremarkable. Neck supple. Full range of motion. No adenopathy thyromegaly or neck vein distention. Cardiovascular examination reveals regular rhythm rate. S1-S2 normal. No S3 or S4. No discernible murmur noted. Heart rate 73 bpm. Lungs reveal diminished breath sounds at the left base. Room air saturation 94- 98%. Scattered rhonchi noted. No wheezes or crackles. Abdomen soft bowel sounds are heard. No masses or tenderness. Extremities are intact. No cyanosis clubbing or edema. Skin is without rash or lesion. Neurologic examination is brief but nonfocal. - Labs CBC & Chem 7: 02/09/22 06:47 02/09/22 06:47 Labs: Abnormal Lab Results - Last 24 Hours (Table) 02/10/22 Range/Units 16:58 POC Glucose (mg/dL) 186 H (70-110) mg/dL Microbiology - Last 24 Hours (Table) 02/06/22 12:05 Gram Stain - Preliminary Pleural Fluid Body Fluid Culture - Preliminary Assessment and Plan Assessment: Complicated parapneumonic effusion/empyema, left lower lobe, status post insertion of the pigtail catheter 2, with infusion of TPA. Alpha-hemolytic streptococcal infection, left pleural space, currently on Unasyn. History of hypertension. History of hyperlipidemia. Nonsmoker. Plan: Plan dated 02/11/2022. The patient is clinically stable. Labs, x-rays, medications are reviewed. The patient's on appropriate antibiotics. We will continue to follow. Patient will be seen by cardiothoracic surgery, and they will make a decision as to whether or not the patient would benefit from decortication. Prognosis is guarded. The patient's on room air. He is very stable both from the respiratory standpoint, and hemodynamically. Time with Patient: Less than 30
--- NOTE | 2022-02-11 07:45 | P.PN ---
Subjective Progress Note Date: 02/10/22 Principal diagnosis: Left-sided empyema Patient is a 71 year male presented to the hospital with left-sided chest pain and fever and cough has been diagnosed with a left-sided loculated effusion concerning for empyema in this patient who is status post chest tube placement on 02/03/2022 which unfortunately did fell off 02/05/2022 and was reinserted on 02/06/2022 On today's evaluation that is 02/10/2022, the patient remains to be afebrile, the patient is breathing comfortably on room air, the patient left-sided chest pain has decreased in intensity, the patient cough is decreased intensity and mostly dry in nature patient denies abdominal pain no diarrhea Objective - Vital Signs Vital signs: Vital Signs Temp 98.4 F 02/10/22 05:56 Pulse 88 02/10/22 05:56 Resp 16 02/10/22 05:56 BP 118/70 02/10/22 05:56 Pulse Ox 93 L 02/10/22 05:56 FiO2 21 02/08/22 07:54 Intake & Output 02/09/22 02/10/22 02/10/22 18:59 06:59 18:59 Intake Total 1070 Output Total 810 Balance -810 1070 Intake: Oral 1070 Output: Chest Tube Drainage 810 Chest Tube Left Posterior 810 Chest Other: Voiding Method Toilet # Voids 4 2 - Exam GENERAL DESCRIPTION: An elderly male lying in bed in no distress RESPIRATORY SYSTEM: Unlabored breathing , decreased breath sounds at left base HEART: S1 S2 regular rate and rhythm , ABDOMEN: Soft , no tenderness EXTREMITIES: No edema feet - Labs CBC & Chem 7: 02/09/22 06:47 02/09/22 06:47 Labs: Abnormal Lab Results - Last 24 Hours (Table) 02/09/22 02/09/22 02/09/22 Range/Units 06:47 06:47 20:48 WBC 10.73 H (4.50-10.00) X 10*3/uL RBC 3.70 L (4.40-5.60) X 10*6/uL Hgb 10.7 L (13.0-17.0) g/dL Hct 34.8 L (39.6-50.0) % MCHC 30.7 L (32.0-37.0) g/dL Plt Count 498 H (140-440) X 10*3/uL MPV 9.4 L (9.5-12.2) fL Immature Gran # 0.19 H (0.00-0.04) X 10*3/uL Neutrophils # 8.44 H (1.80-7.70) X 10*3/uL Sodium 134 L (135-145) mmol/L Carbon Dioxide 27.7 H (20.0-27.5) mmol/L Glucose 121 H (70-110) mg/dL POC Glucose (mg/dL) 146 H (70-110) mg/dL Calcium 8.1 L (8.7-10.3) mg/dL 02/10/22 Range/Units 07:12 WBC (4.50-10.00) X 10*3/uL RBC (4.40-5.60) X 10*6/uL Hgb (13.0-17.0) g/dL Hct (39.6-50.0) % MCHC (32.0-37.0) g/dL Plt Count (140-440) X 10*3/uL MPV (9.5-12.2) fL Immature Gran # (0.00-0.04) X 10*3/uL Neutrophils # (1.80-7.70) X 10*3/uL Sodium (135-145) mmol/L Carbon Dioxide (20.0-27.5) mmol/L Glucose (70-110) mg/dL POC Glucose (mg/dL) 133 H (70-110) mg/dL Calcium (8.7-10.3) mg/dL Microbiology - Last 24 Hours (Table) 02/06/22 12:05 Gram Stain - Preliminary Pleural Fluid Body Fluid Culture - Preliminary Assessment and Plan (1) Pleural effusion, left Current Visit: Yes Status: Acute Code(s): J90 - PLEURAL EFFUSION, NOT ELSEWHERE CLASSIFIED SNOMED Code(s): 49456055 Plan: 1patient presented to hospital with sepsis source is left-sided pneumonia and empyema more likely from a community-acquired pathogen as the patient seem to have not received an antibiotic in the outpatient setting status post IR chest tube placement and fluid has been sent for the culture which has been finalized alphahemolytic streptococcus. 2patient slowly clinically improving and will continue with Unasyn and monitor clinical course closely Time with Patient: Less than 30
[2022-02-11 07:51] LABS: Glucose,Whole Blood 131 mg/dL (70-110)
[2022-02-11] MEDS: MAGNESIUM OXIDE 400 MG TAB PO SCH (08:15)
[2022-02-11] MEDS: PANTOPRAZOLE 40 MG TABLET PO SCH (08:15)
[2022-02-11] MEDS: INSULIN ASPART (NovoLOG) 100 UNIT/ML VIAL SQ SCH ×9 (08:15→21:00)
--- NOTE | 2022-02-11 08:44 | XR ---
EXAMINATION TYPE: XR chest 2V DATE OF EXAM: 02/11/2022 COMPARISON: Chest x-ray 02/10/2022 HISTORY: Loculated pleural effusion TECHNIQUE: Frontal and lateral views of the chest are obtained. FINDINGS: Left-sided PICC line, pigtail catheter in the left upper chest remain in place. There is a n air-fluid level present in the left midlung. Persistent abnormal density present at the left lung b ase, the left hemidiaphragm is obscured. No sizable pneumothorax. IMPRESSION: Air-fluid level suggests hydropneumothorax. Persistent abnormal pleural parenchymal alatorre ges at the left lung base consistent with loculated effusion and associated inflammatory change, annabelle elate for empyema, pneumonia
--- NOTE | 2022-02-11 10:47 | P.PN ---
Progress Note - Text Progress Note Date: 02/09/22 I agree with the midlevels findings and assessment, 40 min spent with patient.
--- NOTE | 2022-02-11 10:52 | P.PN ---
Subjective Progress Note Date: 02/11/22 Principal diagnosis: Complicated parapneumonic effusion/empyema left lower lobe, leukocytosis. Previous medical history of hypertension, hyperlipidemia, BPH, lifetime nonsmoker. The patient was seen and examined this morning walking around his room in no acute distress on the medical surgical unit. He denies pain or shortness of breath. Left sided pigtail catheter remains in place with decreased output compared to previous days. He did receive seventh dose of lytic instillation yesterday. No other new concerns. Objective - Vital Signs Vital signs: Vital Signs Temp 98.5 F 02/11/22 05:39 Pulse 73 02/11/22 05:39 Resp 18 02/11/22 05:39 BP 114/70 02/11/22 05:39 Pulse Ox 94 L 02/11/22 05:39 FiO2 02/08/22 07:54 Intake & Output 02/10/22 02/11/22 02/11/22 18:59 06:59 18:59 Intake Total 200 400 Output Total 250 0 Balance -50 400 Intake: Intake, IV Titration 200 Amount Ampicillin-Sulbactam 3 gm 200 In Sodium Chloride 0.9% 100 ml @ 200 mls/hr IVPB Q6HR [facility] Rx#:[id number] Oral 400 Output: Chest Tube Drainage 250 0 Chest Tube Left Posterior 250 0 Chest Other: Voiding Method Toilet # Voids 2 - Exam CONSTITUTIONAL: Ambulating in his room, appears comfortable, cooperative, no apparent acute distress. RESPIRATORY: Lungs sounds diminished to the left side. Respirations are even, nonlabored. Currently on room air with oxygen saturations 94%. Able to achieve 2500 mL on his incentive spirometry. Strong cough. Left chest pigtail catheter in place to low continuous wall suction -20 cm H2O. No air leak is present. Draining thin serosanguineous drainage with 190 mL output in the last 24 hours. CARDIOVASCULAR: Regular rhythm and rate. S1 and S2 present. Palpable peripheral pulses bilaterally. No calf pain or tenderness noted. GASTROINTESTINAL: Abdomen soft, nontender, nondistended. Active bowel sounds present 4 quadrants. Tolerating diet. GENITOURINARY: Continues to void. INTEGUMENTARY: Skin is warm and dry NEUROLOGIC: Cranial nerves II through XII intact. No focal deficits. MUSKULOSKELETAL: Able to move all extremities, strength equal bilaterally. PSYCHIATRIC: Alert and oriented to person place and time, appropriate affect, intact judgment and insight. - Allied health notes Allied health notes reviewed: nursing - Labs CBC & Chem 7: 02/09/22 06:47 02/09/22 06:47 Labs: Abnormal Lab Results - Last 24 Hours (Table) 02/10/22 02/11/22 Range/Units 16:58 07:23 POC Glucose (mg/dL) 186 H 131 H (70-110) mg/dL Microbiology - Last 24 Hours (Table) 02/06/22 12:05 Gram Stain - Final Pleural Fluid Body Fluid Culture - Final - Imaging and Cardiology Chest x-ray: report reviewed, image reviewed Assessment and Plan Assessment: 1. Complicated parapneumonic effusion/empyema left lower lobe, status post insertion of pigtail catheter and installation of lytic therapy x 7 doses 2. Persistent cough, fever, sweats, chills, pain with deep inspiration on admission 3. Leukocytosis, pleural fluid positive for alpha hemolytic strep 4. History of hypertension 5. History of hyperlipidemia 6. History of prostate disorder 7. Never smoker Plan: 1. Keep left pleural chest pigtail catheter in place to low continuous wall suction -20 cm H2O. Films were reviewed with Dr. Butcher, we recommend left video assisted thoracoscopy with decortication which we will plan for 02/13/22. This was discussed with the patient and his and they are in agreement. 2. Encourage use of his incentive spirometry 10 times every hour while awake. 3. Pain control per current current medication regimen 4. Continue to monitor daily labs and chest x-rays. 5. Increase activity as tolerated. Out of bed for all meals. 6. Continue on Unasyn managed by infectious disease management. 7. More recommendations to follow
--- NOTE | 2022-02-11 11:07 | P.PN ---
Progress Note - Text Progress Note Date: 02/02/22 I agree with the midlevels findings and assessment, spent 40 minutes with patient during this consult.
[2022-02-11 12:30] LABS: Glucose,Whole Blood 110 mg/dL (70-110)
[2022-02-11 17:51] LABS: Glucose,Whole Blood 145 mg/dL (70-110)
[2022-02-11] MEDS: MELATONIN 3 MG TABLET PO SCH (20:53)
[2022-02-11] MEDS: LOSARTAN 50 MG TAB PO SCH (20:53)
[2022-02-11] MEDS: hydroCHLOROthiazide 12.5 MG CAP PO SCH (20:53)
[2022-02-11 20:56] LABS: Glucose,Whole Blood 132 mg/dL (70-110)
--- NOTE | 2022-02-11 21:00 | P.PN ---
Subjective This is a 71 year old male with past medical history significant for hypertension, hyperlipidemia. He presents with 3 days of fever, shortness of br eath and pleuritic chest pain. States about 6 weeks ago he began having cough and was evaluated in the clinic and IM antibiotic injection. Also had outpatient chest xray done. He was given steroids by his primary care provider. He states it didn't seem to help and was concerned when he developed fever and weakness with congestion. He is nonsmoker, reports no marijuana use. He does not work in a factor type setting, denies exposure to toxins. He rides a motorcycle and states he notice trouble breathing after a long ride which is unusual for him. He is overall healthy. On admission chest CTA has been completed showing large loculated left pleural effusions with infiltrate, and atelectasis left lower lobe. There is concern for empyema and patient was started on empiric antibiotic coverage with zosyn. Pulmonary has evaluated the patient and IR has been consulted for pigtail cathter insertion. IR is not available until Thursday. Cardiothoracic has also been consulted. Patient for now is maintained oxygen saturation of 92% on room air. He presents with fever 100.5, heart rate 75, blood pressure 120/70. White count 18.7, hgb 11.6, sodium 129, potassium 4.3, glucose is 208. Troponin negative. 02/02/2022 Patient is evaluated today sitting up in bed. is at the bedside. Plan is for pigtail catheter insertion with IR tomorrow and cardiothoracic has been consulted for management. Pulmonary is following the patient closely. He continues on room air, however has stated he has increased cough, no sputum production. Also complains of left sided pleuritic pain, he has had motrin 400 m g ordered however he has not received. Did also add a low dose of tramadol for pain management. He continues on IV zosyn for empiric antibiotic coverage. Blood cultures are negative so far. He has remained afebrile, heart rate 98, blood pressure 153/77, 91% on room air. Labs reviewed today showing white count 16.30, hgb 10.8, sodium 136, potassium 4.6. Blood glucose in the 130s. A1C is 6.4 which is on the cusp of prediabetes vs. diabetes, will discuss with patient tomorrow and patient will discharge on an oral diabetic agent. 02/03/2022 Patient sitting up in chair pending IR placement of pigtail catheter. He had increased pain to his left side and was given low dose of tramadol which he states did help his pain. He is short of breath today, he is using his incentive spirometer, also he has requested cough medicine and it has been ordered as needed. He had a T-Max overnight of 101.2. He continues on IV Zosyn. Blood pressure today 126/73. Labs reviewed today showing white count 15.84, hgb 11.1, sodium 133, potassium 4.7, blood glucose 150s. 02/04/2022 Patient evaluated today sitting up in the chair. He underwent pigtail catheter placement with alteplase injection through catheter and he has had fair output 375 mls last night and 115 mls today so far from drainage tube which is mostly purulent. He underwent a second alteplase infusion today. Chest xray today showing persistent multilocular effusions, with indwelling chest tube. No pneumothorax. Cardiothoracic and pulmonary are following this patient. He has been encouraged to continue with cough and deep breathing and also to continue with incentive spirometry. He continues on IV zosyn. Pleural fluid and blood cultures are pending. Reports pain has improved today, he is receiving IV dilaudid and tramadol as needed. Labs today are showing white count of 10.68, hgb 10.4, sodium 137, potassium 4.3, BUN 18.0, creatinine 0.7, magnesium 2.2. Blood glucose trending down. He has remained afebrile in the last 24 hours, h eart rate 85, blood pressure 121/69, 90% room air. 02/05/2022 Patient evaluated today resting in bed, he had third alteplase injection today. Resting in bed on back during examination to begin turning rotation. Chest x- ray shows no significant interval change as before redemonstrates a loculated effusion. He reports diarrhea 1-2 times overnight. He has been maintained on IV zosyn. Labs today showed white count 10.21, hemoglobin 10.3. His T-max last night was 99 he states that he does have night sweats still, heart rate 76, blood pressure 129/75, 93% pulse oximetry. Ambulating without difficulty in the hallways. His pleural cytology has resulted showing acute inflammation consistent with empyema without evidence for malignancy. Blood glucose in the 130s. 02/06/2022 Pigtail catheter was removed yesterday as there was possibility it had dislodged and pigtail catheter will be reinserted by interventional radiology. He did have 150 mL of output from the pigtail catheter yesterday. IV fluids have been discontinued patient does have some mild peripheral edema and compression stoc kings have been ordered. He continues to ambulated in the hallways and is using incentive spirometer as recommended. Labs today; white count 11.4, hemoglobin 11.1, sodium 138, potassium 5.0, BUN 21, creatinine 0.83, blood glucose in the 120s. Patient continues on IV antibiotics, cultures are negative so far. He is being followed closely by pulmonary, infectious disease and cardiothoracic consultation. There is a possibility patient may still require VATS procedure. He does complain of some loose stool, most likely for antibiotics, he is on GI prophylaxis and also immodium. Denies nausea, vomiting. 02/07/2022 Patient is status post let CT guided pigtail catheter reinsertion and had alteplase and dornase injected into catheter again today. Chest tube is set to - 20 mc wall suctin. 140 mLs of drainage from catheter today. Chest xray today showing interval improvement and reduction in the patients pleural effusion. There is also improvement in aeration with persistent density which obscurs the left hemidiaphragm. Subcutaneous emphysema questionable over the right chest. Labs today show white count 10.84, hemoglobin 10.1, sodium 139, potassium 4.4, BUN 13.3, creatinine 0.7. Blood glucose in the 120s. Calcium 1.8. Cytology from pigtail catheter insertion today is pending. Continues on IV ampicillin, patient will have PICC Line placed today. He is being followed by pulmonary, cadiothoracic and infectious disease. 02/08/2022 Patient evaluated today sitting up in bed. He continues with cough, and states it is non productive. He has pigtail catheter in place, low continuous suction - 20 cm wall. Repeat chest xray today demonstrates persistent left loculated pleural effusion with inflammatory changes. He is being managed by pulmonary and cardiothoracic disease. Plan today is for another dose of alteplase/dornase per CT services. Pleural fluid cultures are now positive for alphahemolytic strep and he remains on IV unasyn and is being followed closely by infectious disease services. Patient has PICC line in place. Blood glucose remains stable and he continues on sliding scale insulin. Plan to repeat CBC and BMP tomorrow. He has t max 99.4 through out the night, heart rate 83, blood pressure 114/72, 91% on room air. He is using incentive spirometer and ambulating the halls without difficulty. He has bilateral ankle edema, IV fluids have been stopped. 02/09/2022 Patient status post complicated multi-loculated left pleural effusion and empyema status post pigtail catheter drainage and alteplase instillations yesterday and today. His culture was growing alphahemolytic streptococci and currently covered with Unasyn. Coronary and her to thoracic surgery team on the case. Repeat CT of the chest without contrast today showing decreased from the fluid but the majority of the fluid remains within the collection. No more fever. Mild leukocytosis. Rest of labs and vitals are stable. 02/10/2022 Patient still with the right-sided pigtail chest tube. Chest x-ray from today so same changes with left-sided empyema and possible atelectasis/pneumonia. He is undergoing another treatment with alteplase/dornase with cardiothoracic surgery team. Patient continued on Unasyn 02/11/2022 Patient still with persistent left lower lung base loculated pleural effusion and empyema and his been covered with appropriate antibiotics with Unasyn based on his culture results. His empyema looks improved but not resolved and still there is persistent fluid. Also there is air-fluid level suggestive of hydropneumothorax on the left side. Because of this patient is followed closely by cardiothoracic surgery team or plan on doing decortication surgery on 02/13. Other than that patient is breathing quietly with no chest pain or significant cough and while at rest. Also he is hemodynamically stable Objective - Vital Signs Vital signs: Vital Signs Temp 98.5 F 02/11/22 05:39 Pulse 73 02/11/22 05:39 Resp 02/11/22 05:39 BP 114/70 02/11/22 05:39 Pulse Ox 94 L 02/11/22 05:39 FiO2 02/08/22 07:54 Intake & Output 02/10/22 02/11/2222 18:59 06:59 18:59 Intake Total 200 400 Output Total 250 0 Balance -50 400 Intake: Intake, IV Titration 200 Amount Ampicillin-Sulbactam 3 gm 200 In Sodium Chloride 0.9% 100 ml @ 200 mls/hr IVPB Q6HR [facility] Rx#:[id number] Oral 400 Output: Chest Tube Drainage 250 0 Chest Tube Left Posterior 250 0 Chest Other: Voiding Method Toilet # Voids 2 - Exam GENERAL: The patient is alert and oriented x3, not in any acute distress. Well developed, well nourished. HEENT: Pupils are round and equally reacting to light. EOMI. No scleral icterus. No conjunctival pallor. Normocephalic, atraumatic. No pharyngeal erythema. No thyromegaly. CARDIOVASCULAR: S1 and S2 present. No murmurs, rubs, or gallops. -PULMONARY: Chest is clear to auscultation, no wheezing or crackles. Left pigtail to put in a Place ABDOMEN: Soft, nontender, nondistended, normoactive bowel sounds. No palpable organomegaly. MUSCULOSKELETAL: No joint swelling or deformity. EXTREMITIES: No cyanosis, clubbing, or pedal edema. NEUROLOGICAL: Gross neurological examination did not reveal any focal deficits. SKIN: No rashes. no petechiae. - Labs CBC & Chem 7: 02/09/22 06:47 02/09/22 06:47 Labs: Abnormal Lab Results - Last 24 Hours (Table) 02/10/22 02/11/22 Range/Units 16:58 07:23 POC Glucose (mg/dL) 186 H 131 H (70-110) mg/dL Microbiology - Last 24 Hours (Table) 02/06/22 12:05 Gram Stain - Final Pleural Fluid Body Fluid Culture - Final Assessment and Plan Assessment: Loculated complicated multiloculated left side pleural effusion with empyema suspected pneumonia, he is status post pigtail catheter placement and has undergoing rounds of alteplase/dornase. Mild sepsis, Leukocytosis, fever secondary to above, improving Hypertension Hyperlpidemia Prediabetes/Diabetes with A1C of 6.4 History of prostate disorder Plan: This is a pleasant 71 years old male who presents with complicated multiloculated empyema status post pigtail tube placement. Continue with Unasyn Continue with pigtail and alteplase instillations as per cardiothoracic surgery team Pulmonary team on the case. Labs and medication were reviewed.. Continue same treatment. Continue with symptomatic treatment. Resume home medication. Monitor lytes and vitals. DVT and GI prophylaxis. Further recommendations as per clinical course of the patient GI Prophylaxis: Protonix
[2022-02-12 06:47] LABS: HCT 30.9 % (39.0-53.0); Hypochromasia Slight; MCH 30.2 pg (25.0-35.0); MCHC 32.5 g/dL (31.0-37.0); MCV 92.7 fL (80.0-100.0); Mean Platelet Volume 7.1; Platelet Count 494 k/uL (150-450); RBC 3.33 m/uL (4.30-5.90); RDW 12.7 % (11.5-15.5); WBC 8.4 k/uL (3.8-10.6)
[2022-02-12 07:08] LABS: African American GFR (CKD) >90 (>60 ml/min/1.73 sqM); Anion Gap 4 mmol/L; Blood Urea Nitrogen 16 mg/dL (9-20); Calcium 7.9 mg/dL (8.4-10.2); Carbon Dioxide 29 mmol/L (22-30); Chloride 102 mmol/L (98-107); Glucose 117 mg/dL (74-99); Non-African American GFR(CKD) >90 (>60 ml/min/1.73 sqM); Potassium 4.3 mmol/L (3.5-5.1); Sodium 135 mmol/L (137-145)
[2022-02-12] MEDS: AMPICILLIN-SULBACTAM 3 GM in SODIUM CHLORIDE 0.9% 100 ML IVPB SCH ×3 (07:16→17:53)
[2022-02-12] MEDS: KETOROLAC 15 MG/ML 1 ML VIAL IVP SCH ×2 (07:19→12:21)
--- NOTE | 2022-02-12 07:32 | P.PN ---
Subjective Progress Note Date: 02/11/22 Principal diagnosis: Left-sided empyema Patient is a 71 year male presented to the hospital with left-sided chest pain and fever and cough has been diagnosed with a left-sided loculated effusion concerning for empyema in this patient who is status post chest tube placement on 02/03/2022 which unfortunately did fell off 02/05/2022 and was reinserted on 02/06/2022 and is status post alteplase infusion 2 On today's evaluation that is 02/11/2022, the patient continuous to be afebrile, the patient is breathing comfortably on room air, the patient left-sided chest pain has decreased in intensity, the patient cough has decreased intensity and not bringing up any sputum, patient denies abdominal pain no diarrhea Objective - Vital Signs Vital signs: Vital Signs Temp 98.5 F 02/11/22 05:39 Pulse 73 02/11/22 05:39 Resp 18 02/11/22 05:39 BP 114/70 02/11/22 05:39 Pulse Ox 94 L 02/11/22 05:39 FiO2 21 02/08/22 07:54 Intake & Output 02/10/22 02/11/22 02/11/22 18:59 06:59 18:59 Intake Total 200 400 Output Total 250 0 Balance -50 400 Intake: Intake, IV Titration 200 Amount Ampicillin-Sulbactam 3 gm 200 In Sodium Chloride 0.9% 100 ml @ 200 mls/hr IVPB Q6HR [facility] Rx#:[id number] Oral 400 Output: Chest Tube Drainage 250 0 Chest Tube Left Posterior 250 0 Chest Other: Voiding Method Toilet # Voids 2 - Exam GENERAL DESCRIPTION: An elderly male lying in bed in no distress RESPIRATORY SYSTEM: Unlabored breathing , decreased breath sounds at left base HEART: S1 S2 regular rate and rhythm , ABDOMEN: Soft , no tenderness EXTREMITIES: No edema feet - Labs CBC & Chem 7: 02/12/22 05:54 02/12/22 05:54 Labs: Abnormal Lab Results - Last 24 Hours (Table) 02/10/22 02/11/22 Range/Units 16:58 07:23 POC Glucose (mg/dL) 186 H 131 H (70-110) mg/dL Microbiology - Last 24 Hours (Table) 02/06/22 12:05 Gram Stain - Preliminary Pleural Fluid Body Fluid Culture - Preliminary Assessment and Plan (1) Pleural effusion, left Current Visit: Yes Status: Acute Code(s): J90 - PLEURAL EFFUSION, NOT ELSEWHERE CLASSIFIED SNOMED Code(s): 15013432 Plan: 1patient presented to hospital with sepsis source is left-sided pneumonia and empyema more likely from a community-acquired pathogen as the patient seem to have not received an antibiotic in the outpatient setting status post IR chest tube placement and fluid has been sent for the culture which has been finalized alphahemolytic streptococcus. 2patient slowly clinically improving, white count has normalized, patient to continue with Unasyn and will transition to IV Rocephin on discharge Time with Patient: Less than 30
[2022-02-12 07:34] LABS: Glucose,Whole Blood 136 mg/dL (70-110)
--- NOTE | 2022-02-12 08:32 | XR ---
EXAMINATION TYPE: XR chest 2V DATE OF EXAM: 02/12/2022 COMPARISON: 621 2 TECHNIQUE: PA and lateral views submitted. HISTORY: Chest tube placement FINDINGS: Persistent large air-fluid level in the left hemithorax. Difficult to determine the location of the c hest tube relative to the x-ray. Right lung demonstrates a small right pleural effusion. Heart size s table. Left lower lobe consolidation. Correlate for COPD IMPRESSION: Persistent area of consolidation, pleural effusion and loculated air-fluid level in the l eft hemithorax unchanged from prior exam.
[2022-02-12] MEDS: INSULIN ASPART (NovoLOG) 100 UNIT/ML VIAL SQ SCH ×8 (09:23→22:21)
[2022-02-12] MEDS: MAGNESIUM OXIDE 400 MG TAB PO SCH (09:27)
[2022-02-12] MEDS: PANTOPRAZOLE 40 MG TABLET PO SCH (09:27)
[2022-02-12 10:34] LABS: Glucose,Whole Blood 189 mg/dL (70-110)
--- NOTE | 2022-02-12 11:07 | P.PN ---
Subjective Progress Note Date: 02/12/22 Principal diagnosis: Complicated parapneumonic effusion/empyema left lower lobe, leukocytosis. Previous medical history of hypertension, hyperlipidemia, BPH, lifetime nonsmoker. The patient was seen and examined this morning walking around his room in no acute distress on the medical surgical unit. He denies pain or shortness of breath. Left sided pigtail catheter remains in place with essentially no output. No lytics were instilled yesterday. Dr. Butcher met with the patient and his , plan is for left video assisted thoracoscopy with decortication tomorrow. Patient is agreeable. No other new concerns. Objective - Vital Signs Vital signs: Vital Signs Temp 98.4 F 02/12/22 06:09 Pulse 79 02/12/22 06:09 Resp 16 02/12/22 06:09 BP 129/76 02/12/22 06:09 Pulse Ox 93 L 02/12/22 06:09 FiO2 21 02/11/22 20:24 Intake & Output 02/11/22 02/12/22 02/12/22 18:59 06:59 18:59 Intake Total 200 Output Total 0 0 Balance 200 0 Intake: Intake, IV Titration 200 Amount Ampicillin-Sulbactam 3 gm 200 In Sodium Chloride 0.9% 100 ml @ 200 mls/hr IVPB Q6HR [facility] Rx#:[id number] Output: Chest Tube Drainage 0 Chest Tube Left Posterior 0 Chest Drainage 0 Left Back 0 Other: Voiding Method Toilet # Voids 0 # Bowel Movements 0 - Exam CONSTITUTIONAL: Ambulating in his room, appears comfortable, cooperative, no apparent acute distress. RESPIRATORY: Lungs sounds diminished to the left side. Respirations are even, nonlabored. Currently on room air with oxygen saturations 94%. Able to achieve 3000 mL on his incentive spirometry. Strong cough. Left chest pigtail catheter in place to low continuous wall suction -20 cm H2O. No air leak is present. Essentially no output in the last 24 hours. CARDIOVASCULAR: Regular rhythm and rate. S1 and S2 present. Palpable peripheral pulses bilaterally. No calf pain or tenderness noted. GASTROINTESTINAL: Abdomen soft, nontender, nondistended. Active bowel sounds present 4 quadrants. Tolerating diet. GENITOURINARY: Continues to void. INTEGUMENTARY: Skin is warm and dry NEUROLOGIC: Cranial nerves II through XII intact. No focal deficits. MUSKULOSKELETAL: Able to move all extremities, strength equal bilaterally. PSYCHIATRIC: Alert and oriented to person place and time, appropriate affect, intact judgment and insight. - Allied health notes Allied health notes reviewed: nursing - Labs CBC & Chem 7: 02/12/22 05:54 02/12/22 05:54 Labs: Abnormal Lab Results - Last 24 Hours (Table) 02/11/22 02/11/22 02/12/22 Range/Units 17:49 20:43 05:54 RBC 3.33 L (4.30-5.90) m/uL Hgb 10.0 L (13.0-17.5) gm/dL Hct 30.9 L (39.0-53.0) % Plt Count 494 H (150-450) k/uL Sodium (137-145) mmol/L Glucose (74-99) mg/dL POC Glucose (mg/dL) 145 H 132 H (70-110) mg/dL Calcium (8.4-10.2) mg/dL 02/12/22 02/12/22 Range/Units 05:54 07:33 RBC (4.30-5.90) m/uL Hgb (13.0-17.5) gm/dL Hct (39.0-53.0) % Plt Count (150-450) k/uL Sodium 135 L (137-145) mmol/L Glucose 117 H (74-99) mg/dL POC Glucose (mg/dL) 136 H (70-110) mg/dL Calcium 7.9 L (8.4-10.2) mg/dL Microbiology - Last 24 Hours (Table) 02/06/22 12:05 Gram Stain - Final Pleural Fluid Body Fluid Culture - Final - Imaging and Cardiology Chest x-ray: report reviewed, image reviewed Assessment and Plan Assessment: 1. Complicated parapneumonic effusion/empyema left lower lobe, status post insertion of pigtail catheter and installation of lytic therapy x 7 doses 2. Persistent cough, fever, sweats, chills, pain with deep inspiration on admission 3. Leukocytosis, pleural fluid positive for alpha hemolytic strep 4. History of hypertension 5. History of hyperlipidemia 6. History of prostate disorder 7. Never smoker Plan: 1. Keep left pleural chest pigtail catheter in place to low continuous wall suction -20 cm H2O. Films were reviewed with Dr. Butcher, we are planning left video assisted thoracoscopy with decortication tomorrow. This was discussed with the patient and his and they are in agreement. 2. Encourage use of his incentive spirometry 10 times every hour while awake. 3. Pain control per current current medication regimen 4. Continue to monitor daily labs and chest x-rays. 5. Increase activity as tolerated. Out of bed for all meals. 6. Continue on Unasyn managed by infectious disease management. 7. More recommendations to follow
--- NOTE | 2022-02-12 11:42 | P.PN ---
Subjective Progress Note Date: 02/12/22 71-year-old male patient, a nonsmoker, no previous history of lung disease, who developed pneumonialike symptoms approximately 6 weeks ago. The patient had congestion, shortness of breath and pleurisy involving the left lung. He was given IV Rocephin for an urgent care and later on steroids with primary care physician. Nevertheless, he never recovered. He was having ongoing chest discomfort on the left. He was also having sweats and chills and episodic fever. He was getting progressively more weak and for that reason he came in to the hospital for further evaluation. The patient has not had any exposure or infection with COVID 19. He has not been vaccinated also. He has no altered mentation. No hemoptysis for now. The patient had a white cell count of 18.7 with a hemoglobin of 11. The blood work showed initial sodium of 129 and that came at 137 within the treatment. BUN was 21 with a creatinine of 0.6 and coagulation profile was essentially within normal limits. The chest x-ray not done and the patient underwent a CT angiogram that showed no this of any pulmonary embolism. There was large loculated or multiloculated left-sided pleural effusion with possibility of underlying empyema. Right lung was essentially clear. The patient was started on IV Zosyn and the patient was hospitalized. A pulmonary palpation was requested. No previous bouts of pneumonias. No chest trauma. No 70 malignancy. No TB exposure. 02/02/2022, the patient is clinically stable on antibiotics. He still has some pleuritic left-sided chest wall pain. I made recommendations for a pigtail c atheter insertion by interventional radiology and this has not been done. I do not think day services of interventional radiology are available on the weekend. This was done tomorrow. The patient remains on IV Zosyn for now. Thoracic surgery is also involved in the case. On 02/03/2022 patient seen in follow-up on medical surgical floor. He is awake, in no acute distress, did have fever spikes overnight with T-max of 101.2F, room air pulse ox is 94%. Doesn't appear to be any acute distress at rest, however does have exertional dyspnea and occasional cough and some pleuritic left-sided chest wall pain. Patient was seen by CT surgery consultation, and the recommendation is made for placement of CT-guided pigtail chest tube catheter in the left pleural space. He continues on antibiotics he is on Zosyn. On 02/04/2022 patient seen in follow-up on medical surgical floor. Yesterday h ad a left-sided pigtail chest tube catheter. And overnight his had a total of 1000 mL of purulent drainage from the pigtail. Patient received a dose of alteplase and dornase by CT surgery. Today's chest x-ray showing persistent multilocular pleural effusion with indwelling chest tube, and no evidence of his old pneumothorax. Patient remains on Zosyn for antibiotic coverage, vital signs have been stable, his been afebrile, blood pressure stable, he is working on incentive spirometer. Today's labs have been reviewed showing white blood cell count of 10.6, hemoglobin of 10.4, sodium is 137, potassium is 4.3, chloride is 100, CO2 is 29, BUN is 18 creatinine 0.7. Pleural fluid analysis showed 7400 white blood cells, 96 of holiday clear white blood cells. Fluid glucose was less than 2, fluid protein was 4.8 g, LDH was greater than 2500, consistent with empyema. Pleural fluid cultures have shown no growth thus far. Blood cultures have been negative. On 02/05/2022 patient seen in follow-up medical surgical floor. Left-sided chest tube remains in place, and there has been an additional 400 mL of purulent pleural fluid drainage in the last 24 hours. Left-sided chest tube is to water seal, no evidence of air leak. Low-grade fever this morning, with a T-max of 99 point degrees Fahrenheit. Patient is breathing comfortably, he is working on incentive spirometer, his pleuritic chest pain is improved. Chest x-ray showing stable persistent multilocular effusion. Today's labs are pending, but vital signs have been stable. CT surgery is following and patient will receive anot her dose of alteplase and dornase. Pleural fluid cultures are still pending, Gram stain showing no organisms but multiple PMNs. On 02/06/2022 patient seen in follow-up on medical surgical floor. Yesterday's CT of the chest showed persistent loculated left-sided pleural effusion, persistent consolidation and thickening of the left lung base, and the pigtail chest tube catheter was difficult to visualize, and was thought to have been dislodged. Patient did receive additional dose of alteplase and dornase yesterday, he did put out 150 ML of fluid in the last [address] surgery is following, case was discussed with them, patient remains on antibiotics however in view of persistent loculated pleural effusion, and consolidation, the decision had been made to remove the pigtail catheter and have interventional radiology replaces with another pigtail catheter. Clinically patient is stable, no worsening dyspnea, no worsening chest discomfort, his white blood cell count is fairly stable, at 11.4, hemoglobin is 11.1, electrolytes are within normal limits, B1 is 21 creatinine 0.83. His Pleural fluid cultures have shown no growth thus far. The patient is seen today 02/07/2022 in follow-up on the regular medical floor. He is currently sitting up in a chair at the bedside. Awake and alert in no acute distress. Maintaining good O2 saturations in the 90s on room. He is currently afebrile. He did undergo a repeat left-sided CT-guided Pigtail chest tube placement yesterday. Currently -20 cm wall suction. Today's chest x-ray shows improved aeration, persistent abnormal density obscuring the left hemidiaphragm, blunting of left costophrenic ample. No pneumothorax. He is to receive alteplase/dornase again today per CT services. He remains on Zosyn. The plan is for PICC line placement today. White count 10.8. Hemoglobin 10.1. Platelets 454. Sodium 139. Potassium 4.4. Chloride 103. BUN 13. Creatinine 0.7. Glucose 126. The patient is seen today 02/08/2022 in follow-up on the regular medical floor. He is currently up ambulating in the hallway. He quite well. No worsening shortness of breath, cough or congestion. Chest x-ray reveals persistent loculated left pleural effusion with inflammatory changes. Chest tube remains in place. Remains on low continuous suction -20 cm water. The plan is for another dose of alteplase/dornase per CT services. Left sided PICC line in place. Pleural fluid cultures positive for alphahemolytic streptococcus. He is currently on Unasyn per ID services. Blood glucose 114. The patient is seen today 02/09/2022 in follow-up on the regular medical floor. He is currently sitting up at the bedside. Awake and alert in no acute distress. Maintaining O2 saturations in the 90s on room air. Left-sided chest tube remains in place to wall suction -20 cm. Approximately 700 ML's of fluid was returned post alteplase/dornase infusion yesterday. He remains on Unasyn. Follow-up computed tomography scan of the chest pending. The patient is seen today 02/10/2022 in follow-up on the regular medical floor. He is currently sitting up at the bedside. Awake and alert in no acute distress. Maintaining good O2 saturations in the 90s on room air. He remains afebrile. Hemodynamically stable. Computed tomography scan of the chest revealed a left posterior approach thoracotomy tube with decrease in the left upper lung loculated fluid collection. There remains fluid collection within the lung base. A fluid collection within the left major fissure now demonstrates foci of gas suggesting some communication to the pigtail catheter but majority of fluid remains within this collection. Until catheter to wall suction. Additional 810 ML's of fluid removed yesterday after alteplase/dornase infusion. Chest x-ray revealed no change in the pleural marginal changes within the left lung consistent with empyema, loculated pleural effusion and associated atelectasis, inflammatory change. Pleural fluid was positive for alpha hemolytic streptococcus. The patient remains on Unasyn. The patient is seen today 02/12/2022 in follow-up on the regular medical floor. He is currently awake and alert in no acute distress. Sitting up at the bedside. He is maintaining O2 saturation in the 90s on room air. Normal saline at 20 ML's per hour. Chest x-ray continues to show persistent areas of consolidation, pleural effusion and loculated air-filled level of the left hemithorax. Left-sided pigtail catheter remains in place. The fluid initially was positive for alphahemolytic Streptococcus. He did not receive a lteplase/dornase yesterday. White count 8.4. Hemoglobin 10.0. Platelets 494. Sodium 135. Potassium 4.3. BUN 16. Creatinine 0.78. He remains on Unasyn. Objective - Vital Signs Vital signs: Vital Signs Temp 98.4 F 02/12/22 06:09 Pulse 79 02/12/22 06:09 Resp 16 02/12/22 06:09 BP 129/76 02/12/22 06:09 Pulse Ox 93 L 02/12/22 06:09 FiO2 21 02/11/22 20:24 Intake & Output 02/11/22 02/12/22 02/12/22 18:59 06:59 18:59 Intake Total 200 Output Total 0 0 Balance 200 0 Intake: Intake, IV Titration 200 Amount Ampicillin-Sulbactam 3 gm 200 In Sodium Chloride 0.9% 100 ml @ 200 mls/hr IVPB Q6HR [facility] Rx#:[id number] Output: Chest Tube Drainage 0 Chest Tube Left Posterior 0 Chest Drainage 0 Left Back 0 Other: Voiding Method Toilet # Voids 0 # Bowel Movements 0 - Exam GENERAL EXAM: Alert, 71-year-old male, on room air with pulse ox of 93%, comf ortable in no apparent distress. HEAD: Normocephalic/atraumatic. EYES: Normal reaction of pupils, equal size. Conjunctiva pink, sclera white. NOSE: Clear with pink turbinates. THROAT: No erythema or exudates. NECK: No masses, no JVD, no thyroid enlargement, no adenopathy. CHEST: No chest wall deformity. Left-sided pigtail catheter remains secured in place LUNGS: Diminished breath sounds over left lower lobe with some crackles CVS: Regular rate and rhythm, normal S1 and S2, no gallops, no murmurs, no rubs ABDOMEN: Soft, nontender. No hepatosplenomegaly, normal bowel sounds, no guarding or rigidity. EXTREMITIES: No clubbing, no edema, no cyanosis, 2+ pulses and upper and lower extremities. MUSCULOSKELETAL: Muscle strength and tone normal. SPINE: No scoliosis or deformity SKIN: No rashes CENTRAL NERVOUS SYSTEM: No focal deficits, tone is normal in all 4 extremities. PSYCHIATRIC: Alert and oriented -3. Appropriate affect. Intact judgment and insight. - Labs CBC & Chem 7: 02/12/22 05:54 02/12/22 05:54 Labs: Abnormal Lab Results - Last 24 Hours (Table) 02/11/22 02/11/22 02/12/22 Range/Units 17:49 20:43 05:54 RBC 3.33 L (4.30-5.90) m/uL Hgb 10.0 L (13.0-17.5) gm/dL Hct 30.9 L (39.0-53.0) % Plt Count 494 H (150-450) k/uL Sodium (137-145) mmol/L Glucose (74-99) mg/dL POC Glucose (mg/dL) 145 H 132 H (70-110) mg/dL Calcium (8.4-10.2) mg/dL 02/12/22 02/12/22 02/12/22 Range/Units 05:54 07:33 10:33 RBC (4.30-5.90) m/uL Hgb (13.0-17.5) gm/dL Hct (39.0-53.0) % Plt Count (150-450) k/uL Sodium 135 L (137-145) mmol/L Glucose 117 H (74-99) mg/dL POC Glucose (mg/dL) 136 H 189 H (70-110) mg/dL Calcium 7.9 L (8.4-10.2) mg/dL Microbiology - Last 24 Hours (Table) 02/06/22 12:05 Gram Stain - Final Pleural Fluid Body Fluid Culture - Final Assessment and Plan Assessment: 1 Complicated multiloculated parapneumonic left-sided pleural effusion, complication of the previously under treated pneumonia, status post left chest pigtail catheter placement with drainage of large amount of purulent material, and pleural fluid analysis is consistent with empyema, pleural fluid cultures positive for alpha hemolytic streptococcus, now on Unasyn. Pigtail catheter replaced on 02/06/2022. Repeat computed tomography scan of the chest on 02/09/2022 showed persistent left-sided loculated empyema, and consolidation. The plan is for VATS procedure with decortication possibly 02/13/2022. 2 Shortness of breath and pleuritic chest pain related to the above 3 Fever, leukocytosis related to the above, improved 4 Hypertension 5 Hyperlipidemia 6 Nonsmoker Plan: The patient was seen and evaluated Chest x-ray, medications and labs reviewed Pigtail catheter remains in place to the left chest Currently on Unasyn Remains on room air oxygen Possible VATS procedure with decortication tomorrow We'll continue to follow I have personally seen and examined the patient, performed the documentation and the assessment and plan as written. Number of minutes spent on the visit: 10.
[2022-02-12 11:56] LABS: Glucose,Whole Blood 123 mg/dL (70-110)
[2022-02-12 17:29] LABS: Glucose,Whole Blood 131 mg/dL (70-110)
--- NOTE | 2022-02-12 19:38 | P.PN ---
Subjective This is a 71 year old male with past medical history significant for hypertension, hyperlipidemia. He presents with 3 days of fever, shortness of br eath and pleuritic chest pain. States about 6 weeks ago he began having cough and was evaluated in the clinic and IM antibiotic injection. Also had outpatient chest xray done. He was given steroids by his primary care provider. He states it didn't seem to help and was concerned when he developed fever and weakness with congestion. He is nonsmoker, reports no marijuana use. He does not work in a factor type setting, denies exposure to toxins. He rides a motorcycle and states he notice trouble breathing after a long ride which is unusual for him. He is overall healthy. On admission chest CTA has been completed showing large loculated left pleural effusions with infiltrate, and atelectasis left lower lobe. There is concern for empyema and patient was started on empiric antibiotic coverage with zosyn. Pulmonary has evaluated the patient and IR has been consulted for pigtail cathter insertion. IR is not available until Thursday. Cardiothoracic has also been consulted. Patient for now is maintained oxygen saturation of 92% on room air. He presents with fever 100.5, heart rate 75, blood pressure 120/70. White count 18.7, hgb 11.6, sodium 129, potassium 4.3, glucose is 208. Troponin negative. 02/02/2022 Patient is evaluated today sitting up in bed. is at the bedside. Plan is for pigtail catheter insertion with IR tomorrow and cardiothoracic has been consulted for management. Pulmonary is following the patient closely. He continues on room air, however has stated he has increased cough, no sputum production. Also complains of left sided pleuritic pain, he has had motrin 400 m g ordered however he has not received. Did also add a low dose of tramadol for pain management. He continues on IV zosyn for empiric antibiotic coverage. Blood cultures are negative so far. He has remained afebrile, heart rate 98, blood pressure 153/77, 91% on room air. Labs reviewed today showing white count 16.30, hgb 10.8, sodium 136, potassium 4.6. Blood glucose in the 130s. A1C is 6.4 which is on the cusp of prediabetes vs. diabetes, will discuss with patient tomorrow and patient will discharge on an oral diabetic agent. 02/03/2022 Patient sitting up in chair pending IR placement of pigtail catheter. He had increased pain to his left side and was given low dose of tramadol which he states did help his pain. He is short of breath today, he is using his incentive spirometer, also he has requested cough medicine and it has been ordered as needed. He had a T-Max overnight of 101.2. He continues on IV Zosyn. Blood pressure today 126/73. Labs reviewed today showing white count 15.84, hgb 11.1, sodium 133, potassium 4.7, blood glucose 150s. 02/04/2022 Patient evaluated today sitting up in the chair. He underwent pigtail catheter placement with alteplase injection through catheter and he has had fair output 375 mls last night and 115 mls today so far from drainage tube which is mostly purulent. He underwent a second alteplase infusion today. Chest xray today showing persistent multilocular effusions, with indwelling chest tube. No pneumothorax. Cardiothoracic and pulmonary are following this patient. He has been encouraged to continue with cough and deep breathing and also to continue with incentive spirometry. He continues on IV zosyn. Pleural fluid and blood cultures are pending. Reports pain has improved today, he is receiving IV dilaudid and tramadol as needed. Labs today are showing white count of 10.68, hgb 10.4, sodium 137, potassium 4.3, BUN 18.0, creatinine 0.7, magnesium 2.2. Blood glucose trending down. He has remained afebrile in the last 24 hours, h eart rate 85, blood pressure 121/69, 90% room air. 02/05/2022 Patient evaluated today resting in bed, he had third alteplase injection today. Resting in bed on back during examination to begin turning rotation. Chest x- ray shows no significant interval change as before redemonstrates a loculated effusion. He reports diarrhea 1-2 times overnight. He has been maintained on IV zosyn. Labs today showed white count 10.21, hemoglobin 10.3. His T-max last night was 99 he states that he does have night sweats still, heart rate 76, blood pressure 129/75, 93% pulse oximetry. Ambulating without difficulty in the hallways. His pleural cytology has resulted showing acute inflammation consistent with empyema without evidence for malignancy. Blood glucose in the 130s. 02/06/2022 Pigtail catheter was removed yesterday as there was possibility it had dislodged and pigtail catheter will be reinserted by interventional radiology. He did have 150 mL of output from the pigtail catheter yesterday. IV fluids have been discontinued patient does have some mild peripheral edema and compression stoc kings have been ordered. He continues to ambulated in the hallways and is using incentive spirometer as recommended. Labs today; white count 11.4, hemoglobin 11.1, sodium 138, potassium 5.0, BUN 21, creatinine 0.83, blood glucose in the 120s. Patient continues on IV antibiotics, cultures are negative so far. He is being followed closely by pulmonary, infectious disease and cardiothoracic consultation. There is a possibility patient may still require VATS procedure. He does complain of some loose stool, most likely for antibiotics, he is on GI prophylaxis and also immodium. Denies nausea, vomiting. 02/07/2022 Patient is status post let CT guided pigtail catheter reinsertion and had alteplase and dornase injected into catheter again today. Chest tube is set to - 20 mc wall suctin. 140 mLs of drainage from catheter today. Chest xray today showing interval improvement and reduction in the patients pleural effusion. There is also improvement in aeration with persistent density which obscurs the left hemidiaphragm. Subcutaneous emphysema questionable over the right chest. Labs today show white count 10.84, hemoglobin 10.1, sodium 139, potassium 4.4, BUN 13.3, creatinine 0.7. Blood glucose in the 120s. Calcium 1.8. Cytology from pigtail catheter insertion today is pending. Continues on IV ampicillin, patient will have PICC Line placed today. He is being followed by pulmonary, cadiothoracic and infectious disease. 02/08/2022 Patient evaluated today sitting up in bed. He continues with cough, and states it is non productive. He has pigtail catheter in place, low continuous suction - 20 cm wall. Repeat chest xray today demonstrates persistent left loculated pleural effusion with inflammatory changes. He is being managed by pulmonary and cardiothoracic disease. Plan today is for another dose of alteplase/dornase per CT services. Pleural fluid cultures are now positive for alphahemolytic strep and he remains on IV unasyn and is being followed closely by infectious disease services. Patient has PICC line in place. Blood glucose remains stable and he continues on sliding scale insulin. Plan to repeat CBC and BMP tomorrow. He has t max 99.4 through out the night, heart rate 83, blood pressure 114/72, 91% on room air. He is using incentive spirometer and ambulating the halls without difficulty. He has bilateral ankle edema, IV fluids have been stopped. 02/09/2022 Patient status post complicated multi-loculated left pleural effusion and empyema status post pigtail catheter drainage and alteplase instillations yesterday and today. His culture was growing alphahemolytic streptococci and currently covered with Unasyn. Coronary and her to thoracic surgery team on the case. Repeat CT of the chest without contrast today showing decreased from the fluid but the majority of the fluid remains within the collection. No more fever. Mild leukocytosis. Rest of labs and vitals are stable. 02/10/2022 Patient still with the right-sided pigtail chest tube. Chest x-ray from today so same changes with left-sided empyema and possible atelectasis/pneumonia. He is undergoing another treatment with alteplase/dornase with cardiothoracic surgery team. Patient continued on Unasyn 02/11/2022 Patient still with persistent left lower lung base loculated pleural effusion and empyema and his been covered with appropriate antibiotics with Unasyn based on his culture results. His empyema looks improved but not resolved and still there is persistent fluid. Also there is air-fluid level suggestive of hydropneumothorax on the left side. Because of this patient is followed closely by cardiothoracic surgery team or plan on doing decortication surgery on 02/13. Other than that patient is breathing quietly with no chest pain or significant cough and while at rest. Also he is hemodynamically stable 02/12/2022 Patient clinically is the same, I still have left bigtail chest tube His hemodynamically stable. He remains on Unasyn. Patient is planned for decortication procedure tomorrow Objective - Vital Signs Vital signs: Vital Signs Temp 98.4 F 02/12/22 06:09 Pulse 79 02/12/22 06:09 Resp 16 02/12/22 06:09 BP 129/76 02/12/22 06:09 Pulse Ox 93 L 02/12/22 06:09 FiO2 21 02/11/22 20:24 Intake & Output 02/11/22 02/12/22 02/12/22 18:59 06:59 18:59 Intake Total 200 Output Total 0 0 Balance 200 0 Intake: Intake, IV Titration 200 Amount Ampicillin-Sulbactam 3 gm 200 In Sodium Chloride 0.9% 100 ml @ 200 mls/hr IVPB Q6HR [facility] Rx#:[id number] Output: Chest Tube Drainage 0 Chest Tube Left Posterior 0 Chest Drainage 0 Left Back 0 Other: Voiding Method Toilet # Voids 0 # Bowel Movements 0 - Exam GENERAL: The patient is alert and oriented x3, not in any acute distress. Well developed, well nourished. HEENT: Pupils are round and equally reacting to light. EOMI. No scleral icterus. No conjunctival pallor. Normocephalic, atraumatic. No pharyngeal erythema. No thyromegaly. CARDIOVASCULAR: S1 and S2 present. No murmurs, rubs, or gallops. -PULMONARY: Chest is clear to auscultation, no wheezing or crackles. Left pigtail to put in a Place ABDOMEN: Soft, nontender, nondistended, normoactive bowel sounds. No palpable organomegaly. MUSCULOSKELETAL: No joint swelling or deformity. EXTREMITIES: No cyanosis, clubbing, or pedal edema. NEUROLOGICAL: Gross neurological examination did not reveal any focal deficits. SKIN: No rashes. no petechiae. - Labs CBC & Chem 7: 02/12/22 05:54 02/12/22 05:54 Labs: Abnormal Lab Results - Last 24 Hours (Table) 02/11/22 02/11/22 02/12/22 Range/Units 17:49 20:43 05:54 RBC 3.33 L (4.30-5.90) m/uL Hgb 10.0 L (13.0-17.5) gm/dL Hct 30.9 L (39.0-53.0) % Plt Count 494 H (150-450) k/uL Sodium (137-145) mmol/L Glucose (74-99) mg/dL POC Glucose (mg/dL) 145 H 132 H (70-110) mg/dL Calcium (8.4-10.2) mg/dL 06/22/22 06/22/22 06/22/22 Range/Units 05:54 07:33 10:33 RBC (4.30-5.90) m/uL Hgb (13.0-17.5) gm/dL Hct (39.0-53.0) % Plt Count (150-450) k/uL Sodium 135 L (137-145) mmol/L Glucose 117 H (74-99) mg/dL POC Glucose (mg/dL) 136 H 189 H (70-110) mg/dL Calcium 7.9 L (8.4-10.2) mg/dL Microbiology - Last 24 Hours (Table) 02/06/22 12:05 Gram Stain - Final Pleural Fluid Body Fluid Culture - Final Assessment and Plan Assessment: Loculated complicated multiloculated left side pleural effusion with empyema suspected pneumonia, he is status post pigtail catheter placement and has undergoing rounds of alteplase/dornase. Mild sepsis, Leukocytosis, fever secondary to above, improving Hypertension Hyperlpidemia Prediabetes/Diabetes with A1C of 6.4 History of prostate disorder Plan: This is a pleasant 71 years old male who presents with complicated multiloculated empyema status post pigtail tube placement. Continue with Unasyn Continue with pigtail and alteplase instillations as per cardiothoracic surgery team Pulmonary team on the case. Labs and medication were reviewed.. Continue same treatment. Continue with symptomatic treatment. Resume home medication. Monitor lytes and vitals. DVT and GI prophylaxis. Further recommendations as per clinical course of the patient GI Prophylaxis: Protonix
[2022-02-12] MEDS: LOSARTAN 50 MG TAB PO SCH (20:12)
[2022-02-12] MEDS: MELATONIN 3 MG TABLET PO SCH (20:12)
[2022-02-12] MEDS: hydroCHLOROthiazide 12.5 MG CAP PO SCH (20:12)
[2022-02-12] MEDS: ATORVASTATIN 10 MG TAB PO SCH (20:13)
[2022-02-12 21:01] LABS: Glucose,Whole Blood 167 mg/dL (70-110)
[2022-02-13] MEDS: AMPICILLIN-SULBACTAM 3 GM in SODIUM CHLORIDE 0.9% 100 ML IVPB SCH ×4 (00:39→19:00)
[2022-02-13 07:31] LABS: Glucose,Whole Blood 109 mg/dL (70-110)
[2022-02-13] MEDS: INSULIN ASPART (NovoLOG) 100 UNIT/ML VIAL SQ SCH ×8 (08:25→22:30)
[2022-02-13] MEDS: PANTOPRAZOLE 40 MG TABLET PO SCH (09:02)
[2022-02-13] MEDS: MAGNESIUM OXIDE 400 MG TAB PO SCH (09:02)
--- NOTE | 2022-02-13 10:20 | P.PN ---
Subjective Progress Note Date: 02/13/22 Principal diagnosis: Empyema. The patient is seen today 02/08/2022 in follow-up on the regular medical floor. He is currently up ambulating in the hallway. He quite well. No worsening shortness of breath, cough or congestion. Chest x-ray reveals persistent loculated left pleural effusion with inflammatory changes. Chest tube remains in place. Remains on low continuous suction -20 cm water. The plan is for another dose of alteplase/dornase per CT services. Left sided PICC line in place. Pleural fluid cultures positive for alphahemolytic streptococcus. He is currently on Unasyn per ID services. Blood glucose 114. The patient is seen today 02/09/2022 in follow-up on the regular medical floor. He is currently sitting up at the bedside. Awake and alert in no acute distress. Maintaining O2 saturations in the 90s on room air. Left-sided chest tube remains in place to wall suction -20 cm. Approximately 700 ML's of fluid was returned post alteplase/dornase infusion yesterday. He remains on Unasyn. Follow-up computed tomography scan of the chest pending. The patient is seen today 02/10/2022 in follow-up on the regular medical floor. He is currently sitting up at the bedside. Awake and alert in no acute distress. Maintaining good O2 saturations in the 90s on room air. He remains afebrile. Hemodynamically stable. Computed tomography scan of the chest revealed a left posterior approach thoracotomy tube with decrease in the left upper lung loculated fluid collection. There remains fluid collection within the lung base. A fluid collection within the left major fissure now demonstrates foci of gas suggesting some communication to the pigtail catheter but majority of fluid remains within this collection. Until catheter to wall suction. Additional 810 ML's of fluid removed yesterday after alteplase/dornase infusion. Chest x-ray revealed no change in the pleural marginal changes within the left lung consistent with empyema, loculated pleural effusion and associated atelectasis, inflammatory change. Pleural fluid was positive for alpha hemolytic streptococcus. The patient remains on Unasyn. Progress note dated 02/11/2022. The patient is seen today on 535. He's currently on room air. He is receiving antibiotics for his empyema. Apparently no decision has been made by cardiothoracic surgery regards to possible decortication. Clinically, the patient is stable. No new laboratory data today. Chest x-ray shows volume los s, pleural effusion, and air-fluid level in the left lower lobe. Pleural fluid was positive for alpha-hemolytic streptococcus, the patient remains on Unasyn. Progress note dated 02/13/2022. The patient is again seen in room 535. The patient's on room air. The patient is scheduled to go to the operating room today, and have a decortication of his left lung. The patient has been receiving Unasyn for his empyema. Cultures apparently grew out alphahemolytic streptococci. The patient is not having any respiratory distress, or chest pain. He remains stable. No new labs today. No chest x-ray today. Objective - Vital Signs Vital signs: Vital Signs Temp 98 F 02/13/22 05:54 Pulse 80 02/13/22 05:54 Resp 16 02/13/22 05:54 BP 127/79 02/13/22 05:54 Pulse Ox 94 L 02/13/22 07:48 FiO2 21 02/13/22 07:48 Intake & Output 02/12/22 02/13/22 02/13/22 18:59 06:59 18:59 Output Total 0 0 Balance 0 0 Output: Chest Tube Drainage 0 0 Chest Tube Left Posterior 0 0 Chest Drainage 0 Left Back 0 Other: Voiding Method Toilet # Voids 3 2 # Bowel Movements 1 - Exam No acute distress, oriented 3. No respiratory distress. The patient's on room air. HEENT examination is grossly unremarkable. Neck supple. Full range of motion. No adenopathy thyromegaly or neck vein distention. Cardiovascular examination reveals regular rhythm rate. S1-S2 normal. No S3 or S4. No discernible murmur noted. Heart rate 80 bpm. Lungs reveal diminished breath sounds at the left base. Room air saturation is 95%. Scattered rhonchi noted. No wheezes or crackles. Abdomen soft bowel sounds are heard. No masses or tenderness. Extremities are intact. No cyanosis clubbing or edema. Skin is without rash or lesion. Neurologic examination is brief but nonfocal. - Labs CBC & Chem 7: 02/12/22 05:54 02/12/22 05:54 Labs: Abnormal Lab Results - Last 24 Hours (Table) 02/12/22 02/12/22 02/12/22 Range/Units 10:33 11:55 17:27 POC Glucose (mg/dL) 189 H 123 H 131 H (70-110) mg/dL 02/12/22 Range/Units 20:59 POC Glucose (mg/dL) 167 H (70-110) mg/dL Assessment and Plan Assessment: Complicated parapneumonic effusion/empyema, left lower lobe, status post insertion of the pigtail catheter 2, with infusion of TPA. Anticipated decortication of the left lung, 02/13/2022. Alpha-hemolytic streptococcal infection, left pleural space, currently on Unasyn. History of hypertension. History of hyperlipidemia. Nonsmoker. Plan: Plan dated 02/11/2022. The patient is clinically stable. Labs, x-rays, medications are reviewed. The patient's on appropriate antibiotics. We will continue to follow. Patient will be seen by cardiothoracic surgery, and they will make a decision as to whether or not the patient would benefit from decortication. Prognosis is guarded. The patient's on room air. He is very stable both from the respiratory standpoint, and hemodynamically. Plan dated 02/13/2022. The patient remains very stable. Labs, x-rays, medications are reviewed. The patient is planning to be going to the operating room today, for decortication on the left side. We'll continue to follow. The patient continues on Unasyn. No additional recommendations are made at this time. Time with Patient: Less than 30
[2022-02-13 11:56] LABS: Glucose,Whole Blood 110 mg/dL (70-110)
[2022-02-13] MEDS ORDERED: LACTATED RINGERS 1,000 ML IV ONE ×3 (13:45→18:29)
[2022-02-13] MEDS ORDERED: MIDAZOLAM 2 MG/2 ML VIAL IVP ONE (14:12)
[2022-02-13] MEDS ORDERED: NEOSTIGMINE 1 MG/ML 10 ML VIAL ONE (15:05)
[2022-02-13] MEDS ORDERED: fentaNYL (PF) 50 MCG/ML 2 ML AMP ONE (15:05)
[2022-02-13] MEDS ORDERED: KETAMINE 10 MG/ML 20 ML VIAL ONE (15:05)
[2022-02-13] MEDS ORDERED: SUCCINYLCHOLINE CHLORIDE 100 MG/5 ML SYR IV ONE (15:05)
[2022-02-13] MEDS ORDERED: GLYCOPYRROLATE 0.2 MG/ML 2 ML VIAL ONE (15:05)
[2022-02-13] MEDS ORDERED: ROCURONIUM 10 MG/ML (5 ML VIAL) IV ONE (15:05)
[2022-02-13] MEDS ORDERED: ALBUMIN HUMAN 5% (25gm) 500 ML VIAL IVPB ONE (15:05)
[2022-02-13] MEDS ORDERED: PHENYLEPHRINE-0.9% NACL SYG 1,000 MCG/10 ML SYRINGE ONE (15:05)
[2022-02-13] MEDS ORDERED: LIDOCAINE 2% INJ 20 MG/ML (2 ML VIAL) ONE (15:05)
[2022-02-13] MEDS ORDERED: .MORPHINE SULFATE (INJ) 10 MG/ML SYRINGE ONE (15:05)
[2022-02-13] MEDS ORDERED: PROPOFOL 10 MG/ML 20 ML VIAL IV ONE (15:05)
[2022-02-13] MEDS ORDERED: ePHEDrine 50 MG/ML 1 ML VIAL ONE (15:05)
[2022-02-13] MEDS ORDERED: MIDAZOLAM 2 MG/2 ML VIAL ONE (15:05)
[2022-02-13] MEDS ORDERED: SODIUM CHLORIDE 0.9% 50 ML with ceFAZolin 2,000 MG IV ONE ×2 (15:35)
[2022-02-13] MEDS ORDERED: BUPIVACAINE (PF) 0.5% 30 ML VIAL SQ ONE (15:44)
--- NOTE | 2022-02-13 18:28 | P.OP ---
Date of Procedure: 02/13/22 Preoperative Diagnosis: Empyema Postoperative Diagnosis: Empyema with lung abscess Procedure(s) Performed: 1. Diagnostic bronchoscopy 2. Video assisted thorascopic surgery coverted to open anterolateral thoracotomy 3. Complete decortication 4. Partial lung resection of left upper lobe. Implants: 32F Right angled chest tube 28F Apical chest tube Anesthesia: AVINASH Surgeon: Richard Butcher Estimated Blood Loss (ml): 750 Pathology: other (left lung rind) Condition: stable Disposition: PACU Indications for Procedure: This patient is an otherwise healthy 71 year-old who presented with a left sided empyema. He underwent pigatil placement and serial doses of tPA. Despite this his repeat CT scan showed some retained fluid collection at the base and a huge pock of fluid in the fissure. Given that he was an otherwise healthy and active 71 year-old, decortication was recommended. The patient was in agreement and wanted to proceed with surgery. Operative Findings: Large lung abscess associated with the left upper lobe. I was unable to unroof the abscess and perform decortication in this area so we needed to convert to an open procedure. This was debrided and certain areas of the lung were stapled off that I felt were at risk for bronchopleural fistula. Description of Procedure: The patient underwent arterial line placement in the pre-operative suite. The patient was brought back to the operating room and placed in the supine position. He was intubated with a 39F double lumen tube. Diagnostic bronchoscopy was performed to help position the tube and for diagnostic purposes. The entire tracheobronchial tree was normal in caliber. The patient was positioned in the right lateral decubitus position. The left chest was prepped and draped in the usual fashion, antibiotics were given, a time-out was performed and the left lung was isolated. I made a 2cm incision in the 5th intercostal space anteriorly since most of the infection was located posterior in between the upper and lower lobe. Upon insertion of the scope, I was able to visualize the place between the lung and pleura. The lung was gently taken down using an endo-peanut. At the apex and at the base the plane was clean. I placed two additional ports in the mid axillary line 9th ICS and posterior axillary line 7th intercostal space. However posterior in the upper lobe there was no discernable plane. This clearly appeared to be a large abscess in this area. I attempted to debride this abscess thorascopically but it was very difficult to discern the planes. At this point the decision was made to covert to an open anterolateral thoracotomy in the 6th intercostal space. At this point the patient was somewhat oozy from all of the raw surfaces so he was intermittently placed on pressors and 1 units of pRBC was given. I debrided the area of concern posteriorly and peeled off as much of the rind as possible. In certain areas it was difficult to discern lung versus abscess cavity/rind. I stapled across these areas and copiously irrigated multiple times. The rind off the rest of the upper lobe and lower lobe was removed as much as possible. At this point, I felt that we had done an adequate decortication and successfully unroofed the abscess cavity without creating a bronchoplerual fistula. I once again irrigated and sent some of the rind for culture and pathology. Two chest tubes were left, one apical and one basilar. The ribs were then re-approximated using #1 vicryl suture. The fascia and deep dermis were closed in PDS layers and the skin was closed with vicryl and glue. The patient was extubated at the end of the procedure and not requiring pressors. He had an air leak in the basilar tube. He tolerated the procedure well otherwise and was transported to recovery in stable condition.
[2022-02-13] MEDS ORDERED: HYDROmorphone 0.5 MG/0.5 ML SYRINGE IVP ONE ×2 (18:46→19:00)
--- NOTE | 2022-02-13 19:21 | XR ---
EXAMINATION TYPE: XR chest 1V portable DATE OF EXAM: 02/13/2022 6:53 PM COMPARISON: Multiple radiographs, with the most recent on 02/10/2022 TECHNIQUE: XR chest 1V portable Frontal view of the chest. CLINICAL INDICATION:Male, 71 years old with history of post vats; FINDINGS: Lungs/Pleura: Decrease in air-fluid level seen on prior. A Pigtail catheter has been replaced with le ft thoracotomy tube with tip at the left lung apex. There is a small pneumothorax. Small left pleural effusion remains. Basilar atelectasis bilaterally. Pulmonary vascularity: Unremarkable. Heart/mediastinum: Cardiomediastinal silhouette is enlarged and stable. Musculoskeletal: No acute osseous pathology. Left saphenous emphysema. Lines/Tubes: Left-sided PICC with distal tip at the superior vena cava/brachiocephalic confluence. Left thoracotomy tube is present with small pneumothorax. Additional tube is partially visualized in the collecting over the left upper abdominal quadrant coul d represent left pleural drain. IMPRESSION: 1. Interval decrease in size of left air-fluid level with persistent left pneumothorax and thoracoto my tube in place. 2. Small left pleural effusion..
[2022-02-13 19:58] LABS: Glucose,Whole Blood 163 mg/dL (70-110)
--- NOTE | 2022-02-13 20:06 | P.ANPRN ---
Procedure Note - Anesthesia - Invasive Line Right Arterial Line Time Out Performed: Yes Date of Procedure: 02/13/22 Time of Procedure: 14:05 Location of Patient: PreOp Preparation: Sterile Prep, Sterile Dressing Arterial Line Location: Radial Ultrasound Used: No Purpose - Visualization and Identification of Vasculature: No Image Stored and Saved: No Narrative: Central line placement per sterile protocol utilized.
--- NOTE | 2022-02-13 21:35 | P.PN ---
Subjective This is a 71 year old male with past medical history significant for hypertension, hyperlipidemia. He presents with 3 days of fever, shortness of br eath and pleuritic chest pain. States about 6 weeks ago he began having cough and was evaluated in the clinic and IM antibiotic injection. Also had outpatient chest xray done. He was given steroids by his primary care provider. He states it didn't seem to help and was concerned when he developed fever and weakness with congestion. He is nonsmoker, reports no marijuana use. He does not work in a factor type setting, denies exposure to toxins. He rides a motorcycle and states he notice trouble breathing after a long ride which is unusual for him. He is overall healthy. On admission chest CTA has been completed showing large loculated left pleural effusions with infiltrate, and atelectasis left lower lobe. There is concern for empyema and patient was started on empiric antibiotic coverage with zosyn. Pulmonary has evaluated the patient and IR has been consulted for pigtail cathter insertion. IR is not available until Thursday. Cardiothoracic has also been consulted. Patient for now is maintained oxygen saturation of 92% on room air. He presents with fever 100.5, heart rate 75, blood pressure 120/70. White count 18.7, hgb 11.6, sodium 129, potassium 4.3, glucose is 208. Troponin negative. 02/02/2022 Patient is evaluated today sitting up in bed. is at the bedside. Plan is for pigtail catheter insertion with IR tomorrow and cardiothoracic has been consulted for management. Pulmonary is following the patient closely. He continues on room air, however has stated he has increased cough, no sputum production. Also complains of left sided pleuritic pain, he has had motrin 400 m g ordered however he has not received. Did also add a low dose of tramadol for pain management. He continues on IV zosyn for empiric antibiotic coverage. Blood cultures are negative so far. He has remained afebrile, heart rate 98, blood pressure 153/77, 91% on room air. Labs reviewed today showing white count 16.30, hgb 10.8, sodium 136, potassium 4.6. Blood glucose in the 130s. A1C is 6.4 which is on the cusp of prediabetes vs. diabetes, will discuss with patient tomorrow and patient will discharge on an oral diabetic agent. 02/03/2022 Patient sitting up in chair pending IR placement of pigtail catheter. He had increased pain to his left side and was given low dose of tramadol which he states did help his pain. He is short of breath today, he is using his incentive spirometer, also he has requested cough medicine and it has been ordered as needed. He had a T-Max overnight of 101.2. He continues on IV Zosyn. Blood pressure today 126/73. Labs reviewed today showing white count 15.84, hgb 11.1, sodium 133, potassium 4.7, blood glucose 150s. 02/04/2022 Patient evaluated today sitting up in the chair. He underwent pigtail catheter placement with alteplase injection through catheter and he has had fair output 375 mls last night and 115 mls today so far from drainage tube which is mostly purulent. He underwent a second alteplase infusion today. Chest xray today showing persistent multilocular effusions, with indwelling chest tube. No pneumothorax. Cardiothoracic and pulmonary are following this patient. He has been encouraged to continue with cough and deep breathing and also to continue with incentive spirometry. He continues on IV zosyn. Pleural fluid and blood cultures are pending. Reports pain has improved today, he is receiving IV dilaudid and tramadol as needed. Labs today are showing white count of 10.68, hgb 10.4, sodium 137, potassium 4.3, BUN 18.0, creatinine 0.7, magnesium 2.2. Blood glucose trending down. He has remained afebrile in the last 24 hours, h eart rate 85, blood pressure 121/69, 90% room air. 02/05/2022 Patient evaluated today resting in bed, he had third alteplase injection today. Resting in bed on back during examination to begin turning rotation. Chest x- ray shows no significant interval change as before redemonstrates a loculated effusion. He reports diarrhea 1-2 times overnight. He has been maintained on IV zosyn. Labs today showed white count 10.21, hemoglobin 10.3. His T-max last night was 99 he states that he does have night sweats still, heart rate 76, blood pressure 129/75, 93% pulse oximetry. Ambulating without difficulty in the hallways. His pleural cytology has resulted showing acute inflammation consistent with empyema without evidence for malignancy. Blood glucose in the 130s. 02/06/2022 Pigtail catheter was removed yesterday as there was possibility it had dislodged and pigtail catheter will be reinserted by interventional radiology. He did have 150 mL of output from the pigtail catheter yesterday. IV fluids have been discontinued patient does have some mild peripheral edema and compression stoc kings have been ordered. He continues to ambulated in the hallways and is using incentive spirometer as recommended. Labs today; white count 11.4, hemoglobin 11.1, sodium 138, potassium 5.0, BUN 21, creatinine 0.83, blood glucose in the 120s. Patient continues on IV antibiotics, cultures are negative so far. He is being followed closely by pulmonary, infectious disease and cardiothoracic consultation. There is a possibility patient may still require VATS procedure. He does complain of some loose stool, most likely for antibiotics, he is on GI prophylaxis and also immodium. Denies nausea, vomiting. 02/07/2022 Patient is status post let CT guided pigtail catheter reinsertion and had alteplase and dornase injected into catheter again today. Chest tube is set to - 20 mc wall suctin. 140 mLs of drainage from catheter today. Chest xray today showing interval improvement and reduction in the patients pleural effusion. There is also improvement in aeration with persistent density which obscurs the left hemidiaphragm. Subcutaneous emphysema questionable over the right chest. Labs today show white count 10.84, hemoglobin 10.1, sodium 139, potassium 4.4, BUN 13.3, creatinine 0.7. Blood glucose in the 120s. Calcium 1.8. Cytology from pigtail catheter insertion today is pending. Continues on IV ampicillin, patient will have PICC Line placed today. He is being followed by pulmonary, cadiothoracic and infectious disease. 02/08/2022 Patient evaluated today sitting up in bed. He continues with cough, and states it is non productive. He has pigtail catheter in place, low continuous suction - 20 cm wall. Repeat chest xray today demonstrates persistent left loculated pleural effusion with inflammatory changes. He is being managed by pulmonary and cardiothoracic disease. Plan today is for another dose of alteplase/dornase per CT services. Pleural fluid cultures are now positive for alphahemolytic strep and he remains on IV unasyn and is being followed closely by infectious disease services. Patient has PICC line in place. Blood glucose remains stable and he continues on sliding scale insulin. Plan to repeat CBC and BMP tomorrow. He has t max 99.4 through out the night, heart rate 83, blood pressure 114/72, 91% on room air. He is using incentive spirometer and ambulating the halls without difficulty. He has bilateral ankle edema, IV fluids have been stopped. 02/09/2022 Patient status post complicated multi-loculated left pleural effusion and empyema status post pigtail catheter drainage and alteplase instillations yesterday and today. His culture was growing alphahemolytic streptococci and currently covered with Unasyn. Coronary and her to thoracic surgery team on the case. Repeat CT of the chest without contrast today showing decreased from the fluid but the majority of the fluid remains within the collection. No more fever. Mild leukocytosis. Rest of labs and vitals are stable. 02/10/2022 Patient still with the right-sided pigtail chest tube. Chest x-ray from today so same changes with left-sided empyema and possible atelectasis/pneumonia. He is undergoing another treatment with alteplase/dornase with cardiothoracic surgery team. Patient continued on Unasyn 02/11/2022 Patient still with persistent left lower lung base loculated pleural effusion and empyema and his been covered with appropriate antibiotics with Unasyn based on his culture results. His empyema looks improved but not resolved and still there is persistent fluid. Also there is air-fluid level suggestive of hydropneumothorax on the left side. Because of this patient is followed closely by cardiothoracic surgery team or plan on doing decortication surgery on 02/13. Other than that patient is breathing quietly with no chest pain or significant cough and while at rest. Also he is hemodynamically stable 02/12/2022 Patient clinically is the same, I still have left bigtail chest tube His hemodynamically stable. He remains on Unasyn. Patient is planned for decortication procedure tomorrow 02/13/2022 Patient was standing up in his room question and that and self hygiene, fully awake and oriented, looks motivated to undergo for his surgery today or left lung decortication. Vital signs stable and labs reviewed We will follow up Objective - Vital Signs Vital signs: Vital Signs Temp 98 F 02/13/22 05:54 Pulse 80 02/13/22 05:54 Resp 16 02/13/22 05:54 BP 127/79 02/13/22 05:54 Pulse Ox 94 L 02/13/22 07:48 FiO2 21 02/13/22 07:48 Intake & Output 02/12/22 02/13/22 02/13/22 18:59 06:59 18:59 Output Total 0 0 Balance 0 0 Output: Chest Tube Drainage 0 0 Chest Tube Left Posterior 0 0 Chest Drainage 0 Left Back 0 Other: Voiding Method Toilet # Voids 3 2 # Bowel Movements 1 - Exam GENERAL: The patient is alert and oriented x3, not in any acute distress. Well developed, well nourished. HEENT: Pupils are round and equally reacting to light. EOMI. No scleral icterus. No conjunctival pallor. Normocephalic, atraumatic. No pharyngeal erythema. No thyromegaly. CARDIOVASCULAR: S1 and S2 present. No murmurs, rubs, or gallops. -PULMONARY: Chest is clear to auscultation, no wheezing or crackles. Left pigtail to put in a Place ABDOMEN: Soft, nontender, nondistended, normoactive bowel sounds. No palpable organomegaly. MUSCULOSKELETAL: No joint swelling or deformity. EXTREMITIES: No cyanosis, clubbing, or pedal edema. NEUROLOGICAL: Gross neurological examination did not reveal any focal deficits. SKIN: No rashes. no petechiae. - Labs CBC & Chem 7: 02/12/22 05:54 02/12/22 05:54 Labs: Abnormal Lab Results - Last 24 Hours (Table) 02/12/22 02/12/22 02/12/22 Range/Units 11:55 17:27 20:59 POC Glucose (mg/dL) 123 H 131 H 167 H (70-110) mg/dL Assessment and Plan Assessment: Loculated complicated multiloculated left side pleural effusion with empyema suspected pneumonia, he is status post pigtail catheter placement and has underg oing rounds of alteplase/dornase. Mild sepsis, Leukocytosis, fever secondary to above, improving Hypertension Hyperlpidemia Prediabetes/Diabetes with A1C of 6.4 History of prostate disorder Plan: This is a pleasant 71 years old male who presents with complicated multi loculated empyema status post pigtail tube placement. Continue with Unasyn Continue with pigtail and alteplase instillations as per cardiothoracic surgery team Pulmonary team on the case. Labs and medication were reviewed.. Continue same treatment. Continue with symptomatic treatment. Resume home medication. Monitor lytes and vitals. DVT and GI prophylaxis. Further recommendations as per clinical course of the patient GI Prophylaxis: Protonix
[2022-02-13] MEDS: MELATONIN 3 MG TABLET PO SCH (21:59)
[2022-02-13] MEDS: HYDROmorphone 1 MG/ML 1 ML SYRINGE IVP PRN (22:02)
[2022-02-13] MEDS: hydroCHLOROthiazide 12.5 MG CAP PO SCH (22:14)
[2022-02-13] MEDS: LOSARTAN 50 MG TAB PO SCH (22:15)
[2022-02-13 22:24] LABS: Glucose,Whole Blood 166 mg/dL (70-110)
--- NOTE | 2022-02-13 22:42 | P.PN ---
Subjective Progress Note Date: 02/12/22 Principal diagnosis: Left-sided empyema Patient is a 71 year male presented to the hospital with left-sided chest pain and fever and cough has been diagnosed with a left-sided loculated effusion concerning for empyema in this patient who is status post chest tube placement on 02/03/2022 which unfortunately did fell off 02/05/2022 and was reinserted on 02/06/2022 and is status post alteplase infusion 2 On today's evaluation that is 02/12/2022, the patient remains to be afebrile, the patient is breathing comfortably on room air, the patient denies any worsening left-sided chest pain , the patient cough has decreased intensity and not bringing up any sputum, patient denies abdominal pain no diarrhea Objective - Vital Signs Vital signs: Vital Signs Temp 98.4 F 02/12/22 06:09 Pulse 79 02/12/22 06:09 Resp 16 02/12/22 06:09 BP 129/76 02/12/22 06:09 Pulse Ox 93 L 02/12/22 06:09 FiO2 21 02/11/22 20:24 Intake & Output 02/11/22 02/12/22 02/12/22 18:59 06:59 18:59 Intake Total 200 Output Total 0 0 Balance 200 0 Intake: Intake, IV Titration 200 Amount Ampicillin-Sulbactam 3 gm 200 In Sodium Chloride 0.9% 100 ml @ 200 mls/hr IVPB Q6HR [facility] Rx#:[id number] Output: Chest Tube Drainage 0 Chest Tube Left Posterior 0 Chest Drainage 0 Left Back 0 Other: Voiding Method Toilet # Voids 0 # Bowel Movements 0 - Exam GENERAL DESCRIPTION: An elderly male lying in bed in no distress RESPIRATORY SYSTEM: Unlabored breathing , decreased breath sounds at left base HEART: S1 S2 regular rate and rhythm , ABDOMEN: Soft , no tenderness EXTREMITIES: No edema feet - Labs CBC & Chem 7: 02/12/22 05:54 02/12/22 05:54 Labs: Abnormal Lab Results - Last 24 Hours (Table) 02/11/22 02/11/22 02/12/22 Range/Units 17:49 20:43 05:54 RBC 3.33 L (4.30-5.90) m/uL Hgb 10.0 L (13.0-17.5) gm/dL Hct 30.9 L (39.0-53.0) % Plt Count 494 H (150-450) k/uL Sodium (137-145) mmol/L Glucose (74-99) mg/dL POC Glucose (mg/dL) 145 H 132 H (70-110) mg/dL Calcium (8.4-10.2) mg/dL 02/12/22 02/12/22 02/12/22 Range/Units 05:54 07:33 10:33 RBC (4.30-5.90) m/uL Hgb (13.0-17.5) gm/dL Hct (39.0-53.0) % Plt Count (150-450) k/uL Sodium 135 L (137-145) mmol/L Glucose 117 H (74-99) mg/dL POC Glucose (mg/dL) 136 H 189 H (70-110) mg/dL Calcium 7.9 L (8.4-10.2) mg/dL 02/12/22 Range/Units 11:55 RBC (4.30-5.90) m/uL Hgb (13.0-17.5) gm/dL Hct (39.0-53.0) % Plt Count (150-450) k/uL Sodium (137-145) mmol/L Glucose (74-99) mg/dL POC Glucose (mg/dL) 123 H (70-110) mg/dL Calcium (8.4-10.2) mg/dL Microbiology - Last 24 Hours (Table) 02/06/22 12:05 Gram Stain - Final Pleural Fluid Body Fluid Culture - Final Assessment and Plan (1) Pleural effusion, left Current Visit: Yes Status: Acute Code(s): J90 - PLEURAL EFFUSION, NOT ELSEWHERE CLASSIFIED SNOMED Code(s): 40131776 Plan: 1patient presented to hospital with sepsis source is left-sided pneumonia and empyema more likely from a community-acquired pathogen as the patient seem to have not received an antibiotic in the outpatient setting status post IR chest tube placement and fluid has been sent for the culture which has been finalized alphahemolytic streptococcus. 2patient did have some clinical improvement, white count has normalized, patient to continue with Unasyn and monitor clinical course closely Time with Patient: Less than 30
--- NOTE | 2022-02-13 22:45 | P.PN ---
Subjective Progress Note Date: 02/13/22 Principal diagnosis: Left-sided empyema Patient is a 71 year male presented to the hospital with left-sided chest pain and fever and cough has been diagnosed with a left-sided loculated effusion concerning for empyema in this patient who is status post chest tube placement on 02/03/2022 which unfortunately did fell off 02/05/2022 and was reinserted on 02/06/2022 and is status post alteplase infusion 2, patient is scheduled for left-sided thoracotomy this afternoon on 02/13/2022 On today's evaluation that is 02/13/2022, the patient denies any fever or any chills, the patient is breathing comfortably on room air, the patient denies left-sided chest pain , the patient cough has decreased intensity and not bringing up any sputum, patient denies abdominal pain no diarrhea Objective - Vital Signs Vital signs: Vital Signs Temp 98.2 F 02/13/22 13:03 Pulse 97 02/13/22 13:03 Resp 16 02/13/22 13:03 BP 129/72 02/13/22 13:03 Pulse Ox 97 02/13/22 13:03 FiO2 21 02/13/22 07:48 Intake & Output 02/12/22 02/13/22 02/13/22 18:59 06:59 18:59 Output Total 0 0 Balance 0 0 Output: Chest Tube Drainage 0 0 Chest Tube Left Posterior 0 0 Chest Drainage 0 Left Back 0 Other: Voiding Method Toilet # Voids 3 2 # Bowel Movements 1 - Exam GENERAL DESCRIPTION: An elderly male lying in bed in no distress RESPIRATORY SYSTEM: Unlabored breathing , decreased breath sounds at left base HEART: S1 S2 regular rate and rhythm , ABDOMEN: Soft , no tenderness EXTREMITIES: No edema feet - Labs CBC & Chem 7: 02/12/22 05:54 02/12/22 05:54 Labs: Abnormal Lab Results - Last 24 Hours (Table) 02/12/22 02/12/22 Range/Units 17:27 20:59 POC Glucose (mg/dL) 131 H 167 H (70-110) mg/dL Assessment and Plan (1) Pleural effusion, left Current Visit: Yes Status: Acute Code(s): J90 - PLEURAL EFFUSION, NOT ELSEWHERE CLASSIFIED SNOMED Code(s): 65313165 Plan: 1patient presented to hospital with sepsis source is left-sided pneumonia and empyema more likely from a community-acquired pathogen as the patient seem to have not received an antibiotic in the outpatient setting status post IR chest tube placement and fluid has been sent for the culture which has been finalized alphahemolytic streptococcus. 2patient condition remains to be stable did not have expansion of the lung and possible plan for thoracotomy, patient to continue with Unasyn and continue supportive care Time with Patient: Less than 30
[2022-02-14] MEDS: AMPICILLIN-SULBACTAM 3 GM in SODIUM CHLORIDE 0.9% 100 ML IVPB SCH ×5 (01:36→23:52)
[2022-02-14] MEDS: HYDROmorphone 1 MG/ML 1 ML SYRINGE IVP PRN ×4 (03:17→23:59)
[2022-02-14 04:30] LABS: HGB 9.5 gm/dL (13.0-17.5); Hypochromasia Moderate; MCH 31.6 pg (25.0-35.0); MCHC 33.8 g/dL (31.0-37.0); MCV 93.3 fL (80.0-100.0); Platelet Count 431 k/uL (150-450); RDW 13.3 % (11.5-15.5); WBC 15.8 k/uL (3.8-10.6)
[2022-02-14 04:39] LABS: African American GFR (CKD) >90 (>60 ml/min/1.73 sqM); Anion Gap 5 mmol/L; Blood Urea Nitrogen 14 mg/dL (9-20); Calcium 7.8 mg/dL (8.4-10.2); Carbon Dioxide 26 mmol/L (22-30); Chloride 105 mmol/L (98-107); Glucose 137 mg/dL (74-99); Non-African American GFR(CKD) >90 (>60 ml/min/1.73 sqM); Potassium 4.6 mmol/L (3.5-5.1); Sodium 136 mmol/L (137-145)
[2022-02-14 06:47] LABS: Glucose,Whole Blood 138 mg/dL (70-110)
[2022-02-14] MEDS: INSULIN ASPART (NovoLOG) 100 UNIT/ML VIAL SQ SCH ×8 (07:02→21:59)
[2022-02-14] MEDS: PANTOPRAZOLE 40 MG TABLET PO SCH (07:03)
--- NOTE | 2022-02-14 08:21 | XR ---
EXAMINATION TYPE: XR chest 1V portable DATE OF EXAM: 02/14/2022 COMPARISON: Chest x-ray 02/13/2022 HISTORY: Chest tube TECHNIQUE: Single frontal view of the chest is obtained. FINDINGS: Left-sided PICC line, left-sided chest tube are again noted. Minimal left apical pneumotho rax is present. Pleural-parenchymal changes of the left lung base are similar to prior exam, there ma y be interval progression of a small left pleural effusion. Cardiac mediastinal silhouette is not sig nificantly changed. There is improved aeration of the right costophrenic angle. Retrocardiac density persists. IMPRESSION: Findings are similar to prior exam as described.
[2022-02-14] MEDS: KETOROLAC 15 MG/ML 1 ML VIAL IVP SCH ×4 (08:51→23:53)
[2022-02-14] MEDS: MAGNESIUM OXIDE 400 MG TAB PO SCH (08:51)
--- NOTE | 2022-02-14 08:53 | P.PN ---
Subjective Progress Note Date: 02/14/22 Principal diagnosis: Complicated parapneumonic empyema left lower lobe with lung abscess, leukocytosis. Previous medical history of hypertension, hyperlipidemia, BPH, lifetime nonsmoker. POD #1 diagnostic bronchoscopy, video-assisted thoracoscopic surgery converted to open anterolateral thoracotomy, complete decortication, partial lung resection of the left upper lobe The patient was seen and examined this morning sitting up in bed in the intensive care unit in no acute distress. Does complain of pain and his chest tube site which is not completely controlled with medications, although he has not received any IV Dilaudid which is ordered. Remains in sinus rhythm to sinus tach, hemodynamically stable. Left anterior and posterior chest tubes present and connected to continuous wall suction, anterior chest tube with intermittent air leak present. Patient did receive blood yesterday in OR and needed closer monitoring so he was transferred to the intensive care unit after surgery yesterday. Appears to be doing well and likely will be transferred out of the ICU today. Objective - Vital Signs Vital signs: Vital Signs Temp 98.0 F 02/14/22 04:00 Pulse 103 H 02/14/22 06:00 Resp 6 L 02/14/22 06:00 BP 136/89 02/14/22 06:00 Pulse Ox 97 02/14/22 07:36 FiO2 21 02/13/22 07:48 Intake & Output 02/13/22 02/14/22 02/14/22 18:59 06:59 18:59 Intake Total 2460 443 13 Output Total 750 1555 123 Balance 1710 -1112 -110 Weight 83.6 kg Intake: IV 2150 343 13 Ampicillin-Sulbactam 3 gm 200 In Sodium Chloride 0.9% 100 ml @ 200 mls/hr IVPB Q6HR [facility] Rx#:[id number] KVO 110 10 Pressure Bag 33 3 Intake, IV Titration 100 Amount Ampicillin-Sulbactam 3 gm 100 In Sodium Chloride 0.9% 100 ml @ 200 mls/hr IVPB Q6HR [facility] Rx#:[id number] Blood Product 310 0 Rc As-1 Unit 310 [id number] Rc As-1 Unit 0 0 [id number] Output: Chest Tube Drainage 518 23 Chest Tube Left Lower 28 23 Lateral Chest Chest Tube Left Upper 490 Lateral Chest Urine 1037 100 Estimated Blood Loss 750 ABP, PAP, CO, CI - Last Documented Arterial Blood Pressure 141/54 - Exam CONSTITUTIONAL: Sitting up in bed, appears comfortable, cooperative, no apparent acute distress. RESPIRATORY: Lungs sounds diminished to the left side. Respirations are even, nonlabored. Currently on 2 L nasal cannula with oxygen saturations 98%. Strong cough. CARDIOVASCULAR: S1 and S2 present. Regular rate and rhythm, sinus rhythm to sinus tach on telemetry. Palpable peripheral pulses bilaterally. No edema present. No calf pain or tenderness noted. GASTROINTESTINAL: Abdomen soft, nontender, nondistended. Active bowel sounds present 4 quadrants. Tolerating diet. GENITOURINARY: Continues to void. INTEGUMENTARY: Skin is warm and dry. Thoracotomy incision present with dry intact dressing covering NEUROLOGIC: Cranial nerves II through XII intact. No focal deficits. MUSKULOSKELETAL: Able to move all extremities, strength equal bilaterally. PSYCHIATRIC: Alert and oriented to person place and time, appropriate affect, intact judgment and insight. INVASIVE LINES: Left upper anterior chest tube present to continuous wall suction, 160 mL serosanguineous drainage overnight, 500 mL since surgery, intermittent air leak present. Left lower posterior chest tube present to continuous wall suction, 30 mL serosanguineous drainage since surgery, no air leak present. - Allied health notes Allied health notes reviewed: nursing - Labs CBC & Chem 7: 02/14/22 04:20 02/14/22 04:20 Labs: Abnormal Lab Results - Last 24 Hours (Table) 02/12/22 02/13/22 02/13/22 Range/Units 05:54 19:56 22:23 WBC (3.8-10.6) k/uL RBC (4.30-5.90) m/uL Hgb (13.0-17.5) gm/dL Hct (39.0-53.0) % Sodium (137-145) mmol/L Glucose (74-99) mg/dL POC Glucose (mg/dL) 163 H 166 H (70-110) mg/dL Calcium (8.4-10.2) mg/dL Crossmatch See Detail 02/14/22 02/14/22 02/14/22 Range/Units 04:20 04:20 06:46 WBC 15.8 H (3.8-10.6) k/uL RBC 3.00 L (4.30-5.90) m/uL Hgb 9.5 L (13.0-17.5) gm/dL Hct 28.0 L (39.0-53.0) % Sodium 136 L (137-145) mmol/L Glucose 137 H (74-99) mg/dL POC Glucose (mg/dL) 138 H (70-110) mg/dL Calcium 7.8 L (8.4-10.2) mg/dL Crossmatch Microbiology - Last 24 Hours (Table) 02/13/22 17:48 Gram Stain - Preliminary Lung - Left Tissue Culture - Preliminary 02/13/22 17:48 Anaerobic Culture - Preliminary Lung - Left 02/13/22 17:48 Acid Fast Bacilli Culture - Preliminary Lung - Left 02/13/22 17:48 Fungal Culture - Preliminary Lung - Left - Imaging and Cardiology Chest x-ray: report reviewed, image reviewed Assessment and Plan Assessment: 1. Complicated parapneumonic effusion/empyema left lower lobe with lung abscess, status post insertion of pigtail catheter and installation of lytic therapy x 7 doses, status post diagnostic bronchoscopy, video-assisted thoracoscopic surgery converted to open anterolateral thoracotomy, complete decortication, partial lung resection of the left upper lobe 2. Persistent cough, fever, sweats, chills, pain with deep inspiration on admission 3. Leukocytosis, pleural fluid positive for alpha hemolytic strep 4. History of hypertension 5. History of hyperlipidemia 6. History of prostate disorder 7. Never smoker Plan: 1. Keep left pleural chest tubes in place to low continuous wall suction -20 cm H2O. monitor for air leak resolution 2. Wean O2 as tolerated. Encourage use of his incentive spirometry 10 times every hour while awake. 3. Pain control per current current medication regimen 4. Continue to monitor daily labs and chest x-rays. 5. Increase activity as tolerated. Out of bed for all meals. 6. Continue on Unasyn managed by infectious disease management. 7. Discontinue arterial line 8. Will place transfer orders out of the ICU today 9. More recommendations to follow
--- NOTE | 2022-02-14 10:15 | P.PN ---
Subjective Progress Note Date: 02/14/22 Principal diagnosis: Empyema. The patient is seen today 02/08/2022 in follow-up on the regular medical floor. He is currently up ambulating in the hallway. He quite well. No worsening shortness of breath, cough or congestion. Chest x-ray reveals persistent loculated left pleural effusion with inflammatory changes. Chest tube remains in place. Remains on low continuous suction -20 cm water. The plan is for another dose of alteplase/dornase per CT services. Left sided PICC line in place. Pleural fluid cultures positive for alphahemolytic streptococcus. He is currently on Unasyn per ID services. Blood glucose 114. The patient is seen today 02/09/2022 in follow-up on the regular medical floor. He is currently sitting up at the bedside. Awake and alert in no acute distress. Maintaining O2 saturations in the 90s on room air. Left-sided chest tube remains in place to wall suction -20 cm. Approximately 700 ML's of fluid was returned post alteplase/dornase infusion yesterday. He remains on Unasyn. Follow-up computed tomography scan of the chest pending. The patient is seen today 02/10/2022 in follow-up on the regular medical floor. He is currently sitting up at the bedside. Awake and alert in no acute distress. Maintaining good O2 saturations in the 90s on room air. He remains afebrile. Hemodynamically stable. Computed tomography scan of the chest revealed a left posterior approach thoracotomy tube with decrease in the left upper lung loculated fluid collection. There remains fluid collection within the lung base. A fluid collection within the left major fissure now demonstrates foci of gas suggesting some communication to the pigtail catheter but majority of fluid remains within this collection. Until catheter to wall suction. Additional 810 ML's of fluid removed yesterday after alteplase/dornase infusion. Chest x-ray revealed no change in the pleural marginal changes within the left lung consistent with empyema, loculated pleural effusion and associated atelectasis, inflammatory change. Pleural fluid was positive for alpha hemolytic streptococcus. The patient remains on Unasyn. Progress note dated 02/11/2022. The patient is seen today on 535. He's currently on room air. He is receiving antibiotics for his empyema. Apparently no decision has been made by cardiothoracic surgery regards to possible decortication. Clinically, the patient is stable. No new laboratory data today. Chest x-ray shows volume los s, pleural effusion, and air-fluid level in the left lower lobe. Pleural fluid was positive for alpha-hemolytic streptococcus, the patient remains on Unasyn. Progress note dated 02/13/2022. The patient is again seen in room 535. The patient's on room air. The patient is scheduled to go to the operating room today, and have a decortication of his left lung. The patient has been receiving Unasyn for his empyema. Cultures apparently grew out alphahemolytic streptococci. The patient is not having any respiratory distress, or chest pain. He remains stable. No new labs today. No chest x-ray today. Progress note dated 02/14/2022. The patient is seen today in room 262. The patient had surgery yesterday. He was moved to the intensive care unit, after surgery. The patient had a diagn ostic bronchoscopy, video-assisted thoracoscopic surgery, converted to open anterior lateral thoracotomy, complete decortication, and partial lung resection, left upper lobe. Today is postop day #1. He is currently on 2 L. He is getting saline at KVO. The biggest issue for him right now is pain. White count 15.8, he will 9.5, hematocrit 28, platelet count 431,000. Sodium 136, potassium 4.6, chlorides 105, CO2 26, BUN 14 and creatinine 0.66. Chest x- ray shows a left-sided chest tube, and a very minor/minimal left apical pneumothorax. Pleural parenchymal changes in the left chest, in my opinion, are lessened. Objective - Vital Signs Vital signs: Vital Signs Temp 98.0 F 02/14/22 04:00 Pulse 78 02/14/22 08:00 Resp 6 L 02/14/22 06:00 BP 136/89 02/14/22 06:00 Pulse Ox 97 02/14/22 07:36 FiO2 21 02/13/22 07:48 Intake & Output 02/13/22 02/14/22 02/14/22 18:59 06:59 18:59 Intake Total 2460 443 43 Output Total 750 1555 223 Balance 1710 -1112 -180 Weight 83.6 kg Intake: IV 2150 343 43 Ampicillin-Sulbactam 3 gm 200 In Sodium Chloride 0.9% 100 ml @ 200 mls/hr IVPB Q6HR [facility] Rx#:[id number] KVO 110 40 Pressure Bag 33 3 Intake, IV Titration 100 Amount Ampicillin-Sulbactam 3 gm 100 In Sodium Chloride 0.9% 100 ml @ 200 mls/hr IVPB Q6HR [facility] Rx#:[id number] Blood Product 310 0 Rc As-1 Unit 310 [id number] Rc As-1 Unit 0 0 [id number] Output: Chest Tube Drainage 518 23 Chest Tube Left Lower 28 23 Lateral Chest Chest Tube Left Upper 490 Lateral Chest Urine 1037 200 Estimated Blood Loss 750 ABP, PAP, CO, CI - Last Documented Arterial Blood Pressure 141/54 - Exam No acute distress, oriented 3. No respiratory distress. The patient's on 2 L HEENT examination is grossly unremarkable. Neck supple. Full range of motion. No adenopathy thyromegaly or neck vein distention. Cardiovascular examination reveals regular rhythm rate. S1-S2 normal. No S3 or S4. No discernible murmur noted. Heart rate 103 bpm. Lungs reveal diminished breath sounds at the left base. 2 L saturation 97%. Scattered rhonchi noted. No wheezes or crackles. The left sided chest tube is noted. Abdomen soft bowel sounds are heard. No masses or tenderness. Extremities are intact. No cyanosis clubbing or edema. Skin is without rash or lesion. Neurologic examination is brief but nonfocal. - Labs CBC & Chem 7: 02/14/22 04:20 02/14/22 04:20 Labs: Abnormal Lab Results - Last 24 Hours (Table) 02/12/22 02/13/22 02/13/22 Range/Units 05:54 19:56 22:23 WBC (3.8-10.6) k/uL RBC (4.30-5.90) m/uL Hgb (13.0-17.5) gm/dL Hct (39.0-53.0) % Sodium (137-145) mmol/L Glucose (74-99) mg/dL POC Glucose (mg/dL) 163 H 166 H (70-110) mg/dL Calcium (8.4-10.2) mg/dL Crossmatch See Detail 02/14/22 02/14/22 02/14/22 Range/Units 04:20 04:20 06:46 WBC 15.8 H (3.8-10.6) k/uL RBC 3.00 L (4.30-5.90) m/uL Hgb 9.5 L (13.0-17.5) gm/dL Hct 28.0 L (39.0-53.0) % Sodium 136 L (137-145) mmol/L Glucose 137 H (74-99) mg/dL POC Glucose (mg/dL) 138 H (70-110) mg/dL Calcium 7.8 L (8.4-10.2) mg/dL Crossmatch Microbiology - Last 24 Hours (Table) 02/13/22 17:48 Gram Stain - Preliminary Lung - Left Tissue Culture - Preliminary 02/13/22 17:48 Anaerobic Culture - Preliminary Lung - Left 02/13/22 17:48 Acid Fast Bacilli Culture - Preliminary Lung - Left 02/13/22 17:48 Fungal Culture - Preliminary Lung - Left Assessment and Plan Assessment: Complicated parapneumonic effusion/empyema, left lower lobe, status post insertion of the pigtail catheter 2, with infusion of TPA. Postop day #1, S/P open thoracotomy, lung resection, and complete decortication. Alpha-hemolytic streptococcal infection, left pleural space, currently on Unasyn. History of hypertension. History of hyperlipidemia. Nonsmoker. Plan: Plan dated 02/11/2022. The patient is clinically stable. Labs, x-rays, medications are reviewed. The patient's on appropriate antibiotics. We will continue to follow. Patient will be seen by cardiothoracic surgery, and they will make a decision as to whether or not the patient would benefit from decortication. Prognosis is guarded. The patient's on room air. He is very stable both from the respiratory standpoint, and hemodynamically. Plan dated 02/13/2022. The patient remains very stable. Labs, x-rays, medications are reviewed. The patient is planning to be going to the operating room today, for decortication o n the left side. We'll continue to follow. The patient continues on Unasyn. No additional recommendations are made at this time. Plan dated 02/14/2022. The patient's a video-assisted procedure, is turned into an open thoracotomy. Chest tube was placed. Chest x-ray in my opinion is improved. The patient is struggling with pain. We recommend incentive spirometer, every hour. The patient will continue to get pain medication. Prognosis is guarded. Labs, x- rays and medications are reviewed. The patient continues on Unasyn for alpha- hemolytic streptococci. Time with Patient: Less than 30
[2022-02-14 11:42] LABS: Glucose,Whole Blood 152 mg/dL (70-110)
[2022-02-14 17:27] LABS: Glucose,Whole Blood 228 mg/dL (70-110)
--- NOTE | 2022-02-14 18:47 | P.PN ---
Subjective This is a 71 year old male with past medical history significant for hypertension, hyperlipidemia. He presents with 3 days of fever, shortness of br eath and pleuritic chest pain. States about 6 weeks ago he began having cough and was evaluated in the clinic and IM antibiotic injection. Also had outpatient chest xray done. He was given steroids by his primary care provider. He states it didn't seem to help and was concerned when he developed fever and weakness with congestion. He is nonsmoker, reports no marijuana use. He does not work in a factor type setting, denies exposure to toxins. He rides a motorcycle and states he notice trouble breathing after a long ride which is unusual for him. He is overall healthy. On admission chest CTA has been completed showing large loculated left pleural effusions with infiltrate, and atelectasis left lower lobe. There is concern for empyema and patient was started on empiric antibiotic coverage with zosyn. Pulmonary has evaluated the patient and IR has been consulted for pigtail cathter insertion. IR is not available until Thursday. Cardiothoracic has also been consulted. Patient for now is maintained oxygen saturation of 92% on room air. He presents with fever 100.5, heart rate 75, blood pressure 120/70. White count 18.7, hgb 11.6, sodium 129, potassium 4.3, glucose is 208. Troponin negative. 02/02/2022 Patient is evaluated today sitting up in bed. is at the bedside. Plan is for pigtail catheter insertion with IR tomorrow and cardiothoracic has been consulted for management. Pulmonary is following the patient closely. He continues on room air, however has stated he has increased cough, no sputum production. Also complains of left sided pleuritic pain, he has had motrin 400 m g ordered however he has not received. Did also add a low dose of tramadol for pain management. He continues on IV zosyn for empiric antibiotic coverage. Blood cultures are negative so far. He has remained afebrile, heart rate 98, blood pressure 153/77, 91% on room air. Labs reviewed today showing white count 16.30, hgb 10.8, sodium 136, potassium 4.6. Blood glucose in the 130s. A1C is 6.4 which is on the cusp of prediabetes vs. diabetes, will discuss with patient tomorrow and patient will discharge on an oral diabetic agent. 02/03/2022 Patient sitting up in chair pending IR placement of pigtail catheter. He had increased pain to his left side and was given low dose of tramadol which he states did help his pain. He is short of breath today, he is using his incentive spirometer, also he has requested cough medicine and it has been ordered as needed. He had a T-Max overnight of 101.2. He continues on IV Zosyn. Blood pressure today 126/73. Labs reviewed today showing white count 15.84, hgb 11.1, sodium 133, potassium 4.7, blood glucose 150s. 02/04/2022 Patient evaluated today sitting up in the chair. He underwent pigtail catheter placement with alteplase injection through catheter and he has had fair output 375 mls last night and 115 mls today so far from drainage tube which is mostly purulent. He underwent a second alteplase infusion today. Chest xray today showing persistent multilocular effusions, with indwelling chest tube. No pneumothorax. Cardiothoracic and pulmonary are following this patient. He has been encouraged to continue with cough and deep breathing and also to continue with incentive spirometry. He continues on IV zosyn. Pleural fluid and blood cultures are pending. Reports pain has improved today, he is receiving IV dilaudid and tramadol as needed. Labs today are showing white count of 10.68, hgb 10.4, sodium 137, potassium 4.3, BUN 18.0, creatinine 0.7, magnesium 2.2. Blood glucose trending down. He has remained afebrile in the last 24 hours, h eart rate 85, blood pressure 121/69, 90% room air. 02/05/2022 Patient evaluated today resting in bed, he had third alteplase injection today. Resting in bed on back during examination to begin turning rotation. Chest x- ray shows no significant interval change as before redemonstrates a loculated effusion. He reports diarrhea 1-2 times overnight. He has been maintained on IV zosyn. Labs today showed white count 10.21, hemoglobin 10.3. His T-max last night was 99 he states that he does have night sweats still, heart rate 76, blood pressure 129/75, 93% pulse oximetry. Ambulating without difficulty in the hallways. His pleural cytology has resulted showing acute inflammation consistent with empyema without evidence for malignancy. Blood glucose in the 130s. 02/06/2022 Pigtail catheter was removed yesterday as there was possibility it had dislodged and pigtail catheter will be reinserted by interventional radiology. He did have 150 mL of output from the pigtail catheter yesterday. IV fluids have been discontinued patient does have some mild peripheral edema and compression stoc kings have been ordered. He continues to ambulated in the hallways and is using incentive spirometer as recommended. Labs today; white count 11.4, hemoglobin 11.1, sodium 138, potassium 5.0, BUN 21, creatinine 0.83, blood glucose in the 120s. Patient continues on IV antibiotics, cultures are negative so far. He is being followed closely by pulmonary, infectious disease and cardiothoracic consultation. There is a possibility patient may still require VATS procedure. He does complain of some loose stool, most likely for antibiotics, he is on GI prophylaxis and also immodium. Denies nausea, vomiting. 02/07/2022 Patient is status post let CT guided pigtail catheter reinsertion and had alteplase and dornase injected into catheter again today. Chest tube is set to - 20 mc wall suctin. 140 mLs of drainage from catheter today. Chest xray today showing interval improvement and reduction in the patients pleural effusion. There is also improvement in aeration with persistent density which obscurs the left hemidiaphragm. Subcutaneous emphysema questionable over the right chest. Labs today show white count 10.84, hemoglobin 10.1, sodium 139, potassium 4.4, BUN 13.3, creatinine 0.7. Blood glucose in the 120s. Calcium 1.8. Cytology from pigtail catheter insertion today is pending. Continues on IV ampicillin, patient will have PICC Line placed today. He is being followed by pulmonary, cadiothoracic and infectious disease. 02/08/2022 Patient evaluated today sitting up in bed. He continues with cough, and states it is non productive. He has pigtail catheter in place, low continuous suction - 20 cm wall. Repeat chest xray today demonstrates persistent left loculated pleural effusion with inflammatory changes. He is being managed by pulmonary and cardiothoracic disease. Plan today is for another dose of alteplase/dornase per CT services. Pleural fluid cultures are now positive for alphahemolytic strep and he remains on IV unasyn and is being followed closely by infectious disease services. Patient has PICC line in place. Blood glucose remains stable and he continues on sliding scale insulin. Plan to repeat CBC and BMP tomorrow. He has t max 99.4 through out the night, heart rate 83, blood pressure 114/72, 91% on room air. He is using incentive spirometer and ambulating the halls without difficulty. He has bilateral ankle edema, IV fluids have been stopped. 02/09/2022 Patient status post complicated multi-loculated left pleural effusion and empyema status post pigtail catheter drainage and alteplase instillations yesterday and today. His culture was growing alphahemolytic streptococci and currently covered with Unasyn. Coronary and her to thoracic surgery team on the case. Repeat CT of the chest without contrast today showing decreased from the fluid but the majority of the fluid remains within the collection. No more fever. Mild leukocytosis. Rest of labs and vitals are stable. 02/10/2022 Patient still with the right-sided pigtail chest tube. Chest x-ray from today so same changes with left-sided empyema and possible atelectasis/pneumonia. He is undergoing another treatment with alteplase/dornase with cardiothoracic surgery team. Patient continued on Unasyn 02/11/2022 Patient still with persistent left lower lung base loculated pleural effusion and empyema and his been covered with appropriate antibiotics with Unasyn based on his culture results. His empyema looks improved but not resolved and still there is persistent fluid. Also there is air-fluid level suggestive of hydropneumothorax on the left side. Because of this patient is followed closely by cardiothoracic surgery team or plan on doing decortication surgery on 02/13. Other than that patient is breathing quietly with no chest pain or significant cough and while at rest. Also he is hemodynamically stable 02/12/2022 Patient clinically is the same, I still have left bigtail chest tube His hemodynamically stable. He remains on Unasyn. Patient is planned for decortication procedure tomorrow 02/13/2022 Patient was standing up in his room question and that and self hygiene, fully awake and oriented, looks motivated to undergo for his surgery today or left lung decortication. Vital signs stable and labs reviewed We will follow up 02/14/2022 decortication of the left lung pleura . Today is postoperative day #1 patient is seen in the ICU, he looks little bit tired but awake and alert, no significant respiratory distress. He has left-sided chest tube. Mildly ta chypneic while at rest. Leukocytosis 15.8. Hemoglobin 9.5. Chest x-ray showing no change from prior exam. Left-sided chest tube. Patient continued with antibiotic on Unasyn. Objective - Vital Signs Vital signs: Vital Signs Temp 98.0 F 02/14/22 04:00 Pulse 98 02/14/22 14:00 Resp 24 02/14/22 14:00 BP 104/66 02/14/22 14:00 Pulse Ox 93 L 02/14/22 13:00 FiO2 21 02/13/22 07:48 Intake & Output 02/13/22 02/14/22 02/14/22 18:59 06:59 18:59 Intake Total 2460 443 523 Output Total 750 1555 423 Balance 1710 -1112 100 Weight 83.6 kg Intake: IV 2150 343 163 Ampicillin-Sulbactam 3 gm 200 100 In Sodium Chloride 0.9% 100 ml @ 200 mls/hr IVPB Q6HR [facility] Rx#:[id number] KVO 110 60 Pressure Bag 33 3 Intake, IV Titration 100 Amount Ampicillin-Sulbactam 3 gm 100 In Sodium Chloride 0.9% 100 ml @ 200 mls/hr IVPB Q6HR [facility] Rx#:[id number] Oral 360 Blood Product 310 0 Rc As-1 Unit 310 [id number] Rc As-1 Unit 0 0 [id number] Output: Chest Tube Drainage 518 23 Chest Tube Left Lower 28 23 Lateral Chest Chest Tube Left Upper 490 Lateral Chest Urine 1037 400 Estimated Blood Loss 750 Other: Voiding Method Urinal ABP, PAP, CO, CI - Last Documented Arterial Blood Pressure 141/54 - Exam GENERAL: The patient is alert and oriented x3, not in any acute distress. Well developed, well nourished. HEENT: Pupils are round and equally reacting to light. EOMI. No scleral icterus. No conjunctival pallor. Normocephalic, atraumatic. No pharyngeal erythema. No thyromegaly. CARDIOVASCULAR: S1 and S2 present. No murmurs, rubs, or gallops. -PULMONARY: Chest is clear to auscultation, no wheezing or crackles. Left pigtail to put in a Place ABDOMEN: Soft, nontender, nondistended, normoactive bowel sounds. No palpable organomegaly. MUSCULOSKELETAL: No joint swelling or deformity. EXTREMITIES: No cyanosis, clubbing, or pedal edema. NEUROLOGICAL: Gross neurological examination did not reveal any focal deficits. SKIN: No rashes. no petechiae. - Labs CBC & Chem 7: 02/14/22 04:20 02/14/22 04:20 Labs: Abnormal Lab Results - Last 24 Hours (Table) 02/12/22 02/13/22 02/13/22 Range/Units 05:54 19:56 22:23 WBC (3.8-10.6) k/uL RBC (4.30-5.90) m/uL Hgb (13.0-17.5) gm/dL Hct (39.0-53.0) % Sodium (137-145) mmol/L Glucose (74-99) mg/dL POC Glucose (mg/dL) 163 H 166 H (70-110) mg/dL Calcium (8.4-10.2) mg/dL Crossmatch See Detail 02/14/22 02/14/22 02/14/22 Range/Units 04:20 04:20 06:46 WBC 15.8 H (3.8-10.6) k/uL RBC 3.00 L (4.30-5.90) m/uL Hgb 9.5 L (13.0-17.5) gm/dL Hct 28.0 L (39.0-53.0) % Sodium 136 L (137-145) mmol/L Glucose 137 H (74-99) mg/dL POC Glucose (mg/dL) 138 H (70-110) mg/dL Calcium 7.8 L (8.4-10.2) mg/dL Crossmatch 02/14/22 Range/Units 11:40 WBC (3.8-10.6) k/uL RBC (4.30-5.90) m/uL Hgb (13.0-17.5) gm/dL Hct (39.0-53.0) % Sodium (137-145) mmol/L Glucose (74-99) mg/dL POC Glucose (mg/dL) 152 H (70-110) mg/dL Calcium (8.4-10.2) mg/dL Crossmatch Microbiology - Last 24 Hours (Table) 02/13/22 17:48 Gram Stain - Preliminary Lung - Left Tissue Culture - Preliminary 02/13/22 17:48 Anaerobic Culture - Preliminary Lung - Left 02/13/22 17:48 Acid Fast Bacilli Culture - Preliminary Lung - Left 02/13/22 17:48 Fungal Culture - Preliminary Lung - Left Assessment and Plan Assessment: Loculated complicated multiloculated left side pleural effusion with empyema suspected pneumonia, he is status post surgical decortication and left-sided chest tube Left sided pneumonia and empyema Mild sepsis, Leukocytosis, fever secondary to above, improving Hypertension Hyperlpidemia Prediabetes/Diabetes with A1C of 6.4 History of prostate disorder Plan: This is a pleasant 71 years old male who presents with complicated multiloculated empyema status post pigtail tube placement. Continue with Unasyn Continue with left-sided chest tube and management per cardiothoracic surgery team Pulmonary team on the case. Labs and medication were reviewed.. Continue same treatment. Continue with symptomatic treatment. Resume home medication. Monitor lytes and vitals. DVT and GI prophylaxis. Further recommendations as per clinical course of the patient GI Prophylaxis: Protonix
[2022-02-14] MEDS: traMADol 50 MG TAB PO PRN (21:08)
[2022-02-14] MEDS: ATORVASTATIN 10 MG TAB PO SCH (21:09)
[2022-02-14] MEDS: LOSARTAN 50 MG TAB PO SCH (21:09)
[2022-02-14] MEDS: MELATONIN 3 MG TABLET PO SCH (21:09)
[2022-02-14] MEDS: hydroCHLOROthiazide 12.5 MG CAP PO SCH (21:10)
[2022-02-14 21:56] LABS: Glucose,Whole Blood 120 mg/dL (70-110)
[2022-02-15] MEDS: KETOROLAC 15 MG/ML 1 ML VIAL IVP SCH ×4 (06:08→23:55)
[2022-02-15] MEDS: AMPICILLIN-SULBACTAM 3 GM in SODIUM CHLORIDE 0.9% 100 ML IVPB SCH ×4 (06:08→23:56)
[2022-02-15 06:21] LABS: HCT 29.9 % (39.0-53.0); HGB 9.4 gm/dL (13.0-17.5); Hypochromasia Moderate; MCH 29.6 pg (25.0-35.0); MCHC 31.4 g/dL (31.0-37.0); MCV 94.2 fL (80.0-100.0); Mean Platelet Volume 7.3; Platelet Count 453 k/uL (150-450); RBC 3.18 m/uL (4.30-5.90); RDW 13.5 % (11.5-15.5); WBC 12.3 k/uL (3.8-10.6)
[2022-02-15 06:37] LABS: African American GFR (CKD) >90 (>60 ml/min/1.73 sqM); Anion Gap 6 mmol/L; Blood Urea Nitrogen 21 mg/dL (9-20); Calcium 7.8 mg/dL (8.4-10.2); Carbon Dioxide 26 mmol/L (22-30); Chloride 102 mmol/L (98-107); Glucose 138 mg/dL (74-99); Non-African American GFR(CKD) 88 (>60 ml/min/1.73 sqM); Potassium 4.4 mmol/L (3.5-5.1); Sodium 134 mmol/L (137-145)
--- NOTE | 2022-02-15 07:20 | XR ---
EXAMINATION TYPE: XR chest 1V portable DATE OF EXAM: 02/15/2022 COMPARISON: 02/14/2022 HISTORY: SOB, Follow Up FINDINGS: Two Left-sided chest tube are unchanged in position. Left-sided PICC line noted. Tiny left apical lung pneumothorax is unchanged. No change in bibasilar opacities. Left-sided pleural parenchymal opacity is stable. The right lung is clear. IMPRESSION: 1. Stable portable chest. Clinical correlation and follow up until resolution is recommended.
[2022-02-15 07:26] LABS: Glucose,Whole Blood 141 mg/dL (70-110)
[2022-02-15] MEDS: PANTOPRAZOLE 40 MG TABLET PO SCH (07:32)
[2022-02-15] MEDS: MAGNESIUM OXIDE 400 MG TAB PO SCH (07:32)
[2022-02-15] MEDS: INSULIN ASPART (NovoLOG) 100 UNIT/ML VIAL SQ SCH ×9 (07:33→20:47)
--- NOTE | 2022-02-15 08:23 | P.PN ---
Subjective Progress Note Date: 02/15/22 Principal diagnosis: Complicated parapneumonic empyema left lower lobe with lung abscess, leukocytosis. Previous medical history of hypertension, hyperlipidemia, BPH, lifetime nonsmoker. POD #2 diagnostic bronchoscopy, video-assisted thoracoscopic surgery converted to open anterolateral thoracotomy, complete decortication, partial lung resection of the left upper lobe The patient was seen and examined this morning sitting up in a recliner on the medical telemetry unit in no acute distress. Does complain of pain and his chest tube site which is mostly controlled with medications. Remains in sinus rhythm to sinus tach, hemodynamically stable. Left anterior and posterior chest tubes present and connected to continuous wall suction, anterior chest tube with air leak present with coughing. No other new concerns Objective - Vital Signs Vital signs: Vital Signs Temp 97.7 F 02/15/22 08:12 Pulse 88 02/15/22 08:12 Resp 17 02/15/22 08:12 BP 107/68 02/15/22 08:12 Pulse Ox 95 02/15/22 08:12 FiO2 21 02/13/22 07:48 Intake & Output 02/14/22 02/15/22 02/15/22 18:59 06:59 18:59 Intake Total 1343 Output Total 833 300 Balance 510 -300 Intake: IV 263 Ampicillin-Sulbactam 3 gm 200 In Sodium Chloride 0.9% 100 ml @ 200 mls/hr IVPB Q6HR [facility] Rx#:[id number] KVO 60 Pressure Bag 3 Oral 1080 Output: Chest Tube Drainage 133 50 Chest Tube Left Lower 33 10 Lateral Chest Chest Tube Left Upper 100 40 Lateral Chest Urine 700 250 Other: Voiding Method Urinal Urinal ABP, PAP, CO, CI - Last Documented Arterial Blood Pressure 141/54 - Exam CONSTITUTIONAL: Sitting up in bed, appears comfortable, cooperative, no apparent acute distress. RESPIRATORY: Lungs sounds diminished to the left side. Respirations are even, nonlabored. Currently on room air with oxygen saturations 94%. Strong cough. Able to achieve 1500 mL on his incentive spirometry CARDIOVASCULAR: S1 and S2 present. Regular rate and rhythm, sinus rhythm on telemetry. Palpable peripheral pulses bilaterally. No edema present. No calf pain or tenderness noted. GASTROINTESTINAL: Abdomen soft, nontender, nondistended. Active bowel sounds present 4 quadrants. Tolerating diet. GENITOURINARY: Continues to void. INTEGUMENTARY: Skin is warm and dry. Thoracotomy incision present with dry intact dressing covering NEUROLOGIC: Cranial nerves II through XII intact. No focal deficits. MUSKULOSKELETAL: Able to move all extremities, strength equal bilaterally. PSYCHIATRIC: Alert and oriented to person place and time, appropriate affect, intact judgment and insight. INVASIVE LINES: Left upper anterior chest tube present to continuous wall suct ion, 40 mL serosanguineous drainage overnight, 150 mL in the last 24 hours, intermittent air leak present with coughing. Left lower posterior chest tube present to continuous wall suction, 20 mL serosanguineous drainage in the last 24 hours, no air leak present. - Allied health notes Allied health notes reviewed: nursing - Labs CBC & Chem 7: 02/15/22 06:06 02/15/22 06:06 Labs: Abnormal Lab Results - Last 24 Hours (Table) 02/14/22 02/14/22 02/14/22 Range/Units 11:40 17:26 21:54 WBC (3.8-10.6) k/uL RBC (4.30-5.90) m/uL Hgb (13.0-17.5) gm/dL Hct (39.0-53.0) % Plt Count (150-450) k/uL Sodium (137-145) mmol/L BUN (9-20) mg/dL Glucose (74-99) mg/dL POC Glucose (mg/dL) 152 H 228 H 120 H (70-110) mg/dL Calcium (8.4-10.2) mg/dL 02/15/22 02/15/22 02/15/22 Range/Units 06:06 06:06 07:24 WBC 12.3 H (3.8-10.6) k/uL RBC 3.18 L (4.30-5.90) m/uL Hgb 9.4 L (13.0-17.5) gm/dL Hct 29.9 L (39.0-53.0) % Plt Count 453 H (150-450) k/uL Sodium 134 L (137-145) mmol/L BUN 21 H (9-20) mg/dL Glucose 138 H (74-99) mg/dL POC Glucose (mg/dL) 141 H (70-110) mg/dL Calcium 7.8 L (8.4-10.2) mg/dL Microbiology - Last 24 Hours (Table) 02/13/22 17:48 Acid Fast Bacilli Smear - Final Lung - Left Acid Fast Bacilli Culture - Preliminary 02/13/22 17:48 Gram Stain - Preliminary Lung - Left Tissue Culture - Preliminary 02/03/22 11:30 Fungal Culture - Preliminary Pleural Fluid - Imaging and Cardiology Chest x-ray: report reviewed, image reviewed Assessment and Plan Assessment: 1. Complicated parapneumonic effusion/empyema left lower lobe with lung abscess, status post insertion of pigtail catheter and installation of lytic therapy x 7 doses, status post diagnostic bronchoscopy, video-assisted thoracoscopic surgery converted to open anterolateral thoracotomy, complete decortication, partial lung resection of the left upper lobe 2. Persistent cough, fever, sweats, chills, pain with deep inspiration on ad mission 3. Leukocytosis, pleural fluid positive for alpha hemolytic strep 4. History of hypertension 5. History of hyperlipidemia 6. History of prostate disorder 7. Never smoker Plan: 1. Likely will place chest tubes to water seal today. Will monitor for air leak resolution 2. Encourage use of his incentive spirometry 10 times every hour while awake. 3. Pain control per current current medication regimen 4. Continue to monitor daily labs and chest x-rays. 5. Increase activity as tolerated. Out of bed for all meals. 6. Continue on Unasyn managed by infectious disease management. 7. More recommendations to follow
[2022-02-15 11:17] LABS: Glucose,Whole Blood 212 mg/dL (70-110)
--- NOTE | 2022-02-15 12:56 | P.PN ---
Subjective Progress Note Date: 02/15/22 71-year-old male patient, a nonsmoker, no previous history of lung disease, who developed pneumonialike symptoms approximately 6 weeks ago. The patient had congestion, shortness of breath and pleurisy involving the left lung. He was given IV Rocephin for an urgent care and later on steroids with primary care physician. Nevertheless, he never recovered. He was having ongoing chest discomfort on the left. He was also having sweats and chills and episodic fever. He was getting progressively more weak and for that reason he came in to the hospital for further evaluation. The patient has not had any exposure or infection with COVID 19. He has not been vaccinated also. He has no altered mentation. No hemoptysis for now. The patient had a white cell count of 18.7 with a hemoglobin of 11. The blood work showed initial sodium of 129 and that came at 137 within the treatment. BUN was 21 with a creatinine of 0.6 and coagulation profile was essentially within normal limits. The chest x-ray not done and the patient underwent a CT angiogram that showed no this of any pulmonary embolism. There was large loculated or multiloculated left-sided pleural effusion with possibility of underlying empyema. Right lung was essentially clear. The patient was started on IV Zosyn and the patient was hospitalized. A pulmonary palpation was requested. No previous bouts of pneumonias. No chest trauma. No 70 malignancy. No TB exposure. 02/02/2022, the patient is clinically stable on antibiotics. He still has some pleuritic left-sided chest wall pain. I made recommendations for a pigtail c atheter insertion by interventional radiology and this has not been done. I do not think day services of interventional radiology are available on the weekend. This was done tomorrow. The patient remains on IV Zosyn for now. Thoracic surgery is also involved in the case. On 02/03/2022 patient seen in follow-up on medical surgical floor. He is awake, in no acute distress, did have fever spikes overnight with T-max of 101.2F, room air pulse ox is 94%. Doesn't appear to be any acute distress at rest, however does have exertional dyspnea and occasional cough and some pleuritic left-sided chest wall pain. Patient was seen by CT surgery consultation, and the recommendation is made for placement of CT-guided pigtail chest tube catheter in the left pleural space. He continues on antibiotics he is on Zosyn. On 02/04/2022 patient seen in follow-up on medical surgical floor. Yesterday h ad a left-sided pigtail chest tube catheter. And overnight his had a total of 1000 mL of purulent drainage from the pigtail. Patient received a dose of alteplase and dornase by CT surgery. Today's chest x-ray showing persistent multilocular pleural effusion with indwelling chest tube, and no evidence of his old pneumothorax. Patient remains on Zosyn for antibiotic coverage, vital signs have been stable, his been afebrile, blood pressure stable, he is working on incentive spirometer. Today's labs have been reviewed showing white blood cell count of 10.6, hemoglobin of 10.4, sodium is 137, potassium is 4.3, chloride is 100, CO2 is 29, BUN is 18 creatinine 0.7. Pleural fluid analysis showed 7400 white blood cells, 96 of holiday clear white blood cells. Fluid glucose was less than 2, fluid protein was 4.8 g, LDH was greater than 2500, consistent with empyema. Pleural fluid cultures have shown no growth thus far. Blood cultures have been negative. On 02/05/2022 patient seen in follow-up medical surgical floor. Left-sided chest tube remains in place, and there has been an additional 400 mL of purulent pleural fluid drainage in the last 24 hours. Left-sided chest tube is to water seal, no evidence of air leak. Low-grade fever this morning, with a T-max of 99 point degrees Fahrenheit. Patient is breathing comfortably, he is working on incentive spirometer, his pleuritic chest pain is improved. Chest x-ray showing stable persistent multilocular effusion. Today's labs are pending, but vital signs have been stable. CT surgery is following and patient will receive anot her dose of alteplase and dornase. Pleural fluid cultures are still pending, Gram stain showing no organisms but multiple PMNs. On 02/06/2022 patient seen in follow-up on medical surgical floor. Yesterday's CT of the chest showed persistent loculated left-sided pleural effusion, persistent consolidation and thickening of the left lung base, and the pigtail chest tube catheter was difficult to visualize, and was thought to have been dislodged. Patient did receive additional dose of alteplase and dornase yesterday, he did put out 150 ML of fluid in the last [address] surgery is following, case was discussed with them, patient remains on antibiotics however in view of persistent loculated pleural effusion, and consolidation, the decision had been made to remove the pigtail catheter and have interventional radiology replaces with another pigtail catheter. Clinically patient is stable, no worsening dyspnea, no worsening chest discomfort, his white blood cell count is fairly stable, at 11.4, hemoglobin is 11.1, electrolytes are within normal limits, B1 is 21 creatinine 0.83. His Pleural fluid cultures have shown no growth thus far. The patient is seen today 02/07/2022 in follow-up on the regular medical floor. He is currently sitting up in a chair at the bedside. Awake and alert in no acute distress. Maintaining good O2 saturations in the 90s on room. He is currently afebrile. He did undergo a repeat left-sided CT-guided Pigtail chest tube placement yesterday. Currently -20 cm wall suction. Today's chest x-ray shows improved aeration, persistent abnormal density obscuring the left hemidiaphragm, blunting of left costophrenic ample. No pneumothorax. He is to receive alteplase/dornase again today per CT services. He remains on Zosyn. The plan is for PICC line placement today. White count 10.8. Hemoglobin 10.1. Platelets 454. Sodium 139. Potassium 4.4. Chloride 103. BUN 13. Creatinine 0.7. Glucose 126. The patient is seen today 02/08/2022 in follow-up on the regular medical floor. He is currently up ambulating in the hallway. He quite well. No worsening shortness of breath, cough or congestion. Chest x-ray reveals persistent loculated left pleural effusion with inflammatory changes. Chest tube remains in place. Remains on low continuous suction -20 cm water. The plan is for another dose of alteplase/dornase per CT services. Left sided PICC line in place. Pleural fluid cultures positive for alphahemolytic streptococcus. He is currently on Unasyn per ID services. Blood glucose 114. The patient is seen today 02/09/2022 in follow-up on the regular medical floor. He is currently sitting up at the bedside. Awake and alert in no acute distress. Maintaining O2 saturations in the 90s on room air. Left-sided chest tube remains in place to wall suction -20 cm. Approximately 700 ML's of fluid was returned post alteplase/dornase infusion yesterday. He remains on Unasyn. Follow-up computed tomography scan of the chest pending. The patient is seen today 02/10/2022 in follow-up on the regular medical floor. He is currently sitting up at the bedside. Awake and alert in no acute distress. Maintaining good O2 saturations in the 90s on room air. He remains afebrile. Hemodynamically stable. Computed tomography scan of the chest revealed a left posterior approach thoracotomy tube with decrease in the left upper lung loculated fluid collection. There remains fluid collection within the lung base. A fluid collection within the left major fissure now demonstrates foci of gas suggesting some communication to the pigtail catheter but majority of fluid remains within this collection. Until catheter to wall suction. Additional 810 ML's of fluid removed yesterday after alteplase/dornase infusion. Chest x-ray revealed no change in the pleural marginal changes within the left lung consistent with empyema, loculated pleural effusion and associated atelectasis, inflammatory change. Pleural fluid was positive for alpha hemolytic streptococcus. The patient remains on Unasyn. The patient is seen today 02/12/2022 in follow-up on the regular medical floor. He is currently awake and alert in no acute distress. Sitting up at the bedside. He is maintaining O2 saturation in the 90s on room air. Normal saline at 20 ML's per hour. Chest x-ray continues to show persistent areas of consolidation, pleural effusion and loculated air-filled level of the left hemithorax. Left-sided pigtail catheter remains in place. The fluid initially was positive for alphahemolytic Streptococcus. He did not receive a lteplase/dornase yesterday. White count 8.4. Hemoglobin 10.0. Platelets 494. Sodium 135. Potassium 4.3. BUN 16. Creatinine 0.78. He remains on Unasyn. Progress note dated 02/13/2022. The patient is again seen in room 535. The patient's on room air. The patient is scheduled to go to the operating room today, and have a decortication of his left lung. The patient has been receiving Unasyn for his empyema. Cultures apparently grew out alphahemolytic streptococci. The patient is not having any respiratory distress, or chest pain. He remains stable. No new labs today. No chest x-ray today. Progress note dated 02/14/2022. The patient is seen today in room 262. The patient had surgery yesterday. He was moved to the intensive care unit, after surgery. The patient had a diagn ostic bronchoscopy, video-assisted thoracoscopic surgery, converted to open anterior lateral thoracotomy, complete decortication, and partial lung resection, left upper lobe. Today is postop day #1. He is currently on 2 L. He is getting saline at KVO. The biggest issue for him right now is pain. White count 15.8, he will 9.5, hematocrit 28, platelet count 431,000. Sodium 136, potassium 4.6, chlorides 105, CO2 26, BUN 14 and creatinine 0.66. Chest x- ray shows a left-sided chest tube, and a very minor/minimal left apical pneumothorax. Pleural parenchymal changes in the left chest, in my opinion, are lessened. The patient is seen today 02/15/2022 in follow-up on the regular medical floor. He is currently sitting up in a chair at the bedside. Awake and alert in no acute distress. Maintaining good O2 saturations in the 90s on room air. His 2 chest [address] in place. The left-sided 28 chest tube has a tiny leak. The left-sided 32 size chest tube reveals no leak. The chest tubes are off suction. Chest x-ray reveals the 2 left-sided chest tubes in good position. Left-sided PICC line in place. Tiny left apical pneumothorax is unchanged. Left-sided pleuroparenchymal opacity is stable. Right lung is clear. He remains on Unasyn. He is working well with the incentive spirometer. White count 12.3. Hemoglobin 9.4. Sodium 134. Potassium 4.4. BUN 21. Creatinine 0.85. Glucose 138. Objective - Vital Signs Vital signs: Vital Signs Temp 97.7 F 02/15/22 08:12 Pulse 88 02/15/22 08:12 Resp 17 02/15/22 08:12 BP 107/68 02/15/22 08:12 Pulse Ox 95 06/25/22 08:12 FiO2 21 02/13/22 07:48 Intake & Output 02/14/22 02/15/22 02/15/22 18:59 06:59 18:59 Intake Total 1343 Output Total 833 300 Balance 510 -300 Intake: IV 263 Ampicillin-Sulbactam 3 gm 200 In Sodium Chloride 0.9% 100 ml @ 200 mls/hr IVPB Q6HR [facility] Rx#:[id number] KVO 60 Pressure Bag 3 Oral 1080 Output: Chest Tube Drainage 133 50 Chest Tube Left Lower 33 10 Lateral Chest Chest Tube Left Upper 100 40 Lateral Chest Urine 700 250 Other: Voiding Method Urinal Urinal ABP, PAP, CO, CI - Last Documented Arterial Blood Pressure 141/54 - Exam GENERAL EXAM: Alert, 71-year-old male, on room air with pulse ox of 95%, comfortable in no apparent distress. HEAD: Normocephalic/atraumatic. EYES: Normal reaction of pupils, equal size. Conjunctiva pink, sclera white. NOSE: Clear with pink turbinates. THROAT: No erythema or exudates. NECK: No masses, no JVD, no thyroid enlargement, no adenopathy. CHEST: No chest wall deformity. 2 left-sided chest tubes are in place. Dressing dry and intact. LUNGS: Diminished breath sounds over left lower lobe with some crackles CVS: Regular rate and rhythm, normal S1 and S2, no gallops, no murmurs, no rubs ABDOMEN: Soft, nontender. No hepatosplenomegaly, normal bowel sounds, no guarding or rigidity. EXTREMITIES: No clubbing, no edema, no cyanosis, 2+ pulses and upper and lower extremities. MUSCULOSKELETAL: Muscle strength and tone normal. SPINE: No scoliosis or deformity SKIN: No rashes CENTRAL NERVOUS SYSTEM: No focal deficits, tone is normal in all 4 extremities. PSYCHIATRIC: Alert and oriented -3. Appropriate affect. Intact judgment and insight. - Labs CBC & Chem 7: 02/15/22 06:06 02/15/22 06:06 Labs: Abnormal Lab Results - Last 24 Hours (Table) 02/14/22 02/14/22 02/15/22 Range/Units 17:26 21:54 06:06 WBC 12.3 H (3.8-10.6) k/uL RBC 3.18 L (4.30-5.90) m/uL Hgb 9.4 L (13.0-17.5) gm/dL Hct 29.9 L (39.0-53.0) % Plt Count 453 H (150-450) k/uL Sodium (137-145) mmol/L BUN (9-20) mg/dL Glucose (74-99) mg/dL POC Glucose (mg/dL) 228 H 120 H (70-110) mg/dL Calcium (8.4-10.2) mg/dL 02/15/22 02/15/22 02/15/22 Range/Units 06:06 07:24 11:15 WBC (3.8-10.6) k/uL RBC (4.30-5.90) m/uL Hgb (13.0-17.5) gm/dL Hct (39.0-53.0) % Plt Count (150-450) k/uL Sodium 134 L (137-145) mmol/L BUN 21 H (9-20) mg/dL Glucose 138 H (74-99) mg/dL POC Glucose (mg/dL) 141 H 212 H (70-110) mg/dL Calcium 7.8 L (8.4-10.2) mg/dL Microbiology - Last 24 Hours (Table) 02/13/22 17:48 Acid Fast Bacilli Smear - Final Lung - Left Acid Fast Bacilli Culture - Preliminary 02/13/22 17:48 Gram Stain - Preliminary Lung - Left Tissue Culture - Preliminary 02/03/22 11:30 Fungal Culture - Preliminary Pleural Fluid Assessment and Plan Assessment: Complicated multiloculated parapneumonic left-sided pleural effusion, complication of the previously under treated pneumonia, status post left chest pigtail catheter placement with drainage of large amount of purulent material, and pleural fluid analysis is consistent with empyema, pleural fluid cultures positive for alpha hemolytic streptococcus, on Unasyn. He did undergo a video-a ssisted thorascopic surgery converted to open anterolateral thoracotomy with complete decortication and partial lung resection of left upper lobe on 02/13/2022. 32-[place] right angle chest tube placed. 28-[place] apical chest tube placed. Shortness of breath and pleuritic chest pain related to the above Fever, leukocytosis related to the above, improved Hypertension Hyperlipidemia Nonsmoker Plan: The patient was seen and evaluated Chest x-ray, medications and labs reviewed 2 left-sided chest tubes remain in place, wall suction Currently on Unasyn Remains on room air oxygen We'll continue to follow I have personally seen and examined the patient, performed the documentation and the assessment and plan as written. Number of minutes spent on the visit: 10.
[2022-02-15 16:49] LABS: Glucose,Whole Blood 182 mg/dL (70-110)
[2022-02-15 20:43] LABS: Glucose,Whole Blood 162 mg/dL (70-110)
[2022-02-15] MEDS: hydroCHLOROthiazide 12.5 MG CAP PO SCH (20:47)
[2022-02-15] MEDS: MELATONIN 3 MG TABLET PO SCH (20:48)
[2022-02-15] MEDS: LOSARTAN 50 MG TAB PO SCH (20:48)
--- NOTE | 2022-02-15 22:52 | P.PN ---
Subjective This is a 71 year old male with past medical history significant for hypertension, hyperlipidemia. He presents with 3 days of fever, shortness of br eath and pleuritic chest pain. States about 6 weeks ago he began having cough and was evaluated in the clinic and IM antibiotic injection. Also had outpatient chest xray done. He was given steroids by his primary care provider. He states it didn't seem to help and was concerned when he developed fever and weakness with congestion. He is nonsmoker, reports no marijuana use. He does not work in a factor type setting, denies exposure to toxins. He rides a motorcycle and states he notice trouble breathing after a long ride which is unusual for him. He is overall healthy. On admission chest CTA has been completed showing large loculated left pleural effusions with infiltrate, and atelectasis left lower lobe. There is concern for empyema and patient was started on empiric antibiotic coverage with zosyn. Pulmonary has evaluated the patient and IR has been consulted for pigtail cathter insertion. IR is not available until Thursday. Cardiothoracic has also been consulted. Patient for now is maintained oxygen saturation of 92% on room air. He presents with fever 100.5, heart rate 75, blood pressure 120/70. White count 18.7, hgb 11.6, sodium 129, potassium 4.3, glucose is 208. Troponin negative. 02/02/2022 Patient is evaluated today sitting up in bed. is at the bedside. Plan is for pigtail catheter insertion with IR tomorrow and cardiothoracic has been consulted for management. Pulmonary is following the patient closely. He continues on room air, however has stated he has increased cough, no sputum production. Also complains of left sided pleuritic pain, he has had motrin 400 m g ordered however he has not received. Did also add a low dose of tramadol for pain management. He continues on IV zosyn for empiric antibiotic coverage. Blood cultures are negative so far. He has remained afebrile, heart rate 98, blood pressure 153/77, 91% on room air. Labs reviewed today showing white count 16.30, hgb 10.8, sodium 136, potassium 4.6. Blood glucose in the 130s. A1C is 6.4 which is on the cusp of prediabetes vs. diabetes, will discuss with patient tomorrow and patient will discharge on an oral diabetic agent. 02/03/2022 Patient sitting up in chair pending IR placement of pigtail catheter. He had increased pain to his left side and was given low dose of tramadol which he states did help his pain. He is short of breath today, he is using his incentive spirometer, also he has requested cough medicine and it has been ordered as needed. He had a T-Max overnight of 101.2. He continues on IV Zosyn. Blood pressure today 126/73. Labs reviewed today showing white count 15.84, hgb 11.1, sodium 133, potassium 4.7, blood glucose 150s. 02/04/2022 Patient evaluated today sitting up in the chair. He underwent pigtail catheter placement with alteplase injection through catheter and he has had fair output 375 mls last night and 115 mls today so far from drainage tube which is mostly purulent. He underwent a second alteplase infusion today. Chest xray today showing persistent multilocular effusions, with indwelling chest tube. No pneumothorax. Cardiothoracic and pulmonary are following this patient. He has been encouraged to continue with cough and deep breathing and also to continue with incentive spirometry. He continues on IV zosyn. Pleural fluid and blood cultures are pending. Reports pain has improved today, he is receiving IV dilaudid and tramadol as needed. Labs today are showing white count of 10.68, hgb 10.4, sodium 137, potassium 4.3, BUN 18.0, creatinine 0.7, magnesium 2.2. Blood glucose trending down. He has remained afebrile in the last 24 hours, h eart rate 85, blood pressure 121/69, 90% room air. 02/05/2022 Patient evaluated today resting in bed, he had third alteplase injection today. Resting in bed on back during examination to begin turning rotation. Chest x- ray shows no significant interval change as before redemonstrates a loculated effusion. He reports diarrhea 1-2 times overnight. He has been maintained on IV zosyn. Labs today showed white count 10.21, hemoglobin 10.3. His T-max last night was 99 he states that he does have night sweats still, heart rate 76, blood pressure 129/75, 93% pulse oximetry. Ambulating without difficulty in the hallways. His pleural cytology has resulted showing acute inflammation consistent with empyema without evidence for malignancy. Blood glucose in the 130s. 02/06/2022 Pigtail catheter was removed yesterday as there was possibility it had dislodged and pigtail catheter will be reinserted by interventional radiology. He did have 150 mL of output from the pigtail catheter yesterday. IV fluids have been discontinued patient does have some mild peripheral edema and compression stoc kings have been ordered. He continues to ambulated in the hallways and is using incentive spirometer as recommended. Labs today; white count 11.4, hemoglobin 11.1, sodium 138, potassium 5.0, BUN 21, creatinine 0.83, blood glucose in the 120s. Patient continues on IV antibiotics, cultures are negative so far. He is being followed closely by pulmonary, infectious disease and cardiothoracic consultation. There is a possibility patient may still require VATS procedure. He does complain of some loose stool, most likely for antibiotics, he is on GI prophylaxis and also immodium. Denies nausea, vomiting. 02/07/2022 Patient is status post let CT guided pigtail catheter reinsertion and had alteplase and dornase injected into catheter again today. Chest tube is set to - 20 mc wall suctin. 140 mLs of drainage from catheter today. Chest xray today showing interval improvement and reduction in the patients pleural effusion. There is also improvement in aeration with persistent density which obscurs the left hemidiaphragm. Subcutaneous emphysema questionable over the right chest. Labs today show white count 10.84, hemoglobin 10.1, sodium 139, potassium 4.4, BUN 13.3, creatinine 0.7. Blood glucose in the 120s. Calcium 1.8. Cytology from pigtail catheter insertion today is pending. Continues on IV ampicillin, patient will have PICC Line placed today. He is being followed by pulmonary, cadiothoracic and infectious disease. 02/08/2022 Patient evaluated today sitting up in bed. He continues with cough, and states it is non productive. He has pigtail catheter in place, low continuous suction - 20 cm wall. Repeat chest xray today demonstrates persistent left loculated pleural effusion with inflammatory changes. He is being managed by pulmonary and cardiothoracic disease. Plan today is for another dose of alteplase/dornase per CT services. Pleural fluid cultures are now positive for alphahemolytic strep and he remains on IV unasyn and is being followed closely by infectious disease services. Patient has PICC line in place. Blood glucose remains stable and he continues on sliding scale insulin. Plan to repeat CBC and BMP tomorrow. He has t max 99.4 through out the night, heart rate 83, blood pressure 114/72, 91% on room air. He is using incentive spirometer and ambulating the halls without difficulty. He has bilateral ankle edema, IV fluids have been stopped. 02/09/2022 Patient status post complicated multi-loculated left pleural effusion and empyema status post pigtail catheter drainage and alteplase instillations yesterday and today. His culture was growing alphahemolytic streptococci and currently covered with Unasyn. Coronary and her to thoracic surgery team on the case. Repeat CT of the chest without contrast today showing decreased from the fluid but the majority of the fluid remains within the collection. No more fever. Mild leukocytosis. Rest of labs and vitals are stable. 02/10/2022 Patient still with the right-sided pigtail chest tube. Chest x-ray from today so same changes with left-sided empyema and possible atelectasis/pneumonia. He is undergoing another treatment with alteplase/dornase with cardiothoracic surgery team. Patient continued on Unasyn 02/11/2022 Patient still with persistent left lower lung base loculated pleural effusion and empyema and his been covered with appropriate antibiotics with Unasyn based on his culture results. His empyema looks improved but not resolved and still there is persistent fluid. Also there is air-fluid level suggestive of hydropneumothorax on the left side. Because of this patient is followed closely by cardiothoracic surgery team or plan on doing decortication surgery on 02/13. Other than that patient is breathing quietly with no chest pain or significant cough and while at rest. Also he is hemodynamically stable 02/12/2022 Patient clinically is the same, I still have left bigtail chest tube His hemodynamically stable. He remains on Unasyn. Patient is planned for decortication procedure tomorrow 02/13/2022 Patient was standing up in his room question and that and self hygiene, fully awake and oriented, looks motivated to undergo for his surgery today or left lung decortication. Vital signs stable and labs reviewed We will follow up 02/14/2022 decortication of the left lung pleura . Today is postoperative day #1 patient is seen in the ICU, he looks little bit tired but awake and alert, no significant respiratory distress. He has left-sided chest tube. Mildly ta chypneic while at rest. Leukocytosis 15.8. Hemoglobin 9.5. Chest x-ray showing no change from prior exam. Left-sided chest tube. Patient continued with antibiotic on Unasyn. 02/15/2022 Patient is status post decortication of his left pleura, currently he is lying in bed comfortable, minimally tachypneic, not in distress. Vitals and labs are stable. He has mild leukocytosis at 12.3. No more fever. Patient continued on Unasyn and left-sided chest tube Objective - Vital Signs Vital signs: Vital Signs Temp 97.7 F 02/15/22 08:12 Pulse 88 02/15/22 08:12 Resp 17 02/15/22 08:12 BP 107/68 02/15/22 08:12 Pulse Ox 95 02/15/22 08:12 FiO2 21 02/13/22 07:48 Intake & Output 02/14/22 02/15/22 02/15/22 18:59 06:59 18:59 Intake Total 1343 Output Total 833 300 Balance 510 -300 Intake: IV 263 Ampicillin-Sulbactam 3 gm 200 In Sodium Chloride 0.9% 100 ml @ 200 mls/hr IVPB Q6HR [facility] Rx#:[id number] KVO 60 Pressure Bag 3 Oral 1080 Output: Chest Tube Drainage 133 50 Chest Tube Left Lower 33 10 Lateral Chest Chest Tube Left Upper 100 40 Lateral Chest Urine 700 250 Other: Voiding Method Urinal Urinal ABP, PAP, CO, CI - Last Documented Arterial Blood Pressure 141/54 - Exam GENERAL: The patient is alert and oriented x3, not in any acute distress. Well developed, well nourished. HEENT: Pupils are round and equally reacting to light. EOMI. No scleral icterus. No conjunctival pallor. Normocephalic, atraumatic. No pharyngeal erythema. No thyromegaly. CARDIOVASCULAR: S1 and S2 present. No murmurs, rubs, or gallops. -PULMONARY: Chest is clear to auscultation, no wheezing or crackles. Left pigtail to put in a Place ABDOMEN: Soft, nontender, nondistended, normoactive bowel sounds. No palpable organomegaly. MUSCULOSKELETAL: No joint swelling or deformity. EXTREMITIES: No cyanosis, clubbing, or pedal edema. NEUROLOGICAL: Gross neurological examination did not reveal any focal deficits. SKIN: No rashes. no petechiae. - Labs CBC & Chem 7: 02/15/22 06:06 02/15/22 06:06 Labs: Abnormal Lab Results - Last 24 Hours (Table) 02/14/22 02/14/22 02/15/22 Range/Units 17:26 21:54 06:06 WBC 12.3 H (3.8-10.6) k/uL RBC 3.18 L (4.30-5.90) m/uL Hgb 9.4 L (13.0-17.5) gm/dL Hct 29.9 L (39.0-53.0) % Plt Count 453 H (150-450) k/uL Sodium (137-145) mmol/L BUN (9-20) mg/dL Glucose (74-99) mg/dL POC Glucose (mg/dL) 228 H 120 H (70-110) mg/dL Calcium (8.4-10.2) mg/dL 02/15/22 02/15/22 02/15/22 Range/Units 06:06 07:24 11:15 WBC (3.8-10.6) k/uL RBC (4.30-5.90) m/uL Hgb (13.0-17.5) gm/dL Hct (39.0-53.0) % Plt Count (150-450) k/uL Sodium 134 L (137-145) mmol/L BUN 21 H (9-20) mg/dL Glucose 138 H (74-99) mg/dL POC Glucose (mg/dL) 141 H 212 H (70-110) mg/dL Calcium 7.8 L (8.4-10.2) mg/dL Microbiology - Last 24 Hours (Table) 02/13/22 17:48 Acid Fast Bacilli Smear - Final Lung - Left Acid Fast Bacilli Culture - Preliminary 02/13/22 17:48 Gram Stain - Preliminary Lung - Left Tissue Culture - Preliminary 02/03/22 11:30 Fungal Culture - Preliminary Pleural Fluid Assessment and Plan Assessment: Loculated complicated multiloculated left side pleural effusion with empyema suspected pneumonia, he is status post surgical decortication and left-sided chest tube Left sided pneumonia and empyema Mild sepsis, Leukocytosis, fever secondary to above, improving Hypertension Hyperlpidemia Prediabetes/Diabetes with A1C of 6.4 History of prostate disorder Plan: This is a pleasant 71 years old male who presents with complicated multiloculated empyema status post pigtail tube placement. Continue with Unasyn Continue with left-sided chest tube and management per cardiothoracic surgery team Pulmonary team on the case. Labs and medication were reviewed.. Continue same treatment. Continue with symptomatic treatment. Resume home medication. Monitor lytes and vitals. DVT and GI prophylaxis. Further recommendations as per clinical course of the patient GI Prophylaxis: Protonix
--- NOTE | 2022-02-16 00:10 | P.PN ---
Subjective Progress Note Date: 02/14/22 Principal diagnosis: Left-sided empyema Patient is a 71 year male presented to the hospital with left-sided chest pain and fever and cough has been diagnosed with a left-sided loculated effusion concerning for empyema in this patient who is status post chest tube placement on 02/03/2022 which unfortunately did fell off 02/05/2022 and was reinserted on 02/06/2022 and is status post alteplase infusion 2, patient is status post left-sided thoracotomy completed on 02/13/2022 On today's evaluation that is 02/14/2022, the patient remains to be afebrile, the patient is breathing comfortably , the patient left-sided chest pain is currently controlled, the patient cough has decreased intensity and not bringing up any sputum, patient denies abdominal pain no diarrhea Objective - Vital Signs Vital signs: Vital Signs Temp 98.0 F 02/14/22 04:00 Pulse 78 02/14/22 08:00 Resp 6 L 02/14/22 06:00 BP 136/89 02/14/22 06:00 Pulse Ox 97 02/14/22 07:36 FiO2 21 02/13/22 07:48 Intake & Output 02/13/22 02/14/22 02/14/22 18:59 06:59 18:59 Intake Total 2460 443 43 Output Total 750 1555 223 Balance 1710 -1112 -180 Weight 83.6 kg Intake: IV 2150 343 43 Ampicillin-Sulbactam 3 gm 200 In Sodium Chloride 0.9% 100 ml @ 200 mls/hr IVPB Q6HR [facility] Rx#:[id number] KVO 110 40 Pressure Bag 33 3 Intake, IV Titration 100 Amount Ampicillin-Sulbactam 3 gm 100 In Sodium Chloride 0.9% 100 ml @ 200 mls/hr IVPB Q6HR [facility] Rx#:[id number] Blood Product 310 0 Rc As-1 Unit 310 [id number] Rc As-1 Unit 0 0 [id number] Output: Chest Tube Drainage 518 23 Chest Tube Left Lower 28 23 Lateral Chest Chest Tube Left Upper 490 Lateral Chest Urine 1037 200 Estimated Blood Loss 750 ABP, PAP, CO, CI - Last Documented Arterial Blood Pressure 141/54 - Exam GENERAL DESCRIPTION: An elderly male lying in bed in no distress RESPIRATORY SYSTEM: Unlabored breathing , decreased breath sounds at left base HEART: S1 S2 regular rate and rhythm , ABDOMEN: Soft , no tenderness EXTREMITIES: No edema feet - Labs CBC & Chem 7: 02/15/22 06:06 02/15/22 06:06 Labs: Abnormal Lab Results - Last 24 Hours (Table) 02/12/22 02/13/22 02/13/22 Range/Units 05:54 19:56 22:23 WBC (3.8-10.6) k/uL RBC (4.30-5.90) m/uL Hgb (13.0-17.5) gm/dL Hct (39.0-53.0) % Sodium (137-145) mmol/L Glucose (74-99) mg/dL POC Glucose (mg/dL) 163 H 166 H (70-110) mg/dL Calcium (8.4-10.2) mg/dL Crossmatch See Detail 02/14/22 02/14/22 02/14/22 Range/Units 04:20 04:20 06:46 WBC 15.8 H (3.8-10.6) k/uL RBC 3.00 L (4.30-5.90) m/uL Hgb 9.5 L (13.0-17.5) gm/dL Hct 28.0 L (39.0-53.0) % Sodium 136 L (137-145) mmol/L Glucose 137 H (74-99) mg/dL POC Glucose (mg/dL) 138 H (70-110) mg/dL Calcium 7.8 L (8.4-10.2) mg/dL Crossmatch 02/14/22 Range/Units 11:40 WBC (3.8-10.6) k/uL RBC (4.30-5.90) m/uL Hgb (13.0-17.5) gm/dL Hct (39.0-53.0) % Sodium (137-145) mmol/L Glucose (74-99) mg/dL POC Glucose (mg/dL) 152 H (70-110) mg/dL Calcium (8.4-10.2) mg/dL Crossmatch Microbiology - Last 24 Hours (Table) 02/13/22 17:48 Gram Stain - Preliminary Lung - Left Tissue Culture - Preliminary 02/13/22 17:48 Anaerobic Culture - Preliminary Lung - Left 02/13/22 17:48 Acid Fast Bacilli Culture - Preliminary Lung - Left 02/13/22 17:48 Fungal Culture - Preliminary Lung - Left Assessment and Plan (1) Pleural effusion, left Current Visit: Yes Status: Acute Code(s): J90 - PLEURAL EFFUSION, NOT ELSEWHERE CLASSIFIED SNOMED Code(s): 37810510 Plan: 1patient presented to hospital with sepsis source is left-sided pneumonia and empyema more likely from a community-acquired pathogen as the patient seem to have not received an antibiotic in the outpatient setting status post IR chest tube placement and fluid has been sent for the culture which has been finalized alphahemolytic streptococcus. 2patient status post left-sided thoracotomy and culture which are currently pending, patient to continue with Unasyn and continue supportive care Time with Patient: Less than 30
--- NOTE | 2022-02-16 00:12 | P.PN ---
Subjective Progress Note Date: 02/15/22 Principal diagnosis: Left-sided empyema Patient is a 71 year male presented to the hospital with left-sided chest pain and fever and cough has been diagnosed with a left-sided loculated effusion concerning for empyema in this patient who is status post chest tube placement on 02/03/2022 which unfortunately did fell off 02/05/2022 and was reinserted on 02/06/2022 and is status post alteplase infusion 2, patient is status post left-sided thoracotomy completed on 02/13/2022 On today's evaluation that is 02/15/2022, the patient continues to be afebrile, the patient is breathing comfortably on room air , the patient denies any worsening left-sided chest pain , the patient denies any worsening cough or sputum production, patient denies abdominal pain no diarrhea Objective - Vital Signs Vital signs: Vital Signs Temp 98.6 F 02/15/22 19:57 Pulse 86 02/15/22 19:57 Resp 24 02/15/22 19:57 BP 106/67 02/15/22 19:57 Pulse Ox 96 02/15/22 19:57 FiO2 21 02/13/22 07:48 Intake & Output 02/15/22 02/15/22 02/16/22 06:59 18:59 06:59 Output Total 300 18 Balance -300 -18 Output: Chest Tube Drainage 50 18 Chest Tube Left Lower 10 10 Lateral Chest Chest Tube Left Upper 40 8 Lateral Chest Urine 250 Other: Voiding Method Urinal ABP, PAP, CO, CI - Last Documented Arterial Blood Pressure 141/54 - Exam GENERAL DESCRIPTION: An elderly male lying in bed in no distress RESPIRATORY SYSTEM: Unlabored breathing , decreased breath sounds at left base HEART: S1 S2 regular rate and rhythm , ABDOMEN: Soft , no tenderness EXTREMITIES: No edema feet - Labs CBC & Chem 7: 02/15/22 06:06 02/15/22 06:06 Labs: Abnormal Lab Results - Last 24 Hours (Table) 02/14/22 02/15/22 02/15/22 Range/Units 21:54 06:06 06:06 WBC 12.3 H (3.8-10.6) k/uL RBC 3.18 L (4.30-5.90) m/uL Hgb 9.4 L (13.0-17.5) gm/dL Hct 29.9 L (39.0-53.0) % Plt Count 453 H (150-450) k/uL Sodium 134 L (137-145) mmol/L BUN 21 H (9-20) mg/dL Glucose 138 H (74-99) mg/dL POC Glucose (mg/dL) 120 H (70-110) mg/dL Calcium 7.8 L (8.4-10.2) mg/dL 02/15/22 02/15/22 02/15/22 Range/Units 07:24 11:15 16:47 WBC (3.8-10.6) k/uL RBC (4.30-5.90) m/uL Hgb (13.0-17.5) gm/dL Hct (39.0-53.0) % Plt Count (150-450) k/uL Sodium (137-145) mmol/L BUN (9-20) mg/dL Glucose (74-99) mg/dL POC Glucose (mg/dL) 141 H 212 H 182 H (70-110) mg/dL Calcium (8.4-10.2) mg/dL 02/15/22 Range/Units 20:41 WBC (3.8-10.6) k/uL RBC (4.30-5.90) m/uL Hgb (13.0-17.5) gm/dL Hct (39.0-53.0) % Plt Count (150-450) k/uL Sodium (137-145) mmol/L BUN (9-20) mg/dL Glucose (74-99) mg/dL POC Glucose (mg/dL) 162 H (70-110) mg/dL Calcium (8.4-10.2) mg/dL Microbiology - Last 24 Hours (Table) 02/13/22 17:48 Anaerobic Culture - Preliminary Lung - Left 02/13/22 17:48 Acid Fast Bacilli Smear - Final Lung - Left Acid Fast Bacilli Culture - Preliminary 02/13/22 17:48 Gram Stain - Preliminary Lung - Left Tissue Culture - Preliminary 02/03/22 11:30 Fungal Culture - Preliminary Pleural Fluid Assessment and Plan (1) Pleural effusion, left Current Visit: Yes Status: Acute Code(s): J90 - PLEURAL EFFUSION, NOT ELSEWHERE CLASSIFIED SNOMED Code(s): 58024712 Plan: 1patient presented to hospital with sepsis source is left-sided pneumonia and empyema more likely from a community-acquired pathogen as the patient seem to have not received an antibiotic in the outpatient setting status post IR chest tube placement and fluid has been sent for the culture which has been finalized alphahemolytic streptococcus. 2patient status post left-sided thoracotomy and culture which are currently pending, patient slowly clinically improving and will continue with Unasyn and monitor clinical course closely Time with Patient: Less than 30
[2022-02-16] MEDS: KETOROLAC 15 MG/ML 1 ML VIAL IVP SCH ×4 (06:17→23:45)
[2022-02-16] MEDS: AMPICILLIN-SULBACTAM 3 GM in SODIUM CHLORIDE 0.9% 100 ML IVPB SCH ×4 (06:17→23:45)
[2022-02-16 07:00] LABS: Glucose,Whole Blood 150 mg/dL (70-110)
--- NOTE | 2022-02-16 07:20 | XR ---
EXAMINATION TYPE: XR chest 1V portable DATE OF EXAM: 02/16/2022 HISTORY: Shortness of breath. COMPARISON: 02/15/2022 TECHNIQUE: Single view of the chest is submitted. FINDINGS: 2 left-sided chest tubes are remain in place. Tiny left apical pneumothorax is again seen. Pleural pa renchymal opacity left lower lobe is unchanged. Left-sided PICC line. Mild increased density right medial lung base may reflect atelectasis. The heart is stable. Hilar and mediastinal structures are within normal limits. Degenerative changes are seen of the dorsal spine. IMPRESSION: 1. Tiny left apical pneumothorax is again seen. Pleural parenchymal opacity left lower lobe is uncha nged.
[2022-02-16] MEDS: MAGNESIUM OXIDE 400 MG TAB PO SCH (07:29)
[2022-02-16] MEDS: PANTOPRAZOLE 40 MG TABLET PO SCH (07:29)
[2022-02-16] MEDS: INSULIN ASPART (NovoLOG) 100 UNIT/ML VIAL SQ SCH ×8 (07:29→21:38)
--- NOTE | 2022-02-16 09:05 | P.PN ---
Subjective Progress Note Date: 02/16/22 Principal diagnosis: Complicated parapneumonic empyema left lower lobe with lung abscess, leukocytosis. Previous medical history of hypertension, hyperlipidemia, BPH, lifetime nonsmoker. POD #3 diagnostic bronchoscopy, video-assisted thoracoscopic surgery converted to open anterolateral thoracotomy, complete decortication, partial lung resection of the left upper lobe The patient was seen and examined this morning sitting up in bed on the medical telemetry unit in no acute distress. Does complain of pain and his chest tube site which is mostly controlled with medications. Remains in sinus rhythm, hemodynamically stable. Left anterior and posterior chest tubes present and connected to continuous wall suction, no air leak present this morning. Patient has ambulated in the hallway without difficulty. No other new concerns Objective - Vital Signs Vital signs: Vital Signs Temp 98.4 F 02/16/22 07:21 Pulse 77 02/16/22 07:21 Resp 18 02/16/22 07:21 BP 110/67 02/16/22 07:21 Pulse Ox 95 02/16/22 07:21 FiO2 21 02/13/22 07:48 Intake & Output 02/15/22 02/16/22 02/16/22 18:59 06:59 18:59 Intake Total 700 Output Total 18 190 Balance -18 510 Intake: Intake, IV Titration 200 Amount Ampicillin-Sulbactam 3 gm 200 In Sodium Chloride 0.9% 100 ml @ 200 mls/hr IVPB Q6HR [facility] Rx#:[id number] Oral 500 Output: Chest Tube Drainage 18 Chest Tube Left Lower 10 Lateral Chest Chest Tube Left Upper 8 Lateral Chest Urine 190 Other: # Voids 3 ABP, PAP, CO, CI - Last Documented Arterial Blood Pressure 141/54 - Exam CONSTITUTIONAL: Sitting up in bed, appears comfortable, cooperative, no apparent acute distress. RESPIRATORY: Lungs sounds diminished to the left side. Respirations are even, nonlabored. Currently on room air with oxygen saturations 93%. Strong cough. Able to achieve 1750 mL on his incentive spirometry CARDIOVASCULAR: S1 and S2 present. Regular rate and rhythm, sinus rhythm on telemetry. Palpable peripheral pulses bilaterally. No edema present. No calf pain or tenderness noted. GASTROINTESTINAL: Abdomen soft, nontender, nondistended. Active bowel sounds present 4 quadrants. Tolerating diet. GENITOURINARY: Continues to void. INTEGUMENTARY: Skin is warm and dry. Thoracotomy incision present with dry intact dressing covering NEUROLOGIC: Cranial nerves II through XII intact. No focal deficits. MUSKULOSKELETAL: Able to move all extremities, strength equal bilaterally. PSYCHIATRIC: Alert and oriented to person place and time, appropriate affect, intact judgment and insight. INVASIVE LINES: Left upper anterior chest tube present to continuous wall suction, 200 mL serosanguineous drainage in the last 24 hours, no air leak present. Left lower posterior chest tube present to continuous wall suction, 10 mL serosanguineous drainage in the last 24 hours, no air leak present. - Allied health notes Allied health notes reviewed: nursing - Labs CBC & Chem 7: 02/15/22 06:06 02/15/22 06:06 Labs: Abnormal Lab Results - Last 24 Hours (Table) 02/15/22 02/15/22 02/15/22 Range/Units 11:15 16:47 20:41 POC Glucose (mg/dL) 212 H 182 H 162 H (70-110) mg/dL 02/16/22 Range/Units 06:59 POC Glucose (mg/dL) 150 H (70-110) mg/dL Microbiology - Last 24 Hours (Table) 02/13/22 17:48 Anaerobic Culture - Preliminary Lung - Left - Imaging and Cardiology Chest x-ray: report reviewed, image reviewed Assessment and Plan Assessment: 1. Complicated parapneumonic effusion/empyema left lower lobe with lung abscess, status post insertion of pigtail catheter and installation of lytic therapy x 7 doses, status post diagnostic bronchoscopy, video-assisted thoracoscopic surgery converted to open anterolateral thoracotomy, complete decortication, partial lung resection of the left upper lobe 2. Persistent cough, fever, sweats, chills, pain with deep inspiration on admission 3. Leukocytosis, pleural fluid positive for alpha hemolytic strep 4. History of hypertension 5. History of hyperlipidemia 6. History of prostate disorder 7. Never smoker Plan: 1. Will discontinue basilar chest tube, continue apical chest tube for another 24 hours to [facility] 2. Encourage use of his incentive spirometry 10 times every hour while awake. 3. Pain control per current current medication regimen 4. Continue to monitor daily labs and chest x-rays. 5. Increase activity as tolerated. Out of bed for all meals. 6. Continue on Unasyn managed by infectious disease management, cultures pending. 7. More recommendations to follow
[2022-02-16 09:25] LABS: HCT 24.3 % (39.6-50.0); HGB 7.5 g/dL (13.0-17.0); MCH 28.7 pg (27.0-32.0); MCHC 30.9 g/dL (32.0-37.0); MCV 93.1 fL (80.0-97.0); Mean Platelet Volume 9.8 fL (9.5-12.2); NRBC Per 100 WBC 0 /100 WBCS (0.0-0.0); Platelet Count 341 X 10*3/uL (140-440); RBC 2.61 X 10*6/uL (4.40-5.60); RDW 13.2 % (11.5-14.5); WBC 7.59 X 10*3/uL (4.50-10.00)
[2022-02-16 09:35] LABS: Anion Gap 10.3 mmol/L (10.00-18.00); BUN/Creat Ratio 26.14 Ratio (12.00-20.00); Blood Urea Nitrogen 18.3 mg/dL (9.0-27.0); Calcium 7.6 mg/dL (8.7-10.3); Carbon Dioxide 25.7 mmol/L (20.0-27.5); Non-African American GFR(CKD) 94.9 (60.0-200.0); Potassium 4.1 mmol/L (3.5-5.5)
[2022-02-16] MEDS: ASCORBIC ACID 500 MG TAB PO SCH ×2 (11:00→16:43)
[2022-02-16] MEDS: SENNOSIDES-DOCUSATE SODIUM 1 EACH TAB PO SCH ×2 (11:00→20:26)
--- NOTE | 2022-02-16 11:31 | P.PN ---
Subjective Progress Note Date: 02/16/22 71-year-old male patient, a nonsmoker, no previous history of lung disease, who developed pneumonialike symptoms approximately 6 weeks ago. The patient had congestion, shortness of breath and pleurisy involving the left lung. He was given IV Rocephin for an urgent care and later on steroids with primary care physician. Nevertheless, he never recovered. He was having ongoing chest discomfort on the left. He was also having sweats and chills and episodic fever. He was getting progressively more weak and for that reason he came in to the hospital for further evaluation. The patient has not had any exposure or infection with COVID 19. He has not been vaccinated also. He has no altered mentation. No hemoptysis for now. The patient had a white cell count of 18.7 with a hemoglobin of 11. The blood work showed initial sodium of 129 and that came at 137 within the treatment. BUN was 21 with a creatinine of 0.6 and coagulation profile was essentially within normal limits. The chest x-ray not done and the patient underwent a CT angiogram that showed no this of any pulmonary embolism. There was large loculated or multiloculated left-sided pleural effusion with possibility of underlying empyema. Right lung was essentially clear. The patient was started on IV Zosyn and the patient was hospitalized. A pulmonary palpation was requested. No previous bouts of pneumonias. No chest trauma. No 70 malignancy. No TB exposure. 02/02/2022, the patient is clinically stable on antibiotics. He still has some pleuritic left-sided chest wall pain. I made recommendations for a pigtail c atheter insertion by interventional radiology and this has not been done. I do not think day services of interventional radiology are available on the weekend. This was done tomorrow. The patient remains on IV Zosyn for now. Thoracic surgery is also involved in the case. On 02/03/2022 patient seen in follow-up on medical surgical floor. He is awake, in no acute distress, did have fever spikes overnight with T-max of 101.2F, room air pulse ox is 94%. Doesn't appear to be any acute distress at rest, however does have exertional dyspnea and occasional cough and some pleuritic left-sided chest wall pain. Patient was seen by CT surgery consultation, and the recommendation is made for placement of CT-guided pigtail chest tube catheter in the left pleural space. He continues on antibiotics he is on Zosyn. On 02/04/2022 patient seen in follow-up on medical surgical floor. Yesterday h ad a left-sided pigtail chest tube catheter. And overnight his had a total of 1000 mL of purulent drainage from the pigtail. Patient received a dose of alteplase and dornase by CT surgery. Today's chest x-ray showing persistent multilocular pleural effusion with indwelling chest tube, and no evidence of his old pneumothorax. Patient remains on Zosyn for antibiotic coverage, vital signs have been stable, his been afebrile, blood pressure stable, he is working on incentive spirometer. Today's labs have been reviewed showing white blood cell count of 10.6, hemoglobin of 10.4, sodium is 137, potassium is 4.3, chloride is 100, CO2 is 29, BUN is 18 creatinine 0.7. Pleural fluid analysis showed 7400 white blood cells, 96 of holiday clear white blood cells. Fluid glucose was less than 2, fluid protein was 4.8 g, LDH was greater than 2500, consistent with empyema. Pleural fluid cultures have shown no growth thus far. Blood cultures have been negative. On 02/05/2022 patient seen in follow-up medical surgical floor. Left-sided chest tube remains in place, and there has been an additional 400 mL of purulent pleural fluid drainage in the last 24 hours. Left-sided chest tube is to water seal, no evidence of air leak. Low-grade fever this morning, with a T-max of 99 point degrees Fahrenheit. Patient is breathing comfortably, he is working on incentive spirometer, his pleuritic chest pain is improved. Chest x-ray showing stable persistent multilocular effusion. Today's labs are pending, but vital signs have been stable. CT surgery is following and patient will receive anot her dose of alteplase and dornase. Pleural fluid cultures are still pending, Gram stain showing no organisms but multiple PMNs. On 02/06/2022 patient seen in follow-up on medical surgical floor. Yesterday's CT of the chest showed persistent loculated left-sided pleural effusion, persistent consolidation and thickening of the left lung base, and the pigtail chest tube catheter was difficult to visualize, and was thought to have been dislodged. Patient did receive additional dose of alteplase and dornase yesterday, he did put out 150 ML of fluid in the last [address] surgery is following, case was discussed with them, patient remains on antibiotics however in view of persistent loculated pleural effusion, and consolidation, the decision had been made to remove the pigtail catheter and have interventional radiology replaces with another pigtail catheter. Clinically patient is stable, no worsening dyspnea, no worsening chest discomfort, his white blood cell count is fairly stable, at 11.4, hemoglobin is 11.1, electrolytes are within normal limits, B1 is 21 creatinine 0.83. His Pleural fluid cultures have shown no growth thus far. The patient is seen today 02/07/2022 in follow-up on the regular medical floor. He is currently sitting up in a chair at the bedside. Awake and alert in no acute distress. Maintaining good O2 saturations in the 90s on room. He is currently afebrile. He did undergo a repeat left-sided CT-guided Pigtail chest tube placement yesterday. Currently -20 cm wall suction. Today's chest x-ray shows improved aeration, persistent abnormal density obscuring the left hemidiaphragm, blunting of left costophrenic ample. No pneumothorax. He is to receive alteplase/dornase again today per CT services. He remains on Zosyn. The plan is for PICC line placement today. White count 10.8. Hemoglobin 10.1. Platelets 454. Sodium 139. Potassium 4.4. Chloride 103. BUN 13. Creatinine 0.7. Glucose 126. The patient is seen today 02/08/2022 in follow-up on the regular medical floor. He is currently up ambulating in the hallway. He quite well. No worsening shortness of breath, cough or congestion. Chest x-ray reveals persistent loculated left pleural effusion with inflammatory changes. Chest tube remains in place. Remains on low continuous suction -20 cm water. The plan is for another dose of alteplase/dornase per CT services. Left sided PICC line in place. Pleural fluid cultures positive for alphahemolytic streptococcus. He is currently on Unasyn per ID services. Blood glucose 114. The patient is seen today 02/09/2022 in follow-up on the regular medical floor. He is currently sitting up at the bedside. Awake and alert in no acute distress. Maintaining O2 saturations in the 90s on room air. Left-sided chest tube remains in place to wall suction -20 cm. Approximately 700 ML's of fluid was returned post alteplase/dornase infusion yesterday. He remains on Unasyn. Follow-up computed tomography scan of the chest pending. The patient is seen today 02/10/2022 in follow-up on the regular medical floor. He is currently sitting up at the bedside. Awake and alert in no acute distress. Maintaining good O2 saturations in the 90s on room air. He remains afebrile. Hemodynamically stable. Computed tomography scan of the chest revealed a left posterior approach thoracotomy tube with decrease in the left upper lung loculated fluid collection. There remains fluid collection within the lung base. A fluid collection within the left major fissure now demonstrates foci of gas suggesting some communication to the pigtail catheter but majority of fluid remains within this collection. Until catheter to wall suction. Additional 810 ML's of fluid removed yesterday after alteplase/dornase infusion. Chest x-ray revealed no change in the pleural marginal changes within the left lung consistent with empyema, loculated pleural effusion and associated atelectasis, inflammatory change. Pleural fluid was positive for alpha hemolytic streptococcus. The patient remains on Unasyn. The patient is seen today 02/12/2022 in follow-up on the regular medical floor. He is currently awake and alert in no acute distress. Sitting up at the bedside. He is maintaining O2 saturation in the 90s on room air. Normal saline at 20 ML's per hour. Chest x-ray continues to show persistent areas of consolidation, pleural effusion and loculated air-filled level of the left hemithorax. Left-sided pigtail catheter remains in place. The fluid initially was positive for alphahemolytic Streptococcus. He did not receive a lteplase/dornase yesterday. White count 8.4. Hemoglobin 10.0. Platelets 494. Sodium 135. Potassium 4.3. BUN 16. Creatinine 0.78. He remains on Unasyn. Progress note dated 02/13/2022. The patient is again seen in room 535. The patient's on room air. The patient is scheduled to go to the operating room today, and have a decortication of his left lung. The patient has been receiving Unasyn for his empyema. Cultures apparently grew out alphahemolytic streptococci. The patient is not having any respiratory distress, or chest pain. He remains stable. No new labs today. No chest x-ray today. Progress note dated 02/14/2022. The patient is seen today in room 262. The patient had surgery yesterday. He was moved to the intensive care unit, after surgery. The patient had a diagn ostic bronchoscopy, video-assisted thoracoscopic surgery, converted to open anterior lateral thoracotomy, complete decortication, and partial lung resection, left upper lobe. Today is postop day #1. He is currently on 2 L. He is getting saline at KVO. The biggest issue for him right now is pain. White count 15.8, he will 9.5, hematocrit 28, platelet count 431,000. Sodium 136, potassium 4.6, chlorides 105, CO2 26, BUN 14 and creatinine 0.66. Chest x- ray shows a left-sided chest tube, and a very minor/minimal left apical pneumothorax. Pleural parenchymal changes in the left chest, in my opinion, are lessened. The patient is seen today 02/15/2022 in follow-up on the regular medical floor. He is currently sitting up in a chair at the bedside. Awake and alert in no acute distress. Maintaining good O2 saturations in the 90s on room air. His 2 [address] in place. The left-sided 28 chest tube has a tiny leak. The left-sided 32 size chest tube reveals no leak. The chest tubes are off suction. Chest x-ray reveals the 2 left-sided chest tubes in good position. Left-sided PICC line in place. Tiny left apical pneumothorax is unchanged. Left-sided pleuroparenchymal opacity is stable. Right lung is clear. He remains on Unasyn. He is working well with the incentive spirometer. White count 12.3. Hemoglobin 9.4. Sodium 134. Potassium 4.4. BUN 21. Creatinine 0.85. Glucose 138. The patient is seen today 02/16/2022 in follow-up on the regular medical floor. He is currently sitting up in bed. Awake and alert in no acute distress. Continues to oxygenate well on room air with O2 saturations in the 90s. This is postop day #3 of a diagnostic bronchoscopy, VATS converted to open anterolateral thoracotomy with complete decortication and partial lung resection of left upper lobe. Cultures and pathology pending. 2 left-sided chest tubes remain in place with no leak noted. Remain on continuous wall suction. Chest x-ray reveals a tiny left apical pneumothorax. No significant change. The patient has received 2 units of packed red blood cells this admission. Current hemoglobin 7.5. White count 7.5. Sodium 139. Potassium 4.1. BUN 18. Creatinine 0.7. Glucose 140. He continues to work well with the incentive spirometer. Remains on Unasyn. Objective - Vital Signs Vital signs: Vital Signs Temp 98.4 F 02/16/22 07:21 Pulse 77 02/16/22 07:21 Resp 18 02/16/22 07:21 BP 110/67 02/16/22 07:21 Pulse Ox 95 02/16/22 07:21 FiO2 21 02/13/22 07:48 Intake & Output 02/15/22 02/16/22 02/16/22 18:59 06:59 18:59 Intake Total 700 Output Total 18 190 Balance -18 510 Intake: Intake, IV Titration 200 Amount Ampicillin-Sulbactam 3 gm 200 In Sodium Chloride 0.9% 100 ml @ 200 mls/hr IVPB Q6HR [facility] Rx#:[id number] Oral 500 Output: Chest Tube Drainage 18 Chest Tube Left Lower 10 Lateral Chest Chest Tube Left Upper 8 Lateral Chest Urine 190 Other: # Voids 3 ABP, PAP, CO, CI - Last Documented Arterial Blood Pressure 141/54 - Exam GENERAL EXAM: Alert, very pleasant 71-year-old male, on room air with pulse ox of 95%, comfortable in no apparent distress. HEAD: Normocephalic/atraumatic. EYES: Normal reaction of pupils, equal size. Conjunctiva pink, sclera white. NOSE: Clear with pink turbinates. THROAT: No erythema or exudates. NECK: No masses, no JVD, no thyroid enlargement, no adenopathy. CHEST: No chest wall deformity. 2 left-sided chest tubes are in place. Dressing dry and intact. LUNGS: Diminished breath sounds over left lower lobe with some crackles CVS: Regular rate and rhythm, normal S1 and S2, no gallops, no murmurs, no rubs ABDOMEN: Soft, nontender. No hepatosplenomegaly, normal bowel sounds, no guarding or rigidity. EXTREMITIES: No clubbing, no edema, no cyanosis, 2+ pulses and upper and lower extremities. MUSCULOSKELETAL: Muscle strength and tone normal. SPINE: No scoliosis or deformity SKIN: No rashes CENTRAL NERVOUS SYSTEM: No focal deficits, tone is normal in all 4 extremities. PSYCHIATRIC: Alert and oriented -3. Appropriate affect. Intact judgment and insight. - Labs CBC & Chem 7: 02/16/22 04:06 02/16/22 04:06 Labs: Abnormal Lab Results - Last 24 Hours (Table) 02/15/22 02/15/22 02/16/22 Range/Units 16:47 20:41 04:06 RBC 2.61 L (4.40-5.60) X 10*6/uL Hgb 7.5 L (13.0-17.0) g/dL Hct 24.3 L (39.6-50.0) % MCHC 30.9 L (32.0-37.0) g/dL BUN/Creatinine Ratio (12.00-20.00) Ratio Glucose (70-110) mg/dL POC Glucose (mg/dL) 182 H 162 H (70-110) mg/dL Calcium (8.7-10.3) mg/dL 02/16/22 02/16/22 Range/Units 04:06 06:59 RBC (4.40-5.60) X 10*6/uL Hgb (13.0-17.0) g/dL Hct (39.6-50.0) % MCHC (32.0-37.0) g/dL BUN/Creatinine Ratio 26.14 H (12.00-20.00) Ratio Glucose 140 H (70-110) mg/dL POC Glucose (mg/dL) 150 H (70-110) mg/dL Calcium 7.6 L (8.7-10.3) mg/dL Microbiology - Last 24 Hours (Table) 02/13/22 17:48 Anaerobic Culture - Preliminary Lung - Left Assessment and Plan Assessment: Complicated multiloculated parapneumonic left-sided pleural effusion, complication of the previously under treated pneumonia, status post left chest pigtail catheter placement with drainage of large amount of purulent material, and pleural fluid analysis is consistent with empyema, pleural fluid cultures positive for alpha hemolytic streptococcus, on Unasyn. He did undergo a video- assisted thorascopic surgery converted to open anterolateral thoracotomy with complete decortication and partial lung resection of left upper lobe on 02/13/2022. 32-[place] right angle chest tube placed. 28-[place] apical chest tube placed. Chest x-ray reveals tiny left apical pneumothorax. Shortness of breath and pleuritic chest pain related to the above Hypertension Hyperlipidemia Nonsmoker Plan: The patient was seen and evaluated Chest x-ray, medications and labs reviewed 2 left-sided chest tubes remain in place, wall suction Currently on Unasyn Remains on room air oxygen Continue to utilize the incentive spirometer Increase his activity as tolerated We'll continue to follow I have personally seen and examined the patient, performed the documentation and the assessment and plan as written. Number of minutes spent on the visit: 10.
[2022-02-16 11:53] LABS: Glucose,Whole Blood 141 mg/dL (70-110)
[2022-02-16 16:32] LABS: Glucose,Whole Blood 145 mg/dL (70-110)
[2022-02-16] MEDS: FERROUS SULFATE 325 MG TAB PO SCH (16:43)
[2022-02-16] MEDS: MELATONIN 3 MG TABLET PO SCH (20:26)
[2022-02-16] MEDS: ATORVASTATIN 10 MG TAB PO SCH (20:26)
[2022-02-16] MEDS: LOSARTAN 50 MG TAB PO SCH (20:26)
[2022-02-16] MEDS: hydroCHLOROthiazide 12.5 MG CAP PO SCH (20:26)
[2022-02-16 21:23] LABS: Glucose,Whole Blood 146 mg/dL (70-110)
--- NOTE | 2022-02-16 22:17 | P.PN ---
Subjective This is a 71 year old male with past medical history significant for hypertension, hyperlipidemia. He presents with 3 days of fever, shortness of br eath and pleuritic chest pain. States about 6 weeks ago he began having cough and was evaluated in the clinic and IM antibiotic injection. Also had outpatient chest xray done. He was given steroids by his primary care provider. He states it didn't seem to help and was concerned when he developed fever and weakness with congestion. He is nonsmoker, reports no marijuana use. He does not work in a factor type setting, denies exposure to toxins. He rides a motorcycle and states he notice trouble breathing after a long ride which is unusual for him. He is overall healthy. On admission chest CTA has been completed showing large loculated left pleural effusions with infiltrate, and atelectasis left lower lobe. There is concern for empyema and patient was started on empiric antibiotic coverage with zosyn. Pulmonary has evaluated the patient and IR has been consulted for pigtail cathter insertion. IR is not available until Thursday. Cardiothoracic has also been consulted. Patient for now is maintained oxygen saturation of 92% on room air. He presents with fever 100.5, heart rate 75, blood pressure 120/70. White count 18.7, hgb 11.6, sodium 129, potassium 4.3, glucose is 208. Troponin negative. 02/02/2022 Patient is evaluated today sitting up in bed. is at the bedside. Plan is for pigtail catheter insertion with IR tomorrow and cardiothoracic has been consulted for management. Pulmonary is following the patient closely. He continues on room air, however has stated he has increased cough, no sputum production. Also complains of left sided pleuritic pain, he has had motrin 400 m g ordered however he has not received. Did also add a low dose of tramadol for pain management. He continues on IV zosyn for empiric antibiotic coverage. Blood cultures are negative so far. He has remained afebrile, heart rate 98, blood pressure 153/77, 91% on room air. Labs reviewed today showing white count 16.30, hgb 10.8, sodium 136, potassium 4.6. Blood glucose in the 130s. A1C is 6.4 which is on the cusp of prediabetes vs. diabetes, will discuss with patient tomorrow and patient will discharge on an oral diabetic agent. 02/03/2022 Patient sitting up in chair pending IR placement of pigtail catheter. He had increased pain to his left side and was given low dose of tramadol which he states did help his pain. He is short of breath today, he is using his incentive spirometer, also he has requested cough medicine and it has been ordered as needed. He had a T-Max overnight of 101.2. He continues on IV Zosyn. Blood pressure today 126/73. Labs reviewed today showing white count 15.84, hgb 11.1, sodium 133, potassium 4.7, blood glucose 150s. 02/04/2022 Patient evaluated today sitting up in the chair. He underwent pigtail catheter placement with alteplase injection through catheter and he has had fair output 375 mls last night and 115 mls today so far from drainage tube which is mostly purulent. He underwent a second alteplase infusion today. Chest xray today showing persistent multilocular effusions, with indwelling chest tube. No pneumothorax. Cardiothoracic and pulmonary are following this patient. He has been encouraged to continue with cough and deep breathing and also to continue with incentive spirometry. He continues on IV zosyn. Pleural fluid and blood cultures are pending. Reports pain has improved today, he is receiving IV dilaudid and tramadol as needed. Labs today are showing white count of 10.68, hgb 10.4, sodium 137, potassium 4.3, BUN 18.0, creatinine 0.7, magnesium 2.2. Blood glucose trending down. He has remained afebrile in the last 24 hours, h eart rate 85, blood pressure 121/69, 90% room air. 02/05/2022 Patient evaluated today resting in bed, he had third alteplase injection today. Resting in bed on back during examination to begin turning rotation. Chest x- ray shows no significant interval change as before redemonstrates a loculated effusion. He reports diarrhea 1-2 times overnight. He has been maintained on IV zosyn. Labs today showed white count 10.21, hemoglobin 10.3. His T-max last night was 99 he states that he does have night sweats still, heart rate 76, blood pressure 129/75, 93% pulse oximetry. Ambulating without difficulty in the hallways. His pleural cytology has resulted showing acute inflammation consistent with empyema without evidence for malignancy. Blood glucose in the 130s. 02/06/2022 Pigtail catheter was removed yesterday as there was possibility it had dislodged and pigtail catheter will be reinserted by interventional radiology. He did have 150 mL of output from the pigtail catheter yesterday. IV fluids have been discontinued patient does have some mild peripheral edema and compression stoc kings have been ordered. He continues to ambulated in the hallways and is using incentive spirometer as recommended. Labs today; white count 11.4, hemoglobin 11.1, sodium 138, potassium 5.0, BUN 21, creatinine 0.83, blood glucose in the 120s. Patient continues on IV antibiotics, cultures are negative so far. He is being followed closely by pulmonary, infectious disease and cardiothoracic consultation. There is a possibility patient may still require VATS procedure. He does complain of some loose stool, most likely for antibiotics, he is on GI prophylaxis and also immodium. Denies nausea, vomiting. 02/07/2022 Patient is status post let CT guided pigtail catheter reinsertion and had alteplase and dornase injected into catheter again today. Chest tube is set to - 20 mc wall suctin. 140 mLs of drainage from catheter today. Chest xray today showing interval improvement and reduction in the patients pleural effusion. There is also improvement in aeration with persistent density which obscurs the left hemidiaphragm. Subcutaneous emphysema questionable over the right chest. Labs today show white count 10.84, hemoglobin 10.1, sodium 139, potassium 4.4, BUN 13.3, creatinine 0.7. Blood glucose in the 120s. Calcium 1.8. Cytology from pigtail catheter insertion today is pending. Continues on IV ampicillin, patient will have PICC Line placed today. He is being followed by pulmonary, cadiothoracic and infectious disease. 02/08/2022 Patient evaluated today sitting up in bed. He continues with cough, and states it is non productive. He has pigtail catheter in place, low continuous suction - 20 cm wall. Repeat chest xray today demonstrates persistent left loculated pleural effusion with inflammatory changes. He is being managed by pulmonary and cardiothoracic disease. Plan today is for another dose of alteplase/dornase per CT services. Pleural fluid cultures are now positive for alphahemolytic strep and he remains on IV unasyn and is being followed closely by infectious disease services. Patient has PICC line in place. Blood glucose remains stable and he continues on sliding scale insulin. Plan to repeat CBC and BMP tomorrow. He has t max 99.4 through out the night, heart rate 83, blood pressure 114/72, 91% on room air. He is using incentive spirometer and ambulating the halls without difficulty. He has bilateral ankle edema, IV fluids have been stopped. 02/09/2022 Patient status post complicated multi-loculated left pleural effusion and empyema status post pigtail catheter drainage and alteplase instillations yesterday and today. His culture was growing alphahemolytic streptococci and currently covered with Unasyn. Coronary and her to thoracic surgery team on the case. Repeat CT of the chest without contrast today showing decreased from the fluid but the majority of the fluid remains within the collection. No more fever. Mild leukocytosis. Rest of labs and vitals are stable. 02/10/2022 Patient still with the right-sided pigtail chest tube. Chest x-ray from today so same changes with left-sided empyema and possible atelectasis/pneumonia. He is undergoing another treatment with alteplase/dornase with cardiothoracic surgery team. Patient continued on Unasyn 02/11/2022 Patient still with persistent left lower lung base loculated pleural effusion and empyema and his been covered with appropriate antibiotics with Unasyn based on his culture results. His empyema looks improved but not resolved and still there is persistent fluid. Also there is air-fluid level suggestive of hydropneumothorax on the left side. Because of this patient is followed closely by cardiothoracic surgery team or plan on doing decortication surgery on 02/13. Other than that patient is breathing quietly with no chest pain or significant cough and while at rest. Also he is hemodynamically stable 02/12/2022 Patient clinically is the same, I still have left bigtail chest tube His hemodynamically stable. He remains on Unasyn. Patient is planned for decortication procedure tomorrow 02/13/2022 Patient was standing up in his room question and that and self hygiene, fully awake and oriented, looks motivated to undergo for his surgery today or left lung decortication. Vital signs stable and labs reviewed We will follow up 02/14/2022 decortication of the left lung pleura . Today is postoperative day #1 patient is seen in the ICU, he looks little bit tired but awake and alert, no significant respiratory distress. He has left-sided chest tube. Mildly ta chypneic while at rest. Leukocytosis 15.8. Hemoglobin 9.5. Chest x-ray showing no change from prior exam. Left-sided chest tube. Patient continued with antibiotic on Unasyn. 02/15/2022 Patient is status post decortication of his left pleura, currently he is lying in bed comfortable, minimally tachypneic, not in distress. Vitals and labs are stable. He has mild leukocytosis at 12.3. No more fever. Patient continued on Unasyn and left-sided chest tube 02/16/2022 looks more comfortable today, he says his breathing easier but after the surgery his breathing is not painful anymore, he looks satisfied about that. 1 chest tube was removed today, possible the second chest tube, tomorrow for surgery team. His given stool softeners for constipation He looks hemodynamically stable. Continue on Unasyn hemoglobin dropped to 9.5 down to 7.5 due to surgery which is expected, I agree with iron pill Objective - Vital Signs Vital signs: Vital Signs Temp 98.3 F 02/16/22 13:00 Pulse 80 02/16/22 13:00 Resp 17 02/16/22 13:00 BP 104/59 02/16/22 13:00 Pulse Ox 97 02/16/22 16:45 FiO2 21 02/13/22 07:48 Intake & Output 02/16/22 02/16/22 02/17/22 06:59 18:59 06:59 Intake Total 700 Output Total 190 193 Balance 510 -193 Intake: Intake, IV Titration 200 Amount Ampicillin-Sulbactam 3 gm 200 In Sodium Chloride 0.9% 100 ml @ 200 mls/hr IVPB Q6HR [facility], [facility]1983 Rx#:[id number] Oral 500 Output: Chest Tube Drainage 193 Chest Tube Left Lower 1 Lateral Chest Chest Tube Left Upper 192 Lateral Chest Urine 190 Other: # Voids 3 3 ABP, PAP, CO, CI - Last Documented Arterial Blood Pressure 141/54 - Exam GENERAL: The patient is alert and oriented x3, not in any acute distress. Well developed, well nourished. HEENT: Pupils are round and equally reacting to light. EOMI. No scleral icterus. No conjunctival pallor. Normocephalic, atraumatic. No pharyngeal erythema. No thyromegaly. CARDIOVASCULAR: S1 and S2 present. No murmurs, rubs, or gallops. -PULMONARY: Chest is clear to auscultation, no wheezing or crackles. Left pigtail to put in a Place ABDOMEN: Soft, nontender, nondistended, normoactive bowel sounds. No palpable organomegaly. MUSCULOSKELETAL: No joint swelling or deformity. EXTREMITIES: No cyanosis, clubbing, or pedal edema. NEUROLOGICAL: Gross neurological examination did not reveal any focal deficits. SKIN: No rashes. no petechiae. - Labs CBC & Chem 7: 02/16/22 04:06 02/16/22 04:06 Labs: Abnormal Lab Results - Last 24 Hours (Table) 02/15/22 02/16/22 02/16/22 Range/Units 20:41 04:06 04:06 RBC 2.61 L (4.40-5.60) X 10*6/uL Hgb 7.5 L (13.0-17.0) g/dL Hct 24.3 L (39.6-50.0) % MCHC 30.9 L (32.0-37.0) g/dL BUN/Creatinine Ratio 26.14 H (12.00-20.00) Ratio Glucose 140 H (70-110) mg/dL POC Glucose (mg/dL) 162 H (70-110) mg/dL Calcium 7.6 L (8.7-10.3) mg/dL 02/16/22 02/16/22 02/16/22 Range/Units 06:59 11:51 16:30 RBC (4.40-5.60) X 10*6/uL Hgb (13.0-17.0) g/dL Hct (39.6-50.0) % MCHC (32.0-37.0) g/dL BUN/Creatinine Ratio (12.00-20.00) Ratio Glucose (70-110) mg/dL POC Glucose (mg/dL) 150 H 141 H 145 H (70-110) mg/dL Calcium (8.7-10.3) mg/dL Microbiology - Last 24 Hours (Table) 02/13/22 17:48 Anaerobic Culture - Preliminary Lung - Left Assessment and Plan Assessment: Loculated complicated multiloculated left side pleural effusion with empyema suspected pneumonia, he is status post surgical decortication and left-sided chest tube Left sided pneumonia and empyema Postoperative anemia, expected Mild sepsis, Leukocytosis, fever secondary to above, improving Hypertension Hyperlpidemia Prediabetes/Diabetes with A1C of 6.4 History of prostate disorder Plan: This is a pleasant 71 years old male who presents with complicated multil oculated empyema status post pigtail tube placement. Continue with Unasyn Continue with left-sided chest tube and management per cardiothoracic surgery team Pulmonary team on the case. Labs and medication were reviewed.. Continue same treatment. Continue with symptomatic treatment. Resume home medication. Monitor lytes and vitals. DVT and GI prophylaxis. Further recommendations as per clinical course of the patient GI Prophylaxis: Protonix
[2022-02-17] MEDS: AMPICILLIN-SULBACTAM 3 GM in SODIUM CHLORIDE 0.9% 100 ML IVPB SCH ×3 (05:16→17:17)
[2022-02-17] MEDS: KETOROLAC 15 MG/ML 1 ML VIAL IVP SCH (05:16)
[2022-02-17 06:44] LABS: Glucose,Whole Blood 138 mg/dL (70-110)
[2022-02-17] MEDS: MAGNESIUM OXIDE 400 MG TAB PO SCH (07:05)
[2022-02-17] MEDS: SENNOSIDES-DOCUSATE SODIUM 1 EACH TAB PO SCH ×2 (07:05→19:52)
[2022-02-17] MEDS: FERROUS SULFATE 325 MG TAB PO SCH ×2 (07:05→17:17)
[2022-02-17] MEDS: ASCORBIC ACID 500 MG TAB PO SCH ×2 (07:05→17:17)
[2022-02-17] MEDS: PANTOPRAZOLE 40 MG TABLET PO SCH (07:05)
[2022-02-17] MEDS: INSULIN ASPART (NovoLOG) 100 UNIT/ML VIAL SQ SCH ×8 (07:05→20:49)
--- NOTE | 2022-02-17 08:36 | P.PN ---
Subjective Progress Note Date: 02/17/22 Principal diagnosis: Complicated parapneumonic empyema left lower lobe with lung abscess, leukocytosis. Previous medical history of hypertension, hyperlipidemia, BPH, lifetime nonsmoker. POD #4 diagnostic bronchoscopy, video-assisted thoracoscopic surgery converted to open anterolateral thoracotomy, complete decortication, partial lung resection of the left upper lobe The patient was seen and examined this morning sitting up in bed on the medical telemetry unit in no acute distress. Does complain of pain and his chest tube site which is mostly controlled with medications, states it is a bit better after removal of his basilar chest tube yesterday. Remains in sinus rhythm, hemodynamically stable. Left apical chest tube present to [facility], no air leak present this morning. Patient has ambulated in the hallway without difficulty. No other new concerns Objective - Vital Signs Vital signs: Vital Signs Temp 97.7 F 02/17/22 07:49 Pulse 72 02/17/22 07:49 Resp 18 02/17/22 07:49 BP 127/71 02/17/22 07:49 Pulse Ox 94 L 02/17/22 07:49 FiO2 21 02/13/22 07:48 Intake & Output 02/16/22 02/17/22 02/17/22 18:59 06:59 18:59 Intake Total 400 Output Total 193 625 Balance -193 -225 Intake: IV 400 Ampicillin-Sulbactam 3 gm 400 In Sodium Chloride 0.9% 100 ml @ 200 mls/hr IVPB Q6HR [facility] Rx#:[id number] Output: Chest Tube Drainage 193 0 Chest Tube Left Lower 1 0 Lateral Chest Chest Tube Left Upper 192 Lateral Chest Drainage 0 Left 0 Urine 625 Other: Voiding Method Urinal # Voids 3 ABP, PAP, CO, CI - Last Documented Arterial Blood Pressure 141/54 - Exam CONSTITUTIONAL: Sitting up in bed, appears comfortable, cooperative, no apparent acute distress. RESPIRATORY: Lungs sounds diminished to the left side. Respirations are even, nonlabored. Currently on room air with oxygen saturations 93%. Strong cough. Able to achieve 3000 mL on his incentive spirometry CARDIOVASCULAR: S1 and S2 present. Regular rate and rhythm, sinus rhythm on telemetry. Palpable peripheral pulses bilaterally. No edema present. No calf pain or tenderness noted. GASTROINTESTINAL: Abdomen soft, nontender, nondistended. Active bowel sounds present 4 quadrants. Tolerating diet. GENITOURINARY: Continues to void. INTEGUMENTARY: Skin is warm and dry. Thoracotomy incision present with dry intact dressing covering NEUROLOGIC: Cranial nerves II through XII intact. No focal deficits. MUSKULOSKELETAL: Able to move all extremities, strength equal bilaterally. PSYCHIATRIC: Alert and oriented to person place and time, appropriate affect, intact judgment and insight. INVASIVE LINES: Left upper anterior chest tube present to waterseal, 20 mL serosanguineous drainage in the last 24 hours, no air leak present. - Allied health notes Allied health notes reviewed: nursing - Labs CBC & Chem 7: 02/16/22 04:06 02/16/22 04:06 Labs: Abnormal Lab Results - Last 24 Hours (Table) 02/16/22 02/16/22 02/16/22 Range/Units 04:06 04:06 11:51 RBC 2.61 L (4.40-5.60) X 10*6/uL Hgb 7.5 L (13.0-17.0) g/dL Hct 24.3 L (39.6-50.0) % MCHC 30.9 L (32.0-37.0) g/dL BUN/Creatinine Ratio 26.14 H (12.00-20.00) Ratio Glucose 140 H (70-110) mg/dL POC Glucose (mg/dL) 141 H (70-110) mg/dL Calcium 7.6 L (8.7-10.3) mg/dL 02/16/22 02/16/22 02/17/22 Range/Units 16:30 21:21 06:41 RBC (4.40-5.60) X 10*6/uL Hgb (13.0-17.0) g/dL Hct (39.6-50.0) % MCHC (32.0-37.0) g/dL BUN/Creatinine Ratio (12.00-20.00) Ratio Glucose (70-110) mg/dL POC Glucose (mg/dL) 145 H 146 H 138 H (70-110) mg/dL Calcium (8.7-10.3) mg/dL Microbiology - Last 24 Hours (Table) 02/13/22 17:48 Gram Stain - Preliminary Lung - Left Tissue Culture - Preliminary - Imaging and Cardiology Chest x-ray: image reviewed Assessment and Plan Assessment: 1. Complicated parapneumonic effusion/empyema left lower lobe with lung abscess, status post insertion of pigtail catheter and installation of lytic therapy x 7 doses, status post diagnostic bronchoscopy, video-assisted thoracoscopic surgery converted to open anterolateral thoracotomy, complete decortication, partial lung resection of the left upper lobe 2. Persistent cough, fever, sweats, chills, pain with deep inspiration on admission 3. Leukocytosis, pleural fluid positive for alpha hemolytic strep 4. History of hypertension 5. History of hyperlipidemia 6. History of prostate disorder 7. Never smoker Plan: 1. Left apical chest tube clamped, will repeat chest x-ray. If stable likely will remove chest tube 2. Encourage use of his incentive spirometry 10 times every hour while awake. 3. Pain control per current current medication regimen 4. Continue to monitor daily labs and chest x-rays. 5. Increase activity as tolerated. Out of bed for all meals. 6. Continue on Unasyn managed by infectious disease management, cultures pending. 7. More recommendations to follow
--- NOTE | 2022-02-17 09:02 | XR ---
EXAMINATION TYPE: XR chest 2V DATE OF EXAM: 02/17/2022 COMPARISON: 02/16/2022 TECHNIQUE: PA and lateral views submitted. HISTORY: Shortness of breath FINDINGS: Left-sided chest tubes are remain in place. Tiny left apical pneumothorax is again seen. Pleural pare nchymal opacity left lower lobe is unchanged. Left-sided PICC line. Small right effusion and basilar infiltrate noted in the findings suggest underlying COPD. The heart is stable. Hilar and mediastinal structures are within normal limits. Degenerative changes are seen of the spine. IMPRESSION: 1. Bilateral infiltrate and pleural effusion greater on the left side with pleural based density also seen on the left and findings are stable. 2. Stable less than 5% left apical pneumothorax
[2022-02-17 11:27] LABS: Glucose,Whole Blood 192 mg/dL (70-110)
--- NOTE | 2022-02-17 11:27 | XR ---
EXAMINATION TYPE: XR chest 2V DATE OF EXAM: 02/17/2022 COMPARISON: 02/17/2022 TECHNIQUE: PA and lateral views submitted. HISTORY: Chest tube placement FINDINGS: Left-sided chest tubes are remain in place. Tiny left apical pneumothorax is again seen. Pleural pare nchymal opacity left lower lobe is unchanged. Left-sided PICC line. Small right effusion and basilar infiltrate noted in the findings suggest underlying COPD. The heart is stable. Hilar and mediastinal structures are within normal limits. Degenerative changes are seen of the spine. A pleural-based dens ity along the lateral margin of left lung stable. Pneumothorax stable. Subcutaneous emphysema again n oted. Cannot exclude rib deformity on the left. IMPRESSION: 1. Pleural parenchymal changes are stable. Pneumothorax unchanged in size. Subpleural loculated fluid collection or density on the left stable.
--- NOTE | 2022-02-17 15:47 | P.PN ---
Subjective Progress Note Date: 02/17/22 . 02/17/2022, the patient has no specific complaints and the patient is doing well. The patient continues to have a left-sided chest tube which will be removed today. The chest x-ray from today showed some residual opacification of the left lung base along the pleural Lateral wall. Nevertheless, there is no evidence of any pneumothorax and left-sided chest tube remains in place with minimal amount of output. The decision was to remove the chest tube today. The patient is emanating. The patient remains on IV Unasyn. No fever. No chills. No nausea or vomiting. The patient remains hemodynamically stable. On today's evaluation, the patient has a white cell count of 7.5 with a hemoglobin of 7.5 and a BUN of 18 with a creatinine of 0.7 and this will result 139 and glucose of 140. Objective - Vital Signs Vital signs: Vital Signs Temp 98.2 F 02/17/22 13:00 Pulse 85 02/17/22 13:00 Resp 17 02/17/22 13:00 BP 122/68 02/17/22 13:00 Pulse Ox 98 02/17/22 13:00 FiO2 21 02/13/22 07:48 Intake & Output 02/16/22 02/17/22 02/17/22 18:59 06:59 18:59 Intake Total 400 Output Total 193 625 Balance -193 -225 Intake: IV 400 Ampicillin-Sulbactam 3 gm 400 In Sodium Chloride 0.9% 100 ml @ 200 mls/hr IVPB Q6HR [facility] Rx#:[id number] Output: Chest Tube Drainage 193 0 Chest Tube Left Lower 1 0 Lateral Chest Chest Tube Left Upper 192 Lateral Chest Drainage 0 Left 0 Urine 625 Other: Voiding Method Urinal Toilet Urinal # Voids 3 ABP, PAP, CO, CI - Last Documented Arterial Blood Pressure 141/54 - Exam GENERAL EXAM: Alert, very pleasant 71-year-old male, on room air with pulse ox of 95%, comfortable in no apparent distress. HEAD: Normocephalic/atraumatic. EYES: Normal reaction of pupils, equal size. Conjunctiva pink, sclera white. NOSE: Clear with pink turbinates. THROAT: No erythema or exudates. NECK: No masses, no JVD, no thyroid enlargement, no adenopathy. CHEST: No chest wall deformity. 2 left-sided chest tubes are in place. Dressing dry and intact. LUNGS: Diminished breath sounds over left lower lobe with some crackles CVS: Regular rate and rhythm, normal S1 and S2, no gallops, no murmurs, no rubs ABDOMEN: Soft, nontender. No hepatosplenomegaly, normal bowel sounds, no guarding or rigidity. EXTREMITIES: No clubbing, no edema, no cyanosis, 2+ pulses and upper and lower extremities. MUSCULOSKELETAL: Muscle strength and tone normal. SPINE: No scoliosis or deformity SKIN: No rashes CENTRAL NERVOUS SYSTEM: No focal deficits, tone is normal in all 4 extremities. PSYCHIATRIC: Alert and oriented -3. Appropriate affect. Intact judgment and insight. - Labs CBC & Chem 7: 02/16/22 04:06 02/16/22 04:06 Labs: Abnormal Lab Results - Last 24 Hours (Table) 02/16/22 02/16/22 02/17/22 Range/Units 16:30 21:21 06:41 POC Glucose (mg/dL) 145 H 146 H 138 H (70-110) mg/dL 02/17/22 Range/Units 11:25 POC Glucose (mg/dL) 192 H (70-110) mg/dL Microbiology - Last 24 Hours (Table) 02/06/22 12:05 Acid Fast Bacilli Smear - Final Pleural Fluid Acid Fast Bacilli Culture - Preliminary 02/03/22 11:30 Acid Fast Bacilli Smear - Final Pleural Fluid Acid Fast Bacilli Culture - Preliminary 02/13/22 17:48 Gram Stain - Preliminary Lung - Left Tissue Culture - Preliminary Assessment and Plan Plan: Complicated multiloculated parapneumonic left-sided pleural effusion, complication of the previously under treated pneumonia, status post left chest pigtail catheter placement with drainage of large amount of purulent material, and pleural fluid analysis is consistent with empyema, pleural fluid cultures positive for alpha hemolytic streptococcus, on Unasyn. He did undergo a video- assisted thorascopic surgery converted to open anterolateral thoracotomy with complete decortication and partial lung resection of left upper lobe on . clinically improved and output from the chest tube is minimal without evidence of any pneumothorax. The chest tube to be removed today. Shortness of breath and pleuritic chest pain related to the above Hypertension Hyperlipidemia Nonsmoker plan remove the left-sided chest tube Continue IV Unasyn and switch this patient oral antibiotics in the left up to infectious disease Continue using incentive spirometer Embolus in the hallway Monitor hemoglobin count We'll continue to follow
[2022-02-17 16:43] LABS: Glucose,Whole Blood 125 mg/dL (70-110)
[2022-02-17] MEDS: traMADol 50 MG TAB PO PRN (19:51)
[2022-02-17] MEDS: MELATONIN 3 MG TABLET PO SCH (19:51)
[2022-02-17] MEDS: hydroCHLOROthiazide 12.5 MG CAP PO SCH (19:52)
[2022-02-17] MEDS: LOSARTAN 50 MG TAB PO SCH (19:52)
[2022-02-17 20:16] LABS: Glucose,Whole Blood 167 mg/dL (70-110)
--- NOTE | 2022-02-17 21:25 | P.PN ---
Subjective This is a 71 year old male with past medical history significant for hypertension, hyperlipidemia. He presents with 3 days of fever, shortness of br eath and pleuritic chest pain. States about 6 weeks ago he began having cough and was evaluated in the clinic and IM antibiotic injection. Also had outpatient chest xray done. He was given steroids by his primary care provider. He states it didn't seem to help and was concerned when he developed fever and weakness with congestion. He is nonsmoker, reports no marijuana use. He does not work in a factor type setting, denies exposure to toxins. He rides a motorcycle and states he notice trouble breathing after a long ride which is unusual for him. He is overall healthy. On admission chest CTA has been completed showing large loculated left pleural effusions with infiltrate, and atelectasis left lower lobe. There is concern for empyema and patient was started on empiric antibiotic coverage with zosyn. Pulmonary has evaluated the patient and IR has been consulted for pigtail cathter insertion. IR is not available until Thursday. Cardiothoracic has also been consulted. Patient for now is maintained oxygen saturation of 92% on room air. He presents with fever 100.5, heart rate 75, blood pressure 120/70. White count 18.7, hgb 11.6, sodium 129, potassium 4.3, glucose is 208. Troponin negative. 02/02/2022 Patient is evaluated today sitting up in bed. is at the bedside. Plan is for pigtail catheter insertion with IR tomorrow and cardiothoracic has been consulted for management. Pulmonary is following the patient closely. He continues on room air, however has stated he has increased cough, no sputum production. Also complains of left sided pleuritic pain, he has had motrin 400 m g ordered however he has not received. Did also add a low dose of tramadol for pain management. He continues on IV zosyn for empiric antibiotic coverage. Blood cultures are negative so far. He has remained afebrile, heart rate 98, blood pressure 153/77, 91% on room air. Labs reviewed today showing white count 16.30, hgb 10.8, sodium 136, potassium 4.6. Blood glucose in the 130s. A1C is 6.4 which is on the cusp of prediabetes vs. diabetes, will discuss with patient tomorrow and patient will discharge on an oral diabetic agent. 02/03/2022 Patient sitting up in chair pending IR placement of pigtail catheter. He had increased pain to his left side and was given low dose of tramadol which he states did help his pain. He is short of breath today, he is using his incentive spirometer, also he has requested cough medicine and it has been ordered as needed. He had a T-Max overnight of 101.2. He continues on IV Zosyn. Blood pressure today 126/73. Labs reviewed today showing white count 15.84, hgb 11.1, sodium 133, potassium 4.7, blood glucose 150s. 02/04/2022 Patient evaluated today sitting up in the chair. He underwent pigtail catheter placement with alteplase injection through catheter and he has had fair output 375 mls last night and 115 mls today so far from drainage tube which is mostly purulent. He underwent a second alteplase infusion today. Chest xray today showing persistent multilocular effusions, with indwelling chest tube. No pneumothorax. Cardiothoracic and pulmonary are following this patient. He has been encouraged to continue with cough and deep breathing and also to continue with incentive spirometry. He continues on IV zosyn. Pleural fluid and blood cultures are pending. Reports pain has improved today, he is receiving IV dilaudid and tramadol as needed. Labs today are showing white count of 10.68, hgb 10.4, sodium 137, potassium 4.3, BUN 18.0, creatinine 0.7, magnesium 2.2. Blood glucose trending down. He has remained afebrile in the last 24 hours, h eart rate 85, blood pressure 121/69, 90% room air. 02/05/2022 Patient evaluated today resting in bed, he had third alteplase injection today. Resting in bed on back during examination to begin turning rotation. Chest x- ray shows no significant interval change as before redemonstrates a loculated effusion. He reports diarrhea 1-2 times overnight. He has been maintained on IV zosyn. Labs today showed white count 10.21, hemoglobin 10.3. His T-max last night was 99 he states that he does have night sweats still, heart rate 76, blood pressure 129/75, 93% pulse oximetry. Ambulating without difficulty in the hallways. His pleural cytology has resulted showing acute inflammation consistent with empyema without evidence for malignancy. Blood glucose in the 130s. 02/06/2022 Pigtail catheter was removed yesterday as there was possibility it had dislodged and pigtail catheter will be reinserted by interventional radiology. He did have 150 mL of output from the pigtail catheter yesterday. IV fluids have been discontinued patient does have some mild peripheral edema and compression stoc kings have been ordered. He continues to ambulated in the hallways and is using incentive spirometer as recommended. Labs today; white count 11.4, hemoglobin 11.1, sodium 138, potassium 5.0, BUN 21, creatinine 0.83, blood glucose in the 120s. Patient continues on IV antibiotics, cultures are negative so far. He is being followed closely by pulmonary, infectious disease and cardiothoracic consultation. There is a possibility patient may still require VATS procedure. He does complain of some loose stool, most likely for antibiotics, he is on GI prophylaxis and also immodium. Denies nausea, vomiting. 02/07/2022 Patient is status post let CT guided pigtail catheter reinsertion and had alteplase and dornase injected into catheter again today. Chest tube is set to - 20 mc wall suctin. 140 mLs of drainage from catheter today. Chest xray today showing interval improvement and reduction in the patients pleural effusion. There is also improvement in aeration with persistent density which obscurs the left hemidiaphragm. Subcutaneous emphysema questionable over the right chest. Labs today show white count 10.84, hemoglobin 10.1, sodium 139, potassium 4.4, BUN 13.3, creatinine 0.7. Blood glucose in the 120s. Calcium 1.8. Cytology from pigtail catheter insertion today is pending. Continues on IV ampicillin, patient will have PICC Line placed today. He is being followed by pulmonary, cadiothoracic and infectious disease. 02/08/2022 Patient evaluated today sitting up in bed. He continues with cough, and states it is non productive. He has pigtail catheter in place, low continuous suction - 20 cm wall. Repeat chest xray today demonstrates persistent left loculated pleural effusion with inflammatory changes. He is being managed by pulmonary and cardiothoracic disease. Plan today is for another dose of alteplase/dornase per CT services. Pleural fluid cultures are now positive for alphahemolytic strep and he remains on IV unasyn and is being followed closely by infectious disease services. Patient has PICC line in place. Blood glucose remains stable and he continues on sliding scale insulin. Plan to repeat CBC and BMP tomorrow. He has t max 99.4 through out the night, heart rate 83, blood pressure 114/72, 91% on room air. He is using incentive spirometer and ambulating the halls without difficulty. He has bilateral ankle edema, IV fluids have been stopped. 02/09/2022 Patient status post complicated multi-loculated left pleural effusion and empyema status post pigtail catheter drainage and alteplase instillations yesterday and today. His culture was growing alphahemolytic streptococci and currently covered with Unasyn. Coronary and her to thoracic surgery team on the case. Repeat CT of the chest without contrast today showing decreased from the fluid but the majority of the fluid remains within the collection. No more fever. Mild leukocytosis. Rest of labs and vitals are stable. 02/10/2022 Patient still with the right-sided pigtail chest tube. Chest x-ray from today so same changes with left-sided empyema and possible atelectasis/pneumonia. He is undergoing another treatment with alteplase/dornase with cardiothoracic surgery team. Patient continued on Unasyn 02/11/2022 Patient still with persistent left lower lung base loculated pleural effusion and empyema and his been covered with appropriate antibiotics with Unasyn based on his culture results. His empyema looks improved but not resolved and still there is persistent fluid. Also there is air-fluid level suggestive of hydropneumothorax on the left side. Because of this patient is followed closely by cardiothoracic surgery team or plan on doing decortication surgery on 02/13. Other than that patient is breathing quietly with no chest pain or significant cough and while at rest. Also he is hemodynamically stable 02/12/2022 Patient clinically is the same, I still have left bigtail chest tube His hemodynamically stable. He remains on Unasyn. Patient is planned for decortication procedure tomorrow 02/13/2022 Patient was standing up in his room question and that and self hygiene, fully awake and oriented, looks motivated to undergo for his surgery today or left lung decortication. Vital signs stable and labs reviewed We will follow up 02/14/2022 decortication of the left lung pleura . Today is postoperative day #1 patient is seen in the ICU, he looks little bit tired but awake and alert, no significant respiratory distress. He has left-sided chest tube. Mildly ta chypneic while at rest. Leukocytosis 15.8. Hemoglobin 9.5. Chest x-ray showing no change from prior exam. Left-sided chest tube. Patient continued with antibiotic on Unasyn. 02/15/2022 Patient is status post decortication of his left pleura, currently he is lying in bed comfortable, minimally tachypneic, not in distress. Vitals and labs are stable. He has mild leukocytosis at 12.3. No more fever. Patient continued on Unasyn and left-sided chest tube 02/16/2022 looks more comfortable today, he says his breathing easier but after the surgery his breathing is not painful anymore, he looks satisfied about that. 1 chest tube was removed today, possible the second chest tube, tomorrow for surgery team. His given stool softeners for constipation He looks hemodynamically stable. Continue on Unasyn hemoglobin dropped to 9.5 down to 7.5 due to surgery which is expected, I agree with iron pill 02/17/2022 Patient is awake and alert looks his stable clinically. Chest the tube was clamped this morning and repeat chest x-ray with the plan to remove it later on during the day. Other than that patient is doing well Patient is followed by pulmonary surgery team Objective - Vital Signs Vital signs: Vital Signs Temp 97.7 F 02/17/22 07:49 Pulse 72 02/17/22 07:49 Resp 18 02/17/22 07:49 BP 127/71 02/17/22 07:49 Pulse Ox 94 L 02/17/22 07:49 FiO2 21 02/13/22 07:48 Intake & Output 02/16/22 02/17/22 02/17/22 18:59 06:59 18:59 Intake Total 400 Output Total 193 625 Balance -193 -225 Intake: IV 400 Ampicillin-Sulbactam 3 gm 400 In Sodium Chloride 0.9% 100 ml @ 200 mls/hr IVPB Q6HR [facility] Rx#:[id number] Output: Chest Tube Drainage 193 0 Chest Tube Left Lower 1 0 Lateral Chest Chest Tube Left Upper 192 Lateral Chest Drainage 0 Left 0 Urine 625 Other: Voiding Method Urinal Toilet Urinal # Voids 3 ABP, PAP, CO, CI - Last Documented Arterial Blood Pressure 141/54 - Exam GENERAL: The patient is alert and oriented x3, not in any acute distress. Well developed, well nourished. HEENT: Pupils are round and equally reacting to light. EOMI. No scleral icterus. No conjunctival pallor. Normocephalic, atraumatic. No pharyngeal erythema. No th yromegaly. CARDIOVASCULAR: S1 and S2 present. No murmurs, rubs, or gallops. -PULMONARY: Chest is clear to auscultation, no wheezing or crackles. Left pigtail to put in a Place ABDOMEN: Soft, nontender, nondistended, normoactive bowel sounds. No palpable organomegaly. MUSCULOSKELETAL: No joint swelling or deformity. EXTREMITIES: No cyanosis, clubbing, or pedal edema. NEUROLOGICAL: Gross neurological examination did not reveal any focal deficits. SKIN: No rashes. no petechiae. - Labs CBC & Chem 7: 02/16/22 04:06 02/16/22 04:06 Labs: Abnormal Lab Results - Last 24 Hours (Table) 02/16/22 02/16/22 02/17/22 Range/Units 16:30 21:21 06:41 POC Glucose (mg/dL) 145 H 146 H 138 H (70-110) mg/dL 02/17/22 Range/Units 11:25 POC Glucose (mg/dL) 192 H (70-110) mg/dL Microbiology - Last 24 Hours (Table) 02/13/22 17:48 Gram Stain - Preliminary Lung - Left Tissue Culture - Preliminary Assessment and Plan Assessment: Loculated complicated multiloculated left side pleural effusion with empyema suspected pneumonia, he is status post surgical decortication and left-sided chest tube Left sided pneumonia and empyema Postoperative anemia, expected Mild sepsis, Leukocytosis, fever secondary to above, improving Hypertension Hyperlpidemia Prediabetes/Diabetes with A1C of 6.4 History of prostate disorder Plan: This is a pleasant 71 years old male who presents with complicated multiloculate d empyema status post pigtail tube placement. Continue with Unasyn Continue with left-sided chest tube and management per cardiothoracic surgery team Pulmonary team on the case. Labs and medication were reviewed.. Continue same treatment. Continue with symptomatic treatment. Resume home medication. Monitor lytes and vitals. DVT and GI prophylaxis. Further recommendations as per clinical course of the patient GI Prophylaxis: Protonix
[2022-02-18] MEDS: AMPICILLIN-SULBACTAM 3 GM in SODIUM CHLORIDE 0.9% 100 ML IVPB SCH ×3 (00:02→12:19)
--- NOTE | 2022-02-18 07:06 | P.PN ---
Subjective Progress Note Date: 02/16/22 Principal diagnosis: Left-sided empyema Patient is a 71 year male presented to the hospital with left-sided chest pain and fever and cough has been diagnosed with a left-sided loculated effusion concerning for empyema in this patient who is status post chest tube placement on 02/03/2022 which unfortunately did fell off 02/05/2022 and was reinserted on 02/06/2022 and is status post alteplase infusion 2, patient is status post left-sided thoracotomy completed on 02/13/2022 On today's evaluation that is 02/16/2022, the patient remains to be afebrile, the patient is breathing comfortably on room air , the patient left-sided chest pain is currently controlled , the patient denies any worsening cough or sputum production, patient denies abdominal pain no diarrhea Objective - Vital Signs Vital signs: Vital Signs Temp 98.3 F 02/16/22 13:00 Pulse 80 02/16/22 13:00 Resp 17 02/16/22 13:00 BP 104/59 02/16/22 13:00 Pulse Ox 97 02/16/22 16:45 FiO2 21 02/13/22 07:48 Intake & Output 02/15/22 02/16/22 02/16/22 18:59 06:59 18:59 Intake Total 700 Output Total 18 190 193 Balance -18 510 -193 Intake: Intake, IV Titration 200 Amount Ampicillin-Sulbactam 3 gm 200 In Sodium Chloride 0.9% 100 ml @ 200 mls/hr IVPB Q6HR [facility] Rx#:[id number] Oral 500 Output: Chest Tube Drainage 18 193 Chest Tube Left Lower 10 1 Lateral Chest Chest Tube Left Upper 8 192 Lateral Chest Urine 190 Other: # Voids 3 ABP, PAP, CO, CI - Last Documented Arterial Blood Pressure 141/54 - Exam GENERAL DESCRIPTION: An elderly male lying in bed in no distress RESPIRATORY SYSTEM: Unlabored breathing , decreased breath sounds at left base HEART: S1 S2 regular rate and rhythm , ABDOMEN: Soft , no tenderness EXTREMITIES: No edema feet - Labs CBC & Chem 7: 02/16/22 04:06 02/16/22 04:06 Labs: Abnormal Lab Results - Last 24 Hours (Table) 02/15/22 02/16/22 02/16/22 Range/Units 20:41 04:06 04:06 RBC 2.61 L (4.40-5.60) X 10*6/uL Hgb 7.5 L (13.0-17.0) g/dL Hct 24.3 L (39.6-50.0) % MCHC 30.9 L (32.0-37.0) g/dL BUN/Creatinine Ratio 26.14 H (12.00-20.00) Ratio Glucose 140 H (70-110) mg/dL POC Glucose (mg/dL) 162 H (70-110) mg/dL Calcium 7.6 L (8.7-10.3) mg/dL 02/16/22 02/16/22 02/16/22 Range/Units 06:59 11:51 16:30 RBC (4.40-5.60) X 10*6/uL Hgb (13.0-17.0) g/dL Hct (39.6-50.0) % MCHC (32.0-37.0) g/dL BUN/Creatinine Ratio (12.00-20.00) Ratio Glucose (70-110) mg/dL POC Glucose (mg/dL) 150 H 141 H 145 H (70-110) mg/dL Calcium (8.7-10.3) mg/dL Microbiology - Last 24 Hours (Table) 02/13/22 17:48 Anaerobic Culture - Preliminary Lung - Left Assessment and Plan (1) Pleural effusion, left Current Visit: Yes Status: Acute Code(s): J90 - PLEURAL EFFUSION, NOT ELSEWHERE CLASSIFIED SNOMED Code(s): 72179742 Plan: 1patient presented to hospital with sepsis source is left-sided pneumonia and empyema more likely from a community-acquired pathogen as the patient seem to have not received an antibiotic in the outpatient setting status post IR chest tube placement and fluid has been sent for the culture which has been finalized alphahemolytic streptococcus. 2patient status post left-sided thoracotomy and culture are so far pending, patient case clinically improving and will continue with Unasyn and continue supportive care Time with Patient: Less than 30
--- NOTE | 2022-02-18 07:07 | P.PN ---
Subjective Progress Note Date: 02/17/22 Principal diagnosis: Left-sided empyema Patient is a 71 year male presented to the hospital with left-sided chest pain and fever and cough has been diagnosed with a left-sided loculated effusion concerning for empyema in this patient who is status post chest tube placement on 02/03/2022 which unfortunately did fell off 02/05/2022 and was reinserted on 02/06/2022 and is status post alteplase infusion 2, patient is status post left-sided thoracotomy completed on 02/13/2022 and both the chest tube has been discontinued On today's evaluation that is 02/17/2022, the patient denies any fever or chills, the patient is breathing comfortably on room air , the patient denies any worsening left-sided chest pain , the patient denies any worsening cough or sputum production, patient denies abdominal pain and no diarrhea with antibiotic therapy Objective - Vital Signs Vital signs: Vital Signs Temp 98.2 F 02/17/22 13:00 Pulse 85 02/17/22 13:00 Resp 17 02/17/22 13:00 BP 122/68 02/17/22 13:00 Pulse Ox 98 02/17/22 16:28 FiO2 21 02/13/22 07:48 Intake & Output 02/16/22 02/17/22 02/17/22 18:59 06:59 18:59 Intake Total 400 Output Total 193 625 Balance -193 -225 Intake: IV 400 Ampicillin-Sulbactam 3 gm 400 In Sodium Chloride 0.9% 100 ml @ 200 mls/hr IVPB Q6HR [facility] Rx#:[id number] Output: Chest Tube Drainage 193 0 Chest Tube Left Lower 1 0 Lateral Chest Chest Tube Left Upper 192 Lateral Chest Drainage 0 Left 0 Urine 625 Other: Voiding Method Urinal Toilet Urinal # Voids 3 ABP, PAP, CO, CI - Last Documented Arterial Blood Pressure 141/54 - Exam GENERAL DESCRIPTION: An elderly male lying in bed in no distress RESPIRATORY SYSTEM: Unlabored breathing , decreased breath sounds at left base HEART: S1 S2 regular rate and rhythm , ABDOMEN: Soft , no tenderness EXTREMITIES: No edema feet - Labs CBC & Chem 7: 02/16/22 04:06 02/16/22 04:06 Labs: Abnormal Lab Results - Last 24 Hours (Table) 02/16/22 02/16/2202/17/22 Range/Units 16:30 21:21 06:41 POC Glucose (mg/dL) 145 H 146 H 138 H (70-110) mg/dL 02/17/22 Range/Units 11:25 POC Glucose (mg/dL) 192 H (70-110) mg/dL Microbiology - Last 24 Hours (Table) 02/06/22 12:05 Acid Fast Bacilli Smear - Final Pleural Fluid Acid Fast Bacilli Culture - Preliminary 02/03/22 11:30 Acid Fast Bacilli Smear - Final Pleural Fluid Acid Fast Bacilli Culture - Preliminary 02/13/22 17:48 Gram Stain - Preliminary Lung - Left Tissue Culture - Preliminary Assessment and Plan (1) Pleural effusion, left Current Visit: Yes Status: Acute Code(s): J90 - PLEURAL EFFUSION, NOT ELSEWHERE CLASSIFIED SNOMED Code(s): 16723230 Plan: 1patient presented to hospital with sepsis source is left-sided pneumonia and empyema more likely from a community-acquired pathogen as the patient seem to have not received an antibiotic in the outpatient setting status post IR chest tube placement and fluid has been sent for the culture which has been finalized alphahemolytic streptococcus. 2patient status post left-sided thoracotomy and culture are so far negative, patient has clinical improvement with Unasyn we'll transition to Rocephin 2 g daily 2 weeks on discharge Time with Patient: Less than 30
[2022-02-18 07:08] LABS: Glucose,Whole Blood 124 mg/dL (70-110)
[2022-02-18 07:22] VITALS: BP 127/79; PULSE 78; RESP 23; TEMP 98.1
[2022-02-18] MEDS: INSULIN ASPART (NovoLOG) 100 UNIT/ML VIAL SQ SCH ×4 (07:44→11:13)
--- NOTE | 2022-02-18 08:25 | P.PN ---
Subjective Progress Note Date: 02/18/22 Principal diagnosis: Complicated parapneumonic empyema left lower lobe with lung abscess, leukocytosis. Previous medical history of hypertension, hyperlipidemia, BPH, lifetime nonsmoker. POD #5 diagnostic bronchoscopy, video-assisted thoracoscopic surgery converted to open anterolateral thoracotomy, complete decortication, partial lung resection of the left upper lobe The patient was seen and examined this morning sitting up in bed on the medical telemetry unit in no acute distress. States pain is controlled with current medication regimen, denies shortness of breath, states he did get some sleep last night. Remains in sinus rhythm, hemodynamically stable. Left apical chest tube discontinued yesterday. Patient has ambulated in the hallway without difficulty. No other new concerns Objective - Vital Signs Vital signs: Vital Signs Temp 98.1 F 02/18/22 07:21 Pulse 78 02/18/22 07:21 Resp 23 02/18/22 07:21 BP 127/79 02/18/22 07:21 Pulse Ox 96 02/18/22 07:21 FiO2 21 02/13/22 07:48 Intake & Output 02/17/22 02/18/22 02/18/22 18:59 06:59 18:59 Intake Total 100 Output Total 625 Balance 100 -625 Intake: IV 100 Ampicillin-Sulbactam 3 gm 100 In Sodium Chloride 0.9% 100 ml @ 200 mls/hr IVPB Q6HR [facility] Rx#:[id number] Output: Urine 625 Other: Voiding Method Toilet Toilet Urinal Urinal # Voids 2 # Bowel Movements 3 ABP, PAP, CO, CI - Last Documented Arterial Blood Pressure 141/54 - Exam CONSTITUTIONAL: Sitting up in bed, appears comfortable, cooperative, no apparent acute distress. RESPIRATORY: Lungs sounds diminished to the left side. Respirations are even, nonlabored. Currently on room air with oxygen saturations 96%. Strong cough. Able to achieve 3000 mL on his incentive spirometry CARDIOVASCULAR: S1 and S2 present. Regular rate and rhythm, sinus rhythm on telemetry. Palpable peripheral pulses bilaterally. No edema present. No calf pain or tenderness noted. GASTROINTESTINAL: Abdomen soft, nontender, nondistended. Active bowel sounds present 4 quadrants. Tolerating diet. GENITOURINARY: Continues to void. INTEGUMENTARY: Skin is warm and dry. Thoracotomy incision present with dry intact dressing covering NEUROLOGIC: Cranial nerves II through XII intact. No focal deficits. MUSKULOSKELETAL: Able to move all extremities, strength equal bilaterally. PSYCHIATRIC: Alert and oriented to person place and time, appropriate affect, intact judgment and insight. - Allied health notes Allied health notes reviewed: nursing - Labs CBC & Chem 7: 02/16/22 04:06 02/16/22 04:06 Labs: Abnormal Lab Results - Last 24 Hours (Table) 02/12/22 02/17/22 02/17/22 Range/Units 05:54 11:25 16:42 POC Glucose (mg/dL) 192 H 125 H (70-110) mg/dL Crossmatch See Detail 02/17/22 02/18/22 Range/Units 20:14 07:05 POC Glucose (mg/dL) 167 H 124 H (70-110) mg/dL Crossmatch Microbiology - Last 24 Hours (Table) 02/13/22 17:48 Anaerobic Culture - Final Lung - Left 02/13/22 17:48 Gram Stain - Final Lung - Left Tissue Culture - Final 02/06/22 12:05 Acid Fast Bacilli Smear - Final Pleural Fluid Acid Fast Bacilli Culture - Preliminary 02/03/22 11:30 Acid Fast Bacilli Smear - Final Pleural Fluid Acid Fast Bacilli Culture - Preliminary - Imaging and Cardiology Chest x-ray: image reviewed Assessment and Plan Assessment: 1. Complicated parapneumonic effusion/empyema left lower lobe with lung abscess, status post insertion of pigtail catheter and installation of lytic therapy x 7 doses, status post diagnostic bronchoscopy, video-assisted thoracoscopic surgery converted to open anterolateral thoracotomy, complete decortication, partial lung resection of the left upper lobe 2. Persistent cough, fever, sweats, chills, pain with deep inspiration on admission 3. Leukocytosis, pleural fluid positive for alpha hemolytic strep 4. History of hypertension 5. History of hyperlipidemia 6. History of prostate disorder 7. Never smoker Plan: 1. Left apical chest tube removed yesterday, follow up CXR stable 2. Encourage use of his incentive spirometry 10 times every hour while awake. 3. Pain control per current current medication regimen 4. Increase activity as tolerated. Out of bed for all meals. 5. Continue on Unasyn managed by infectious disease management, cultures pending. 6. Patient is cleared for discharge from our standpoint when ok with other services. Follow up appointment and DC instructions placed on Discharge Plan
--- NOTE | 2022-02-18 08:49 | XR ---
EXAMINATION TYPE: XR chest 2V DATE OF EXAM: 02/18/2022 COMPARISON: 02/17/2022 TECHNIQUE: PA and lateral views submitted. HISTORY: Chest tube removal FINDINGS: Subcutaneous emphysema on the left post chest tube removal no sizable pneumothorax. Bilateral consoli dation and pleural effusion are stable. Lobulated pleural-based density which could represent loculat ed fluid along the left. There is severe rib deformity in that region correlate clinically. PICC line seen. Heart size normal. Curvature of the spine with degenerative changes. IMPRESSION: 1. No pneumothorax post chest tube removal. Persistent bilateral infiltrate and pleural parenchymal c hanges stable.
[2022-02-18] MEDS: SENNOSIDES-DOCUSATE SODIUM 1 EACH TAB PO SCH (10:37)
[2022-02-18] MEDS: PANTOPRAZOLE 40 MG TABLET PO SCH (10:37)
[2022-02-18] MEDS: MAGNESIUM OXIDE 400 MG TAB PO SCH (10:37)
[2022-02-18] MEDS: FERROUS SULFATE 325 MG TAB PO SCH (10:37)
[2022-02-18] MEDS: ASCORBIC ACID 500 MG TAB PO SCH (10:37)
[2022-02-18 11:01] LABS: Glucose,Whole Blood 128 mg/dL (70-110)
--- NOTE | 2022-02-18 11:14 | P.PN ---
Subjective Progress Note Date: 02/18/22 . 02/18/2022, the patient is doing well. Chest x-rays stable and shows some postsurgical changes and some residual opacity in the left lung. No evidence of any pneumothorax. Chest tube has been removed and the patient has no specific complaints. In fact the patient is awaiting to be discharged today. No other complaints otherwise. No fever. No chills. No issues with pain. He has good mobility. Objective - Vital Signs Vital signs: Vital Signs Temp 98.1 F 02/18/22 07:21 Pulse 78 02/18/22 07:21 Resp 23 02/18/22 07:21 BP 127/79 02/18/22 07:21 Pulse Ox 96 02/18/22 07:21 FiO2 21 02/13/22 07:48 Intake & Output 02/17/22 02/18/22 02/18/22 18:59 06:59 18:59 Intake Total 100 Output Total 625 Balance 100 -625 Intake: IV 100 Ampicillin-Sulbactam 3 gm 100 In Sodium Chloride 0.9% 100 ml @ 200 mls/hr IVPB Q6HR [facility] Rx#:[id number] Output: Urine 625 Other: Voiding Method Toilet Toilet Toilet Urinal Urinal Urinal # Voids 2 # Bowel Movements 3 ABP, PAP, CO, CI - Last Documented Arterial Blood Pressure 141/54 - Exam GENERAL EXAM: Alert, very pleasant 71-year-old male, on room air with pulse ox of 95%, comfortable in no apparent distress. HEAD: Normocephalic/atraumatic. EYES: Normal reaction of pupils, equal size. Conjunctiva pink, sclera white. NOSE: Clear with pink turbinates. THROAT: No erythema or exudates. NECK: No masses, no JVD, no thyroid enlargement, no adenopathy. CHEST: No chest wall deformity. 2 left-sided chest tubes are in place. Dressing dry and intact. LUNGS: Diminished breath sounds over left lower lobe with some crackles CVS: Regular rate and rhythm, normal S1 and S2, no gallops, no murmurs, no rubs ABDOMEN: Soft, nontender. No hepatosplenomegaly, normal bowel sounds, no guarding or rigidity. EXTREMITIES: No clubbing, no edema, no cyanosis, 2+ pulses and upper and lower extremities. MUSCULOSKELETAL: Muscle strength and tone normal. SPINE: No scoliosis or deformity SKIN: No rashes CENTRAL NERVOUS SYSTEM: No focal deficits, tone is normal in all 4 extremities. PSYCHIATRIC: Alert and oriented -3. Appropriate affect. Intact judgment and insight. - Labs CBC & Chem 7: 02/16/22 04:06 02/16/22 04:06 Labs: Abnormal Lab Results - Last 24 Hours (Table) 02/12/22 02/17/22 02/17/22 Range/Units 05:54 11:25 16:42 POC Glucose (mg/dL) 192 H 125 H (70-110) mg/dL Crossmatch See Detail 02/17/22 02/18/22 02/18/22 Range/Units 20:14 07:05 10:58 POC Glucose (mg/dL) 167 H 124 H 128 H (70-110) mg/dL Crossmatch Microbiology - Last 24 Hours (Table) 02/13/22 17:48 Anaerobic Culture - Final Lung - Left 02/13/22 17:48 Gram Stain - Final Lung - Left Tissue Culture - Final 02/06/22 12:05 Acid Fast Bacilli Smear - Final Pleural Fluid Acid Fast Bacilli Culture - Preliminary 02/03/22 11:30 Acid Fast Bacilli Smear - Final Pleural Fluid Acid Fast Bacilli Culture - Preliminary Assessment and Plan Plan: Complicated multiloculated parapneumonic left-sided pleural effusion, complication of the previously under treated pneumonia, status post left chest pigtail catheter placement with drainage of large amount of purulent material, and pleural fluid analysis is consistent with empyema, pleural fluid cultures positive for alpha hemolytic streptococcus, on Unasyn. He did undergo a video- assisted thorascopic surgery converted to open anterolateral thoracotomy with complete decortication and partial lung resection of left upper lobe on 02/13/2022. The chest tube was removed yesterday and the patient is going to go home on IV Rocephin via PICC line. Shortness of breath and pleuritic chest pain related to the above Hypertension Hyperlipidemia Nonsmoker plan Continue IV Rocephin via PICC line on outpatient basis Continue using incentive spirometer Home today and outpatient follow-up in 2-3 weeks time.
[2022-02-18] MEDS: traMADol 50 MG TAB PO PRN (12:50)
--- NOTE | 2022-02-19 00:53 | P.DS ---
Providers Date of admission: 02/01/22 00:00 Attending physician: Effie Mckeon MD Consults: 02/01/22 00:05 Consult Physician Urgent Consulting Provider: Francois Landaverde Consult Reason/Comments: left lung empyema Do you want consulting provider notified?: Yes 02/01/22 15:46 Consult Physician Routine Consulting Provider: Wenceslao Mittal Consult Reason/Comments: left lung empyema Do you want consulting provider notified?: Yes 02/03/22 08:50 Consult Physician Routine Consulting Provider: Karen Alamo Consult Reason/Comments: Empyema Do you want consulting provider notified?: Yes Primary care physician: [facility] Course: Diagnoses: Loculated complicated multiloculated left side pleural effusion with empyema & suspected pneumonia, he is status post surgical decortication and partial left upper lung resection on Left sided pneumonia and empyema. Culture is growing alpha hemolytic streptococci Postoperative anemia, expected Mild sepsis, Leukocytosis, fever secondary to above, improving Hypertension Hyperlpidemia Prediabetes/Diabetes with A1C of 6.4 History of prostate disorder Hospital course: This is a 71 year old male with past medical history significant for h ypertension, hyperlipidemia. He presents with 3 days of fever, shortness of breath and pleuritic chest pain. States about 6 weeks ago he began having cough and some exertional dyspnea. Patient found to have complicated multiloculated left pleural effusion and empyema, status post right detail catheter placement for drainage, several doses of alteplase/Dornase has been provided to help loosen the adhesions eventually developed a small pneumothorax which was stable and with failure of physical conservative therapy is recommended to undergo decortication to surgery with thoracic surgery team was 02/13, postoperatively he continued to improve slowly and gradually. Today his second chest tube was removed, repeat chest x-ray looks stable findings with no pneumothorax and improvement in auscultation. Patient was fully awake and oriented, looks comfortable, walking frequently intake room, denies abdominal pain or dysuria or urgency. No fever. Patient was cleared for discharge by all consultants including cardiothoracic surgery, pulmonary and Gen. surgery. Patient will be discharged in 2 weeks of Rocephin 2 g daily per ID team are also evaluated the patient. Problems and management plan were discussed with the patient and he verbalized understanding and acceptance Patient was found stable and can be discharged home however he needs follow-up as an outpatient. Patient was instructed to follow up with PCP Dr. Villarreal within one week and patient agrees Patient was instructed to follow up with sales record clerk in 2-3 weeks and infectious disease Dr. Alamo in one week and he agrees to call and make appointment Patient was instructed to follow-up with the surgeon Dr. Butcher in 1-2 weeks and she agrees Physical exam Gen: patient is a AAOx3, no distress CVS: S1-S2, RRR, no murmur Lungs: B/L CTA, no wheezing. Left chest wound small and healing Abdomen: soft, no distention, no tenderness, positive bowel sounds Extremity: no leg edema or induration Time spent more than 35 minutes Patient Condition at Discharge: Serious Plan - Discharge Summary Discharge Rx Participant: Yes New Discharge Prescriptions: New Ferrous Sulfate [Iron (65 MG Elemental)] 325 mg PO BID-W/MEALS 7 Days #14 tab cefTRIAXone [Rocephin] 2 gm IVPB Q24HR 14 Days each traMADol HCl [Ultram] 50 mg PO BID 3 Days #6 tab Continue Multivitamin [Multivitamins Adult Gummies] 1 each PO DAILY Rosuvastatin Calcium [Crestor] 5 mg PO Q48H Magnesium 250 mg PO DAILY Elderberry Fruit and Flower [Black Elderberry 575 mg Cap] 1 cap PO DAILY Vitamin B Complex 1 cap PO DAILY Irbesartan/Hydrochlorothiazide [Irbesartan-Hctz 300-12.5 mg Tb] 1 tab PO HS Cholecalciferol [Vitamin D3 (25 Mcg = 1000 Iu)] 25 mcg PO DAILY Discontinued Azithromycin [Zithromax] 500 mg PO DAILY Discharge Medication List Multivitamin [Multivitamins Adult Gummies] 1 each PO DAILY 06/10/16 [History] Rosuvastatin Calcium [Crestor] 5 mg PO Q48H 06/10/16 [History] Cholecalciferol [Vitamin D3 (25 Mcg = 1000 Iu)] 25 mcg PO DAILY 01/31/22 [History] Elderberry Fruit and Flower [Black Elderberry 575 mg Cap] 1 cap PO DAILY 01/31/22 [History] Irbesartan/Hydrochlorothiazide [Irbesartan-Hctz 300-12.5 mg Tb] 1 tab PO HS 01/31/22 [History] Magnesium 250 mg PO DAILY 01/31/22 [History] Vitamin B Complex 1 cap PO DAILY 01/31/22 [History] Ferrous Sulfate [Iron (65 MG Elemental)] 325 mg PO BID-W/MEALS 7 Days #14 tab 02/18/22 [Rx] cefTRIAXone [Rocephin] 2 gm IVPB Q24HR 14 Days each 02/18/22 [Rx] traMADol HCl [Ultram] 50 mg PO BID 3 Days #6 tab 02/18/22 [Rx] Follow up Appointment(s)/Referral(s): Katie Palma MD [STAFF PHYSICIAN] - 1 Week (PLEASE CALL AND SCHEDULE YOUR APPOINTMENT ) [facility], [NON-STAFF] - 1 Week MID,Infusion [NON-STAFF] - As Needed ([facility] (P: [phone]) - COVERAGE: 100% in-home and office.) Grupo Villarreal DO [Primary Care Provider] - 02/20/22 11:00 am Richard Butcher MD [STAFF PHYSICIAN] - 02/28/22 10:45 am aKren Alamo MD [STAFF PHYSICIAN] - 1 Week (CALL TO SCHEDULE APPOINTMENT ONCE FINISHED WITH IV ANTIBIOTICS ) Francois Landaverde MD [STAFF PHYSICIAN] - 03/20/22 2:45 pm Patient Instructions/Handouts: How to Use an Incentive Spirometer (DC), Pleural Empyema (DC), How to Care for Your PICC (Peripherally Inserted Central Catheter) (DC) Activity/Diet/Wound Care/Special Instructions: DISCHARGE INSTRUCTIONS: 1. No driving for 2 weeks, or until physician gives their ok. 2. No lifting, pushing, or pulling more than 10 pounds for 2 weeks. The physician will advise of any restriction changes. 3. Continue pain control per as needed orders. Alternate acetaminophen (Tylenol) and ibuprofen (Motrin/Advil) for pain. 4. Continue with incentive spirometry and splinting until otherwise directed by the physician. 5. Leave chest tube dressing for 48 hours (02/19/22). After that, remove all dressings and shower daily. 6. Routine incision care. No powders, lotions, ointments on incisions. 7. Please call surgeon/SAMPLER AND TEST PREPARER for temp greater than 101 F or purulent drainage from incisions. Discharge Disposition: HOME WITH HOME HEALTH SERVICES
== END 2022-02-18 14:50 | disposition home health service (06) | DRG 853 ==
LOC: EC 19:16 → 4SSUR 02-01 → 5NMEDONC 02-01 00:19 → 2SICU 02-13 18:49 → 4SSUR 02-15 05:57
PROVIDERS: ADMIT Internal Medicine; ATTEND Internal Medicine
PROC: 0W9B30Z Drainage of Left Pleural Cavity with Drainage Device, Percutaneous Approach (ICD-10-PCS; 2022-02-03)
PROC: 0W9B30Z Drainage of Left Pleural Cavity with Drainage Device, Percutaneous Approach (ICD-10-PCS; 2022-02-06)
PROC: 02HV33Z Insertion of Infusion Device into Superior Vena Cava, Percutaneous Approach (ICD-10-PCS; 2022-02-07)
PROC: 30233N1 Transfusion of Nonautologous Red Blood Cells into Peripheral Vein, Percutaneous Approach (ICD-10-PCS; principal; 2022-02-13 11:15)
PROC: 3E043XZ Introduction of Vasopressor into Central Vein, Percutaneous Approach (ICD-10-PCS; principal; 2022-02-13 11:15)
PROC: 0BJ08ZZ Inspection of Tracheobronchial Tree, Via Natural or Artificial Opening Endoscopic (ICD-10-PCS; principal; 2022-02-13 11:15)
PROC: 0BNJ0ZZ Release Left Lower Lung Lobe, Open Approach (ICD-10-PCS; principal; 2022-02-13 11:15)
PROC: 0BNG0ZZ Release Left Upper Lung Lobe, Open Approach (ICD-10-PCS; principal; 2022-02-13 11:15)
PROC: 0BBG0ZX Excision of Left Upper Lung Lobe, Open Approach, Diagnostic (ICD-10-PCS; principal; 2022-02-13 11:15)
DX: A40.8 Other streptococcal sepsis (principal); J86.9 Pyothorax without fistula; J18.9 Pneumonia, unspecified organism; J91.8 Pleural effusion in other conditions classified elsewhere; J98.11 Atelectasis; J94.2 Hemothorax; D64.9 Anemia, unspecified; E11.65 Type 2 diabetes mellitus with hyperglycemia; E78.5 Hyperlipidemia, unspecified; I10 Essential (primary) hypertension; K59.00 Constipation, unspecified; N40.0 Benign prostatic hyperplasia without lower urinary tract symptoms; J98.2 Interstitial emphysema; Z82.49 Family history of ischemic heart disease and other diseases of the circulatory system; Z28.310 Unvaccinated for COVID-19; Z20.822 Contact with and (suspected) exposure to COVID-19; Z98.890 Other specified postprocedural states; Z89.429 Acquired absence of other toe(s), unspecified side; Z79.899 Other long term (current) drug therapy; Z53.32 Thoracoscopic surgical procedure converted to open procedure; R06.82 Tachypnea, not elsewhere classified
CPT/HCPCS: 32551; 36415; 36430; 36573; 71045; 71046; 71250; 71275; 76604; 76942; 80048; 80053; 82150; 82945; 83036; 83605; 83615; 83735; 83880; 84157; 84484; 85025; 85027; 85610; 85730; 86850; 86900; 86901; 86920; 87040; 87070; 87075; 87102; 87116; 87205; 87206; 87502; 87635; 88108; 88305; 89050; 93005; 94760; 99285

== ENCOUNTER 2022-07-03 08:27 | Day surgery (SDC) | payer BC ==
[~2022-07-03 08:27] MED LIST: LACTATED RINGERS 1,000 ML IV SCH; LIDOCAINE 1% (10MG/ML) FOR IV START INTRADERMA PRN
[2022-07-03 08:59] VITALS: TEMP 97
--- NOTE | 2022-07-03 09:33 | P.GSHP ---
History of Present Illness H&P Date: 07/03/22 CHIEF COMPLAINT: Colon screen HISTORY OF PRESENT ILLNESS: The patient is a 72-year-old male who presents for colon screen. Lower endoscopy was offered for further evaluation and management. PAST MEDICAL HISTORY: Please see list. PAST SURGICAL HISTORY: Please see list. MEDICATIONS: Please see list. ALLERGIES: Please see list. SOCIAL HISTORY: No illicit drug use FAMILY HISTORY: No reports of Crohn disease or ulcerative colitis. REVIEW OF ORGAN SYSTEMS: CONSTITUTIONAL: No reports of fevers or chills. PHYSICAL EXAM: VITAL SIGNS: Stable GENERAL: Well-developed pleasant in no acute distress. HEENT: No scleral icterus. Extraocular movements grossly intact. Moist buccal mucosa. NECK: Supple without lymphadenopathy. CHEST: Unlabored respirations. Equal bilateral excursions. CARDIOVASCULAR: Regular rate and rhythm. Distal 2+ pulses. ABDOMEN: Soft, nontender, nondistended. MUSCULOSKELETAL: No clubbing, cyanosis, or edema. ASSESSMENT: 1. Colon screen. PLAN: 1. Recommend proceeding with a lower endoscopy Past Medical History Past Medical History: Hyperlipidemia, Hypertension, Pneumonia, Prostate Disorder Additional Past Medical History / Comment(s): enlarged prostate, strep pneumonia, chest tubes for med instillation History of Any Multi-Drug Resistant Organisms: None Reported Additional Past Surgical History / Comment(s): toe amputation had debridement of lungs from strep pneumonia january 2022, skin cancers removed from back, prostate biopsy Past Anesthesia/Blood Transfusion Reactions: No Reported Reaction Smoking Status: Never smoker - Past Family History Mother Family Medical History: No Reported History Father Family Medical History: Coronary Artery Disease (CAD) Medications and Allergies Home Medications Medication Instructions Recorded Confirmed Type Multivitamin [Multivitamins Adult 1 each PO DAILY 06/10/16 07/03/22 History Gummies] Rosuvastatin Calcium [Crestor] 5 mg PO Q48H 06/10/16 07/03/22 History Cholecalciferol [Vitamin D3 (25 25 mcg PO DAILY 01/31/22 07/03/22 History Mcg = 1000 Iu)] Elderberry Fruit and Flower [Black 1 cap PO DAILY 01/31/22 07/03/22 History Elderberry 575 mg Cap] Irbesartan/Hydrochlorothiazide 1 tab PO HS 01/31/22 07/03/22 History [Irbesartan-Hctz 300-12.5 mg Tb] Magnesium 250 mg PO DAILY 01/31/22 07/03/22 History Vitamin B Complex 1 cap PO DAILY 01/31/22 07/03/22 History Ferrous Sulfate [Iron (65 MG 325 mg PO BID-W/MEALS 7 Days #14 02/18/22 07/03/22 Rx Elemental)] tab cefTRIAXone [Rocephin] 2 gm IVPB Q24HR 14 Days each 02/18/22 07/03/22 Rx traMADol HCl [Ultram] 50 mg PO BID 3 Days #6 tab 02/18/22 07/03/22 Rx Allergies Allergy/AdvReac Type Severity Reaction Status Date / Time No Known Allergies Allergy Verified 07/03/22 08:46 Surgical - Exam Vital Signs Temp Pulse Resp BP Pulse Ox 97.0 F L 68 16 145/84 96 07/03/22 08:50 07/03/22 08:50 07/03/22 08:50 07/03/22 08:50 07/03/22 08:50
[2022-07-03] MEDS ORDERED: PROPOFOL 10 MG/ML 20 ML VIAL IV ONE (10:06)
[2022-07-03 10:52] VITALS: BP 158/93; PULSE 67; RESP 16
--- NOTE | 2022-07-03 10:53 | P.PCN ---
Date of Procedure: 07/03/22 Description of Procedure: PREOPERATIVE DIAGNOSIS: Family history malignant colon polyps Colonoscopy screening POSTOPERATIVE DIAGNOSIS: Tubular adenoma hepatic flexure Tubular adenoma cecum Anal adenoma Internal hemorrhoids, grade 2 OPERATION: Colonoscopy to the ileocecal valve and appendiceal orifice, cecum Colonoscopy with hot snare polypectomy Colonoscopy with cold forceps biopsy SURGEON: Priyanka Durham MD. ANESTHESIA: MAC. INDICATIONS: The patient is an 72-year-old male who presents for his first colonoscopy screening. Benefits and risks were described and informed consent was obtained. DESCRIPTION OF PROCEDURE: The patient had undergone Sutab prep. The patient had been brought into the operating room and laid in the left lateral decubitus position. After adequate intravenous sedation, the rectum was examined with 2% lidocaine jelly. The prostate fossa was unremarkable. External hemorrhoids were encountered. The rectal tone was within normal limits. No lesions were palpated in the rectal vault. An Olympus colonoscope was advanced until the cecum, ileocecal valve and appendiceal orifice were clearly viewed. The prep was good. No large sigmoid diverticulosis was encountered. Colonic polyps were found and removed. No evidence of focal colitis was found. Retroflexion of the scope demonstrated grade 2 internal hemorrhoids without active bleeding or inflammation. The colon was desufflated. The patient had tolerated the procedure well. Withdrawal time was over 6 minutes. FINDINGS: Aronchick preparation quality scale 2 (1-5) Internal hemorrhoids, grade 2 External hemorrhoids, grade 2. No arteriovenous malformations. No large sigmoid diverticulosis Removal of 5 polyps: - Snare polypectomy hepatic flexure, 9 mm tubulovillous adenoma polyp. - Snare polypectomy cecum 3, 5 to 8 mm flat villous adenoma polyp. - Cold forceps biopsy, 4 mm polyp, anal polyp No focal colitis. RECOMMENDATIONS: Given severity of tubular adenomas, recommend repeat colonoscopy 3 years, 2024 Plan - Discharge Summary Discharge Rx Participant: No New Discharge Prescriptions: Continue Multivitamin [Multivitamins Adult Gummies] 1 each PO DAILY Rosuvastatin Calcium [Crestor] 5 mg PO Q48H Ferrous Sulfate [Iron (65 MG Elemental)] 325 mg PO BID-W/MEALS 7 Days #14 tab traMADol HCl [Ultram] 50 mg PO BID 3 Days #6 tab Magnesium 250 mg PO DAILY Elderberry Fruit and Flower [Black Elderberry 575 mg Cap] 1 cap PO DAILY Vitamin B Complex 1 cap PO DAILY Irbesartan/Hydrochlorothiazide [Irbesartan-Hctz 300-12.5 mg Tb] 1 tab PO HS Cholecalciferol [Vitamin D3 (25 Mcg = 1000 Iu)] 25 mcg PO DAILY Discharge Medication List Multivitamin [Multivitamins Adult Gummies] 1 each PO DAILY 06/10/16 [History] Rosuvastatin Calcium [Crestor] 5 mg PO Q48H 06/10/16 [History] Cholecalciferol [Vitamin D3 (25 Mcg = 1000 Iu)] 25 mcg PO DAILY 01/31/22 [History] Elderberry Fruit and Flower [Black Elderberry 575 mg Cap] 1 cap PO DAILY 01/31/22 [History] Irbesartan/Hydrochlorothiazide [Irbesartan-Hctz 300-12.5 mg Tb] 1 tab PO HS 01/31/22 [History] Magnesium 250 mg PO DAILY 01/31/22 [History] Vitamin B Complex 1 cap PO DAILY 01/31/22 [History] Ferrous Sulfate [Iron (65 MG Elemental)] 325 mg PO BID-W/MEALS 7 Days #14 tab 02/18/22 [Rx] traMADol HCl [Ultram] 50 mg PO BID 3 Days #6 tab 02/18/22 [Rx] Follow up Appointment(s)/Referral(s): Priyanka Durham MD [STAFF PHYSICIAN] - As Needed Patient Instructions/Handouts: Colorectal Polyps (GEN) Activity/Diet/Wound Care/Special Instructions: Repeat colonoscopy in 2 years, 2023 Discharge Disposition: HOME SELF-CARE
== END 2022-07-03 11:37 | disposition home or self-care (01) ==
LOC: ORWHC2ENDO 08:27
PROVIDERS: ATTEND Surgery Plastic and Reconstructive Surgery
DX: Z12.11 Encounter for screening for malignant neoplasm of colon (principal); K64.1 Second degree hemorrhoids; D12.0 Benign neoplasm of cecum; D12.3 Benign neoplasm of transverse colon; K62.0 Anal polyp; E11.9 Type 2 diabetes mellitus without complications; I10 Essential (primary) hypertension; J18.9 Pneumonia, unspecified organism; N40.0 Benign prostatic hyperplasia without lower urinary tract symptoms; Z85.828 Personal history of other malignant neoplasm of skin; Z82.49 Family history of ischemic heart disease and other diseases of the circulatory system; Z79.899 Other long term (current) drug therapy; Z79.2 Long term (current) use of antibiotics
CPT/HCPCS: 88305; 45380; 45385; J2704

== ENCOUNTER 2022-08-10 08:18 | Emergency (ER) | payer BC ==
[2022-08-10 08:29] VITALS: RESP 18; TEMP 98
--- NOTE | 2022-08-10 09:01 | ED ---
URI HPI - General Chief Complaint: Upper Respiratory Infection Stated Complaint: Chest Congestion,Cough Time Seen by Provider: 08/10/22 08:29 Source: patient, family, RN notes reviewed Mode of arrival: ambulatory Limitations: no limitations - History of Present Illness Initial Comments: This is a 72-year-old male who presents to the emergency department for coughing and congestion. States that the symptoms have been present for 2 days. His largest concern for coming here, is that in January of this year, he had a large amount of fluid buildup in his lung, and subsequently required a chest tube. He was hospitalized for several days, and he wants to make sure that this does not happen again. He was experiencing a prolonged period of coughing at that time. His primary care provider told him that if he ever has coughing again, he should have it evaluated to prevent this from happening in the future. States that his symptoms feel different at this time, however he wants to make sure. Denies any chest pain or difficulty breathing. He has not been around anyone sick. Denies any fevers, chills, sore throat, dyspnea, chest pain, palpitations, abdominal pain, nausea, vomiting, diarrhea, back pain, or headaches. MD Complaint: cough, nasal congestion Onset/Timin -: days(s) - Related Data Home Medications Medication Instructions Recorded Confirmed Multivitamin [Multivitamins Adult 1 each PO DAILY 06/10/16 07/03/22 Gummies] Rosuvastatin Calcium [Crestor] 5 mg PO Q48H 06/10/16 07/03/22 Cholecalciferol [Vitamin D3 (25 25 mcg PO DAILY 01/31/22 07/03/22 Mcg = 1000 Iu)] Elderberry Fruit and Flower [Black 1 cap PO DAILY 01/31/22 07/03/22 Elderberry 575 mg Cap] Irbesartan/Hydrochlorothiazide 1 tab PO HS 01/31/22 07/03/22 [Irbesartan-Hctz 300-12.5 mg Tb] Magnesium 250 mg PO DAILY 01/31/22 07/03/22 Vitamin B Complex 1 cap PO DAILY 01/31/22 07/03/22 Previous Rx's Medication Instructions Recorded Ferrous Sulfate [Iron (65 MG 325 mg PO BID-W/MEALS 7 Days #14 02/18/22 Elemental)] tab traMADol HCl [Ultram] 50 mg PO BID 3 Days #6 tab 02/18/22 Promethazine/Dextromethorphan 5 ml PO Q4-6H PRN #473 ml 08/10/22 [Promethazine-Dm Syrup] Allergies Allergy/AdvReac Type Severity Reaction Status Date / Time No Known Allergies Allergy Verified 08/10/22 08:29 Review of Systems ROS Statement: Those systems with pertinent positive or pertinent negative responses have been documented in the HPI. ROS Other: All systems not noted in ROS Statement are negative. Past Medical History Past Medical History: Hyperlipidemia, Hypertension, Pneumonia History of Any Multi-Drug Resistant Organisms: None Reported Additional Past Surgical History / Comment(s): toe amputation, chest tube Past Anesthesia/Blood Transfusion Reactions: No Reported Reaction Past Psychological History: No Psychological Hx Reported Smoking Status: Never smoker Past Alcohol Use History: None Reported Past Drug Use History: None Reported - Past Family History Mother Family Medical History: No Reported History Father Family Medical History: Coronary Artery Disease (CAD) General Exam Limitations: no limitations General appearance: alert, in no apparent distress Head exam: Present: atraumatic, normocephalic, normal inspection Respiratory exam: Present: wheezes (Right upper and lower lobe) Cardiovascular Exam: Present: regular rate, normal rhythm, normal heart sounds. Absent: systolic murmur, diastolic murmur, rubs, gallop, clicks Neurological exam: Present: alert, oriented X3, CN II-XII intact Psychiatric exam: Present: normal affect, normal mood Skin exam: Present: warm, dry, intact, normal color. Absent: rash Course Vital Signs 08/10/22 08/10/22 08:25 10:29 Temperature 98 F Pulse Rate 71 64 Respiratory 18 18 Rate Blood Pressure 145/78 120/79 O2 Sat by Pulse 97 98 Oximetry Medical Decision Making - Medical Decision Making This is a 72-year-old male who presents to the emergency department for coughing and congestion. Discussed the patient's concerns with him, and he requests baseline lab work. Lab work was obtained and found to be nonactionable. My interpretation of the chest x-ray identifies no consolidations or infiltrates. Patient is positive for influenza A. He is out of the timeframe where Tamiflu can be prescribed. Prescription for promethazine DM cough syrup provided. Dosing instructions reviewed. Advised that this can be sedating and he should take his first dose at night until he knows how it affects him. Advised ibuprofen and Tylenol for any fevers. Also instructed him to remain well- hydrated and get plenty of rest. Return precautions reviewed in depth, the patient is instructed to return to the emergency department with any new, worsening, or concerning symptoms. Patient verbalized understanding. This case was discussed in detail with the attending ED physician. Presentation, findings, and treatment plan discussed in detail as well. - Lab Data Result diagrams: 08/10/22 09:06 08/10/22 09:06 Lab Results 08/10/22 08/10/22 08/10/22 Range/Units 08:34 09:06 09:06 WBC 4.0 (3.8-10.6) k/uL RBC 4.38 (4.30-5.90) m/uL Hgb 14.0 (13.0-17.5) gm/dL Hct 39.9 (39.0-53.0) % MCV 91.1 (80.0-100.0) fL MCH 32.0 (25.0-35.0) pg MCHC 35.2 (31.0-37.0) g/dL RDW 12.7 (11.5-15.5) % Plt Count 141 L (150-450) k/uL MPV 8.3 Neutrophils % 76 % Lymphocytes % 13 % Monocytes % 8 % Eosinophils % 1 % Basophils % 1 % Neutrophils # 3.0 (1.3-7.7) k/uL Lymphocytes # 0.5 L (1.0-4.8) k/uL Monocytes # 0.3 (0-1.0) k/uL Eosinophils # 0.0 (0-0.7) k/uL Basophils # 0.0 (0-0.2) k/uL PT 10.1 (9.0-12.0) sec INR 0.9 (<1.2) APTT 25.2 (22.0-30.0) sec Sodium (137-145) mmol/L Potassium (3.5-5.1) mmol/L Chloride (98-107) mmol/L Carbon Dioxide (22-30) mmol/L Anion Gap mmol/L BUN (9-20) mg/dL Creatinine (0.66-1.25) mg/dL Est GFR (CKD-EPI)AfAm (>60 ml/min/1.73 sqM) Est GFR (CKD-EPI)NonAf (>60 ml/min/1.73 sqM) Glucose (74-99) mg/dL Calcium (8.4-10.2) mg/dL Total Bilirubin (0.2-1.3) mg/dL AST (17-59) U/L ALT (4-49) U/L Alkaline Phosphatase (38-126) U/L Troponin I (0.000-0.034) ng/mL Total Protein (6.3-8.2) g/dL Albumin (3.5-5.0) g/dL Influenza Type A (PCR) Detected A (Not Detectd) Influenza Type B (PCR) Not Detected (Not Detectd) RSV (PCR) Not Detected (Not Detectd) SARS-CoV-2 (PCR) Not Detected (Not Detectd) 08/10/22 08/10/22 Range/Units 09:06 09:06 WBC (3.8-10.6) k/uL RBC (4.30-5.90) m/uL Hgb (13.0-17.5) gm/dL Hct (39.0-53.0) % MCV (80.0-100.0) fL MCH (25.0-35.0) pg MCHC (31.0-37.0) g/dL RDW (11.5-15.5) % Plt Count (150-450) k/uL MPV Neutrophils % % Lymphocytes % % Monocytes % % Eosinophils % % Basophils % % Neutrophils # (1.3-7.7) k/uL Lymphocytes # (1.0-4.8) k/uL Monocytes # (0-1.0) k/uL Eosinophils # (0-0.7) k/uL Basophils # (0-0.2) k/uL PT (9.0-12.0) sec INR (<1.2) APTT (22.0-30.0) sec Sodium 131 L (137-145) mmol/L Potassium 3.8 (3.5-5.1) mmol/L Chloride 99 (98-107) mmol/L Carbon Dioxide 26 (22-30) mmol/L Anion Gap 6 mmol/L BUN 19 (9-20) mg/dL Creatinine 0.75 (0.66-1.25) mg/dL Est GFR (CKD-EPI)AfAm >90 (>60 ml/min/1.73 sqM) Est GFR (CKD-EPI)NonAf >90 (>60 ml/min/1.73 sqM) Glucose 184 H (74-99) mg/dL Calcium 8.5 (8.4-10.2) mg/dL Total Bilirubin 0.6 (0.2-1.3) mg/dL AST 32 (17-59) U/L ALT 30 (4-49) U/L Alkaline Phosphatase 54 (38-126) U/L Troponin I <0.012 (0.000-0.034) ng/mL Total Protein 6.4 (6.3-8.2) g/dL Albumin 3.9 (3.5-5.0) g/dL Influenza Type A (PCR) (Not Detectd) Influenza Type B (PCR) (Not Detectd) RSV (PCR) (Not Detectd) SARS-CoV-2 (PCR) (Not Detectd) - Radiology Data Radiology results: report reviewed, image reviewed Disposition Clinical Impression: Influenza A Disposition: HOME SELF-CARE Instructions (If sedation given, give patient instructions): Influenza (ED) Additional Instructions: Return to the emergency department with any new, worsening, or concerning symptoms. You can take the cough medicine every 4-6 hours as needed. This can be sedating, and you should take your first dose at night until you know how it affects you. Make sure that you remain well-hydrated and get plenty of rest. Alternate with ibuprofen and Tylenol if you get any fevers. Follow up with your primary care provider in 1-2 days. Prescriptions: Promethazine/Dextromethorphan [Promethazine-Dm Syrup] 5 ml PO Q4-6H PRN #473 ml PRN Reason: Cough Is patient prescribed a controlled substance at d/c from ED?: No Referrals: Grupo Villarreal DO [Primary Care Provider] - 1-2 days
[2022-08-10 09:20] LABS: Basophils % (A) 1 %; Eosinophils % (A) 1 %; HCT 39.9 % (39.0-53.0); Lymphocytes # (A) 0.5 k/uL (1.0-4.8); Lymphocytes % (A) 13 %; MCHC 35.2 g/dL (31.0-37.0); MCV 91.1 fL (80.0-100.0); Mean Platelet Volume 8.3; Monocytes # (A) 0.3 k/uL (0-1.0); Monocytes % (A) 8 %; Neutrophils % (A) 76 %; Platelet Count 141 k/uL (150-450); RBC 4.38 m/uL (4.30-5.90); RDW 12.7 % (11.5-15.5)
[2022-08-10 09:32] LABS: INR 0.9 (<1.2); Prothrombin Time 10.1 sec (9.0-12.0)
[2022-08-10 09:33] LABS: ALT 30 U/L (4-49); AST 32 U/L (17-59); African American GFR (CKD) >90 (>60 ml/min/1.73 sqM); Albumin 3.9 g/dL (3.5-5.0); Alkaline Phosphatase 54 U/L (38-126); Anion Gap 6 mmol/L; Blood Urea Nitrogen 19 mg/dL (9-20); Calcium 8.5 mg/dL (8.4-10.2); Carbon Dioxide 26 mmol/L (22-30); Chloride 99 mmol/L (98-107); Glucose 184 mg/dL (74-99); Non-African American GFR(CKD) >90 (>60 ml/min/1.73 sqM); Partial Thromboplastin Time 25.2 sec (22.0-30.0); Potassium 3.8 mmol/L (3.5-5.1); Sodium 131 mmol/L (137-145); Total Bilirubin 0.6 mg/dL (0.2-1.3); Total Protein 6.4 g/dL (6.3-8.2)
--- NOTE | 2022-08-10 09:59 | XR ---
EXAMINATION TYPE: XR chest 2V DATE OF EXAM: 08/10/2022 9:13 AM COMPARISON: Chest radiographs from 02/18/2022 TECHNIQUE: XR chest 2V Frontal and lateral views of the chest. CLINICAL INDICATION:Male, 72 years old with history of Cough, YASH; FINDINGS: Lungs/Pleura: There is no evidence of pleural effusion, focal consolidation, or pneumothorax. Pulmonary vascularity: Unremarkable. Heart/mediastinum: Cardiomediastinal silhouette is unremarkable. Musculoskeletal: No acute osseous pathology. Post surgical changes left lateral wall. IMPRESSION: No acute cardiopulmonary disease/process.
[2022-08-10 10:30] VITALS: BP 120/79; PULSE 64
== END 2022-08-10 10:27 | disposition home or self-care (01) ==
LOC: EC 08:18
DX: J10.1 Influenza due to other identified influenza virus with other respiratory manifestations (principal); I10 Essential (primary) hypertension; E78.5 Hyperlipidemia, unspecified; Z20.822 Contact with and (suspected) exposure to COVID-19; Z79.899 Other long term (current) drug therapy; Z89.429 Acquired absence of other toe(s), unspecified side
CPT/HCPCS: 36415; 71046; 80053; 84484; 85025; 85610; 85730; 87636; 99283